=== PATIENT | female | born 1965 | race Caucasian/White ===

== ENCOUNTER 2018-01-22 17:44 | Inpatient (IN) | payer OTHER ==
[~2018-01-22] VITALS: Ht 170.2 cm; Wt 74.7 kg
[~2018-01-22 17:44] MED LIST: 1-ME1LIQ PO; ALBU0.086 NEB; ALPR0.25 PO; ALPR0.5T3 PO; ATEN-104 PO; BAYE325T3 PO; BUSP10 PO; DOXA1 PO; LISI-363 PO; LOVA20TA PO; METF500 PO; NITR0.4D2 TD; OMEP20TA39 PO; PROM25TA5 PO; SPIR50TA21 PO; SYMB80AE INH
[2018-01-22] MEDS ORDERED: MORPHINE SULFATE 4 MG/ML INJ IV PUSH ONE (18:00)
[2018-01-22] MEDS ORDERED: SODIUM CHLORID 0.9% 500 ML INJ 500 ML IV ONE (18:00)
[2018-01-22] MEDS ORDERED: SODIUM CHLORIDE 0.9% FLUSH 10 ML FLUSH IV FLUSH PRN (18:00)
[2018-01-22] MEDS ORDERED: ONDANSETRON HCL 4 MG/2 ML VIAL IVP ONE (18:00)
--- NOTE | 2018-01-22 18:07 | PD ---
HPI Chief Complaint: Abdominal pain Time Seen by Provider: 18:00 Travel History International Travel<30 days: No Contact w/Intl Traveler<30days: No History of Present Illness HPI 52-year-old female patient with history of liver disease, hypertension, COPD, TIAs, presents to the ER today because she states that she has had a 2 month history of increased abdominal bloating, worse in the last few days, nauseous, throwing up, and has been constipated for 4 days. She states that she was admitted a week ago at [facility] in [place] and was treated for elevated blood pressures. She denies any fevers, black stools or blood in the stools, or other symptoms. Pain is rated at 10 out of 10. Modifying Factors: None Associated Signs & Symptoms: Nausea, vomiting, increase abdominal bloating, abdominal pain Risk Factors: None PFSH Past Medical History Cancer: Yes ( cancer of lungs, pt not sure, pt did not have any tx, ovarian ca ,skin) Cardiovascular Problems: Yes (heart attack, no stents placed) Diabetes: Yes Endocrine: Yes Genitourinary: No Hepatitis: No Hiatal Hernia: No Immune Disorder: No Musculoskeletal: Yes (arthritis in feet and hands ) Neurologic: No (mini strokes difficulty walking, neuropathy) Psychiatric: Yes (anxiety) Reproductive: No Respiratory: Yes (copd, wears 2l 02 constantly) Thyroid Disease: Yes (elevated levels) Past Surgical History Abdominal Surgery: Yes (gallbladder) AICD: No Cardiac Surgery: Yes (heart cath 2014) Gynecologic Surgery: Yes (hysterectomy, 3 sections) Joint Replacement: No Pacemaker: No Social History Tobacco Use: No Substance Use: No Allergies-Medications (Allergen,Severity, Reaction): Coded Allergies: No Known Allergies (Unverified , 11/19/15) Reported Meds & Prescriptions Reported Meds & Active Scripts Active Reported Stiolto Respimat Inh (Tiotropium-Olodaterol Inh) 2.5-2.5 Mcg/Act Aero 2 Puff INH DAILY Folic Acid 1 Mg Tablet 1 Mg PO DAILY Lasix (Furosemide) 20 Mg Tab 20 Mg PO DAILY Phenergan (Promethazine HCl) 25 Mg Tablet 25 Mg PO Q8HR PRN Flexeril (Cyclobenzaprine HCl) 10 Mg Tab 10 Mg PO TID Aspirin 325 Mg Tab 325 Mg PO DAILY Methotrexate 2.5 Mg Tab 2.5 Mg PO DAILY Prednisone 5 Mg Tab 5 Mg PO BID Nifedipine ER 24 HR (Nifedipine) 30 Mg Tab 90 Mg PO DAILY Hydrocodone-Acetaminophen 7.5-300 Mg Tab 1 Tab PO TID Omeprazole 40 Mg Cap 40 Mg PO DAILY Alprazolam 0.25 Mg Tab 0.25 Mg PO BID Cefuroxime (Cefuroxime Axetil) 500 Mg Tab 500 Mg PO BID Advair Diskus Inh (Fluticasone-Salmeterol Inh) 500-50 Mcg/Blist Aer 1 Puff INH BID Rinse mouth after use. Proair Hfa (Albuterol Sulfate) 90 Mcg Hfa.aer.ad 1 Puff INH Q6HR PRN Review of Systems Except as stated in HPI: all other systems reviewed are Neg Physical Exam Narrative GENERAL: Well-developed middle-age female patient who appears to be in moderate distress. Awake and oriented 3. SKIN: Focused skin assessment warm/dry. She has several areas of ecchymosis on both arms. A small 3 cm spot of ecchymosis above the umbilicus. HEAD: Atraumatic. Normocephalic. EYES: Pupils equal and round. No scleral icterus. No injection or drainage. ENT: No nasal bleeding or discharge. Mucous membranes pink and moist. NECK: Trachea midline. No JVD. CARDIOVASCULAR: Regular rate and rhythm. No murmur appreciated. RESPIRATORY: No accessory muscle use. Clear to auscultation. Breath sounds equal bilaterally. GASTROINTESTINAL: Abdomen diffusely tender, tensely distended. Hepatic and splenic margins not palpable. MUSCULOSKELETAL: No obvious deformities. No clubbing. No cyanosis. No edema. NEUROLOGICAL: Awake and alert. No obvious cranial nerve deficits. Motor grossly within normal limits. Normal speech. PSYCHIATRIC: Appropriate mood and affect; insight and judgment normal. Data Data Last Documented VS Vital Signs Date Time Temp Pulse Resp B/P (MAP) Pulse Ox O2 Delivery O2 Flow Rate FiO2 01/22/18 18:17 16 01/22/18 18:17 114 188/114 (138) 94 Room Air 01/22/18 18:12 98.9 Orders Orders Complete Blood Count With Diff (01/22/18 18:00) Comprehensive Metabolic Panel (01/22/18 18:00) Lipase (01/22/18 18:00) Urinalysis - C+S If Indicated (01/22/18 18:00) Ct Abd/Pel W Iv Contrast(Rout) (01/22/18 18:00) Iv Access Insert/Monitor (01/22/18 18:00) Ecg Monitoring (01/22/18 18:00) Oximetry (01/22/18 18:00) Morphine Inj (Morphine Inj) (01/22/18 18:00) Ondansetron Inj (Zofran Inj) (01/22/18 18:00) Sodium Chloride 0.9% Flush (Ns Flush) (01/22/18 18:00) Sodium Chlorid 0.9% 500 Ml Inj (Ns 500 M (01/22/18 18:00) Labs Laboratory Tests Test 01/22/18 18:00 White Blood Count 18.3 TH/MM3 Red Blood Count 4.14 MIL/MM3 Hemoglobin 12.5 GM/DL Hematocrit 38.5 % Mean Corpuscular Volume 93.0 FL Mean Corpuscular Hemoglobin 30.1 PG Mean Corpuscular Hemoglobin Concent 32.4 % Red Cell Distribution Width 18.3 % Platelet Count 341 TH/MM3 Mean Platelet Volume 7.1 FL Neutrophils (%) (Auto) 85.3 % Lymphocytes (%) (Auto) 12.7 % Monocytes (%) (Auto) 1.7 % Eosinophils (%) (Auto) 0.1 % Basophils (%) (Auto) 0.2 % Neutrophils # (Auto) 15.6 TH/MM3 Lymphocytes # (Auto) 2.3 TH/MM3 Monocytes # (Auto) 0.3 TH/MM3 Eosinophils # (Auto) 0.0 TH/MM3 Basophils # (Auto) 0.0 TH/MM3 CBC Comment DIFF FINAL Differential Comment Blood Urea Nitrogen 20 MG/DL Creatinine 0.96 MG/DL Random Glucose 116 MG/DL Total Protein 7.5 GM/DL Albumin 2.8 GM/DL Calcium Level 9.0 MG/DL Alkaline Phosphatase 80 U/L Aspartate Amino Transf (AST/SGOT) 31 U/L Alanine Aminotransferase (ALT/SGPT) 92 U/L Total Bilirubin 0.7 MG/DL Sodium Level 131 MEQ/L Potassium Level 4.9 MEQ/L Chloride Level 89 MEQ/L Carbon Dioxide Level 33.2 MEQ/L Anion Gap 9 MEQ/L Estimat Glomerular Filtration Rate 61 ML/MIN Lipase 125 U/L MDM Medical Decision Making Medical Screen Exam Complete: Yes Emergency Medical Condition: Yes Medical Record Reviewed: Yes Interpretation(s) Laboratory Tests Test 01/22/18 18:00 White Blood Count 18.3 TH/MM3 (4.0-11.0) Red Cell Distribution Width 18.3 % (11.6-17.2) Neutrophils (%) (Auto) 85.3 % (16.0-70.0) Neutrophils # (Auto) 15.6 TH/MM3 (1.8-7.7) Blood Urea Nitrogen 20 MG/DL (7-18) Random Glucose 116 MG/DL (74-106) Albumin 2.8 GM/DL (3.4-5.0) Alanine Aminotransferase (ALT/SGPT) 92 U/L (10-53) Sodium Level 131 MEQ/L (136-145) Chloride Level 89 MEQ/L (98-107) Carbon Dioxide Level 33.2 MEQ/L (21.0-32.0) Estimat Glomerular Filtration Rate 61 ML/MIN (>89) Differential Diagnosis Ascites versus obstruction versus other acute intra-abdominal processes Narrative Course Workup was initiated and CAT scan was ordered. Patient was given IV fluids, pain medications and Zofran in the ER. Lab work returned showing leukocytosis. Physician Communication Physician Communication Case is signed out at [address] Little awaiting CAT scan. Diagnosis Primary Impression: Abdominal pain Suzy Adams MD Jan 22, 2018 18:07
[2018-01-22 18:12] VITALS: BP 188/114; PULSE 114; RESP 18; TEMP 98.9; O2SAT 95
[2018-01-22 18:17] VITALS: BP 188/114; PULSE 114; RESP 18; O2SAT 94; O2SAT 95
[2018-01-22] MEDS ORDERED: CEFU1TAB20 PO (18:43)
[2018-01-22] MEDS ORDERED: FOLI1TAB6 PO (18:43)
[2018-01-22] MEDS ORDERED: ALBUAER3 INH (18:43)
[2018-01-22] MEDS ORDERED: ALPR0.25 PO (18:43)
[2018-01-22] MEDS ORDERED: OMEP40CA2 PO (18:43)
[2018-01-22] MEDS ORDERED: METH2.5T PO (18:43)
[2018-01-22] MEDS ORDERED: ADVA500A INH (18:43)
[2018-01-22] MEDS ORDERED: HYDR-2376 PO (18:43)
[2018-01-22] MEDS ORDERED: FURO1TAB62 PO (18:43)
[2018-01-22] MEDS ORDERED: TIOT1AER INH (18:43)
[2018-01-22] MEDS ORDERED: ASPI-183 PO (18:43)
[2018-01-22] MEDS ORDERED: PRED5TAB PO (18:43)
[2018-01-22] MEDS ORDERED: CYCL10TA PO (18:43)
[2018-01-22] MEDS ORDERED: PROM25TA10 PO (18:43)
[2018-01-22] MEDS ORDERED: NIFE30TA61 PO (18:43)
[2018-01-22 18:45] LABS: AUTOMATED NEUTROPHIL # 15.6 TH/MM3 (1.8-7.7); BASOPHIL % 0.2 % (0.0-2.0); EOSINOPHIL % 0.1 % (0.0-4.0); HEMATOCRIT 38.5 % (35.0-46.0); HEMOGLOBIN 12.5 GM/DL (11.6-15.3); LYMPH % 12.7 % (9.0-44.0); LYMPHOCYTE # 2.3 TH/MM3 (1.0-4.8); MEAN CORPUSCULAR HEMOGLOBIN 30.1 PG (27.0-34.0); MEAN CORPUSCULAR HGB CONC 32.4 % (32.0-36.0); MEAN PLATELET VOLUME 7.1 FL (7.0-11.0); MONO % 1.7 % (0.0-8.0); MONOCYTE # 0.3 TH/MM3 (0-0.9); NEUT % 85.3 % (16.0-70.0); PLATELET COUNT 341 TH/MM3 (150-450); RED BLOOD COUNT 4.14 MIL/MM3 (4.00-5.30); RED CELL DISTRIBUTION WIDTH 18.3 % (11.6-17.2); WHITE BLOOD COUNT 18.3 TH/MM3 (4.0-11.0)
[2018-01-22 18:58] LABS: ALBUMIN 2.8 GM/DL (3.4-5.0); ALT (GPT) 92 U/L (10-53); AST (GOT) 31 U/L (15-37); BICARBONATE 33.2 MEQ/L (21.0-32.0); BLOOD UREA NITROGEN 20 MG/DL (7-18); CHLORIDE 89 MEQ/L (98-107); CREATININE 0.96 MG/DL (0.50-1.00); GLOMERULAR FILTRATION RATE 61 ML/MIN (>89); GLUCOSE,RANDOM 116 MG/DL (74-106); SODIUM (NA) 131 MEQ/L (136-145)
[2018-01-22 19:00] LABS: ALKALINE PHOSPHATASE 80 U/L (45-117); TOTAL BILIRUBIN ADULT 0.7 MG/DL (0.2-1.0); TOTAL PROTEIN 7.5 GM/DL (6.4-8.2)
[2018-01-22] MEDS ORDERED: PIPERACIL-TAZO 4.5 GM PREMIX 100 ML IV ONE (19:45)
[2018-01-22] MEDS ORDERED: VANCOMYCIN INJ 1,000 MG in SODIUM CHLOR 0.9% 250 ML INJ 250 ML IV ONE (19:45)
[2018-01-22] MEDS ORDERED: IOHEXOL 350 MG/ML 10 ML VIAL (for RAD DIAG) IVCONTRAST ONE (19:51)
--- NOTE | 2018-01-22 20:28 | RADRPT ---
EXAM DATE/TIME: 01/22/2018 19:40 [facility] COMPARISON: No previous studies available for comparison. INDICATIONS : Abdominal pain and distention. IV CONTRAST: 100 cc Omnipaque 350 (iohexol) IV ORAL CONTRAST: No oral contrast ingested. RADIATION DOSE: 6.30 CTDIvol (mGy) MEDICAL HISTORY : Cardiovascular disease. Chronic obstructive pulmonary disease. Renal disease. Lung cancer. SURGICAL HISTORY : Hysterectomy. section. ENCOUNTER: Initial ACUITY: 2 months PAIN SCALE: 10/10 LOCATION: Abdomen. TECHNIQUE: Volumetric scanning of the abdomen and pelvis was performed. Using automated exposure control and ad justment of the mA and/or kV according to patient size, radiation dose was kept as low as reasonably achievable to obtain optimal diagnostic quality images. DICOM format image data is available electro nically for review and comparison. FINDINGS: There is subsegmental air space disease at the lung bases. Mild ascites. Mild fatty liver. Spleen, adrenals, kidneys pancreas unremarkable. Postoperative cholec ystectomy. There is a small hiatal hernia. The cecum appears impacted with stool and middle findings are characteristic of a distal small bowel obstruction with multiple air-fluid levels in small bowel. The left colon is decompressed. CONCLUSION: 1. Distal small bowel obstruction with multiple air-fluid levels. The cecum is impacted with stool to a diameter of 9.2 cm and it is unclear if this is related to a distal small bowel obstruction. No fr ee air. There is mild ascites. 2. Subsegmental patchy airspace disease at the lung base is trace right pleural fluid. 3. Small hiatal hernia. Tee Herrera MD on January 22, 2018 at 20:20 Board Certified Radiologist. This report was verified electronically.
[2018-01-22 21:00] VITALS: BP 145/76; PULSE 110; RESP 16; O2SAT 92
[2018-01-22] MEDS ORDERED: SODIUM CHLOR 0.9% 1000 ML INJ 1,000 ML IV ONE (21:30)
[2018-01-22] MEDS ORDERED: metroNIDAZOLE 500 MG INJ 100 ML IV ONE (21:30)
[2018-01-22 21:54] LABS: AMORPHOUS SEDIMENT, URINE RARE; BILIRUBIN, URINE NEG (NEG); BLOOD, URINE NEG (NEG); GLUCOSE,URINE NEG (NEG); KETONE, URINE TRACE mg/dL (NEG); MUCUS URINE FEW /lpf (OCC); NITRITE,URINE NEG (NEG); SQUAMOUS EPITHELIAL CELL URINE 3 /hpf (0-5); URINE COLOR YELLOW (YELLW/STRAW); URINE LEUKOCYTE ESTERASE NEG (NEG)
--- NOTE | 2018-01-22 21:58 | PD ---
Physical Exam Narrative Patient signed out to me at shift change pending CT abdomen pelvis and remainder laboratory examinations. Patient has a white blood cell count of 18, 000 that had just resulted. Patient examined en route to CT was noted to have a markedly distended abdomen. Patient CT observed real time, noted to have a large distention, a series primarily around the patient's liver, small bowel obstruction with small bowel noted to be a diameter of 3.5 cm with a possible lead point in the distal small bowel, as well as a noncontiguous large fecal impaction in the sigmoid with approximately 9.2 cm diameter. IV fluids and antibiotics ordered from CT suite. Case discussed with Dr. Yvon Florian from surgery, on consult if need be. Patient discussed with Dr. Poole from gastroenterology. Will consult and discuss management of patient's fecal impaction. NG tube placed. Patient admitted to hospitalist service Data Data Last Documented VS Vital Signs Date Time Temp Pulse Resp B/P (MAP) Pulse Ox O2 Delivery O2 Flow Rate FiO2 01/22/18 21:00 110 16 145/76 (99) 92 Room Air 01/22/18 18:12 98.9 Orders Orders Complete Blood Count With Diff (01/22/18 18:00) Comprehensive Metabolic Panel (01/22/18 18:00) Lipase (01/22/18 18:00) Urinalysis - C+S If Indicated (01/22/18 18:00) Ct Abd/Pel W Iv Contrast(Rout) (01/22/18 18:00) Iv Access Insert/Monitor (01/22/18 18:00) Ecg Monitoring (01/22/18 18:00) Oximetry (01/22/18 18:00) Morphine Inj (Morphine Inj) (01/22/18 18:00) Ondansetron Inj (Zofran Inj) (01/22/18 18:00) Sodium Chloride 0.9% Flush (Ns Flush) (01/22/18 18:00) Sodium Chlorid 0.9% 500 Ml Inj (Ns 500 M (01/22/18 18:00) Piperacil-Tazo 4.5 Gm Premix (Zosyn 4.5 (01/22/18 19:45) Vancomycin Inj (Vancomycin Inj) (01/22/18 19:45) Iohexol 350 Inj (Omnipaque 350 Inj) (01/22/18 19:51) Insert Ng Tube (01/22/18 21:15) Metronidazole 500 Mg Inj (Flagyl 500 Mg (01/22/18 21:30) Consent (01/22/18 21:27) Npo After Midnight W/ Po Meds (01/23/18 Breakfast) Lactic Acid (01/22/18 21:30) Sodium Chlor 0.9% 1000 Ml Inj (Ns 1000 M (01/22/18 21:30) Labs Laboratory Tests Test 01/22/18 18:00 01/22/18 20:55 White Blood Count 18.3 TH/MM3 Red Blood Count 4.14 MIL/MM3 Hemoglobin 12.5 GM/DL Hematocrit 38.5 % Mean Corpuscular Volume 93.0 FL Mean Corpuscular Hemoglobin 30.1 PG Mean Corpuscular Hemoglobin Concent 32.4 % Red Cell Distribution Width 18.3 % Platelet Count 341 TH/MM3 Mean Platelet Volume 7.1 FL Neutrophils (%) (Auto) 85.3 % Lymphocytes (%) (Auto) 12.7 % Monocytes (%) (Auto) 1.7 % Eosinophils (%) (Auto) 0.1 % Basophils (%) (Auto) 0.2 % Neutrophils # (Auto) 15.6 TH/MM3 Lymphocytes # (Auto) 2.3 TH/MM3 Monocytes # (Auto) 0.3 TH/MM3 Eosinophils # (Auto) 0.0 TH/MM3 Basophils # (Auto) 0.0 TH/MM3 CBC Comment DIFF FINAL Differential Comment Blood Urea Nitrogen 20 MG/DL Creatinine 0.96 MG/DL Random Glucose 116 MG/DL Total Protein 7.5 GM/DL Albumin 2.8 GM/DL Calcium Level 9.0 MG/DL Alkaline Phosphatase 80 U/L Aspartate Amino Transf (AST/SGOT) 31 U/L Alanine Aminotransferase (ALT/SGPT) 92 U/L Total Bilirubin 0.7 MG/DL Sodium Level 131 MEQ/L Potassium Level 4.9 MEQ/L Chloride Level 89 MEQ/L Carbon Dioxide Level 33.2 MEQ/L Anion Gap 9 MEQ/L Estimat Glomerular Filtration Rate 61 ML/MIN Lipase 125 U/L Urine Color YELLOW Urine Turbidity HAZY Urine pH 8.0 Urine Specific [place] 1.047 Urine Protein TRACE mg/dL Urine Glucose (UA) NEG mg/dL Urine Ketones TRACE mg/dL Urine Occult Blood NEG Urine Nitrite NEG Urine Bilirubin NEG Urine Urobilinogen 4.0 MG/DL Urine Leukocyte Esterase NEG Urine RBC 2 /hpf Urine WBC 3 /hpf Urine Squamous Epithelial Cells 3 /hpf Urine Amorphous Sediment RARE Urine Mucus FEW /lpf Microscopic Urinalysis Comment CULT NOT INDICATED MDM Medical Record Reviewed: Yes Supervised Visit with PHILIPPE: Yes Differential Diagnosis Fecal impaction, small bowel obstruction Narrative Course See narrative note. Admitted Diagnosis Primary Impression: Abdominal pain Qualified Codes: R10.84 - Generalized abdominal pain Additional Impressions: Fecal impaction Small bowel obstruction Admitting Information Admitting Physician Requests: Admit Rodrick Little MD Jan 22, 2018 21:58
[2018-01-22] MEDS ORDERED: NALOXONE HCL 0.4 MG/ML AMP IV PUSH PRN (22:45)
[2018-01-22 23:01] VITALS: BP 145/70; PULSE 117; RESP 16; O2SAT 92
[2018-01-23 02:37] VITALS: BP 167/91; PULSE 107; RESP 17; TEMP 98.3; O2SAT 98
[2018-01-23] MEDS: MORPHINE SULFATE 2 MG/ML SYRINGE IV PUSH PRN ×3 (03:59→10:19)
[2018-01-23] MEDS: SODIUM CHLORIDE 0.9% FLUSH 10 ML FLUSH IV FLUSH PRN (03:59)
[2018-01-23 04:37] LABS: AUTOMATED NEUTROPHIL # 10.8 TH/MM3 (1.8-7.7); BASOPHIL % 0.3 % (0.0-2.0); EOSINOPHIL % 0.3 % (0.0-4.0); HEMATOCRIT 35.4 % (35.0-46.0); HEMOGLOBIN 11.6 GM/DL (11.6-15.3); LYMPH % 13.6 % (9.0-44.0); LYMPHOCYTE # 1.8 TH/MM3 (1.0-4.8); MEAN CELL VOLUME 92.1 FL (80.0-100.0); MEAN CORPUSCULAR HEMOGLOBIN 30.2 PG (27.0-34.0); MEAN CORPUSCULAR HGB CONC 32.8 % (32.0-36.0); MEAN PLATELET VOLUME 7.1 FL (7.0-11.0); MONO % 2.7 % (0.0-8.0); MONOCYTE # 0.3 TH/MM3 (0-0.9); NEUT % 83.1 % (16.0-70.0); PLATELET COUNT 334 TH/MM3 (150-450); RED BLOOD COUNT 3.85 MIL/MM3 (4.00-5.30); RED CELL DISTRIBUTION WIDTH 18.6 % (11.6-17.2); WHITE BLOOD COUNT 12.9 TH/MM3 (4.0-11.0)
--- NOTE | 2018-01-23 05:12 | HHI.HP ---
[facility] Primary Care Physician Non-Staff Admission Diagnosis SBO, Fecal Impaction Diagnoses: Travel History International Travel<30 Days: No Contact w/Intl Traveler <30 Da: No Traveled to Known Affected Are: No History of Present Illness History from patient, ER communication, interview of medical records. Patient is in quite a bit of distress at the time of my exam. She is covering her eyes the whole time. She is pleasant though. She reports that she's been very nauseous and felt headaches. She reports she came to the hospital she's been having abdominal pain for the past few days. Reports it is diffuse everywhere. Reports she has been vomiting at least 3 times a day as well. Reports she initially started out with diarrhea episodes and now has been constipated for past few days. Denies fever. Denies any blood in her stool or in her urine. Denies any coffee-ground color vomiting. Patient denies any prior history of similar episodes. According to the nursing staff who spoke to the daughter, patient was at [facility] with similar symptoms. Nothing was done at that time. Patient reports of prior history of intra-abdominal surgeries. The emergency room, patient's further workup revealed small bowel obstruction with fecal impaction. Her case was discussed with general surgeon on-call by ER physician. Patient had NG tube placed in ER. Currently it is draining minimal. Review of Systems Except as stated in HPI: all other systems reviewed are Neg Past Family Social History Past Medical History Hypertension Diabetes Hyperlipidemia CAD CHF Atrial fibrillation Possible chronic anticoagulation on Coumadin per patient COPD on home oxygen 2 L Liver cirrhosis Chronic kidney disease TIA History of seizures but no longer on medications History of lung cancer many years ago. She states she did not get any treatment with chemoradiation. She is not sure regarding lobectomy. Past Surgical History lung biopsy coronary angiogram appendectomy hysterectomy cholecystectomy Allergies: Coded Allergies: No Known Allergies (Unverified , 11/19/15) Family History none that she knows of Social History smokes >1 ppd now no etoh abuse no drugs lives with family members Physical Exam Vital Signs Vital Signs Date Time Temp Pulse Resp B/P (MAP) Pulse Ox O2 Delivery O2 Flow Rate FiO2 01/23/18 02:37 98.3 107 17 167/91 (116) 98 01/22/18 23:01 117 16 145/70 (95) 92 Nasal Cannula 2.00 01/22/18 21:00 110 16 145/76 (99) 92 Room Air 01/22/18 18:17 16 01/22/18 18:17 114 18 188/114 (138) 94 Room Air 01/22/18 18:17 114 18 188/114 (138) 95 Room Air 01/22/18 18:12 98.9 114 18 188/114 (138) 95 Physical Exam GENERAL: This is a well-nourished, well-developed patient, in no apparent distress from pain SKIN: No rashes, ecchymoses or lesions. Cool and dry. HEAD: Atraumatic. Normocephalic. No temporal or scalp tenderness. EYES: No scleral icterus. No injection or drainage. ENT: Nose without bleeding, purulent drainage or septal hematoma. . Airway patent. NECK: Trachea midline. No JVD Supple, nontender, no meningeal signs. CARDIOVASCULAR: Regular rate and rhythm without murmurs, gallops, or rubs. RESPIRATORY: Clear to auscultation. Breath sounds equal bilaterally. No wheezes , rales, or rhonchi. GASTROINTESTINAL: Abdomen distended. Scant bowel sounds. Pain on palpation MUSCULOSKELETAL: Extremities without clubbing, cyanosis, or edema. No calf tenderness. NEUROLOGICAL: Awake and alert. Motor and sensory grossly within normal limits. Normal speech. Laboratory Laboratory Tests Test 01/22/18 18:00 01/22/18 20:55 01/22/18 21:50 01/23/18 04:08 White Blood Count 18.3 12.9 Red Blood Count 4.14 3.85 Hemoglobin 12.5 11.6 Hematocrit 38.5 35.4 Mean Corpuscular Volume 93.0 92.1 Mean Corpuscular Hemoglobin 30.1 30.2 Mean Corpuscular Hemoglobin Concent 32.4 32.8 Red Cell Distribution Width 18.3 18.6 Platelet Count 341 334 Mean Platelet Volume 7.1 7.1 Neutrophils (%) (Auto) 85.3 83.1 Lymphocytes (%) (Auto) 12.7 13.6 Monocytes (%) (Auto) 1.7 2.7 Eosinophils (%) (Auto) 0.1 0.3 Basophils (%) (Auto) 0.2 0.3 Neutrophils # (Auto) 15.6 10.8 Lymphocytes # (Auto) 2.3 1.8 Monocytes # (Auto) 0.3 0.3 Eosinophils # (Auto) 0.0 0.0 Basophils # (Auto) 0.0 0.0 CBC Comment DIFF FINAL DIFF FINAL Differential Comment Blood Urea Nitrogen 20 Creatinine 0.96 Random Glucose 116 Total Protein 7.5 Albumin 2.8 Calcium Level 9.0 Alkaline Phosphatase 80 Aspartate Amino Transf (AST/SGOT) 31 Alanine Aminotransferase (ALT/SGPT) 92 Total Bilirubin 0.7 Sodium Level 131 Potassium Level 4.9 Chloride Level 89 Carbon Dioxide Level 33.2 Anion Gap 9 Estimat Glomerular Filtration Rate 61 Lipase 125 Urine Color YELLOW Urine Turbidity HAZY Urine pH 8.0 Urine Specific [place] 1.047 Urine Protein TRACE Urine Glucose (UA) NEG Urine Ketones TRACE Urine Occult Blood NEG Urine Nitrite NEG Urine Bilirubin NEG Urine Urobilinogen 4.0 Urine Leukocyte Esterase NEG Urine RBC 2 Urine WBC 3 Urine Squamous Epithelial Cells 3 Urine Amorphous Sediment RARE Urine Mucus FEW Microscopic Urinalysis Comment CULT NOT INDICATED Lactic Acid Level 0.8 Result Diagram: 01/23/18 0408 01/22/18 1800 Imaging Last 48 hours Impressions Abdomen/Pelvis CT 01/22/18 1800 Signed Impressions: Service Date/Time: Monday, January 22, 2018 19:40 - CONCLUSION: 1. Distal small bowel obstruction with multiple air-fluid levels. The cecum is impacted with stool to a diameter of 9.2 cm and it is unclear if this is related to a distal small bowel obstruction. No free air. There is mild ascites. 2. Subsegmental patchy airspace disease at the lung base is trace right pleural fluid. 3. Small hiatal hernia. Tee Herrera MD Caprini VTE Risk Assessment Caprini VTE Risk Assessment: Mod/High Risk (score >= 2) Caprini Risk Assessment Model Point Value = 1 Point Value = 2 Point Value = 3 Point Value = 5 Age 41-60 Minor surgery BMI > 25 kg/m2 Swollen legs Varicose veins or History of unexplained or recurrent spontaneous Oral contraceptives or hormone replacement Sepsis (< 1 month) Serious lung disease, including pneumonia (< 1 month) Abnormal pulmonary function Acute myocardial infarction Congestive heart failure (< 1 month) History of inflammatory bowel disease Medical patient at bed rest Age 61-74 Arthroscopic surgery Major open surgery (> 45 min) Laparoscopic surgery (> 45 min) Malignancy Confined to bed (> 72 hours) Immobilizing plaster cast Central venous access Age >= 75 History of VTE Family history of VTE Factor V Leiden Prothrombin [id number] Lupus anticoagulant Anticardiolipin antibodies Elevated serum homocysteine Heparin-induced thrombocytopenia Other congenital or acquired thrombophilia Stroke (< 1 month) Elective arthroplasty Hip, pelvis, or leg fracture Acute spinal cord injury (< 1 month) Prophylaxis Regimen Total Risk Factor Score Risk Level Prophylaxis Regimen 0-1 Low Early ambulation 2 Moderate Order ONE of the following: *Sequential Compression Device (SCD) *Heparin 5000 units SQ BID 3-4 Higher Order ONE of the following medications: *Heparin 5000 units SQ TID *Enoxaparin/Lovenox 40 mg SQ daily (WT < 150 kg, CrCl > 30 mL/min) *Enoxaparin/Lovenox 30 mg SQ daily (WT < 150 kg, CrCl > 10-29 mL/min) *Enoxaparin/Lovenox 30 mg SQ BID (WT < 150 kg, CrCl > 30 mL/min) AND/OR *Sequential Compression Device (SCD) 5 or more Highest Order ONE of the following medications: *Heparin 5000 units SQ TID (Preferred with Epidurals) *Enoxaparin/Lovenox 40 mg SQ daily (WT < 150 kg, CrCl > 30 mL/min) *Enoxaparin/Lovenox 30 mg SQ daily (WT < 150 kg, CrCl > 10-29 mL/min) *Enoxaparin/Lovenox 30 mg SQ BID (WT < 150 kg, CrCl > 30 mL/min) AND *Sequential Compression Device (SCD) Assessment and Plan Assessment and Plan Impression: Small bowel obstruction Cecal fecal impaction Leukocytosis with left shift Comorbid conditions: Hypertension Diabetes Hyperlipidemia CAD CHF Atrial fibrillation Possible chronic anticoagulation on Coumadin per patient COPD on home oxygen 2 L Liver cirrhosis Chronic kidney disease TIA History of seizures but no longer on medications History of lung cancer many years ago. Plan: Nothing by mouth. IV hydration. With D5 IV fluids Monitor fingersticks. Pain control. We'll check stat labs for this morning including INR. Patient is still in me that she takes Coumadin. However this is not on her med reconciliation which was done by pharmacy informatics manager calling her pharmacy. We'll need to make sure her INR in case patient goes for OR. GI consult for disimpaction by scope. General surgery consult. Suspect that this patient will likely end up in OR within the next 24-48 hours if she doesn't improve for lysis of adhesions. NG tube to continue at low intermittent suction. Minimal draining. Abdominal exam is not much improving. Resume home meds apart from long-acting insulin and oral hypoglycemics. DVT prophylaxis with SCD. GI prophylaxis on pantoprazole. Discussed Condition With patient, ER MD, nursing staff Physician Certification 2 Midnight Certification Type: Admission for Inpatient Services Order for Inpatient Services The services are ordered in accordance with Medicare regulations or non- Medicare payer requirements, as applicable. In the case of services not specified as inpatient-only, they are appropriately provided as inpatient services in accordance with the 2-midnight benchmark. Estimated LOS (days): 4 days is the estimated time the patient will need to remain in the hospital, assuming treatment plan goals are met and no additional complications. Post-Hospital Plan: Home Giselle Tello MD Jan 23, 2018 05:12
[2018-01-23 05:13] LABS: BICARBONATE 26.1 MEQ/L (21.0-32.0); BLOOD UREA NITROGEN 19 MG/DL (7-18); CALCIUM 8.4 MG/DL (8.5-10.1); CHLORIDE 96 MEQ/L (98-107); CREATININE 0.76 MG/DL (0.50-1.00); GLOMERULAR FILTRATION RATE 79 ML/MIN (>89); GLUCOSE,RANDOM 95 MG/DL (74-106); SODIUM (NA) 133 MEQ/L (136-145)
[2018-01-23] MEDS: INSULIN ASPART SUPPLEMENTAL SCALE SQ SCH ×5 (05:30→22:14)
[2018-01-23] MEDS ORDERED: DEXTROSE 50% IN WATER 50 ML VIAL(D50) IV PUSH PRN (05:30)
[2018-01-23] MEDS ORDERED: GLUCAGON 1 MG/ML VIAL OTHER PRN (05:30)
[2018-01-23] MEDS: D5-1/2 NS + KCL 20 MEQ INJ 1,000 ML IV SCH ×2 (06:23→15:30)
[2018-01-23] MEDS: PANTOPRAZOLE SODIUM 40 MG VIAL IV PUSH SCH ×2 (06:28→16:55)
--- NOTE | 2018-01-23 08:50 | PD.CONS ---
HPI History of Present Illness This is a 52 year old who presented to ER for abd pain, n/v. Onset 1 month ago. She says she hasn't been able to eat in 4 days d/t decreased appetite and nausea. ABD pain is constant. Last BM was [address] showed distal small bowel impaction with air flu8id levels, stool impaction in cecum. She last had colonoscopy locally 4 y ago, can recall no further details. Takes daily aspirin and coumadin. She has been taking opioid pain meds just in the last few months for RA and OA. Pt is reluctant historian. (Meme Olmos) PFSH Past Medical History htn dm hyperlipidemia cad chf afib on coumadin copd on home oxygen 2L 28/05 cirrhosis ckd tia seizures- but no longer on meds lung cancer- many years ago = but stated no treatment, no chemo , no radiation Past Surgical History lung biopsy coronary angiogram appendectomy hysterectomy cholecystectomy (Meme Olmos) Coded Allergies: No Known Allergies (Unverified , 11/19/15) Family History none that she knows of Social History smokes >1 ppd now no etoh abuse no drugs lives with family members (Meme Olmos) Review of Systems Constitutional: DENIES: Fever Endocrine: DENIES: Polydipsia Eyes: DENIES: Blurred vision Ears, nose, mouth, throat: DENIES: Hearing loss Respiratory: DENIES: Cough Cardiovascular: DENIES: Chest pain Gastrointestinal: COMPLAINS OF: Abdominal pain, Constipation, Nausea, Vomiting Genitourinary: DENIES: Hematuria Musculoskeletal: COMPLAINS OF: Muscle aches Integumentary: DENIES: Rash Hematologic/lymphatic: DENIES: Bruising Immunologic/allergic: DENIES: Eczema Neurologic: DENIES: Abnormal gait Psychiatric: DENIES: Confusion (Meme Olmos) GI Exam Vitals I&O Vital Signs Date Time Temp Pulse Resp B/P (MAP) Pulse Ox O2 Delivery O2 Flow Rate FiO2 01/23/18 02:37 98.3 107 17 167/91 (116) 98 01/22/18 23:01 117 16 145/70 (95) 92 Nasal Cannula 2.00 01/22/18 21:00 110 16 145/76 (99) 92 Room Air 01/22/18 18:17 16 01/22/18 18:17 114 18 188/114 (138) 94 Room Air 01/22/18 18:17 114 18 188/114 (138) 95 Room Air 01/22/18 18:12 98.9 114 18 188/114 (138) 95 I/O 01/22/18 01/22/18 01/22/18 01/23/18 01/23/18 01/23/18 07:00 15:00 23:00 07:00 15:00 23:00 Intake Total 600 ml 500 ml Balance 600 ml 500 ml Intake IV Total 600 ml 500 ml Imaging Last Impressions Abdomen/Pelvis CT 01/22/18 1800 Signed Impressions: Service Date/Time: Monday, January 22, 2018 19:40 - CONCLUSION: 1. Distal small bowel obstruction with multiple air-fluid levels. The cecum is impacted with stool to a diameter of 9.2 cm and it is unclear if this is related to a distal small bowel obstruction. No free air. There is mild ascites. 2. Subsegmental patchy airspace disease at the lung base is trace right pleural fluid. 3. Small hiatal hernia. Tee Herrera MD Laboratory Test 01/22/18 18:00 01/22/18 20:55 01/22/18 21:50 01/23/18 04:08 White Blood Count 18.3 TH/MM3 12.9 TH/MM3 Red Blood Count 4.14 MIL/MM3 3.85 MIL/MM3 Hemoglobin 12.5 GM/DL 11.6 GM/DL Hematocrit 38.5 % 35.4 % Mean Corpuscular Volume 93.0 FL 92.1 FL Mean Corpuscular Hemoglobin 30.1 PG 30.2 PG Mean Corpuscular Hemoglobin Concent 32.4 % 32.8 % Red Cell Distribution Width 18.3 % 18.6 % Platelet Count 341 TH/MM3 334 TH/MM3 Mean Platelet Volume 7.1 FL 7.1 FL Neutrophils (%) (Auto) 85.3 % 83.1 % Lymphocytes (%) (Auto) 12.7 % 13.6 % Monocytes (%) (Auto) 1.7 % 2.7 % Eosinophils (%) (Auto) 0.1 % 0.3 % Basophils (%) (Auto) 0.2 % 0.3 % Neutrophils # (Auto) 15.6 TH/MM3 10.8 TH/MM3 Lymphocytes # (Auto) 2.3 TH/MM3 1.8 TH/MM3 Monocytes # (Auto) 0.3 TH/MM3 0.3 TH/MM3 Eosinophils # (Auto) 0.0 TH/MM3 0.0 TH/MM3 Basophils # (Auto) 0.0 TH/MM3 0.0 TH/MM3 CBC Comment DIFF FINAL DIFF FINAL Differential Comment Blood Urea Nitrogen 20 MG/DL 19 MG/DL Creatinine 0.96 MG/DL 0.76 MG/DL Random Glucose 116 MG/DL 95 MG/DL Total Protein 7.5 GM/DL Albumin 2.8 GM/DL Calcium Level 9.0 MG/DL 8.4 MG/DL Alkaline Phosphatase 80 U/L Aspartate Amino Transf (AST/SGOT) 31 U/L Alanine Aminotransferase (ALT/SGPT) 92 U/L Total Bilirubin 0.7 MG/DL Sodium Level 131 MEQ/L 133 MEQ/L Potassium Level 4.9 MEQ/L 4.1 MEQ/L Chloride Level 89 MEQ/L 96 MEQ/L Carbon Dioxide Level 33.2 MEQ/L 26.1 MEQ/L Anion Gap 9 MEQ/L 11 MEQ/L Estimat Glomerular Filtration Rate 61 ML/MIN 79 ML/MIN Lipase 125 U/L Urine Color YELLOW Urine Turbidity HAZY Urine pH 8.0 Urine Specific [place] 1.047 Urine Protein TRACE mg/dL Urine Glucose (UA) NEG mg/dL Urine Ketones TRACE mg/dL Urine Occult Blood NEG Urine Nitrite NEG Urine Bilirubin NEG Urine Urobilinogen 4.0 MG/DL Urine Leukocyte Esterase NEG Urine RBC 2 /hpf Urine WBC 3 /hpf Urine Squamous Epithelial Cells 3 /hpf Urine Amorphous Sediment RARE Urine Mucus FEW /lpf Microscopic Urinalysis Comment CULT NOT INDICATED Lactic Acid Level 0.8 mmol/L Physical Examination HEENT: PERRL; normocephalic; atraumatic; no jaundice. CHEST: CTA CARDIAC: RRR ABDOMEN: semifirm, distended,diffuse TTP; no hepatosplenomegaly; bowel sounds soft. EXTREMITIES: No clubbing, cyanosis, or edema. SKIN: Normal; no rash; no jaundice. COPYRIGHT CLERK: No focal deficits; alert and oriented times three. (Meme Olmos) Assessment and Plan Plan ASSESSMENT - abd pain, n/v - fecal impaction with SBO. Has been on opioids the last few months. CT showing distal SBO, cecal stool impaction. never had before. last colonoscopy 4 y ago and can recall no details PLAN - colonoscopy with decompression today - obtain consent - NPO - NGT to LIWS - will need aggressive bowel regimen if continues opioids, d/w pts - further recs to follow pt seen by myself and Dr Poole and this note is on her behalf (Meme Olmos) Physician Comments seen, examined agree with above further management based on colon result (Sayra Poole MD) Meme Olmos Jan 23, 2018 08:49 Sayra Poole MD Jan 23, 2018 18:33
[2018-01-23] MEDS: SODIUM CHLORIDE 0.9% FLUSH 10 ML FLUSH IV FLUSH SCH ×2 (09:00→20:31)
[2018-01-23] MEDS: STIOLTO PO SCH (09:00)
[2018-01-23] MEDS ORDERED: PANTOPRAZOLE SOD 40 MG DELAYED RELEASE TAB PO SCH (09:00)
[2018-01-23 09:20] VITALS: BP 162/97; PULSE 107; RESP 19; TEMP 98.8; O2SAT 98
[2018-01-23 10:02] LABS: ALBUMIN 2.4 GM/DL (3.4-5.0); ALKALINE PHOSPHATASE 83 U/L (45-117); ALT (GPT) 110 U/L (10-53); AST (GOT) 64 U/L (15-37); TOTAL BILIRUBIN ADULT 0.8 MG/DL (0.2-1.0); TOTAL PROTEIN 6.6 GM/DL (6.4-8.2)
[2018-01-23] MEDS: BUDESONIDE-FORMOTEROL 160/4.5 MCG INHALER INH SCH ×2 (10:15→21:50)
[2018-01-23] MEDS: predniSONE 5 MG TAB PO SCH ×2 (10:16→20:30)
[2018-01-23] MEDS: FOLIC ACID 1 MG TAB PO SCH (10:16)
[2018-01-23] MEDS: DOCUSATE SODIUM 100 MG/10 ML UDC PO SCH ×2 (10:16→21:50)
[2018-01-23] MEDS: CYCLOBENZAPRINE HCL 10 MG TAB PO SCH ×3 (10:16→18:00)
[2018-01-23] MEDS: NIFEdipine 90 MG SUSTAINED RELEASE TAB PO SCH (10:16)
[2018-01-23] MEDS: ALPRAZolam 0.25 MG TAB PO SCH ×2 (10:17→20:30)
[2018-01-23] MEDS ORDERED: LIDOCAINE HCL 1% PF 5 ML SYRINGE OTHER ONE (12:00)
[2018-01-23] MEDS ORDERED: ONDANSETRON HCL 4 MG/2 ML VIAL IV ONE (12:00)
[2018-01-23] MEDS ORDERED: PROPOFOL 200 MG/20 ML AMP IV ONE (12:00)
[2018-01-23] MEDS ORDERED: DEXAMETHASONE SOD PHOS 4 MG/ML VIAL IV ONE (12:00)
[2018-01-23] MEDS ORDERED: LABETALOL HCL 100 MG/20 ML VIAL IV ONE (12:00)
[2018-01-23] MEDS ORDERED: SUCCINYLCHOLINE CHLORIDE 100 MG/5 ML SYRINGE IV PUSH ONE (12:00)
[2018-01-23] MEDS ORDERED: hydrALAZINE HCL 20 MG/ML VIAL IV ONE (12:00)
[2018-01-23] MEDS ORDERED: METOPROLOL TARTRATE 5 MG/5 ML VIAL IV ONE (12:00)
[2018-01-23 13:07] VITALS: BP 160/92; PULSE 106; RESP 17; TEMP 100.4; O2SAT 97
--- NOTE | 2018-01-23 14:18 | HHI.PR ---
Subjective Remarks Late entry. Patient seen at ~0900 this morning. Follow-up small bowel obstruction. Patient reports abdominal discomfort, distention. She has nausea as well. Objective Vitals Vital Signs Date Time Temp Pulse Resp B/P (MAP) Pulse Ox O2 Delivery O2 Flow Rate FiO2 01/23/18 13:07 100.4 106 17 160/92 (114) 97 01/23/18 10:24 18 01/23/18 09:20 98.8 107 19 162/97 (118) 98 01/23/18 02:37 98.3 107 17 167/91 (116) 98 01/22/18 23:01 117 16 145/70 (95) 92 Nasal Cannula 2.00 01/22/18 21:00 110 16 145/76 (99) 92 Room Air 01/22/18 18:17 16 01/22/18 18:17 114 18 188/114 (138) 94 Room Air 01/22/18 18:17 114 18 188/114 (138) 95 Room Air 01/22/18 18:12 98.9 114 18 188/114 (138) 95 I/O 01/22/18 01/22/18 01/22/18 01/23/18 01/23/18 01/23/18 07:00 15:00 23:00 07:00 15:00 23:00 Intake Total 600 ml 500 ml Balance 600 ml 500 ml Intake IV Total 600 ml 500 ml Result Diagram: 01/23/18 0408 01/23/18 0408 Imaging Last Impressions Abdomen/Pelvis CT 01/22/18 1800 Signed Impressions: Service Date/Time: Monday, January 22, 2018 19:40 - CONCLUSION: 1. Distal small bowel obstruction with multiple air-fluid levels. The cecum is impacted with stool to a diameter of 9.2 cm and it is unclear if this is related to a distal small bowel obstruction. No free air. There is mild ascites. 2. Subsegmental patchy airspace disease at the lung base is trace right pleural fluid. 3. Small hiatal hernia. Tee Herrera MD Objective Remarks General: No acute distress. NG tube in place. Heart: Regular rate and rhythm. No murmur. Lungs: Clear to auscultation bilaterally. No wheezes, rales, or rhonchi. Breathing is nonlabored. Abdomen: Soft, diffusely tender, distended. Decreased bowel sounds. Extremities: No lower extremity edema. Psych: Alert and oriented. Procedures None Urinary Catheter: No Vascular Central Line Catheter: No A/P Assessment and Plan 1. Small bowel obstruction, cecal fecal impaction: Appreciate GI, general surgery recommendations. Going for decompressive colonoscopy. NG tube to suction. N.p.o. Continue bowel regimen. 2. Hypertension: Continue Procardia XL. 3. Diabetes mellitus: Monitor Accu-Cheks and cover with sliding scale insulin. 4. Hyperlipidemia: Not on statin. Will avoid secondary to elevated LFTs. 5. Coronary artery disease, chronic congestive heart failure: Currently asymptomatic. Continue Lasix. 6. COPD on home oxygen: Continue inhalers, supplemental oxygen. 7. Atrial fibrillation: Continue calcium channel miguelina. Aspirin on hold. 8. GI prophylaxis: Protonix. 9. DVT prophylaxis: SCDs. Moses Harper MD Jan 23, 2018 14:18
--- NOTE | 2018-01-23 14:31 | PD.CONS ---
cc: Td Amaro MD [facility] Service General Surgery Consult Requested By Dr. Tello Reason for Consult Small bowel obstruction Primary Care Physician Non-Staff History of Present Illness This is a 52 year old female with a past medical history of hypertension, diabetes mellitus, dyslipidemia, CAD, CHF, atrial fibrillation on Coumadin, COPD on home oxygen, liver cirrhosis, chronic kidney dysfunction, TIA, seizures and lung cancer. The patient presented this morning with complaints of abdominal pain and bloating. The patient was just recently admitted to [facility] with the same complaints and discharged home on Sunday. She reports they did not do any images or procedures. She reports her last bowel movement was 2- 3 days ago which was soft brown. A CT abdomen/pelvis was obtained which shows that the cecum is impacted with stool. The patient has a mildly elevated WBC. She is unsure the last time she took her Coumadin. An NGT was placed. Gastroenterology has been consulted as well and planning for colonoscopy today. A General Surgery consultation has been requested. Review of Systems Constitutional: DENIES: Fatigue, Weight loss, Change in appetite Endocrine: DENIES: Polydipsia, Polyuria, Polyphagia Eyes: DENIES: Diplopia, Eye inflammation Ears, nose, mouth, throat: DENIES: Hearing loss, Vertigo Respiratory: DENIES: Cough Cardiovascular: DENIES: Chest pain Gastrointestinal: COMPLAINS OF: Abdominal pain, Nausea, Vomiting Genitourinary: DENIES: Urinary frequency Musculoskeletal: DENIES: Joint pain Integumentary: DENIES: Abnormal pigmentation Hematologic/lymphatic: DENIES: Bruising Immunologic/allergic: DENIES: Eczema Neurologic: DENIES: Headache, Localized weakness Psychiatric: DENIES: Mood changes, Depression, Hallucinations Past Family Social History Past Medical History Hypertension Diabetes mellitus Dyslipidemia CAD CHF Atrial fibrillation on Coumadin COPD on home oxygen Liver cirrhosis Chronic kidney dysfunction TIA Seizures Lung cancer Past Surgical History Lung biopsy Cardiac catheterization Laparoscopic appendectomy Laparoscopic cholecystectomy Total open hysterectomy Reported Medications Phenergan Cefuroxine Methotrexate Tiotropium-Olodaterol Proair Flexeril Nifedipine ER Aspirin Hydrocodone Alprazolam Lasix Advair Omeprazole Prednisone Folic acid Allergies: Coded Allergies: No Known Allergies (Unverified , 11/19/15) Active Ordered Medications Current Medications Medications (Trade) Dose Ordered Sig/Stevie Route Start Time Stop Time Status Last Admin (NS Flush) 2 ml UNSCH PRN IV FLUSH 01/22/18 22:45 01/23/18 03:59 (NS Flush) 2 ml BID IV FLUSH 01/23/18 09:00 (Narcan Inj) 0.4 mg UNSCH PRN IV PUSH 01/22/18 22:45 (Colace Liq) 100 mg Q12HR PO 01/23/18 09:00 01/23/18 10:16 (Morphine Inj) 2 mg Q3H PRN IV PUSH 01/23/18 03:45 01/23/18 10:19 (Xanax) 0.25 mg BID PO 01/23/18 09:00 01/23/18 10:17 (Flexeril) 10 mg TID PO 01/23/18 09:00 01/23/18 10:16 (Folate) 1 mg DAILY PO 01/23/18 09:00 01/23/18 10:16 (Procardia Xl) 90 mg DAILY PO 01/23/18 09:00 01/23/18 10:16 (Deltasone) 5 mg BID PO 01/23/18 09:00 01/23/18 10:16 (Symbicort 160-4.5 Mcg Inh) 2 puff BID INH 01/23/18 09:00 01/23/18 10:15 (Protonix) 40 mg DAILY PO 01/23/18 09:00 01/23/18 10:17 Patient Own Medication PT OWN MED: STIO... DAILY PO 01/23/18 09:00 (Protonix Inj) 40 mg Q12H IV PUSH 01/23/18 05:30 01/23/18 06:28 Potassium Chloride/Dextrose/ Sod Cl 1,000 ml @ 100 mls/hr Q10H IV 01/23/18 05:30 01/23/18 06:23 (D50w (Vial) Inj) 50 ml UNSCH PRN IV PUSH 01/23/18 05:30 (Glucagon Inj) 1 mg UNSCH PRN OTHER 01/23/18 05:30 (NovoLOG SUPPLEMENTAL SCALE) 1 Q4H SQ 01/23/18 05:30 Family History Noncontributory Social History + tobacco use ---- > 1 ppd for many years Denies currently ETOH use; used to be a heavy drinker in the past (more than 20 years ago) Denies illicit drug use Lives with her son. Physical Exam Vital Signs Vital Signs Date Time Temp Pulse Resp B/P (MAP) Pulse Ox O2 Delivery O2 Flow Rate FiO2 01/23/18 13:07 100.4 106 17 160/92 (114) 97 01/23/18 10:24 18 01/23/18 09:20 98.8 107 19 162/97 (118) 98 01/23/18 02:37 98.3 107 17 167/91 (116) 98 01/22/18 23:01 117 16 145/70 (95) 92 Nasal Cannula 2.00 01/22/18 21:00 110 16 145/76 (99) 92 Room Air 01/22/18 18:17 16 01/22/18 18:17 114 18 188/114 (138) 94 Room Air 01/22/18 18:17 114 18 188/114 (138) 95 Room Air 01/22/18 18:12 98.9 114 18 188/114 (138) 95 Physical Exam GENERAL: 52 year old female appearing much older than stated age. SKIN: Warm and dry. HEAD: Atraumatic. Normocephalic. EYES: Pupils equal and round. No scleral icterus. No injection or drainage. ENT: No nasal bleeding or discharge. Mucous membranes pink and moist. NECK: Trachea midline. CARDIOVASCULAR: Regular rate and rhythm. RESPIRATORY: No accessory muscle use. Clear to auscultation. Breath sounds equal bilaterally. GASTROINTESTINAL: Abdomen distended; tender throughout to palpation; hypoactive bowel sounds. Low transverse well healed scar. Faint prior laparoscopic scars. No hernias. MUSCULOSKELETAL: Extremities without clubbing, cyanosis, or edema. No obvious deformities. NEUROLOGICAL: Awake and alert. No obvious cranial nerve deficits. Motor grossly within normal limits. Five out of 5 muscle strength in the arms and legs. Normal speech. PSYCHIATRIC: Appropriate mood and affect; insight and judgment normal. Laboratory Laboratory Tests Test 01/22/18 18:00 01/22/18 20:55 01/22/18 21:50 01/23/18 04:08 White Blood Count 18.3 12.9 Red Blood Count 4.14 3.85 Hemoglobin 12.5 11.6 Hematocrit 38.5 35.4 Mean Corpuscular Volume 93.0 92.1 Mean Corpuscular Hemoglobin 30.1 30.2 Mean Corpuscular Hemoglobin Concent 32.4 32.8 Red Cell Distribution Width 18.3 18.6 Platelet Count 341 334 Mean Platelet Volume 7.1 7.1 Neutrophils (%) (Auto) 85.3 83.1 Lymphocytes (%) (Auto) 12.7 13.6 Monocytes (%) (Auto) 1.7 2.7 Eosinophils (%) (Auto) 0.1 0.3 Basophils (%) (Auto) 0.2 0.3 Neutrophils # (Auto) 15.6 10.8 Lymphocytes # (Auto) 2.3 1.8 Monocytes # (Auto) 0.3 0.3 Eosinophils # (Auto) 0.0 0.0 Basophils # (Auto) 0.0 0.0 CBC Comment DIFF FINAL DIFF FINAL Differential Comment Blood Urea Nitrogen 20 19 Creatinine 0.96 0.76 Random Glucose 116 95 Total Protein 7.5 6.6 Albumin 2.8 2.4 Calcium Level 9.0 8.4 Alkaline Phosphatase 80 83 Aspartate Amino Transf (AST/SGOT) 31 64 Alanine Aminotransferase (ALT/SGPT) 92 110 Total Bilirubin 0.7 0.8 Sodium Level 131 133 Potassium Level 4.9 4.1 Chloride Level 89 96 Carbon Dioxide Level 33.2 26.1 Anion Gap 9 11 Estimat Glomerular Filtration Rate 61 79 Lipase 125 Urine Color YELLOW Urine Turbidity HAZY Urine pH 8.0 Urine Specific [place] 1.047 Urine Protein TRACE Urine Glucose (UA) NEG Urine Ketones TRACE Urine Occult Blood NEG Urine Nitrite NEG Urine Bilirubin NEG Urine Urobilinogen 4.0 Urine Leukocyte Esterase NEG Urine RBC 2 Urine WBC 3 Urine Squamous Epithelial Cells 3 Urine Amorphous Sediment RARE Urine Mucus FEW Microscopic Urinalysis Comment CULT NOT INDICATED Lactic Acid Level 0.8 Test 01/23/18 10:30 Prothrombin Time 10.0 Prothromb Time International Ratio 1.0 Activated Partial Thromboplast Time 26.7 Result Diagram: 01/23/18 0408 01/23/188 Imaging Last 48 hours Impressions Abdomen/Pelvis CT 01/22/18 1800 Signed Impressions: Service Date/Time: Monday, January 22, 2018 19:40 - CONCLUSION: 1. Distal small bowel obstruction with multiple air-fluid levels. The cecum is impacted with stool to a diameter of 9.2 cm and it is unclear if this is related to a distal small bowel obstruction. No free air. There is mild ascites. 2. Subsegmental patchy airspace disease at the lung base is trace right pleural fluid. 3. Small hiatal hernia. Tee Herrera MD Assessment and Plan Assessment and Plan 52 year old female with fecal impaction -NPO -NGT to LIWS -GI planning for colonoscopy today -Could also benefit from enemas -No surgical issues at this time -Thank you for this consult SEEN WITH MAINTENANCE ADVISOR WHO DOCUMENTED OUR VISIT. LARGE AMOUNT OF STOOL IN CECUM LIKELY CAUSING SBO. DOUBT ADHESIONS OR MASS WHICH WOULD RESPOND TO SURGERY. SMALL BOWEL AND RIGHT COLON DIFFUSELY DILATED. RECOMMEND GASTROGAFFIN ENEMA, COLONOSCOPIC DECOMPRESSION TO EVALUATE FOR MASS AND THERAPEUTIC RELIEF OF STOOL. TD AMARO MD FACS Discussed Condition With Dr. Amaro Ms. Cuevas. Michela Kramer/Ash Collector MAINTENANCE ADVISOR Jan 23, 2018 14:31 Td Amaro MD Jan 27, 2018 12:07
--- NOTE | 2018-01-23 15:11 | GIPROC ---
[facility] [address] [facility]. [facility], [address] COLONOSCOPY PROCEDURE REPORT EXAM DATE: 01/23/2018 PATIENT NAME: Uma Cuevas MR #: [id number] BIRTHDATE: 1965 ENDOSCOPIST: Sayra Poole MD ORDER #: [id number] LITHOGRAPHIC ETCHER: Naomy Eng STATUS: inpatient INDICATIONS: The patient is a 52 yr old female here for a colonoscopy due to abnormal ct, fecal impaction cecum PROCEDURE PERFORMED: colonoscopy decompression MEDICATIONS: None and Per Anesthesia. PREP QUALITY: poor PREP TYPE:Other: ESTIMATED BLOOD LOSS: None CONSENT: The patient understands the risks and benefits of the procedure and understands that these risks include, but are not limited to: sedation, allergic reaction, infection, perforation and/or bleeding. Alternative means of evaluation and treatment include, among others: physical exam, x-rays, and/or surgical intervention. The patient elects to proceed with this endoscopic procedure. medical equipment was checked for proper function. Hand hygiene and appropriate measures for infection prevention was taken. After the risks, benefits and alternatives of the procedure were thoroughly explained, Informed consent was verified, confirmed and timeout was successfully executed by the treatment team. A digital exam revealed external hemorrhoids The Pentax [id number] endoscope was introduced through the anus and advanced to the cecum, which was identified by both the appendix and ileocecal valve. The instrument was then slowly withdrawn as the colon was fully examined. COLON FINDINGS: Diverticulosis sigmoid,descending scope could not be passed descending-stricture ?. Retroflexed views revealed internal hemorrhoids and Retroflexed views revealed small internal hemorrhoids The scope was then completely withdrawn from the patient and the procedure terminated. ADVERSE EVENTS: There were no complications. IMPRESSIONS: 1. Diverticulosis sigmoid,descending scope could not be passed descending-stricture ? 2. Retroflexed views revealed internal hemorrhoids 3. Retroflexed views revealed small internal hemorrhoids 4. Revealed external hemorrhoids RECOMMENDATIONS: Gastrografin enema surgical fu-discussed with dr mims about findings RECALL: Return 2 days Colonoscopy Sayra Poole MD eSigned: Sayra Poole MD 01/23/2018 3:10 PM cc:
[2018-01-23] MEDS ORDERED: *ONDANSETRON 4 MG VIAL PERIprocedural Use ONLY ONE (15:36)
[2018-01-23] MEDS ORDERED: *PROMETHAZINE 25 MG/ML VIAL PERIprocedural use ONLY ONE (15:38)
[2018-01-23] MEDS ORDERED: DO NOT ADM ANY ANTICOAGULANT DRUGS PRN (16:00)
[2018-01-23] MEDS: CIPROFLOXACIN 400 MG PREMIX 200 ML IV SCH (16:00)
[2018-01-23] MEDS ORDERED: PROCHLORPERAZINE INJ 10 MG/2 ML VIAL ONE (16:04)
[2018-01-23] MEDS ORDERED: PROCHLORPERAZINE INJ 10 MG/2 ML VIAL IV PUSH ONE (16:30)
[2018-01-23 18:53] VITALS: BP 162/87; PULSE 92; RESP 18; O2SAT 97
[2018-01-23] MEDS: metroNIDAZOLE 500 MG INJ 100 ML IV SCH ×2 (18:57→22:15)
[2018-01-23] MEDS ORDERED: MAGNESIUM CITRATE SOLN 300 ML BTL PO ONE (19:00)
[2018-01-23 20:14] VITALS: BP 184/92; PULSE 97; RESP 18; TEMP 98; O2SAT 94
[2018-01-24] VITALS (7 sets, daily range): BP systolic 155–223; BP diastolic 80–108; PULSE 95–105; RESP 14–20; TEMP 98–99; O2SAT 91–95
[2018-01-24] MEDS: INSULIN ASPART SUPPLEMENTAL SCALE SQ SCH ×6 (01:30→21:25)
[2018-01-24] MEDS: CIPROFLOXACIN 400 MG PREMIX 200 ML IV SCH ×2 (04:14→14:25)
[2018-01-24] MEDS: metroNIDAZOLE 500 MG INJ 100 ML IV SCH ×4 (05:50→21:23)
[2018-01-24] MEDS: D5-1/2 NS + KCL 20 MEQ INJ 1,000 ML IV SCH (05:51)
[2018-01-24] MEDS: PANTOPRAZOLE SODIUM 40 MG VIAL IV PUSH SCH ×2 (05:53→17:35)
[2018-01-24] MEDS: MORPHINE SULFATE 2 MG/ML SYRINGE IV PUSH PRN ×5 (05:54→17:35)
[2018-01-24 07:29] LABS: AUTOMATED NEUTROPHIL # 9.3 TH/MM3 (1.8-7.7); BASOPHIL % 0.2 % (0.0-2.0); EOSINOPHIL % 0.2 % (0.0-4.0); HEMATOCRIT 32.6 % (35.0-46.0); HEMOGLOBIN 10.4 GM/DL (11.6-15.3); LYMPH % 13.4 % (9.0-44.0); LYMPHOCYTE # 1.5 TH/MM3 (1.0-4.8); MEAN CELL VOLUME 93.3 FL (80.0-100.0); MEAN CORPUSCULAR HEMOGLOBIN 29.9 PG (27.0-34.0); MEAN CORPUSCULAR HGB CONC 32.1 % (32.0-36.0); MEAN PLATELET VOLUME 7.3 FL (7.0-11.0); MONO % 3.8 % (0.0-8.0); MONOCYTE # 0.4 TH/MM3 (0-0.9); NEUT % 82.4 % (16.0-70.0); PLATELET COUNT 320 TH/MM3 (150-450); RED BLOOD COUNT 3.49 MIL/MM3 (4.00-5.30); RED CELL DISTRIBUTION WIDTH 18.2 % (11.6-17.2); WHITE BLOOD COUNT 11.3 TH/MM3 (4.0-11.0)
[2018-01-24 08:00] LABS: ALBUMIN 2.3 GM/DL (3.4-5.0); AST (GOT) 42 U/L (15-37); BICARBONATE 26.7 MEQ/L (21.0-32.0); BLOOD UREA NITROGEN 13 MG/DL (7-18); CALCIUM 8.6 MG/DL (8.5-10.1); CHLORIDE 94 MEQ/L (98-107); CREATININE 0.68 MG/DL (0.50-1.00); GLOMERULAR FILTRATION RATE 90 ML/MIN (>89); GLUCOSE,RANDOM 122 MG/DL (74-106); MAGNESIUM 2.2 MG/DL (1.5-2.5); SODIUM (NA) 129 MEQ/L (136-145)
[2018-01-24 08:01] LABS: ALT (GPT) 105 U/L (10-53)
[2018-01-24 08:03] LABS: ALKALINE PHOSPHATASE 83 U/L (45-117); TOTAL BILIRUBIN ADULT 0.5 MG/DL (0.2-1.0); TOTAL PROTEIN 6.6 GM/DL (6.4-8.2)
[2018-01-24] MEDS: ALPRAZolam 0.25 MG TAB PO SCH ×2 (08:35→21:23)
[2018-01-24] MEDS: FOLIC ACID 1 MG TAB PO SCH (08:35)
[2018-01-24] MEDS: CYCLOBENZAPRINE HCL 10 MG TAB PO SCH ×3 (08:35→17:35)
[2018-01-24] MEDS: ENALAPRILAT 1.25 MG/ML VIAL IV PUSH PRN (08:35)
[2018-01-24] MEDS: predniSONE 5 MG TAB PO SCH ×2 (08:35→21:23)
[2018-01-24] MEDS: SODIUM CHLORIDE 0.9% FLUSH 10 ML FLUSH IV FLUSH SCH ×2 (08:36→21:24)
[2018-01-24] MEDS: BUDESONIDE-FORMOTEROL 160/4.5 MCG INHALER INH SCH ×2 (08:36→21:24)
[2018-01-24] MEDS: D5-NS + KCL 20 MEQ INJ 1,000 ML IV SCH ×3 (08:36→21:24)
[2018-01-24] MEDS: STIOLTO PO SCH (09:00)
[2018-01-24] MEDS: NIFEdipine 90 MG SUSTAINED RELEASE TAB PO SCH (09:04)
[2018-01-24] MEDS: DOCUSATE SODIUM 100 MG/10 ML UDC PO SCH ×2 (09:58→21:00)
[2018-01-24] MEDS ORDERED: DIATRIZOATE MEGLUM/DIATRIZOATE SOD 120 ML BTL (for RAD DIAG) RECTAL ONE (11:35)
--- NOTE | 2018-01-24 12:18 | HHI.GIFU ---
Subjective Remarks Returned from barium enema, reports (+) BM with some relief. Remains with NGT, reports some nausea. (Thao Erazo) Objective Vitals I&O Vital Signs Date Time Temp Pulse Resp B/P (MAP) Pulse Ox O2 Delivery O2 Flow Rate FiO2 01/24/18 10:33 180/81 (114) 01/24/18 07:37 98.4 95 18 199/105 (136) 91 01/24/18 04:09 98.0 96 14 223/108 (146) 95 01/23/18 20:14 98.0 97 18 184/92 (122) 94 01/23/18 18:53 92 18 162/87 (112) 97 01/23/18 17:00 91 16 165/87 (113) 98 Nasal Cannula 2 01/23/18 16:45 84 16 175/90 (118) 99 Nasal Cannula 2 01/23/18 16:30 82 16 185/96 (125) 99 Nasal Cannula 2 01/23/18 16:15 90 16 158/86 (110) 98 Nasal Cannula 2 01/23/18 16:00 95 16 155/77 (103) 97 Nasal Cannula 2 01/23/18 15:45 96 16 164/72 (102) 98 Nasal Cannula 2 01/23/18 15:24 98.8 96 16 149/84 (105) 96 Nasal Cannula 2 01/23/18 13:07 100.4 106 17 160/92 (114) 97 I/O 01/23/18 01/23/18 01/23/18 01/24/18 01/24/18 01/24/18 07:00 15:00 23:00 07:00 15:00 23:00 Intake Total 500 ml 500 ml 240 ml 300 ml Balance 500 ml 500 ml 240 ml 300 ml Intake Oral 240 ml IV Total 500 ml 300 ml Other 500 ml # Voids 1 1 Laboratory Laboratory Tests Test 01/24/18 05:58 White Blood Count 11.3 Red Blood Count 3.49 Hemoglobin 10.4 Hematocrit 32.6 Mean Corpuscular Volume 93.3 Mean Corpuscular Hemoglobin 29.9 Mean Corpuscular Hemoglobin Concent 32.1 Red Cell Distribution Width 18.2 Platelet Count 320 Mean Platelet Volume 7.3 Neutrophils (%) (Auto) 82.4 Lymphocytes (%) (Auto) 13.4 Monocytes (%) (Auto) 3.8 Eosinophils (%) (Auto) 0.2 Basophils (%) (Auto) 0.2 Neutrophils # (Auto) 9.3 Lymphocytes # (Auto) 1.5 Monocytes # (Auto) 0.4 Eosinophils # (Auto) 0.0 Basophils # (Auto) 0.0 CBC Comment AUTO DIFF Differential Comment AUTO DIFF CONFIRMED Blood Urea Nitrogen 13 Creatinine 0.68 Random Glucose 122 Total Protein 6.6 Albumin 2.3 Calcium Level 8.6 Magnesium Level 2.2 Alkaline Phosphatase 83 Aspartate Amino Transf (AST/SGOT) 42 Alanine Aminotransferase (ALT/SGPT) 105 Total Bilirubin 0.5 Sodium Level 129 Potassium Level 4.7 Chloride Level 94 Carbon Dioxide Level 26.7 Anion Gap 8 Estimat Glomerular Filtration Rate 90 Imaging Last Impressions Abdomen/Pelvis CT 01/22/18 1800 Signed Impressions: Service Date/Time: Monday, January 22, 2018 19:40 - CONCLUSION: 1. Distal small bowel obstruction with multiple air-fluid levels. The cecum is impacted with stool to a diameter of 9.2 cm and it is unclear if this is related to a distal small bowel obstruction. No free air. There is mild ascites. 2. Subsegmental patchy airspace disease at the lung base is trace right pleural fluid. 3. Small hiatal hernia. Tee Herrera MD (Thao Erazo [facility]) Assessment and Plan Plan ASSESSMENT - abd pain, n/v - fecal impaction with SBO. Has been on opioids the last few months. CT showing distal SBO, cecal stool impaction. never had before. last colonoscopy 4 y ago and can recall no details (01/24) --> S/P decompressive colonoscopy for fecal impaction --> Diverticulosis in the sigmoid and descending colon. Scope could not be passed through descending colon- possibility of stricture. Internal and external hemorrhoids. Barium enema --> Diffuse air filled loops of small and large bowel. Free flow of contrast to cecal tip. Limited exam due to retained fecal debris throughout colon. Post evacuation radiographs unremarkable. Pt reports large BM after exam. Remains with NGT to LIWS. Elevated LFTs noted, trending down --> CT abdomen noted mild ascites and mild fatty liver. PLAN - Magnesium citrate x 1 - Repeat KUB - Depending on findings can consider SBFT with Gastrografin - GS following - Monitor LFTs - Further recommendations based on clinical course Pt has been seen and examined by myself and Dr. Poole and this note is written on her behalf (Thao Erazo) Physician Comments seen, examined agree with above will need repeat colonoscopy once this episode resolves (Sayra Poole MD) Thao Erazo Jan 24, 2018 12:18 Sayra Poole MD Jan 24, 2018 15:54
--- NOTE | 2018-01-24 13:29 | RADRPT ---
EXAM DATE/TIME: 01/24/2018 11:06 [facility] COMPARISON: No previous studies available for comparison. INDICATIONS : Constipation and severe abdominal pain for one week, abdominal distention for two months, evaluate f ecal impaction, incomplete colonoscopy yesterday FLUORO TIME: 1.5 minutes IMAGE COUNT: 15 CONTRAST: 1. [facility] MEDICAL HISTORY : Cardiovascular disease; COPD; renal disease; lung cancer SURGICAL HISTORY : Hysterectomy. section. Appendectomy. ENCOUNTER: Subsequent ACUITY: 1 week PAIN SCORE: 10/10 LOCATION: Bilateral abdomen FINDINGS: Preliminary film demonstrates diffuse air-filled loops of small and large bowel. Under fluoroscopic guidance a Gastrografin enema was performed with free flow of contrast to the ceca l tip. Evaluation of the colon is limited due to retained fecal debris throughout the colon. The examination was performed for constipation. Post evacuation radiographs are unremarkable. CONCLUSION: Gastrografin enema performed for constipation as described above. Jabier Aviles MD on January 24, 2018 at 13:24 Board Certified Radiologist. This report was verified electronically.
--- NOTE | 2018-01-24 13:40 | HHI.PR ---
Subjective Remarks Follow-up bowel obstruction. Patient still having abdominal distention, pain. Also reporting nausea. NG tube in place. Status post Gastrografin enema. Objective Vitals Vital Signs Date Time Temp Pulse Resp B/P (MAP) Pulse Ox O2 Delivery O2 Flow Rate FiO2 01/24/18 10:33 180/81 (114) 01/24/18 07:37 98.4 95 18 199/105 (136) 91 01/24/18 04:09 98.0 96 14 223/108 (146) 95 01/23/18 20:14 98.0 97 18 184/92 (122) 94 01/23/18 18:53 92 18 162/87 (112) 97 01/23/18 17:00 91 16 165/87 (113) 98 Nasal Cannula 2 01/23/18 16:45 84 16 175/90 (118) 99 Nasal Cannula 2 01/23/18 16:30 82 16 185/96 (125) 99 Nasal Cannula 2 01/23/18 16:15 90 16 158/86 (110) 98 Nasal Cannula 2 01/23/18 16:00 95 16 155/77 (103) 97 Nasal Cannula 2 01/23/18 15:45 96 16 164/72 (102) 98 Nasal Cannula 2 01/23/18 15:24 98.8 96 16 149/84 (105) 96 Nasal Cannula 2 I/O 01/23/18 01/23/18 01/23/18 01/24/18 01/24/18 01/24/18 07:00 15:00 23:00 07:00 15:00 23:00 Intake Total 500 ml 500 ml 240 ml 300 ml Balance 500 ml 500 ml 240 ml 300 ml Intake Oral 240 ml IV Total 500 ml 300 ml Other 500 ml # Voids 1 1 Result Diagram: 01/24/18 0558 01/24/18 0558 Imaging Last Impressions Enema w/Water Soluble 01/24/18 0000 Signed Impressions: Service Date/Time: January 11:06 - CONCLUSION: Gastrografin enema performed for constipation as described above. Jabier Aviles MD Abdomen/Pelvis CT 01/22/18 1800 Signed Impressions: Service Date/Time: Monday, January 22, 2018 19:40 - CONCLUSION: 1. Distal small bowel obstruction with multiple air-fluid levels. The cecum is impacted with stool to a diameter of 9.2 cm and it is unclear if this is related to a distal small bowel obstruction. No free air. There is mild ascites. 2. Subsegmental patchy airspace disease at the lung base is trace right pleural fluid. 3. Small hiatal hernia. Tee Herrera MD Objective Remarks General: No acute distress. NG tube in place. Heart: Regular rate and rhythm. No murmur. Lungs: Clear to auscultation bilaterally. No wheezes, rales, or rhonchi. Breathing is nonlabored. Abdomen: Soft, diffusely tender, distended. Decreased bowel sounds. Extremities: No lower extremity edema. Psych: Alert and oriented. Procedures 01/23/18 colonoscopy Urinary Catheter: No Vascular Central Line Catheter: No A/P Assessment and Plan 1. Bowel obstruction, cecal fecal impaction: Appreciate GI, general surgery recommendations. Going for decompressive colonoscopy. NG tube to suction. N.p.o. Continue bowel regimen. Discussed with general surgery. 2. Hypertension: Continue Procardia XL. Blood pressure has remained elevated. Vasotec as needed. 3. Diabetes mellitus: Monitor Accu-Cheks and cover with sliding scale insulin. 4. Hyperlipidemia: Not on statin. Will avoid secondary to elevated LFTs. 5. Coronary artery disease, chronic congestive heart failure: Currently asymptomatic. Continue Lasix. 6. COPD on home oxygen: Continue inhalers, supplemental oxygen. 7. Atrial fibrillation: Continue calcium channel miguelina. Aspirin on hold. 8. GI prophylaxis: Protonix. 9. Hyponatremia: Adjust IV fluids. Recheck labs in the morning. 10. DVT prophylaxis: SCDs. Moses Hraper MD Jan 24, 2018 13:40
[2018-01-24] MEDS: ONDANSETRON HCL 4 MG/2 ML VIAL IV PUSH PRN (14:13)
--- NOTE | 2018-01-24 15:19 | RADRPT ---
EXAM DATE/TIME: 01/24/2018 15:00 [facility] COMPARISON: No previous studies available for comparison. INDICATIONS : NG tube placement. MEDICAL HISTORY : Cardiovascular disease; COPD; renal disease; lung cancer SURGICAL HISTORY : Hysterectomy. section. Appendectomy ENCOUNTER: Initial ACUITY: 1 day PAIN SCORE: 10/10 LOCATION: abdomen FINDINGS: NG tube has its tip in the mid to distal stomach. Retained contrast is noted within the colon. Air-fi lled loops of small bowel are again noted. CONCLUSION: 1. NG tube tip in the mid to distal stomach. 2. Multiple air-filled loops of small bowel suggesting possible ileus or partial small bowel obstruct ion. Clinical correlation is recommended. Jabier Aviles MD on January 24, 2018 at 15:16 Board Certified Radiologist. This report was verified electronically.
--- NOTE | 2018-01-24 15:29 | HHI.PR ---
cc: Td Amaro MD Subjective Subjective Notes s/p Gastrografin enema; +BM Objective Vitals/I&O Vital Signs Date Time Temp Pulse Resp B/P (MAP) Pulse Ox O2 Delivery O2 Flow Rate FiO2 01/24/18 10:33 180/81 (114) 01/24/18 08:00 102 01/24/18 07:37 98.4 18 91 01/23/18 17:00 Nasal Cannula 2 Labs Laboratory Tests Test 01/24/18 05:58 White Blood Count 11.3 Red Blood Count 3.49 Hemoglobin 10.4 Hematocrit 32.6 Mean Corpuscular Volume 93.3 Mean Corpuscular Hemoglobin 29.9 Mean Corpuscular Hemoglobin Concent 32.1 Red Cell Distribution Width 18.2 Platelet Count 320 Mean Platelet Volume 7.3 Neutrophils (%) (Auto) 82.4 Lymphocytes (%) (Auto) 13.4 Monocytes (%) (Auto) 3.8 Eosinophils (%) (Auto) 0.2 Basophils (%) (Auto) 0.2 Neutrophils # (Auto) 9.3 Lymphocytes # (Auto) 1.5 Monocytes # (Auto) 0.4 Eosinophils # (Auto) 0.0 Basophils # (Auto) 0.0 CBC Comment AUTO DIFF Differential Comment AUTO DIFF CONFIRMED Blood Urea Nitrogen 13 Creatinine 0.68 Random Glucose 122 Total Protein 6.6 Albumin 2.3 Calcium Level 8.6 Magnesium Level 2.2 Alkaline Phosphatase 83 Aspartate Amino Transf (AST/SGOT) 42 Alanine Aminotransferase (ALT/SGPT) 105 Total Bilirubin 0.5 Sodium Level 129 Potassium Level 4.7 Chloride Level 94 Carbon Dioxide Level 26.7 Anion Gap 8 Estimat Glomerular Filtration Rate 90 Radiology Last 48 hours Impressions Abdomen/Pelvis CT 01/22/18 1800 Signed Impressions: Service Date/Time: Monday, January 22, 2018 19:40 - CONCLUSION: 1. Distal small bowel obstruction with multiple air-fluid levels. The cecum is impacted with stool to a diameter of 9.2 cm and it is unclear if this is related to a distal small bowel obstruction. No free air. There is mild ascites. 2. Subsegmental patchy airspace disease at the lung base is trace right pleural fluid. 3. Small hiatal hernia. Tee Herrera MD Cardiovascular: Regular Lungs: Clear Abdomen: Other (distended; tender; NGT in place ) Extremities: No edema A/P Assessment and Plan 52 year old female with abdominal pain and distention; fecal impaction -Okay for ice and sips of water -NGT to LIWS---advance and verify placement after with KUB -s/p GGE---+BM -May still benefit from SSE -Continue non operative management SEEN WITH KERRICK KLEANER OPERATOR ON ROUNDS WHO DOCUMENTED OUR VISIT. CONTINUE MEDICAL MANAGEMENT. RECOMMEND AGGRESSIVE BOWEL REGIMEN. TD AMARO MD FACS Michela Kramer KERRICK KLEANER OPERATOR/Target Protection Specialist KERRICK KLEANER OPERATOR Jan 24, 2018 15:29 Td Amaro MD Jan 27, 2018 15:17
[2018-01-24] MEDS ORDERED: MAGNESIUM CITRATE SOLN 300 ML BTL PO ONE (16:00)
[2018-01-25] VITALS (8 sets, daily range): BP systolic 137–160; BP diastolic 71–82; PULSE 92–104; RESP 16–20; TEMP 97.8–98.9; O2SAT 18–98
[2018-01-25] MEDS: INSULIN ASPART SUPPLEMENTAL SCALE SQ SCH ×6 (01:30→21:30)
[2018-01-25] MEDS: PANTOPRAZOLE SODIUM 40 MG VIAL IV PUSH SCH ×2 (04:57→16:18)
[2018-01-25] MEDS: CIPROFLOXACIN 400 MG PREMIX 200 ML IV SCH ×2 (04:57→16:18)
[2018-01-25] MEDS: ONDANSETRON HCL 4 MG/2 ML VIAL IV PUSH PRN ×3 (05:23→20:23)
[2018-01-25] MEDS: metroNIDAZOLE 500 MG INJ 100 ML IV SCH ×4 (06:22→22:51)
--- NOTE | 2018-01-25 08:30 | HHI.PR ---
Subjective Remarks Follow up bowel obstruction. Patient states that she is still having abdominal pain. Denies chest pain, dyspnea. Still with nausea, but no vomiting. Objective Vitals Vital Signs Date Time Temp Pulse Resp B/P (MAP) Pulse Ox O2 Delivery O2 Flow Rate FiO2 01/25/18 07:54 97.9 96 20 160/72 (101) 18 01/25/18 02:48 97.8 97 16 160/82 (108) 93 01/24/18 22:47 98.7 98 16 160/84 (109) 94 01/24/18 19:48 99.0 101 20 155/80 (105) 95 01/24/18 15:54 98.0 105 20 171/88 (115) 92 01/24/18 10:33 180/81 (114) I/O 01/24/18 01/24/18 01/24/18 01/25/18 01/25/18 01/25/18 06:59 14:59 22:59 06:59 14:59 22:59 Intake Total 640 ml 1500 ml 300 ml 600 ml Output Total 400 ml Balance 640 ml 1100 ml 300 ml 600 ml Intake Oral 240 ml 250 ml 300 ml 300 ml IV Total 400 ml 1250 ml 300 ml Output Stool Total 400 ml # Voids 1 Result Diagram: 01/24/18 0558 01/24/18 0558 Imaging Last Impressions Enema w/Water Soluble 01/24/18 0000 Signed Impressions: Service Date/Time: January 11:06 - CONCLUSION: Gastrografin enema performed for constipation as described above. Jabier Aviles MD Abdomen X-Ray 01/24/18 0000 Signed Impressions: Service Date/Time: January 15:00 - CONCLUSION: 1. NG tube tip in the mid to distal stomach. 2. Multiple air-filled loops of small bowel suggesting possible ileus or partial small bowel obstruction. Clinical correlation is recommended. Jabier Aviles MD Abdomen/Pelvis CT 01/22/18 1800 Signed Impressions: Service Date/Time: Monday, January 22, 2018 19:40 - CONCLUSION: 1. Distal small bowel obstruction with multiple air-fluid levels. The cecum is impacted with stool to a diameter of 9.2 cm and it is unclear if this is related to a distal small bowel obstruction. No free air. There is mild ascites. 2. Subsegmental patchy airspace disease at the lung base is trace right pleural fluid. 3. Small hiatal hernia. Tee Herrera MD Objective Remarks General: No acute distress. NG tube in place. Heart: Regular rate and rhythm. No murmur. Lungs: Clear to auscultation bilaterally. No wheezes, rales, or rhonchi. Breathing is nonlabored. Abdomen: Soft, mild diffuse tenderness, distended. Positive bowel sounds. Extremities: No lower extremity edema. Psych: Alert and oriented. Procedures 01/23/18 colonoscopy 01/24/18 Gastrografin enema Urinary Catheter: No Vascular Central Line Catheter: No A/P Assessment and Plan 1. Bowel obstruction, cecal fecal impaction: Appreciate GI, general surgery recommendations. S/P colonoscopy, Gastrografin enema. NG tube to suction. N.p.o. except sips of water and ice chips. Continue bowel regimen. 2. Hypertension: Continue Procardia XL. Blood pressure has remained elevated, possibly due to pain. Vasotec as needed. 3. Diabetes mellitus: Monitor Accu-Cheks and cover with sliding scale insulin. On D5 in IV fluids while NPO. 4. Hyperlipidemia: Not on statin. Will avoid secondary to elevated LFTs. 5. Coronary artery disease, chronic congestive heart failure: Currently asymptomatic. Lasix on hold. 6. COPD on home oxygen: Continue inhalers, supplemental oxygen. 7. Atrial fibrillation: Continue calcium channel miguelina. Aspirin on hold. 8. GI prophylaxis: Protonix. 9. Hyponatremia: Continue IV fluids. Labs are pending. 10. DVT prophylaxis: SCDs. Discharge Planning Pending further clinical improvement. Moses Harper MD Jan 25, 2018 08:30
[2018-01-25] MEDS: MORPHINE SULFATE 2 MG/ML SYRINGE IV PUSH PRN ×4 (08:32→20:22)
[2018-01-25] MEDS: predniSONE 5 MG TAB PO SCH ×2 (08:33→20:26)
[2018-01-25] MEDS: SODIUM CHLORIDE 0.9% FLUSH 10 ML FLUSH IV FLUSH SCH ×2 (08:33→20:22)
[2018-01-25] MEDS: NIFEdipine 90 MG SUSTAINED RELEASE TAB PO SCH (08:33)
[2018-01-25] MEDS: DOCUSATE SODIUM 100 MG/10 ML UDC PO SCH ×2 (08:33→20:26)
[2018-01-25] MEDS: FOLIC ACID 1 MG TAB PO SCH (08:33)
[2018-01-25] MEDS: ALPRAZolam 0.25 MG TAB PO SCH ×2 (08:33→20:22)
[2018-01-25] MEDS: CYCLOBENZAPRINE HCL 10 MG TAB PO SCH ×3 (08:33→16:18)
[2018-01-25] MEDS: BUDESONIDE-FORMOTEROL 160/4.5 MCG INHALER INH SCH ×2 (08:34→22:51)
--- NOTE | 2018-01-25 08:35 | HHI.GIFU ---
Subjective Remarks Pt reports having a BM early this morning Denies flatus Continued abdominal distention and pain NG tube to LIWS with 100 mL of bile colored drainage (Thao Erazo) Objective Vitals I&O Vital Signs Date Time Temp Pulse Resp B/P (MAP) Pulse Ox O2 Delivery O2 Flow Rate FiO2 01/25/18 07:54 97.9 96 20 160/72 (101) 18 01/25/18 02:48 97.8 97 16 160/82 (108) 93 01/24/18 22:47 98.7 98 16 160/84 (109) 94 01/24/18 19:48 99.0 101 20 155/80 (105) 95 01/24/18 15:54 98.0 105 20 171/88 (115) 92 01/24/18 10:33 180/81 (114) I/O 01/24/18 01/24/18 01/24/18 01/25/18 01/25/18 01/25/18 07:00 15:00 23:00 07:00 15:00 23:00 Intake Total 240 ml 400 ml 1500 ml 300 ml 600 ml Output Total 400 ml Balance 240 ml 400 ml 1100 ml 300 ml 600 ml Intake Oral 240 ml 250 ml 300 ml 300 ml IV Total 400 ml 1250 ml 300 ml Output Stool Total 400 ml # Voids 1 Imaging Last Impressions Enema w/Water Soluble 01/24/18 0000 Signed Impressions: Service Date/Time: January 11:06 - CONCLUSION: Gastrografin enema performed for constipation as described above. Jabier Aviles MD Abdomen X-Ray 01/24/18 0000 Signed Impressions: Service Date/Time: January 15:00 - CONCLUSION: 1. NG tube tip in the mid to distal stomach. 2. Multiple air-filled loops of small bowel suggesting possible ileus or partial small bowel obstruction. Clinical correlation is recommended. Jabier Aviles MD Abdomen/Pelvis CT 01/22/18 1800 Signed Impressions: Service Date/Time: Monday, January 22, 2018 19:40 - CONCLUSION: 1. Distal small bowel obstruction with multiple air-fluid levels. The cecum is impacted with stool to a diameter of 9.2 cm and it is unclear if this is related to a distal small bowel obstruction. No free air. There is mild ascites. 2. Subsegmental patchy airspace disease at the lung base is trace right pleural fluid. 3. Small hiatal hernia. Tee Herrera MD Physical Exam HEENT: Normocephalic; atraumatic; no jaundice. CHEST: Even/unlabored CARDIAC: RRR ABDOMEN: Distended, firm, diffuse TTP, bowel sounds active. NGT to LIWS EXTREMITIES: No clubbing, cyanosis, or edema. SKIN: Normal; no rash; no jaundice. ELECTRONIC PREPRESS SYSTEM OPERATOR: No focal deficits; alert and oriented times three. (Thao Erazo) Assessment and Plan Plan ASSESSMENT - abd pain, n/v - fecal impaction with SBO. Has been on opioids the last few months. CT showing distal SBO, cecal stool impaction. never had before. last colonoscopy 4 y ago and can recall no details (01/24) --> S/P decompressive colonoscopy for fecal impaction --> Diverticulosis in the sigmoid and descending colon. Scope could not be passed through descending colon- possibility of stricture. Internal and external hemorrhoids. Gastrografin enema --> Diffuse air filled loops of small and large bowel. Free flow of contrast to cecal tip. Limited exam due to retained fecal debris throughout colon. Post evacuation radiographs unremarkable. Pt reports large BM after exam. Remains with NGT to LIWS. Elevated LFTs noted, trending down --> CT abdomen noted mild ascites and mild fatty liver. (01/25) --> Pt with continued abdominal distention and pain today. Reports a BM early this morning. Does not feel the distention has improved since yesterday. NGT to LIWS with 100 mL of bile colored drainage. KUB (01/24) Multiple air-filled loops of small bowel suggesting possible ileus or partial small bowel obstruction. Repeat labs from today pending. PLAN - SBFT with Gastrografin - NGT to LIWS - NPO - Cipro and Flagyl - GS following - Repeat colonoscopy after episode resolves - Monitor LFTs, trending down - Further recommendations based on clinical course and results of above Pt has been seen and examined by myself and Dr. Poole and this note is written on her behalf (Thao Erazo) Physician Comments seen, examined agree with above had 2 bowel movements today (Sayra Poole MD) Thao Erazo Jan 25, 2018 08:35 Sayra Poole MD Jan 25, 2018 19:41
[2018-01-25] MEDS: STIOLTO PO SCH (09:00)
[2018-01-25 09:42] LABS: BASOPHIL # 0.1 TH/MM3 (0-0.2); BASOPHIL % 0.5 % (0.0-2.0); EOSINOPHIL % 0.1 % (0.0-4.0); HEMATOCRIT 31.6 % (35.0-46.0); HEMOGLOBIN 10.2 GM/DL (11.6-15.3); LYMPH % 14.8 % (9.0-44.0); LYMPHOCYTE # 1.7 TH/MM3 (1.0-4.8); MEAN CORPUSCULAR HGB CONC 32.3 % (32.0-36.0); MEAN PLATELET VOLUME 6.9 FL (7.0-11.0); MONO % 3.9 % (0.0-8.0); MONOCYTE # 0.4 TH/MM3 (0-0.9); NEUT % 80.7 % (16.0-70.0); PLATELET COUNT 350 TH/MM3 (150-450); RED CELL DISTRIBUTION WIDTH 18.6 % (11.6-17.2); WHITE BLOOD COUNT 11.1 TH/MM3 (4.0-11.0)
[2018-01-25 10:19] LABS: ALBUMIN 2.3 GM/DL (3.4-5.0); ALKALINE PHOSPHATASE 72 U/L (45-117); ALT (GPT) 88 U/L (10-53); AST (GOT) 38 U/L (15-37); BICARBONATE 25.8 MEQ/L (21.0-32.0); BLOOD UREA NITROGEN 11 MG/DL (7-18); CALCIUM 8.3 MG/DL (8.5-10.1); CHLORIDE 96 MEQ/L (98-107); CREATININE 0.59 MG/DL (0.50-1.00); GLOMERULAR FILTRATION RATE 106 ML/MIN (>89); GLUCOSE,RANDOM 94 MG/DL (74-106); SODIUM (NA) 132 MEQ/L (136-145); TOTAL BILIRUBIN ADULT 0.4 MG/DL (0.2-1.0); TOTAL PROTEIN 6.3 GM/DL (6.4-8.2)
--- NOTE | 2018-01-25 10:41 | RADRPT ---
EXAM DATE/TIME: 01/25/2018 09:50 [facility] COMPARISON: ABDOMEN KUB ONLY, January 24, 2018, 15:00. INDICATIONS : KUB steamer gum candy for small bowel series MEDICAL HISTORY : Cardiovascular disease. Chronic obstructive pulmonary disease. Carcinoma, lung. SURGICAL HISTORY : Hysterectomy. section. Appendectomy. ENCOUNTER: Subsequent ACUITY: 2 days PAIN SCORE: 10/10 LOCATION: Bilateral chest FINDINGS: Supine view of the abdomen was performed. The abdominal bowel gas pattern is normal. No abnormal ma sses, calcifications, or organomegaly is seen. The osseous structures are unremarkable. CONCLUSION: Moderate gas distention of small bowel and colon is evident with moderate residual Ga strografin colon. Gas evident in GI rescheduled. Alon Gonzalez MD FACR on January 25, 2018 at 10:38 Board Certified Radiologist. This report was verified electronically.
[2018-01-25] MEDS: D5-NS + KCL 20 MEQ INJ 1,000 ML IV SCH (12:42)
--- NOTE | 2018-01-25 18:41 | HHI.PR ---
cc: Td Amaro MD Subjective Subjective Notes Resting in bed Asking for ice Objective Vitals/I&O Vital Signs Date Time Temp Pulse Resp B/P (MAP) Pulse Ox O2 Delivery O2 Flow Rate FiO2 01/25/18 15:53 98.9 92 18 138/80 (99) 98 01/23/18 17:00 Nasal Cannula 2 Labs Laboratory Tests Test 01/25/18 08:24 White Blood Count 11.1 Red Blood Count 3.40 Hemoglobin 10.2 Hematocrit 31.6 Mean Corpuscular Volume 93.0 Mean Corpuscular Hemoglobin 30.0 Mean Corpuscular Hemoglobin Concent 32.3 Red Cell Distribution Width 18.6 Platelet Count 350 Mean Platelet Volume 6.9 Neutrophils (%) (Auto) 80.7 Lymphocytes (%) (Auto) 14.8 Monocytes (%) (Auto) 3.9 Eosinophils (%) (Auto) 0.1 Basophils (%) (Auto) 0.5 Neutrophils # (Auto) 9.0 Lymphocytes # (Auto) 1.7 Monocytes # (Auto) 0.4 Eosinophils # (Auto) 0.0 Basophils # (Auto) 0.1 CBC Comment DIFF FINAL Differential Comment Blood Urea Nitrogen 11 Creatinine 0.59 Random Glucose 94 Total Protein 6.3 Albumin 2.3 Calcium Level 8.3 Alkaline Phosphatase 72 Aspartate Amino Transf (AST/SGOT) 38 Alanine Aminotransferase (ALT/SGPT) 88 Total Bilirubin 0.4 Sodium Level 132 Potassium Level 3.7 Chloride Level 96 Carbon Dioxide Level 25.8 Anion Gap 10 Estimat Glomerular Filtration Rate 106 Radiology Last 48 hours Impressions Abdomen/Pelvis CT 01/22/18 1800 Signed Impressions: Service Date/Time: Monday, January 22, 2018 19:40 - CONCLUSION: 1. Distal small bowel obstruction with multiple air-fluid levels. The cecum is impacted with stool to a diameter of 9.2 cm and it is unclear if this is related to a distal small bowel obstruction. No free air. There is mild ascites. 2. Subsegmental patchy airspace disease at the lung base is trace right pleural fluid. 3. Small hiatal hernia. Tee Herrera MD Cardiovascular: Regular Lungs: Clear Abdomen: Other (distended ) Extremities: No edema A/P Assessment and Plan 52 year old female with abdominal pain and distention; fecal impaction -Okay for ice and sips of water -NGT to LIWS -s/p GGE---+BM -May still benefit from SSE -Continue non operative management SEEN ON ROUNDS WITH SUPPORT TEACHER WHO DOCUMENTED OUR VISIT. CONTINUE MEDICAL MANAGEMENT. TD AMARO MD FACS Michela Kramer. SUPPORT TEACHER/Acidizer Helper SUPPORT TEACHER Jan 25, 2018 18:40 Td Amaro MD Jan 27, 2018 15:18
[2018-01-26] MEDS: INSULIN ASPART SUPPLEMENTAL SCALE SQ SCH ×6 (01:30→21:30)
[2018-01-26] MEDS: D5-NS + KCL 20 MEQ INJ 1,000 ML IV SCH ×3 (02:58→21:36)
[2018-01-26] MEDS: CIPROFLOXACIN 400 MG PREMIX 200 ML IV SCH ×2 (03:13→16:18)
[2018-01-26] MEDS: ONDANSETRON HCL 4 MG/2 ML VIAL IV PUSH PRN ×2 (03:22→10:06)
[2018-01-26] MEDS: MORPHINE SULFATE 2 MG/ML SYRINGE IV PUSH PRN ×4 (03:22→16:12)
[2018-01-26 03:35] VITALS: BP 177/83; PULSE 88; RESP 17; TEMP 98; O2SAT 98
[2018-01-26] MEDS: metroNIDAZOLE 500 MG INJ 100 ML IV SCH ×4 (05:00→23:20)
[2018-01-26] MEDS: PANTOPRAZOLE SODIUM 40 MG VIAL IV PUSH SCH ×2 (05:30→16:18)
[2018-01-26 07:57] VITALS: BP 163/78; PULSE 86; RESP 17; TEMP 98; O2SAT 93
[2018-01-26] MEDS: STIOLTO PO SCH (09:00)
--- NOTE | 2018-01-26 09:23 | HHI.PR ---
Subjective Remarks Follow-up bowel obstruction. The patient states that her pain is slightly better today. Still with nausea. No shortness of breath or chest pain. Objective Vitals Vital Signs Date Time Temp Pulse Resp B/P (MAP) Pulse Ox O2 Delivery O2 Flow Rate FiO2 01/26/18 07:57 98.0 86 17 163/78 (106) 93 01/26/18 03:35 98.0 88 17 177/83 (114) 98 01/25/18 23:35 98.0 94 18 146/72 (96) 97 01/25/18 20:00 97.9 103 18 149/78 (101) 96 01/25/18 15:53 98.9 92 18 138/80 (99) 98 01/25/18 15:15 98.0 104 18 137/71 (93) 95 01/25/18 12:00 97.8 96 160/73 (102) 98 I/O 01/25/18 01/25/18 01/25/18 01/26/18 01/26/18 01/26/18 07:00 15:00 23:00 07:00 15:00 23:00 Intake Total 300 ml 1700 ml 100 ml 0 ml Output Total 100 ml 200 ml Balance 300 ml 1700 ml 0 ml -200 ml Intake Oral 300 ml 300 ml 0 ml 0 ml IV Total 1400 ml 100 ml Gastric Drainage Total 100 ml 200 ml # Voids 1 1 # Bowel Movements 0 0 Result Diagram: 01/25/18 0824 01/25/18 0824 Imaging Last Impressions Abdomen X-Ray 01/25/18 0000 Signed Impressions: Service Date/Time: Thursday, January 25, 2018 09:50 - CONCLUSION: Moderate gas distention of small bowel and colon is evident with moderate residual Gastrografin colon. Gas evident in GI rescheduled. Alon Gonzalez MD FACR Enema w/Water Soluble 01/24/18 0000 Signed Impressions: Service Date/Time: January 11:06 - CONCLUSION: Gastrografin enema performed for constipation as described above. Jabier Aviles MD Abdomen/Pelvis CT 01/22/18 1800 Signed Impressions: Service Date/Time: Monday, January 22, 2018 19:40 - CONCLUSION: 1. Distal small bowel obstruction with multiple air-fluid levels. The cecum is impacted with stool to a diameter of 9.2 cm and it is unclear if this is related to a distal small bowel obstruction. No free air. There is mild ascites. 2. Subsegmental patchy airspace disease at the lung base is trace right pleural fluid. 3. Small hiatal hernia. Tee Herrera MD Objective Remarks General: No acute distress. NG tube in place. Heart: Regular rate and rhythm. No murmur. Lungs: Clear to auscultation bilaterally. No wheezes, rales, or rhonchi. Breathing is nonlabored. Abdomen: Soft, mild diffuse tenderness, distended. Decreased bowel sounds. Extremities: No lower extremity edema. Psych: Alert and oriented. Procedures 01/23/18 colonoscopy 01/24/18 Gastrografin enema Urinary Catheter: No Vascular Central Line Catheter: No A/P Assessment and Plan 1. Bowel obstruction, cecal fecal impaction: Appreciate GI, general surgery recommendations. S/P colonoscopy, Gastrografin enema. NG tube to suction. N.p.o. except sips of water and ice chips. Continue bowel regimen. Improving slowly. She did have a small bowel movement this morning. 2. Hypertension: Continue Procardia XL. Blood pressure has remained elevated, possibly due to pain. Vasotec as needed. 3. Diabetes mellitus: Monitor Accu-Cheks and cover with sliding scale insulin. On D5 in IV fluids while NPO. 4. Hyperlipidemia: Not on statin. Will avoid secondary to elevated LFTs. 5. Coronary artery disease, chronic congestive heart failure: Currently asymptomatic. Lasix on hold. 6. COPD on home oxygen: Continue inhalers, supplemental oxygen. 7. Atrial fibrillation: Continue calcium channel miguelina. Aspirin on hold. 8. GI prophylaxis: Protonix. 9. Hyponatremia: Improving. Continue IV fluids. 10. DVT prophylaxis: SCDs. Discharge Planning Pending further clinical improvement. Moses Harper MD Jan 26, 2018 09:23
[2018-01-26] MEDS: ALPRAZolam 0.25 MG TAB PO SCH ×2 (10:05→21:35)
[2018-01-26] MEDS: FOLIC ACID 1 MG TAB PO SCH (10:05)
[2018-01-26] MEDS: NIFEdipine 90 MG SUSTAINED RELEASE TAB PO SCH (10:05)
[2018-01-26] MEDS: predniSONE 5 MG TAB PO SCH ×2 (10:05→21:35)
[2018-01-26] MEDS: DOCUSATE SODIUM 100 MG/10 ML UDC PO SCH ×2 (10:05→21:35)
[2018-01-26] MEDS: CYCLOBENZAPRINE HCL 10 MG TAB PO SCH ×3 (10:05→18:05)
[2018-01-26] MEDS: SODIUM CHLORIDE 0.9% FLUSH 10 ML FLUSH IV FLUSH SCH ×2 (10:07→21:00)
[2018-01-26] MEDS: BUDESONIDE-FORMOTEROL 160/4.5 MCG INHALER INH SCH ×2 (10:07→21:36)
[2018-01-26 12:00] VITALS: BP 166/86; PULSE 99; RESP 17; TEMP 97.7; O2SAT 94
--- NOTE | 2018-01-26 14:40 | HHI.PR ---
Subjective Subjective Notes Patient feels very distended. She is passing small amounts of bowel movement every time she urinates on the toilet. She is getting frustrated with feeling the way she does. Objective Vitals/I&O Vital Signs Date Time Temp Pulse Resp B/P (MAP) Pulse Ox O2 Delivery O2 Flow Rate FiO2 01/26/18 12:00 97.7 99 17 166/86 (112) 94 01/23/18 17:00 Nasal Cannula 2 Radiology Last 48 hours Impressions Abdomen/Pelvis CT 01/22/18 1800 Signed Impressions: Service Date/Time: Monday, January 22, 2018 19:40 - CONCLUSION: 1. Distal small bowel obstruction with multiple air-fluid levels. The cecum is impacted with stool to a diameter of 9.2 cm and it is unclear if this is related to a distal small bowel obstruction. No free air. There is mild ascites. 2. Subsegmental patchy airspace disease at the lung base is trace right pleural fluid. 3. Small hiatal hernia. Tee Herrera MD Abdomen: Other (Protuberant distended mildly tender to palpation. Normal bowel sounds.) A/P Assessment and Plan Small bowel and colonic ileus, initially admitted with a cecum full of stool. Status post Gastrografin enema. Still awaiting normal bowel function. Does not appear surgical intervention is the answer at this time. Ward Foley MD Jan 26, 2018 14:40
[2018-01-26 16:00] VITALS: BP 175/85; PULSE 86; PULSE 96; RESP 17; TEMP 97.5; O2SAT 94
[2018-01-26] MEDS ORDERED: METHYLNALTREXONE BROMIDE 12 MG/0.6 ML VIAL SQ ONE (17:00)
--- NOTE | 2018-01-26 17:01 | RADRPT ---
EXAM DATE/TIME: 01/26/2018 16:27 [facility] COMPARISON: No previous studies available for comparison. INDICATIONS : Abdominal distention. MEDICAL HISTORY : Chronic obstructive pulmonary disease. Cardiovascular disease. SURGICAL HISTORY : Appendectomy. Hysterectomy. Gallbladder. ENCOUNTER: Subsequent ACUITY: 1 week PAIN SCORE: 8/10 LOCATION: Abdomen. FINDINGS: Nasogastric tube across the GE junction. Mammographic contrast in the ascending colon. Moderate gas eous distention of proximal small bowel unchanged in the interval. There is no free air. CONCLUSION: Proximal small bowel dilatation unchanged in interval. Alon Gonzalez MD FACR on January 26, 2018 at 16:58 Board Certified Radiologist. This report was verified electronically.
--- NOTE | 2018-01-26 17:42 | HHI.GIFU ---
Subjective Remarks Pt with continued abdominal distention Remains with significant amount of output through NG tube Reports having a few small BMs today (Thao Erazo) Objective Vitals I&O Vital Signs Date Time Temp Pulse Resp B/P (MAP) Pulse Ox O2 Delivery O2 Flow Rate FiO2 01/26/18 16:00 97.5 96 17 175/85 (115) 94 01/26/18 12:00 97.7 99 17 166/86 (112) 94 01/26/18 07:57 98.0 86 17 163/78 (106) 93 01/26/18 03:35 98.0 88 17 177/83 (114) 98 01/25/18 23:35 98.0 94 18 146/72 (96) 97 01/25/18 20:00 97.9 103 18 149/78 (101) 96 I/O 01/25/18 01/25/18 01/25/18 01/26/18 01/26/18 01/26/18 07:00 15:00 23:00 07:00 15:00 23:00 Intake Total 300 ml 1700 ml 100 ml 0 ml 0 ml Output Total 100 ml 200 ml Balance 300 ml 1700 ml 0 ml -200 ml 0 ml Intake Oral 300 ml 300 ml 0 ml 0 ml 0 ml IV Total 1400 ml 100 ml Gastric Drainage Total 100 ml 200 ml # Voids 1 1 1 # Bowel Movements 0 0 0 Imaging Last Impressions Abdomen X-Ray 01/25/18 0000 Signed Impressions: Service Date/Time: Thursday, January 25, 2018 09:50 - CONCLUSION: Moderate gas distention of small bowel and colon is evident with moderate residual Gastrografin colon. Gas evident in GI rescheduled. Alon Gonzalez MD FACR Enema w/Water Soluble 01/24/18 0000 Signed Impressions: Service Date/Time: January 11:06 - CONCLUSION: Gastrografin enema performed for constipation as described above. Jabier Aviles MD Abdomen/Pelvis CT 01/22/18 1800 Signed Impressions: Service Date/Time: Monday, January 22, 2018 19:40 - CONCLUSION: 1. Distal small bowel obstruction with multiple air-fluid levels. The cecum is impacted with stool to a diameter of 9.2 cm and it is unclear if this is related to a distal small bowel obstruction. No free air. There is mild ascites. 2. Subsegmental patchy airspace disease at the lung base is trace right pleural fluid. 3. Small hiatal hernia. Tee Herrera MD Physical Exam HEENT: Normocephalic; atraumatic; no jaundice. CHEST: Even/unlabored CARDIAC: RRR ABDOMEN: Distended, firm, diffuse TTP, bowel sounds active. NGT to LIWS EXTREMITIES: No clubbing, cyanosis, or edema. SKIN: Normal; no rash; no jaundice. INFORMATION TECHNOLOGY COORDINATOR: No focal deficits; alert and oriented times three. (Thao Erazo [employer]) Assessment and Plan Plan ASSESSMENT - abd pain, n/v - fecal impaction with SBO. Has been on opioids the last few months. CT showing distal SBO, cecal stool impaction. never had before. last colonoscopy 4 y ago and can recall no details (01/24) --> S/P decompressive colonoscopy for fecal impaction --> Diverticulosis in the sigmoid and descending colon. Scope could not be passed through descending colon- possibility of stricture. Internal and external hemorrhoids. Gastrografin enema --> Diffuse air filled loops of small and large bowel. Free flow of contrast to cecal tip. Limited exam due to retained fecal debris throughout colon. Post evacuation radiographs unremarkable. Pt reports large BM after exam. Remains with NGT to LIWS. Elevated LFTs noted, trending down --> CT abdomen noted mild ascites and mild fatty liver. (01/25) --> Pt with continued abdominal distention and pain today. Reports a BM early this morning. Does not feel the distention has improved since yesterday. NGT to LIWS with 100 mL of bile colored drainage. KUB (01/24) Multiple air-filled loops of small bowel suggesting possible ileus or partial small bowel obstruction. Repeat labs from today pending. (01/26) --> Pt with continued abdominal distention and pain today. NGT to LIWS with 700 mL of gastric secretions. Reports a few small BMs today. Abdominal x-ray (01/26) --> Proximal small bowel dilatation unchanged in interval. PLAN - SBFT - Enema - Relistor sub q x 1 - NGT to LIWS - NPO - Cipro and Flagyl - GS following - Repeat colonoscopy after episode resolves - Monitor LFTs, trending down - Further recommendations based on clinical course and results of above Pt has been seen and examined by myself and Dr. Poole and this note is written on her behalf (Thao Erazo) Physician Comments seen, examined agree with above as per surgery no indication of sbo-most likely ileus-we will try Relistor, Reglan, enemas await sbft abdominal x ray noted encourage ambulation (Sayra Poole MD) Thao Erazo Jan 26, 2018 17:42 Sayra Poole MD Jan 26, 2018 19:46
[2018-01-26] MEDS: METOCLOPRAMIDE HCL 10 MG/2 ML VIAL IM SCH (18:06)
[2018-01-26 20:00] VITALS: BP 161/74; PULSE 93; RESP 18; TEMP 98.1; O2SAT 92
[2018-01-26 23:35] VITALS: BP 152/82; PULSE 106; RESP 18; TEMP 98.2; O2SAT 97
[2018-01-27] MEDS: MORPHINE SULFATE 2 MG/ML SYRINGE IV PUSH PRN ×6 (00:23→23:35)
[2018-01-27] MEDS: ONDANSETRON HCL 4 MG/2 ML VIAL IV PUSH PRN ×3 (00:23→20:26)
[2018-01-27] MEDS: METOCLOPRAMIDE HCL 10 MG/2 ML VIAL IM SCH ×3 (00:30→15:39)
[2018-01-27] MEDS: INSULIN ASPART SUPPLEMENTAL SCALE SQ SCH ×6 (01:30→20:30)
[2018-01-27 03:58] VITALS: BP 160/88; PULSE 90; RESP 18; TEMP 98.1; O2SAT 94
[2018-01-27] MEDS: CIPROFLOXACIN 400 MG PREMIX 200 ML IV SCH ×2 (04:08→15:39)
[2018-01-27] MEDS: metroNIDAZOLE 500 MG INJ 100 ML IV SCH ×4 (05:24→22:38)
[2018-01-27] MEDS: PANTOPRAZOLE SODIUM 40 MG VIAL IV PUSH SCH ×2 (05:24→15:39)
[2018-01-27] MEDS: D5-NS + KCL 20 MEQ INJ 1,000 ML IV SCH ×3 (05:25→22:43)
[2018-01-27 07:10] LABS: AUTOMATED NEUTROPHIL # 8.2 TH/MM3 (1.8-7.7); BASOPHIL # 0.1 TH/MM3 (0-0.2); BASOPHIL % 0.8 % (0.0-2.0); EOSINOPHIL % 0.1 % (0.0-4.0); HEMATOCRIT 31.3 % (35.0-46.0); HEMOGLOBIN 10.2 GM/DL (11.6-15.3); LYMPH % 14.9 % (9.0-44.0); LYMPHOCYTE # 1.5 TH/MM3 (1.0-4.8); MEAN CELL VOLUME 92.7 FL (80.0-100.0); MEAN CORPUSCULAR HEMOGLOBIN 30.3 PG (27.0-34.0); MEAN CORPUSCULAR HGB CONC 32.7 % (32.0-36.0); MEAN PLATELET VOLUME 6.8 FL (7.0-11.0); MONO % 5.3 % (0.0-8.0); MONOCYTE # 0.5 TH/MM3 (0-0.9); NEUT % 78.9 % (16.0-70.0); PLATELET COUNT 379 TH/MM3 (150-450); RED BLOOD COUNT 3.37 MIL/MM3 (4.00-5.30); RED CELL DISTRIBUTION WIDTH 17.7 % (11.6-17.2); WHITE BLOOD COUNT 10.4 TH/MM3 (4.0-11.0)
[2018-01-27 07:37] LABS: ALBUMIN 2.2 GM/DL (3.4-5.0); AST (GOT) 24 U/L (15-37); BICARBONATE 26.5 MEQ/L (21.0-32.0); BLOOD UREA NITROGEN 6 MG/DL (7-18); CALCIUM 8.3 MG/DL (8.5-10.1); CHLORIDE 99 MEQ/L (98-107); CREATININE 0.66 MG/DL (0.50-1.00); GLOMERULAR FILTRATION RATE 93 ML/MIN (>89); GLUCOSE,RANDOM 96 MG/DL (74-106); MAGNESIUM 2.3 MG/DL (1.5-2.5); SODIUM (NA) 133 MEQ/L (136-145)
[2018-01-27 07:38] LABS: ALT (GPT) 60 U/L (10-53)
[2018-01-27 07:41] LABS: ALKALINE PHOSPHATASE 61 U/L (45-117); TOTAL BILIRUBIN ADULT 0.2 MG/DL (0.2-1.0); TOTAL PROTEIN 6.2 GM/DL (6.4-8.2)
[2018-01-27 07:55] VITALS: BP 175/87; PULSE 95; RESP 17; TEMP 97.6; O2SAT 93
[2018-01-27] MEDS: DOCUSATE SODIUM 100 MG/10 ML UDC PO SCH ×2 (08:11→22:37)
[2018-01-27] MEDS: ALPRAZolam 0.25 MG TAB PO SCH ×2 (08:11→22:37)
[2018-01-27] MEDS: CYCLOBENZAPRINE HCL 10 MG TAB PO SCH ×3 (08:12→17:51)
[2018-01-27] MEDS: predniSONE 5 MG TAB PO SCH ×2 (08:12→22:37)
[2018-01-27] MEDS: FOLIC ACID 1 MG TAB PO SCH (08:12)
[2018-01-27] MEDS: NIFEdipine 90 MG SUSTAINED RELEASE TAB PO SCH (08:12)
[2018-01-27] MEDS: STIOLTO PO SCH (08:13)
[2018-01-27] MEDS: BUDESONIDE-FORMOTEROL 160/4.5 MCG INHALER INH SCH ×2 (08:13→22:39)
[2018-01-27] MEDS: SODIUM CHLORIDE 0.9% FLUSH 10 ML FLUSH IV FLUSH SCH ×2 (08:13→22:38)
--- NOTE | 2018-01-27 09:14 | RADRPT ---
EXAM DATE/TIME: 01/27/2018 08:39 [facility] COMPARISON: CT ABDOMEN & PELVIS W CONTRAST, January 22, 2018, 19:40. ABDOMEN KUB ONLY, January 25, 2018, 9:50. INDICATIONS : Abdominal distention. MEDICAL HISTORY : Chronic obstructive pulmonary disease. Cardiovascular disease. SURGICAL HISTORY : Appendectomy. Hysterectomy. Gallbladder. ENCOUNTER: Subsequent ACUITY: 1 week PAIN SCORE: 8/10 LOCATION: Bilateral Abdomen. FINDINGS: There are multiple air-filled minimally dilated loops of small bowel suggesting possible persistent i leus or partial small bowel obstruction. A nasogastric tube has its tip in the stomach. Contrast is n oted within the colon. CONCLUSION: Multiple air-filled minimally dilated loops of small bowel suggesting possible persistent ileus or pa rtial small bowel obstruction. Clinical correlation is recommended. Jabier Aviles MD on January 27, 2018 at 9:09 Board Certified Radiologist. This report was verified electronically.
--- NOTE | 2018-01-27 10:36 | HHI.PR ---
Subjective Subjective Notes reports small BMs and flatus, wants something for sore throat, still feels very distended Objective Vitals/I&O Vital Signs Date Time Temp Pulse Resp B/P (MAP) Pulse Ox O2 Delivery O2 Flow Rate FiO2 01/27/18 07:55 97.6 95 17 175/87 (116) 93 01/23/18 17:00 Nasal Cannula 2 Labs Laboratory Tests Test 01/27/18 06:15 White Blood Count 10.4 Red Blood Count 3.37 Hemoglobin 10.2 Hematocrit 31.3 Mean Corpuscular Volume 92.7 Mean Corpuscular Hemoglobin 30.3 Mean Corpuscular Hemoglobin Concent 32.7 Red Cell Distribution Width 17.7 Platelet Count 379 Mean Platelet Volume 6.8 Neutrophils (%) (Auto) 78.9 Lymphocytes (%) (Auto) 14.9 Monocytes (%) (Auto) 5.3 Eosinophils (%) (Auto) 0.1 Basophils (%) (Auto) 0.8 Neutrophils # (Auto) 8.2 Lymphocytes # (Auto) 1.5 Monocytes # (Auto) 0.5 Eosinophils # (Auto) 0.0 Basophils # (Auto) 0.1 CBC Comment DIFF FINAL Differential Comment Blood Urea Nitrogen 6 Creatinine 0.66 Random Glucose 96 Total Protein 6.2 Albumin 2.2 Calcium Level 8.3 Magnesium Level 2.3 Alkaline Phosphatase 61 Aspartate Amino Transf (AST/SGOT) 24 Alanine Aminotransferase (ALT/SGPT) 60 Total Bilirubin 0.2 Sodium Level 133 Potassium Level 3.7 Chloride Level 99 Carbon Dioxide Level 26.5 Anion Gap 8 Estimat Glomerular Filtration Rate 93 Radiology Last 48 hours Impressions Abdomen/Pelvis CT 01/22/18 1800 Signed Impressions: Service Date/Time: Monday, January 22, 2018 19:40 - CONCLUSION: 1. Distal small bowel obstruction with multiple air-fluid levels. The cecum is impacted with stool to a diameter of 9.2 cm and it is unclear if this is related to a distal small bowel obstruction. No free air. There is mild ascites. 2. Subsegmental patchy airspace disease at the lung base is trace right pleural fluid. 3. Small hiatal hernia. Tee Herrera MD Narrative Exam grossly distended, abdomen pretty quiet. mild tenderness A/P Assessment and Plan Adynamic ileus/fecal impaction, distended cecum may benefit from decompressive colonoscopy to address enlarged cecum which is likely source of small bowel dilation. continue aggressive medical management - laxatives, NG. IVF, prokinetic agents - ?neostigmine? i do not think this is a mechanical/surgical blockage - entire small bowel and RIGHT colon distended. gastrogaffin enema did not show obstructing colon mass. still has contrast in RIGHT colon. NG output is way down, consider removal next 24-48 hours. Xray shows it is in good position. Yvon Florian MD Jan 27, 2018 10:36
[2018-01-27 12:00] VITALS: BP 145/75; PULSE 97; RESP 17; TEMP 98.1; O2SAT 93
--- NOTE | 2018-01-27 14:31 | HHI.PR ---
Subjective Remarks Follow-up abdominal pain. Pain is improving. Still having occasional nausea. Objective Vitals Vital Signs Date Time Temp Pulse Resp B/P (MAP) Pulse Ox O2 Delivery O2 Flow Rate FiO2 01/27/18 12:00 98.1 97 17 145/75 (98) 93 01/27/18 07:55 97.6 95 17 175/87 (116) 93 01/27/18 03:58 98.1 90 18 160/88 (112) 94 01/26/18 23:35 98.2 106 18 152/82 (105) 97 01/26/18 20:00 98.1 93 18 161/74 (103) 92 01/26/18 16:00 86 01/26/18 16:00 97.5 96 17 175/85 (115) 94 I/O 01/26/18 01/26/18 01/26/18 01/27/18 01/27/18 01/27/18 07:00 15:00 23:00 07:00 15:00 23:00 Intake Total 0 ml 0 ml 1000 ml 2935 ml Output Total 200 ml 250 ml Balance -200 ml 0 ml 1000 ml 2685 ml Intake Oral 0 ml 0 ml 0 ml IV Total 1000 ml 2935 ml Gastric Drainage Total 200 ml 250 ml # Voids 1 1 2 # Bowel Movements 0 0 1 Result Diagram: 01/27/18 0615 01/27/18 0615 Imaging Last Impressions Abdomen X-Ray 01/25/18 0000 Signed Impressions: Service Date/Time: Thursday, January 25, 2018 09:50 - CONCLUSION: Moderate gas distention of small bowel and colon is evident with moderate residual Gastrografin colon. Gas evident in GI rescheduled. Alon Gonzalez MD FACR Enema w/Water Soluble 01/24/18 0000 Signed Impressions: Service Date/Time: January 11:06 - CONCLUSION: Gastrografin enema performed for constipation as described above. Jabier Aviles MD Abdomen/Pelvis CT 01/22/18 1800 Signed Impressions: Service Date/Time: Monday, January 22, 2018 19:40 - CONCLUSION: 1. Distal small bowel obstruction with multiple air-fluid levels. The cecum is impacted with stool to a diameter of 9.2 cm and it is unclear if this is related to a distal small bowel obstruction. No free air. There is mild ascites. 2. Subsegmental patchy airspace disease at the lung base is trace right pleural fluid. 3. Small hiatal hernia. Tee Herrera MD Objective Remarks General: No acute distress. NG tube in place. Heart: Regular rate and rhythm. No murmur. Lungs: Clear to auscultation bilaterally. No wheezes, rales, or rhonchi. Breathing is nonlabored. Abdomen: Soft, mild diffuse tenderness, distended. Decreased bowel sounds. Extremities: No lower extremity edema. Psych: Alert and oriented. Procedures 01/23/18 colonoscopy 01/24/18 Gastrografin enema Urinary Catheter: No Vascular Central Line Catheter: No A/P Assessment and Plan 1. Fecal impaction, ileus: Appreciate GI, general surgery recommendations. S/P colonoscopy, Gastrografin enema. NG tube in place, output decreasing. N.p.o. except sips of water and ice chips. Continue bowel regimen. Improving slowly. Repeat KUB today again shows multiple air-filled dilated loops of small bowel suggesting persistent ileus or partial small bowel obstruction. 2. Hypertension: Continue Procardia XL. Blood pressure has remained elevated, possibly due to pain. Vasotec as needed. 3. Diabetes mellitus: Monitor Accu-Cheks and cover with sliding scale insulin. On D5 in IV fluids while NPO. 4. Hyperlipidemia: Not on statin. Will avoid secondary to elevated LFTs. 5. Coronary artery disease, chronic congestive heart failure: Currently asymptomatic. Lasix on hold. 6. COPD on home oxygen: Continue inhalers, supplemental oxygen. 7. Atrial fibrillation: Continue calcium channel miguelina. Aspirin on hold. 8. GI prophylaxis: Protonix. 9. Hyponatremia: Improving. Continue IV fluids. 10. DVT prophylaxis: SCDs. Discharge Planning Pending further clinical improvement. Moses Harper MD Jan 27, 2018 14:31
[2018-01-27 15:50] VITALS: BP 106/58; PULSE 101; RESP 18; TEMP 98.2; O2SAT 98
[2018-01-27 15:52] VITALS: BP 144/75; PULSE 98; RESP 17; TEMP 98.5; O2SAT 94
[2018-01-27] MEDS ORDERED: MAGNESIUM CITRATE SOLN 300 ML BTL PO ONE (17:45)
--- NOTE | 2018-01-27 17:57 | HHI.GIFU ---
Subjective Remarks Pt resting in bed Abdomen remains distended and painful NGT to LIWS with continued copious amounts of drainage Has had a few BMs after enemas Objective Vitals I&O Vital Signs Date Time Temp Pulse Resp B/P (MAP) Pulse Ox O2 Delivery O2 Flow Rate FiO2 01/27/18 15:52 98.5 98 17 144/75 (98) 94 01/27/18 15:50 98.2 101 18 106/58 (74) 98 01/27/18 12:00 98.1 97 17 145/75 (98) 93 01/27/18 07:55 97.6 95 17 175/87 (116) 93 01/27/18 03:58 98.1 90 18 160/88 (112) 94 01/26/18 23:35 98.2 106 18 152/82 (105) 97 01/26/18 20:00 98.1 93 18 161/74 (103) 92 I/O 01/26/18 01/26/18 01/26/18 01/27/18 01/27/18 01/27/18 07:00 15:00 23:00 07:00 15:00 23:00 Intake Total 0 ml 0 ml 1000 ml 2935 ml 0 ml Output Total 200 ml 250 ml Balance -200 ml 0 ml 1000 ml 2685 ml 0 ml Intake Oral 0 ml 0 ml 0 ml 0 ml IV Total 1000 ml 2935 ml Gastric Drainage Total 200 ml 250 ml # Voids 1 1 2 3 # Bowel Movements 0 0 1 0 Laboratory Laboratory Tests Test 01/27/18 06:15 White Blood Count 10.4 Red Blood Count 3.37 Hemoglobin 10.2 Hematocrit 31.3 Mean Corpuscular Volume 92.7 Mean Corpuscular Hemoglobin 30.3 Mean Corpuscular Hemoglobin Concent 32.7 Red Cell Distribution Width 17.7 Platelet Count 379 Mean Platelet Volume 6.8 Neutrophils (%) (Auto) 78.9 Lymphocytes (%) (Auto) 14.9 Monocytes (%) (Auto) 5.3 Eosinophils (%) (Auto) 0.1 Basophils (%) (Auto) 0.8 Neutrophils # (Auto) 8.2 Lymphocytes # (Auto) 1.5 Monocytes # (Auto) 0.5 Eosinophils # (Auto) 0.0 Basophils # (Auto) 0.1 CBC Comment DIFF FINAL Differential Comment Blood Urea Nitrogen 6 Creatinine 0.66 Random Glucose 96 Total Protein 6.2 Albumin 2.2 Calcium Level 8.3 Magnesium Level 2.3 Alkaline Phosphatase 61 Aspartate Amino Transf (AST/SGOT) 24 Alanine Aminotransferase (ALT/SGPT) 60 Total Bilirubin 0.2 Sodium Level 133 Potassium Level 3.7 Chloride Level 99 Carbon Dioxide Level 26.5 Anion Gap 8 Estimat Glomerular Filtration Rate 93 Imaging Last Impressions Abdomen X-Ray 01/26/18 0000 Signed Impressions: Service Date/Time: Friday, January 26, 2018 16:27 - CONCLUSION: Proximal small bowel dilatation unchanged in interval. Alon Gonzalez MD FACR Enema w/Water Soluble 01/24/18 0000 Signed Impressions: Service Date/Time: January 11:06 - CONCLUSION: Gastrografin enema performed for constipation as described above. Jabier Aviles MD Abdomen/Pelvis CT 01/22/18 1800 Signed Impressions: Service Date/Time: Monday, January 22, 2018 19:40 - CONCLUSION: 1. Distal small bowel obstruction with multiple air-fluid levels. The cecum is impacted with stool to a diameter of 9.2 cm and it is unclear if this is related to a distal small bowel obstruction. No free air. There is mild ascites. 2. Subsegmental patchy airspace disease at the lung base is trace right pleural fluid. 3. Small hiatal hernia. Tee Herrera MD Physical Exam HEENT: Normocephalic; atraumatic; no jaundice. CHEST: Even/unlabored CARDIAC: RRR ABDOMEN: Distended, firm, diffuse TTP, bowel sounds active. NGT to LIWS EXTREMITIES: No clubbing, cyanosis, or edema. SKIN: Normal; no rash; no jaundice. CARDIOPULMONARY TECHNOLOGIST CHIEF: No focal deficits; alert and oriented times three. Assessment and Plan Plan ASSESSMENT - abd pain, n/v - fecal impaction with SBO. Has been on opioids the last few months. CT showing distal SBO, cecal stool impaction. never had before. last colonoscopy 4 y ago and can recall no details (01/24) --> S/P decompressive colonoscopy for fecal impaction --> Diverticulosis in the sigmoid and descending colon. Scope could not be passed through descending colon- possibility of stricture. Internal and external hemorrhoids. Gastrografin enema --> Diffuse air filled loops of small and large bowel. Free flow of contrast to cecal tip. Limited exam due to retained fecal debris throughout colon. Post evacuation radiographs unremarkable. Pt reports large BM after exam. Remains with NGT to LIWS. Elevated LFTs noted, trending down --> CT abdomen noted mild ascites and mild fatty liver. (01/25) --> Pt with continued abdominal distention and pain today. Reports a BM early this morning. Does not feel the distention has improved since yesterday. NGT to LIWS with 100 mL of bile colored drainage. KUB (01/24) Multiple air-filled loops of small bowel suggesting possible ileus or partial small bowel obstruction. Repeat labs from today pending. (01/26) --> Pt with continued abdominal distention and pain today. NGT to LIWS with 700 mL of gastric secretions. Reports a few small BMs today. Abdominal x-ray (01/26) --> Proximal small bowel dilatation unchanged in interval. (01/27) Pt with continued abdominal distention and pain. NGT still has copious amounts of drainage. KUB (01/27) Multiple air-filled minimally dilated loops of small bowel suggesting possible persistent ileus or partial SBO. PPN ordered. Planned for repeat colonoscopy tomorrow. PLAN - Colonoscopy tomorrow - Obtain consent - Mag Citrate through NG - Enema - NGT to LIWS - Cipro and Flagyl - Reglan - PPN - GS following - Monitor LFTs, trending down - Further recommendations based on clinical course and results of above Pt has been seen and examined by myself and Dr. Poole and this note is written on her behalf Thao Erazo Jan 27, 2018 17:57
[2018-01-27 20:00] VITALS: BP 146/90; PULSE 99; RESP 17; TEMP 98.5; O2SAT 93
[2018-01-27] MEDS: CLINIMIX IV SCH ×9 (23:35)
[2018-01-27] MEDS: FAT EMULSION 20% INJ 250 ML (@10 mls/hr) IV SCH (23:35)
[2018-01-28] VITALS: BP 156/79; PULSE 95; RESP 18; TEMP 97.9; O2SAT 92
[2018-01-28] MEDS: METOCLOPRAMIDE HCL 10 MG/2 ML VIAL IM SCH ×3 (01:00→17:53)
[2018-01-28] MEDS: INSULIN ASPART SUPPLEMENTAL SCALE SQ SCH ×6 (01:30→21:30)
[2018-01-28] MEDS: PANTOPRAZOLE SODIUM 40 MG VIAL IV PUSH SCH ×2 (01:33→17:57)
[2018-01-28] MEDS: metroNIDAZOLE 500 MG INJ 100 ML IV SCH ×4 (01:33→22:59)
[2018-01-28] MEDS: CIPROFLOXACIN 400 MG PREMIX 200 ML IV SCH ×2 (01:33→17:40)
[2018-01-28] MEDS ORDERED: POVIDONE IODINE 5% (ANTISEPSIS KIT) 4 APPLICATIONS EACH NARE PRN (01:45)
[2018-01-28] MEDS ORDERED: LACTATED RINGER'S 1000 ML IV PRN (01:45)
[2018-01-28] MEDS ORDERED: SODIUM CHLORID 0.9% 500 ML IV PRN (01:45)
[2018-01-28] MEDS ORDERED: CHLORHEXIDINE GLUCONATE 2 % 1 PACK (2 CLOTHS) TOPICAL PRN (01:45)
[2018-01-28] MEDS: MORPHINE SULFATE 2 MG/ML SYRINGE IV PUSH PRN ×4 (04:37→23:19)
[2018-01-28 05:57] VITALS: BP 148/85; PULSE 96; RESP 20; TEMP 98; O2SAT 96
[2018-01-28 06:24] LABS: BICARBONATE 27.5 MEQ/L (21.0-32.0); CALCIUM 8.4 MG/DL (8.5-10.1); CREATININE 0.7 MG/DL (0.50-1.00)
[2018-01-28 06:53] LABS: BASOPHIL # 0.1 TH/MM3 (0-0.2); BASOPHIL % 0.6 % (0.0-2.0); HEMATOCRIT 30.9 % (35.0-46.0); HEMOGLOBIN 10.2 GM/DL (11.6-15.3); LYMPHOCYTE # 1.5 TH/MM3 (1.0-4.8); MEAN CELL VOLUME 92.5 FL (80.0-100.0); MEAN CORPUSCULAR HEMOGLOBIN 30.7 PG (27.0-34.0); MEAN CORPUSCULAR HGB CONC 33.2 % (32.0-36.0); MEAN PLATELET VOLUME 6.9 FL (7.0-11.0); MONO % 5.1 % (0.0-8.0); MONOCYTE # 0.5 TH/MM3 (0-0.9); NEUT % 79.3 % (16.0-70.0); PLATELET COUNT 384 TH/MM3 (150-450); RED BLOOD COUNT 3.34 MIL/MM3 (4.00-5.30); RED CELL DISTRIBUTION WIDTH 18.2 % (11.6-17.2); WHITE BLOOD COUNT 10.1 TH/MM3 (4.0-11.0)
[2018-01-28 08:00] VITALS: BP 171/95; PULSE 96; RESP 16; TEMP 98.5; O2SAT 97
[2018-01-28] MEDS: CYCLOBENZAPRINE HCL 10 MG TAB PO SCH ×3 (08:15→17:56)
[2018-01-28] MEDS: DOCUSATE SODIUM 100 MG/10 ML UDC PO SCH ×2 (08:15→22:59)
[2018-01-28] MEDS: FOLIC ACID 1 MG TAB PO SCH (08:15)
[2018-01-28] MEDS: BUDESONIDE-FORMOTEROL 160/4.5 MCG INHALER INH SCH ×2 (08:54→23:00)
[2018-01-28] MEDS: SODIUM CHLORIDE 0.9% FLUSH 10 ML FLUSH IV FLUSH SCH ×2 (08:54→23:00)
[2018-01-28] MEDS: NIFEdipine 90 MG SUSTAINED RELEASE TAB PO SCH (08:55)
[2018-01-28] MEDS: STIOLTO PO SCH (08:55)
[2018-01-28] MEDS: ALPRAZolam 0.25 MG TAB PO SCH ×2 (08:55→22:59)
[2018-01-28] MEDS: predniSONE 5 MG TAB PO SCH ×2 (08:55→22:59)
--- NOTE | 2018-01-28 09:23 | RADRPT ---
EXAM DATE/TIME: 01/28/2018 09:03 [facility] COMPARISON: ABDOMEN FLAT & UPRIGHT, January 26, 2018, 16:27. ABDOMEN KUB ONLY, January 27, 2018, 8:39. INDICATIONS : KUB bioinformatics assistant for small bowel series, abdominal pain and distention MEDICAL HISTORY : Cardiovascular disease. Chronic obstructive pulmonary disease. Carcinoma, lung. SURGICAL HISTORY : Hysterectomy. section. Appendectomy. ENCOUNTER: Subsequent ACUITY: 4 - 6 days PAIN SCORE: 10/10 LOCATION: Bilateral chest FINDINGS: 2 AP supine views of the abdomen were obtained demonstrate a large amount of residual contrast again noted throughout the majority of the colon. This is not significant change from the prior study. Mult iple loops of dilated air containing small bowel are again noted throughout the abdomen. This is not significant changed. The nasogastric tube remains in place with the tip projected over the distal sto mach. There is patchy opacity projected over left lung base. There is no evidence of free air. Multip le overlying retrocardiac leads are present. The bony structures are intact. CONCLUSION: 1. Moderate to large amount of residual contrast in the colon. 2. Abnormal bowel gas pattern without significant change. Christian Thompson MD on January 28, 2018 at 9:17 Board Certified Radiologist. This report was verified electronically.
[2018-01-28] MEDS: ONDANSETRON HCL 4 MG/2 ML VIAL IV PUSH PRN ×2 (09:31→23:08)
[2018-01-28] MEDS: D5-NS + KCL 20 MEQ INJ 1,000 ML IV SCH ×2 (11:02→19:55)
--- NOTE | 2018-01-28 11:12 | HHI.PR ---
Subjective Remarks To go for colonoscopy decompressive today regarding her ileus Still has NG tube to low intermittent suction Still on TPN Discussed with RN and patient and surgery We will get a.m. labs Objective Vitals Vital Signs Date Time Temp Pulse Resp B/P (MAP) Pulse Ox O2 Delivery O2 Flow Rate FiO2 01/28/18 08:00 98.5 96 16 171/95 (120) 97 01/28/18 05:57 98.0 96 20 148/85 (106) 96 01/28/18 04:43 18 01/28/18 00:00 97.9 95 18 156/79 (104) 92 01/27/18 20:00 98.5 99 17 146/90 (108) 93 01/27/18 15:52 98.5 98 17 144/75 (98) 94 01/27/18 15:50 98.2 101 18 106/58 (74) 98 01/27/18 12:00 98.1 97 17 145/75 (98) 93 I/O 01/27/18 01/27/18 01/27/18 01/28/18 01/28/18 01/28/18 07:00 15:00 23:00 07:00 15:00 23:00 Intake Total 2935 ml 0 ml 1300 ml 614 ml Output Total 250 ml 600 ml 50 ml Balance 2685 ml 0 ml 1300 ml 14 ml -50 ml Intake Oral 0 ml 0 ml IV Total 2935 ml 1300 ml 100 ml TPN/PPN 461 ml Lipid 53 ml Gastric Drainage Total 250 ml 600 ml 50 ml # Voids 2 3 3 # Bowel Movements 1 0 Result Diagram: 01/28/18 0455 01/28/18 0455 Other Results Laboratory Tests Test 01/27/18 06:15 01/28/18 04:55 White Blood Count 10.4 TH/MM3 10.1 TH/MM3 Red Blood Count 3.37 MIL/MM3 3.34 MIL/MM3 Hemoglobin 10.2 GM/DL 10.2 GM/DL Hematocrit 31.3 % 30.9 % Mean Corpuscular Volume 92.7 FL 92.5 FL Mean Corpuscular Hemoglobin 30.3 PG 30.7 PG Mean Corpuscular Hemoglobin Concent 32.7 % 33.2 % Red Cell Distribution Width 17.7 % 18.2 % Platelet Count 379 TH/MM3 384 TH/MM3 Mean Platelet Volume 6.8 FL 6.9 FL Neutrophils (%) (Auto) 78.9 % 79.3 % Lymphocytes (%) (Auto) 14.9 % 15.0 % Monocytes (%) (Auto) 5.3 % 5.1 % Eosinophils (%) (Auto) 0.1 % 0.0 % Basophils (%) (Auto) 0.8 % 0.6 % Neutrophils # (Auto) 8.2 TH/MM3 8.0 TH/MM3 Lymphocytes # (Auto) 1.5 TH/MM3 1.5 TH/MM3 Monocytes # (Auto) 0.5 TH/MM3 0.5 TH/MM3 Eosinophils # (Auto) 0.0 TH/MM3 0.0 TH/MM3 Basophils # (Auto) 0.1 TH/MM3 0.1 TH/MM3 CBC Comment DIFF FINAL DIFF FINAL Differential Comment Blood Urea Nitrogen 6 MG/DL 8 MG/DL Creatinine 0.66 MG/DL 0.70 MG/DL Random Glucose 96 MG/DL 121 MG/DL Total Protein 6.2 GM/DL Albumin 2.2 GM/DL Calcium Level 8.3 MG/DL 8.4 MG/DL Magnesium Level 2.3 MG/DL Alkaline Phosphatase 61 U/L Aspartate Amino Transf (AST/SGOT) 24 U/L Alanine Aminotransferase (ALT/SGPT) 60 U/L Total Bilirubin 0.2 MG/DL Sodium Level 133 MEQ/L 134 MEQ/L Potassium Level 3.7 MEQ/L 3.5 MEQ/L Chloride Level 99 MEQ/L 97 MEQ/L Carbon Dioxide Level 26.5 MEQ/L 27.5 MEQ/L Anion Gap 8 MEQ/L 10 MEQ/L Estimat Glomerular Filtration Rate 93 ML/MIN 87 ML/MIN Imaging Last Impressions Abdomen X-Ray 01/27/18 0000 Signed Impressions: Service Date/Time: Saturday, January 27, 2018 08:39 - CONCLUSION: Multiple air-filled minimally dilated loops of small bowel suggesting possible persistent ileus or partial small bowel obstruction. Clinical correlation is recommended. Jabier Aviles MD Enema w/Water Soluble 01/24/18 0000 Signed Impressions: Service Date/Time: January 11:06 - CONCLUSION: Gastrografin enema performed for constipation as described above. Jabier Aviles MD Abdomen/Pelvis CT 01/22/18 1800 Signed Impressions: Service Date/Time: Monday, January 22, 2018 19:40 - CONCLUSION: 1. Distal small bowel obstruction with multiple air-fluid levels. The cecum is impacted with stool to a diameter of 9.2 cm and it is unclear if this is related to a distal small bowel obstruction. No free air. There is mild ascites. 2. Subsegmental patchy airspace disease at the lung base is trace right pleural fluid. 3. Small hiatal hernia. Tee Herrera MD Objective Remarks GENERAL: Awake alert oriented 3 talkative and cooperative has NG tube in place appears uncomfortable SKIN: Warm and dry. HEAD: Atraumatic. Normocephalic. EYES: Pupils equal and round. No scleral icterus. No injection or drainage. Extraocular muscles intact ENT: No nasal bleeding or discharge. Mucous membranes pink and moist. Tongue is midline NG tube in place NECK: Trachea midline. No JVD. Supple CARDIOVASCULAR: Regular rate and rhythm. S1-S2 no S3 or S4 RESPIRATORY: No accessory muscle use. Clear to auscultation. Breath sounds equal bilaterally. GASTROINTESTINAL: Abdomen soft, non-tender, . Hepatic and splenic margins not palpable. Distended hypoactive obese MUSCULOSKELETAL: Extremities without clubbing, cyanosis, or edema. No obvious deformities. NEUROLOGICAL: Awake and alert. No obvious cranial nerve deficits. Motor grossly within normal limits. 4 out of 5 muscle strength in the arms and legs. Normal speech. PSYCHIATRIC: Appropriate mood and affect; insight and judgment normal. Procedures 01/23/18 colonoscopy 01/24/18 Gastrografin enema Medications and IVs Current Medications Morphine Sulfate (Morphine Inj) 2 mg ONCE ONCE IV PUSH Last administered on at 18:39; Start 01/22/18 at 18:00; Stop 01/22/18 at 18:01; Status DC Ondansetron HCl (Zofran Inj) 4 mg ONCE ONCE IVP Last administered on 18:39; Start 01/22/18 at 18:00; Stop 01/22/18 at 18:01; Status DC Sodium Chloride (NS Flush) 2 ml UNSCH PRN IV FLUSH FLUSH AFTER USING IV ACCESS Last administered on 01/22/18at 18:39; Start 01/22/18 at 18:00; Stop 01/22/18 at 22:38; Status DC Sodium Chloride 500 ml @ 500 mls/hr BOLUS ONCE IV Last administered on 18:39; Start 01/22/18 at 18:00; Stop 01/22/18 at 18:59; Status DC Piperacillin Sod/ Tazobactam Sod 100 ml @ 200 mls/hr ONCE ONCE IV Last administered on 01/22/18at 20:10; Start 01/22/18 at 19:45; Stop 01/22/18 at 20:14 ; Status DC Vancomycin HCl 1000 mg/Sodium Chloride 250 ml @ 250 mls/hr ONCE ONCE IV Last administered on 01/22/18at 21:11; Start 01/22/18 at 19:45; Stop 01/22/18 at 20:44 ; Status DC Iohexol (Omnipaque 350 Inj) 100 ml STK-MED ONCE IVCONTRAST Last administered on 01/22/18at 19:51; Start 01/22/18 at 19:51; Stop 01/22/18 at 19:52; Status DC Metronidazole 100 ml @ 100 mls/hr ONCE ONCE IV Last administered on at 23:07; Start 01/22/18 at 21:30; Stop 01/22/18 at 22:29; Status DC Sodium Chloride 1,000 ml @ 999 mls/hr BOLUS ONCE IV Last administered on 01/22at 21:52; Start 01/22/18 at 21:30; Stop 01/22/18 at 22:30; Status DC Sodium Chloride (NS Flush) 2 ml UNSCH PRN IV FLUSH FLUSH AFTER USING IV ACCESS Last administered on 01/23/18at 03:59; Start 01/22/18 at 22:45 Sodium Chloride (NS Flush) 2 ml BID IV FLUSH Last administered on 01/28/18 08: 54; Start 01/23/18 at 09:00 Naloxone HCl (Narcan Inj) 0.4 mg UNSCH PRN IV PUSH SEE LABEL COMMENTS; Start at 22:45 Docusate Sodium (Colace Liq) 100 mg Q12HR PO Last administered on 01/27/18at 22: 37; Start 01/23/18 at 09:00 Morphine Sulfate (Morphine Inj) 2 mg Q3H PRN IV PUSH pain >5 Last administered on 01/28/18at 09:32; Start 01/23/18 at 03:45 Alprazolam (Xanax) 0.25 mg BID PO Last administered on 01/27/18 22:37; Start 01/23/18 at 09:00 Cyclobenzaprine HCl (Flexeril) 10 mg TID PO Last administered on 01/27/18at 17: 51; Start 01/23/18 at 09:00 Folic Acid (Folate) 1 mg DAILY PO Last administered on 01/27/18at 08:12; Start 01/23/18 at 09:00 Nifedipine (Procardia Xl) 90 mg DAILY PO Last administered on 01/27/18 08:12; Start 01/23/18 at 09:00 Prednisone (Deltasone) 5 mg BID PO Last administered on 01/27/18 22:37; Start 01/23/18 at 09:00 Budesonide/ Formoterol Fumarate (Symbicort 160-4.5 Mcg Inh) 2 puff BID INH Last administered on 01/28/18at 08:54; Start 01/23/18 at 09:00 Pantoprazole Sodium (Protonix) 40 mg DAILY PO Last administered on 01/23/18at 10 :17; Start 01/23/18 at 09:00; Stop 01/23/18 at 14:17; Status DC Patient Own Medication PT OWN MED: STIO... DAILY PO ; Start 01/23/18 at 09:00 Pantoprazole Sodium (Protonix Inj) 40 mg Q12H IV PUSH Last administered on 01/27at 15:39; Start 01/23/18 at 05:30 Potassium Chloride/Dextrose/ Sod Cl 1,000 ml @ 100 mls/hr Q10H IV Last administered on 01/24/18at 05:51; Start 01/23/18 at 05:30; Stop 01/24/18 at 08:09 ; Status DC Dextrose (D50w (Vial) Inj) 50 ml UNSCH PRN IV PUSH HYPOGLYCEMIA-SEE COMMENTS; Start 01/23/18 at 05:30 Glucagon (Glucagon Inj) 1 mg UNSCH PRN OTHER HYPOGLYCEMIA-SEE COMMENTS; Start 01/23/18 at 05:30 Insulin Aspart (NovoLOG SUPPLEMENTAL SCALE) 1 Q4H SQ Last administered on at 22:14; Start 01/23/18 at 05:30 Fentanyl Citrate (fentaNYL INJ) 100 mcg STK-MED ONCE .ROUTE ; Start 01/23/18 at 15:32; Stop 01/23/18 at 15:33; Status DC Ondansetron HCl (*ZOFRAN INJ PERIprocedural ONLY) 4 mg STK-MED ONCE .ROUTE Last administered on 01/23/18at 15:36; Start 01/23/18 at 15:36; Stop 01/23/18 at 15:37; Status DC Promethazine HCl (*PHENERGAN INJ PERIprocedural ONLY) 25 mg STK-MED ONCE .ROUTE Last administered on 01/23/18at 15:38; Start 01/23/18 at 15:38; Stop 01/23/18 at 15:39; Status DC Metronidazole 100 ml @ 100 mls/hr Q6H IV Last administered on 01/27/18at 22:38 ; Start 01/23/18 at 17:00 Ciprofloxacin/ Dextrose 200 ml @ 200 mls/hr Q12H IV Last administered on at 15:39; Start 01/23/18 at 16:00 Miscellaneous Information ALL NURSING DEPARTME... UNSCH PRN .XX SEE LABEL COMMENTS; Start 01/23/18 at 16:00; Stop 01/24/18 at 15:59; Status DC Prochlorperazine Edisylate (Compazine Inj) 10 mg STK-MED ONCE .ROUTE Last administered on 01/23/18at 16:04; Start 01/23/18 at 16:04; Stop 01/23/18 at 16:05 ; Status DC Prochlorperazine Edisylate (Compazine Inj) 10 mg ONCE ONCE IV PUSH ; Start at 16:30; Stop 01/23/18 at 16:37; Status DC Magnesium Citrate (Citroma Liq) 300 ml ONCE ONCE PO Last administered on at 20:30; Start 01/23/18 at 19:00; Stop 01/23/18 at 19:01; Status DC Potassium Chloride/Dextrose/ Sod Cl 1,000 ml @ 100 mls/hr Q10H IV Last administered on 01/27/18at 22:43; Start 01/24/18 at 08:15 Enalaprilat (Vasotec Inj) 1.25 mg Q6H PRN IV PUSH SBP> OR = 180, DBP> OR = 100 Last administered on 01/24/18 08:35; Start 01/24/18 at 08:15 Diatrizoate Meglum/ Diatrizoate Sod ( Gastroview Liq) 720 ml STK-MED ONCE RECTAL Last administered on 01/24/18at 11:35; Start 01/24/18 at 11:35; Stop at 12:05; Status DC Ondansetron HCl (Zofran Inj) 4 mg Q8HR PRN IV PUSH NAUSEA OR VOMITING Last administered on 01/28/18at 09:31; Start 01/24/18 at 14:00 Magnesium Citrate (Citroma Liq) 300 ml ONCE ONCE PO Last administered on 17:35; Start 01/24/18 at 16:00; Stop 01/24/18 at 16:01; Status DC Metoclopramide HCl (Reglan Inj) 10 mg Q8H IM Last administered on 01/27/18at 15: 39; Start 01/26/18 at 17:00 Methylnaltrexone [place] (Relistor Inj) 12 mg ONCE ONCE SQ Last administered on 01/26/18at 18:05; Start 01/26/18 at 17:00; Stop 01/26/18 at 17:01; Status DC Sodium Chloride 11 meq/Sodium Acetate 59 meq/ Potassium Chloride 40 meq/ Sodium Phosphate 40 meq/Magnesium Chloride 10 meq/ Calcium Chloride 9 meq/ Multivitamins 10 ml/Folic Acid 1 mg/Amino Acids/ Dextrose 2,084.1437 ml @ 83 mls /hr Q24H IV Last administered on 01/27/18at 23:35; Start 01/27/18 at 20:00 Fat Emulsion Intravenous 250 ml @ 10 mls/hr Q24H IV Last administered on at 23:35; Start 01/27/18 at 20:00 Magnesium Citrate (Citroma Liq) 300 ml ONCE ONCE PO Last administered on at 17:45; Start 01/27/18 at 17:45; Stop 01/27/18 at 17:46; Status DC Lactated Ringer's 1,000 ml @ 30 mls/hr Q24H PRN IV SEE LABEL COMMENTS; Start at 01:45; Stop 01/31/18 at 01:44 Sodium Chloride 500 ml @ 30 mls/hr [id number] PRN IV SEE LABEL COMMENTS; Start at 01:45; Stop 01/31/18 at 01:44 Povidone Iodine (Betadine 5% Antisepsis Kit) 1 applic GROCERY CARRIER PRN EACH NARE SEE LABEL COMMENTS; Start 01/28/18 at 01:45; Stop 01/31/18 at 01:44 Chlorhexidine Gluconate (Chlorhexidine 2% Cloth) 3 pack GROCERY CARRIER PRN TOPICAL SEE LABEL COMMENTS; Start 01/28/18 at 01:45; Stop 01/31/18 at 01:44 A/P Problem List: (1) Abdominal pain ICD Code: R10.9 - Unspecified abdominal pain Status: Acute (2) Small bowel obstruction ICD Code: K56.609 - Unspecified intestinal obstruction, unspecified as to partial versus complete obstruction Status: Acute (3) Fecal impaction ICD Code: K56.41 - Fecal impaction Status: Acute (4) Hypertension ICD Code: I10 - Essential (primary) hypertension (5) Diabetes ICD Code: E11.9 - Type 2 diabetes mellitus without complications Assessment and Plan 1. Fecal impaction, ileus: Appreciate GI, general surgery recommendations. S/P colonoscopy, Gastrografin enema. NG tube in place, output decreasing. N.p.o. except sips of water and ice chips. Continue bowel regimen. Improving slowly. Repeat KUB today again shows multiple air-filled dilated loops of small bowel suggesting persistent ileus or partial small bowel obstruction. TO GO FOR DECOMPRESSIVE COLONOSCOPY--NGT STILL IN PLACE 2. Hypertension: Continue Procardia XL. Blood pressure has remained elevated, possibly due to pain. Vasotec as needed. 3. Diabetes mellitus: Monitor Accu-Cheks and cover with sliding scale insulin. On D5 in IV fluids while NPO. 4. Hyperlipidemia: Not on statin. Will avoid secondary to elevated LFTs. 5. Coronary artery disease, chronic congestive heart failure: Currently asymptomatic. Lasix on hold. 6. COPD on home oxygen: Continue inhalers, supplemental oxygen. 7. Atrial fibrillation: Continue calcium channel miguelina. Aspirin on hold. 8. GI prophylaxis: Protonix. 9. Hyponatremia: Improving. Continue IV fluids. 10. DVT prophylaxis: SCDs. Discharge Planning Pending surgical clearance Problem Qualifiers (1) Abdominal pain: Qualified Codes: R10.84 - Generalized abdominal pain Alon Almonte DO Jan 28, 2018 11:12
[2018-01-28 11:37] VITALS: BP 182/92; PULSE 98; TEMP 98.6; O2SAT 94
[2018-01-28] MEDS: ENALAPRILAT 1.25 MG/ML VIAL IV PUSH PRN (11:41)
[2018-01-28] MEDS ORDERED: LIDOCAINE HCL 1% PF 5 ML SYRINGE OTHER ONE (12:00)
[2018-01-28] MEDS ORDERED: PROPOFOL 200 MG/20 ML AMP IV ONE (12:00)
--- NOTE | 2018-01-28 13:54 | HHI.PR ---
cc: Td Amaro MD Subjective Subjective Notes Resting in bed Awaiting colonoscopy today Objective Vitals/I&O Vital Signs Date Time Temp Pulse Resp B/P (MAP) Pulse Ox O2 Delivery O2 Flow Rate FiO2 01/28/18 11:37 98.6 98 182/92 (122) 94 01/28/18 08:00 16 Labs Laboratory Tests Test 01/28/18 04:55 White Blood Count 10.1 Red Blood Count 3.34 Hemoglobin 10.2 Hematocrit 30.9 Mean Corpuscular Volume 92.5 Mean Corpuscular Hemoglobin 30.7 Mean Corpuscular Hemoglobin Concent 33.2 Red Cell Distribution Width 18.2 Platelet Count 384 Mean Platelet Volume 6.9 Neutrophils (%) (Auto) 79.3 Lymphocytes (%) (Auto) 15.0 Monocytes (%) (Auto) 5.1 Eosinophils (%) (Auto) 0.0 Basophils (%) (Auto) 0.6 Neutrophils # (Auto) 8.0 Lymphocytes # (Auto) 1.5 Monocytes # (Auto) 0.5 Eosinophils # (Auto) 0.0 Basophils # (Auto) 0.1 CBC Comment DIFF FINAL Differential Comment Blood Urea Nitrogen 8 Creatinine 0.70 Random Glucose 121 Calcium Level 8.4 Sodium Level 134 Potassium Level 3.5 Chloride Level 97 Carbon Dioxide Level 27.5 Anion Gap 10 Estimat Glomerular Filtration Rate 87 Radiology Last 48 hours Impressions Abdomen/Pelvis CT 01/22/18 1800 Signed Impressions: Service Date/Time: Monday, January 22, 2018 19:40 - CONCLUSION: 1. Distal small bowel obstruction with multiple air-fluid levels. The cecum is impacted with stool to a diameter of 9.2 cm and it is unclear if this is related to a distal small bowel obstruction. No free air. There is mild ascites. 2. Subsegmental patchy airspace disease at the lung base is trace right pleural fluid. 3. Small hiatal hernia. Tee Herrera MD Cardiovascular: Regular Lungs: Clear Abdomen: Other (distended; tender ) Extremities: No edema A/P Assessment and Plan 52 year old female with abdominal pain and distention; fecal impaction -Decompressive colonoscopy today -NGT to LIWS -Continue non operative management Seen with INSURANCE AUDITOR who documented our visit. Not really responding to medical management. RIGHT colon still completely filled with stool. Recommend aggressive laxative/enema therapy. TD AMARO MD FACS Michela Kramer. MORA/Sales And Merchandising Associate INSURANCE AUDITOR Jan 28, 2018 13:54 Td Amaro MD Feb 04, 2018 11:48
--- NOTE | 2018-01-28 16:53 | PD.PROCEDR ---
GI Procedure PROCEDURE PERFORMED Colonoscopy INDICATION FOR PROCEDURE Bowel obstruction possible obstruction, stool impaction PROCEDURE: The procedure, risks and benefits were discussed with Ms. Cuevas and informed consent was obtained. Anesthesia sedated her with Diprivan. She was placed in the left lateral decubitus position. Colonoscopy: The Pentax videoscope was introduced through the rectum and advanced to cecum. Retroflexion was performed in the rectum. Colonic prep was poor, the colon was full of solid stool all the way to the cecum I was trying to rule out an obstruction, there was no mass that I could see and the ileocecal valve looked okay but again continuous amount of stool throughout the colon ESTIMATED BLOOD LOSS: None SPECIMENS REMOVED: None COMPLICATIONS: None IMPRESSION: Poor prep with stool impaction PLAN: Damari to try and a colonoscopy Demetris Adams MD Jan 28, 2018 16:53
--- NOTE | 2018-01-28 16:57 | HHI.GIFU ---
Subjective Remarks Laying in bed, seems to be more comfortable, less abdominal pain, had some bowel movement with the prep Objective Vitals I&O Vital Signs Date Time Temp Pulse Resp B/P (MAP) Pulse Ox O2 Delivery O2 Flow Rate FiO2 01/28/18 11:37 98.6 98 182/92 (122) 94 01/28/18 08:00 98.5 96 16 171/95 (120) 97 01/28/18 05:57 98.0 96 20 148/85 (106) 96 01/28/18 04:43 18 01/28/18 00:00 97.9 95 18 156/79 (104) 92 01/27/18 20:00 98.5 99 17 146/90 (108) 93 I/O 01/27/18 01/27/18 01/27/18 01/28/18 01/28/18 01/28/18 07:00 15:00 23:00 07:00 15:00 23:00 Intake Total 2935 ml 0 ml 1300 ml 614 ml 400 ml Output Total 250 ml 600 ml 50 ml Balance 2685 ml 0 ml 1300 ml 14 ml -50 ml 400 ml Intake Oral 0 ml 0 ml IV Total 2935 ml 1300 ml 100 ml TPN/PPN 461 ml Lipid 53 ml Other 400 ml Gastric Drainage Total 250 ml 600 ml 50 ml # Voids 2 3 3 1 # Bowel Movements 1 0 Laboratory Laboratory Tests Test 01/28/18 04:55 White Blood Count 10.1 Red Blood Count 3.34 Hemoglobin 10.2 Hematocrit 30.9 Mean Corpuscular Volume 92.5 Mean Corpuscular Hemoglobin 30.7 Mean Corpuscular Hemoglobin Concent 33.2 Red Cell Distribution Width 18.2 Platelet Count 384 Mean Platelet Volume 6.9 Neutrophils (%) (Auto) 79.3 Lymphocytes (%) (Auto) 15.0 Monocytes (%) (Auto) 5.1 Eosinophils (%) (Auto) 0.0 Basophils (%) (Auto) 0.6 Neutrophils # (Auto) 8.0 Lymphocytes # (Auto) 1.5 Monocytes # (Auto) 0.5 Eosinophils # (Auto) 0.0 Basophils # (Auto) 0.1 CBC Comment DIFF FINAL Differential Comment Blood Urea Nitrogen 8 Creatinine 0.70 Random Glucose 121 Calcium Level 8.4 Sodium Level 134 Potassium Level 3.5 Chloride Level 97 Carbon Dioxide Level 27.5 Anion Gap 10 Estimat Glomerular Filtration Rate 87 Physical Exam HEENT: Normocephalic; atraumatic; no jaundice. CHEST: Even/unlabored CARDIAC: RRR ABDOMEN: Distended, but less tenderness according to her, bowel sounds active. NGT to LIWS EXTREMITIES: No clubbing, cyanosis, or edema. SKIN: Normal; no rash; no jaundice. OCCUPATIONAL HEALTH NURSING DIRECTOR: No focal deficits; alert and oriented times three. Assessment and Plan Plan ASSESSMENT - abd pain, n/v - fecal impaction with SBO. Has been on opioids the last few months. CT showing distal SBO, cecal stool impaction. never had before. last colonoscopy 4 y ago and can recall no details (01/24) --> S/P decompressive colonoscopy for fecal impaction --> Diverticulosis in the sigmoid and descending colon. Scope could not be passed through descending colon- possibility of stricture. Internal and external hemorrhoids. Gastrografin enema --> Diffuse air filled loops of small and large bowel. Free flow of contrast to cecal tip. Limited exam due to retained fecal debris throughout colon. Post evacuation radiographs unremarkable. Pt reports large BM after exam. Remains with NGT to LIWS. Elevated LFTs noted, trending down --> CT abdomen noted mild ascites and mild fatty liver. (01/25) --> Pt with continued abdominal distention and pain today. Reports a BM early this morning. Does not feel the distention has improved since yesterday. NGT to LIWS with 100 mL of bile colored drainage. KUB (01/24) Multiple air-filled loops of small bowel suggesting possible ileus or partial small bowel obstruction. Repeat labs from today pending. (01/26) --> Pt with continued abdominal distention and pain today. NGT to LIWS with 700 mL of gastric secretions. Reports a few small BMs today. Abdominal x-ray (01/26) --> Proximal small bowel dilatation unchanged in interval. (01/27) Pt with continued abdominal distention and pain. NGT still has copious amounts of drainage. KUB (01/27) Multiple air-filled minimally dilated loops of small bowel suggesting possible persistent ileus or partial SBO. PPN ordered. Planned for repeat colonoscopy tomorrow. 01/28/2018 patient still complaining of some discomfort with a continuous obstruction because of stool, colonoscopy was done today which was very poor prep IMPRESSION: Significant amount of stool throughout the colon will interfere with possible lesions No clear mass that I will able to see PLAN: Patient would need a better prep for colonoscopy again and try to clear the large amount of stool in the colon PLAN - Colonoscopy tomorrow - Obtain consent -GoLYTELY - NGT to LIWS - Cipro and Flagyl - Reglan - PPN - GS following - Monitor LFTs, trending down - Further recommendations based on clinical course and results of above Demetris Adams MD Jan 28, 2018 16:57
[2018-01-28] MEDS ORDERED: PEG (High)/E-LYTE SOLN 4000 ML BTL PO ONE (17:00)
[2018-01-28 17:18] VITALS: BP 172/101; PULSE 89; RESP 18; TEMP 98.7; O2SAT 96
[2018-01-28 20:00] VITALS: BP 154/75; PULSE 100; RESP 18; TEMP 99.1; O2SAT 92
[2018-01-29] VITALS: BP 153/82; PULSE 94; RESP 19; TEMP 98.3; O2SAT 93
--- NOTE | 2018-01-29 00:24 | EKG ---
Date Performed: 01/27/2018 Time Performed: 18:46:48 PTAGE: 52 years EKG: Sinus rhythm NORMAL ECG PREVIOUS TRACING : 11/19/2015 06.22 DOCTOR: Nadine Atwood Interpretating Date/Time 01/29/2018 00:12:24
[2018-01-29] MEDS: INSULIN ASPART SUPPLEMENTAL SCALE SQ SCH ×6 (01:30→21:30)
[2018-01-29] MEDS: METOCLOPRAMIDE HCL 10 MG/2 ML VIAL IM SCH ×3 (01:30→18:02)
[2018-01-29] MEDS: FAT EMULSION 20% INJ 250 ML (@10 mls/hr) IV SCH (03:42)
[2018-01-29] MEDS: CLINIMIX IV SCH ×9 (03:42)
[2018-01-29] MEDS: CIPROFLOXACIN 400 MG PREMIX 200 ML IV SCH ×2 (03:44→16:00)
[2018-01-29 04:00] VITALS: BP 162/95; PULSE 92; RESP 18; TEMP 98.1; O2SAT 94
[2018-01-29] MEDS: PANTOPRAZOLE SODIUM 40 MG VIAL IV PUSH SCH ×2 (06:03→17:23)
[2018-01-29] MEDS: metroNIDAZOLE 500 MG INJ 100 ML IV SCH ×4 (06:03→22:03)
[2018-01-29] MEDS: MORPHINE SULFATE 2 MG/ML SYRINGE IV PUSH PRN ×6 (07:02→23:57)
[2018-01-29] MEDS: ONDANSETRON HCL 4 MG/2 ML VIAL IV PUSH PRN ×2 (07:27→22:04)
[2018-01-29 08:25] VITALS: BP 175/80; PULSE 80; RESP 18; TEMP 97.6; O2SAT 94
[2018-01-29] MEDS: NIFEdipine 90 MG SUSTAINED RELEASE TAB PO SCH (09:00)
[2018-01-29] MEDS: SODIUM CHLORIDE 0.9% FLUSH 10 ML FLUSH IV FLUSH SCH ×2 (09:00→21:00)
[2018-01-29] MEDS: STIOLTO PO SCH (09:00)
[2018-01-29] MEDS: predniSONE 5 MG TAB PO SCH ×2 (09:42→20:57)
[2018-01-29] MEDS: FOLIC ACID 1 MG TAB PO SCH (09:44)
[2018-01-29] MEDS: ALPRAZolam 0.25 MG TAB PO SCH ×2 (09:44→20:57)
[2018-01-29] MEDS: CYCLOBENZAPRINE HCL 10 MG TAB PO SCH ×3 (09:44→17:10)
[2018-01-29] MEDS: DOCUSATE SODIUM 100 MG/10 ML UDC PO SCH ×2 (09:46→20:57)
[2018-01-29] MEDS: BUDESONIDE-FORMOTEROL 160/4.5 MCG INHALER INH SCH ×2 (09:47→20:59)
--- NOTE | 2018-01-29 12:18 | HHI.GIFU ---
Subjective Remarks Resting in the bed Afebrile Refusing colonoscopy states prep and enemas don't help her? NG tube connected to low intermittent suction, no obvious bleeding (Megan Walker) Objective Vitals I&O Vital Signs Date Time Temp Pulse Resp B/P (MAP) Pulse Ox O2 Delivery O2 Flow Rate FiO2 01/29/18 08:25 97.6 80 18 175/80 (111) 94 01/29/18 04:00 98.1 92 18 162/95 (117) 94 01/29/18 00:00 98.3 94 19 153/82 (105) 93 01/28/18 20:00 99.1 100 18 154/75 (101) 92 01/28/18 17:18 98.7 89 18 172/101 (124) 96 01/28/18 16:15 98.1 100 20 155/89 (111) 90 I/O 01/28/18 01/28/18 01/28/18 01/29/18 01/29/18 01/29/18 07:00 15:00 23:00 07:00 15:00 23:00 Intake Total 614 ml 400 ml Output Total 600 ml 50 ml Balance 14 ml -50 ml 400 ml IV Total 100 ml TPN/PPN 461 ml Lipid 53 ml Other 400 ml Gastric Drainage Total 600 ml 50 ml # Voids 3 1 3 1 0 # Bowel Movements 0 Imaging Last Impressions Abdomen X-Ray 01/28/18 0000 Signed Impressions: Service Date/Time: Sunday, January 28, 2018 09:03 - CONCLUSION: 1. Moderate to large amount of residual contrast in the colon. 2. Abnormal bowel gas pattern without significant change. Christian Thompson MD Enema w/Water Soluble 01/24/18 0000 Signed Impressions: Service Date/Time: January 11:06 - CONCLUSION: Gastrografin enema performed for constipation as described above. Jabier Aviles MD Abdomen/Pelvis CT 01/22/18 1800 Signed Impressions: Service Date/Time: Monday, January 22, 2018 19:40 - CONCLUSION: 1. Distal small bowel obstruction with multiple air-fluid levels. The cecum is impacted with stool to a diameter of 9.2 cm and it is unclear if this is related to a distal small bowel obstruction. No free air. There is mild ascites. 2. Subsegmental patchy airspace disease at the lung base is trace right pleural fluid. 3. Small hiatal hernia. Tee Herrera MD Physical Exam HEENT: Normocephalic; atraumatic; no jaundice. CHEST: Even/unlabored no obvious rhonchi CARDIAC: RRR ABDOMEN: Taut ,Distended, but less tenderness according to her, bowel sounds active. NGT to LIWS no obvious bleeding EXTREMITIES: No clubbing, cyanosis, or edema. SKIN: Normal; no rash; no jaundice. SPA CONCIERGE: No focal deficits; alert and oriented times three. mild anxiety (Megan Walker) Assessment and Plan Plan ASSESSMENT - abd pain, n/v - fecal impaction with SBO. Has been on opioids the last few months. CT showing distal SBO, cecal stool impaction. never had before. last colonoscopy 4 y ago and can recall no details (01/24) --> S/P decompressive colonoscopy for fecal impaction --> Diverticulosis in the sigmoid and descending colon. Scope could not be passed through descending colon- possibility of stricture. Internal and external hemorrhoids. Gastrografin enema --> Diffuse air filled loops of small and large bowel. Free flow of contrast to cecal tip. Limited exam due to retained fecal debris throughout colon. Post evacuation radiographs unremarkable. Pt reports large BM after exam. Remains with NGT to LIWS. Elevated LFTs noted, trending down --> CT abdomen noted mild ascites and mild fatty liver. (01/25) --> Pt with continued abdominal distention and pain today. Reports a BM early this morning. Does not feel the distention has improved since yesterday. NGT to LIWS with 100 mL of bile colored drainage. KUB (01/24) Multiple air-filled loops of small bowel suggesting possible ileus or partial small bowel obstruction. Repeat labs from today pending. (01/26) --> Pt with continued abdominal distention and pain today. NGT to LIWS with 700 mL of gastric secretions. Reports a few small BMs today. Abdominal x-ray (01/26) --> Proximal small bowel dilatation unchanged in interval. (01/27) Pt with continued abdominal distention and pain. NGT still has copious amounts of drainage. KUB (01/27) Multiple air-filled minimally dilated loops of small bowel suggesting possible persistent ileus or partial SBO. PPN ordered. Planned for repeat colonoscopy tomorrow. 01/28/2018 patient still complaining of some discomfort with a continuous obstruction because of stool, colonoscopy was done today which was very poor prep Significant amount of stool throughout the colon will interfere with possible lesions No clear mass that I will able to see 01/29/18 patient currently refusing colonoscopy. CT can was done on 326 which showed a significant amount of contrast still in the colon. Discussed the need to evacuate the colon so patient could begin feeling better. Abdomen distended Continues with NG tube to low intermittent suction. GS plans for nonoperative management PLAN - Relistor subcutaneous 1 today - NGT to LIWS - Cipro and Flagyl - Reglan - PPN - GS following - Monitor LFTs, trending down - Further recommendations based on clinical course and results of above (Megan Walker) Physician Comments Patient seen and examined Agree with above Continue with current supportive care Monitor labs Patient with an adynamic: We will await to see how the Relistor affects the patient Case discussed with Dr. Florian if no response to the above patient may benefit from a right hemicolectomy (Bradford Cuellar MD) Megan Walker Jan 29, 2018 12:18 Bradford Cuellar MD Jan 29, 2018 21:30
[2018-01-29] MEDS ORDERED: METHYLNALTREXONE BROMIDE 12 MG/0.6 ML VIAL SQ ONE (12:30)
[2018-01-29 12:41] VITALS: BP 147/90; PULSE 99; RESP 18; TEMP 98; O2SAT 94
--- NOTE | 2018-01-29 14:18 | HHI.PR ---
cc: Td Amaro MD Subjective Subjective Notes Doesn't feel like she is getting any better Objective Vitals/I&O Vital Signs Date Time Temp Pulse Resp B/P (MAP) Pulse Ox O2 Delivery O2 Flow Rate FiO2 01/29/18 12:41 98.0 99 18 147/90 (109) 94 Radiology Last 48 hours Impressions Abdomen/Pelvis CT 01/22/18 1800 Signed Impressions: Service Date/Time: Monday, January 22, 2018 19:40 - CONCLUSION: 1. Distal small bowel obstruction with multiple air-fluid levels. The cecum is impacted with stool to a diameter of 9.2 cm and it is unclear if this is related to a distal small bowel obstruction. No free air. There is mild ascites. 2. Subsegmental patchy airspace disease at the lung base is trace right pleural fluid. 3. Small hiatal hernia. Tee Herrera MD Cardiovascular: Regular Lungs: Clear Abdomen: Other (distended; tender with palpation ) Extremities: No edema Narrative Exam NGT to LIWS A/P Assessment and Plan 52 year old female with abdominal pain and distention; fecal impaction -Does not want another colonoscopy today -NGT to LIWS -PPN---may need transition to TPN if need much longer and in that case would need a PICC line -GI gave one dose of Relistor today SEEN WITH CODING COMPLIANCE AUDITOR WHO DOCUMENTED OUR VISIT. NOT MAKING MUCH PROGRESS. DW DR MAY. SHE MAY NEED COLECTOMY IF SHE FAILS TO IMPROVE. CONTINUE AGRESSIVE LAXATIVES/ENEMAS. TD AMARO MD FACS Michela Kramer. CODING COMPLIANCE AUDITOR/Manager Of Construction CODING COMPLIANCE AUDITOR Jan 29, 2018 14:18 Td Amaro MD Feb 04, 2018 12:01
[2018-01-29 16:26] VITALS: BP 175/83; PULSE 89; RESP 18; TEMP 98.4; O2SAT 95
--- NOTE | 2018-01-29 18:20 | HHI.PR ---
Subjective Remarks Patient states that her abdomen is still bloated. She has been unsuccessful with producing an adequate bowel movement for the last 3 weeks. The best she has produced is liquid with a few small pellets. Her NG tube has been dry for the last 24 hours. Objective Vitals Vital Signs Date Time Temp Pulse Resp B/P (MAP) Pulse Ox O2 Delivery O2 Flow Rate FiO2 01/29/18 16:26 98.4 89 18 175/83 (113) 95 01/29/18 12:41 98.0 99 18 147/90 (109) 94 01/29/18 08:25 97.6 80 18 175/80 (111) 94 01/29/18 04:00 98.1 92 18 162/95 (117) 94 01/29/18 00:00 98.3 94 19 153/82 (105) 93 01/28/18 20:00 99.1 100 18 154/75 (101) 92 I/O 01/28/18 01/28/18 01/28/18 01/29/18 01/29/18 01/29/18 07:00 15:00 23:00 07:00 15:00 23:00 Intake Total 614 ml 400 ml Output Total 600 ml 50 ml 600 ml Balance 14 ml -50 ml 400 ml -600 ml IV Total 100 ml TPN/PPN 461 ml Lipid 53 ml Other 400 ml Output Urine Total 600 ml Gastric Drainage Total 600 ml 50 ml # Voids 3 1 3 1 0 3 # Bowel Movements 0 Result Diagram: 01/28/18 0455 01/28/18 0455 Objective Remarks GENERAL: Well-nourished, well-developed patient. SKIN: Warm and dry. HEAD: Normocephalic. EYES: No scleral icterus. No injection or drainage. NECK: Supple, trachea midline. No JVD or lymphadenopathy. CARDIOVASCULAR: Regular rate and rhythm without murmurs, gallops, or rubs. RESPIRATORY: Breath sounds equal bilaterally. No accessory muscle use. GASTROINTESTINAL: Abdomen bloated, mildly tender, not acute, hypoactive bowel sounds EXTREMITIES: No cyanosis, or edema. NEUROLOGICAL: Awake, alert, and oriented x 3. Non-focal. Procedures 01/23/18 colonoscopy 01/24/18 Gastrografin enema A/P Problem List: (1) Abdominal pain ICD Code: R10.9 - Unspecified abdominal pain Status: Acute (2) Small bowel obstruction ICD Code: K56.609 - Unspecified intestinal obstruction, unspecified as to partial versus complete obstruction Status: Acute (3) Fecal impaction ICD Code: K56.41 - Fecal impaction Status: Acute (4) Hypertension ICD Code: I10 - Essential (primary) hypertension (5) Diabetes ICD Code: E11.9 - Type 2 diabetes mellitus without complications Assessment and Plan Fecal impaction versus ileus She has had 2 previous colonoscopies without resolution of her symptoms. She is refusing current offer for repeat colonoscopy. Patient has a poor appetite and has been n.p.o. by choice except for a few sips of water and ice chips. She is receiving TPN General surgery did not feel this was a surgical obstruction due to Gastrografin pattern into the right colon with bowel distention into the right colon Appreciate general surgery Appreciate gastroenterology Type 2 diabetes Accu-Cheks with sliding scale coverage TPN for intake Atrial fibrillation Continue calcium channel miguelina, rhythm was regular today Follow on telemetry Hypertension Continue Procardia XL h/o COPD Continue home inhalers. Supplemental oxygen as needed GI prophylaxis Protonix DVT prophylaxis SCDs Problem Qualifiers (1) Abdominal pain: Qualified Codes: R10.84 - Generalized abdominal pain Richard Hylton MD Jan 29, 2018 18:20
[2018-01-29 20:00] VITALS: BP 186/84; PULSE 86; RESP 18; TEMP 97.7; O2SAT 94
[2018-01-29] MEDS: cloNIDine HCL 0.1 MG TAB PO PRN (20:57)
[2018-01-29] MEDS: D5-NS + KCL 20 MEQ INJ 1,000 ML IV SCH (20:59)
[2018-01-30] VITALS: BP 164/80; PULSE 82; RESP 18; TEMP 98; O2SAT 92
[2018-01-30] MEDS: FAT EMULSION 20% INJ 250 ML (@10 mls/hr) IV SCH (00:03)
[2018-01-30] MEDS: CLINIMIX IV SCH ×9 (00:03)
[2018-01-30] MEDS: D5-NS + KCL 20 MEQ INJ 1,000 ML IV SCH ×3 (00:22→23:17)
[2018-01-30] MEDS: METOCLOPRAMIDE HCL 10 MG/2 ML VIAL IM SCH ×3 (01:00→18:24)
[2018-01-30] MEDS: INSULIN ASPART SUPPLEMENTAL SCALE SQ SCH ×6 (01:30→21:30)
[2018-01-30] MEDS: CIPROFLOXACIN 400 MG PREMIX 200 ML IV SCH ×2 (03:37→16:12)
[2018-01-30 04:00] VITALS: BP 157/83; PULSE 82; RESP 19; TEMP 97.9; O2SAT 94
[2018-01-30] MEDS: MORPHINE SULFATE 2 MG/ML SYRINGE IV PUSH PRN ×5 (04:59→22:35)
[2018-01-30] MEDS: metroNIDAZOLE 500 MG INJ 100 ML IV SCH ×4 (05:05→23:17)
[2018-01-30] MEDS: PANTOPRAZOLE SODIUM 40 MG VIAL IV PUSH SCH ×2 (06:19→18:25)
[2018-01-30 08:00] VITALS: BP 170/85; PULSE 74; RESP 17; TEMP 97.9; O2SAT 94
[2018-01-30] MEDS: predniSONE 5 MG TAB PO SCH ×2 (08:37→21:00)
[2018-01-30] MEDS: FOLIC ACID 1 MG TAB PO SCH (08:37)
[2018-01-30] MEDS: cloNIDine HCL 0.1 MG TAB PO PRN (08:37)
[2018-01-30] MEDS: DOCUSATE SODIUM 100 MG/10 ML UDC PO SCH ×2 (08:37→21:00)
[2018-01-30] MEDS: CYCLOBENZAPRINE HCL 10 MG TAB PO SCH ×3 (08:37→18:00)
[2018-01-30] MEDS: ALPRAZolam 0.25 MG TAB PO SCH ×2 (08:37→21:00)
[2018-01-30] MEDS: SODIUM CHLORIDE 0.9% FLUSH 10 ML FLUSH IV FLUSH SCH ×2 (08:38→22:36)
[2018-01-30] MEDS: BUDESONIDE-FORMOTEROL 160/4.5 MCG INHALER INH SCH ×2 (08:38→21:00)
[2018-01-30] MEDS: NIFEdipine 90 MG SUSTAINED RELEASE TAB PO SCH (09:00)
[2018-01-30] MEDS: STIOLTO PO SCH (09:00)
--- NOTE | 2018-01-30 10:02 | HHI.PR ---
cc: Yvon Florian MD Subjective Subjective Notes Resting in bed Passing flatus but no BM Still feeling pretty miserable Objective Vitals/I&O Vital Signs Date Time Temp Pulse Resp B/P (MAP) Pulse Ox O2 Delivery O2 Flow Rate FiO2 01/30/18 08:00 97.9 74 17 170/85 (113) 94 Radiology Last 48 hours Impressions Abdomen/Pelvis CT 01/22/18 1800 Signed Impressions: Service Date/Time: Monday, January 22, 2018 19:40 - CONCLUSION: 1. Distal small bowel obstruction with multiple air-fluid levels. The cecum is impacted with stool to a diameter of 9.2 cm and it is unclear if this is related to a distal small bowel obstruction. No free air. There is mild ascites. 2. Subsegmental patchy airspace disease at the lung base is trace right pleural fluid. 3. Small hiatal hernia. Tee Herrera MD Cardiovascular: Regular Lungs: Clear Abdomen: Other (distended; tender to palpation; NGT to LIWS ) Extremities: No edema A/P Assessment and Plan 52 year old female with abdominal pain and distention; fecal impaction -DC NGT -Small bowel follow thru -Plan to start TPN -Insert PICC -If patient does not progress any with SBFT---discussed with patient possible OR intervention for Sunday SEEN WITH GRANT SPECIALIST WHO DOCUMENTED OUR VISIT. FAILED MEDICAL MANAGEMENT. WILL LIKELY NEED COLECTOMY, POSSIBLE TOTAL. DW PATIENT WHO AGREES. WILL PLAN ON OR SUNDAY IF SHE DOES NOT OPEN UP SOON. Michela Kam MD, FACS. GRANT SPECIALIST/Pond Supervisor GRANT SPECIALIST Jan 30, 2018 10:02 Yvon Florian MD Feb 04, 2018 12:03
--- NOTE | 2018-01-30 10:27 | RADRPT ---
EXAM DATE/TIME: 01/30/2018 10:01 [facility] COMPARISON: ABDOMEN KUB ONLY, January 28, 2018, 9:03. INDICATIONS : Evaluate for ileus. Management Department Chair for attempted small bowel exam. MEDICAL HISTORY : Cardiovascular disease. Chronic obstructive pulmonary disease. Carcinoma, lung. SURGICAL HISTORY : Hysterectomy. section. Appendectomy. ENCOUNTER: Subsequent ACUITY: 1 day PAIN SCORE: 6/10 LOCATION: Abdomen. FINDINGS: There is an NG tube in the stomach. There continues to be some dilatation of the small bowel loops wh ich is mildly improved compared to the prior examination. However, there continues to be a significan t amount of retained contrast throughout the entire colon. CONCLUSION: 1. There's been mild improvement in the small bowel gas pattern compared to the prior study. 2. There continues to be a significant amount of retained contrast throughout the entire colon. As so on as contrast can be evacuated from the colon, we can then proceed with a small bowel study. Lucien Willett MD on January 30, 2018 at 10:24 Board Certified Radiologist. This report was verified electronically.
--- NOTE | 2018-01-30 10:41 | HHI.PR ---
Subjective Remarks Patient is in bed. She went for further imaging studies. Patient still with nausea did not vomit. General surgery recommends removing NG tube possible surgery on Sunday. Patient still with some abdominal pain and still with distention. Plan for PICC line placement also. No fever or chills. Did not pass gas does have any bowel movements Objective Vitals Vital Signs Date Time Temp Pulse Resp B/P (MAP) Pulse Ox O2 Delivery O2 Flow Rate FiO2 01/30/18 08:00 97.9 74 17 170/85 (113) 94 01/30/18 04:00 97.9 82 19 157/83 (107) 94 01/30/18 00:00 98.0 82 18 164/80 (108) 92 01/29/18 20:00 97.7 86 18 186/84 (118) 94 01/29/18 16:26 98.4 89 18 175/83 (113) 95 01/29/18 12:41 98.0 99 18 147/90 (109) 94 I/O 01/29/18 01/29/18 01/29/18 01/30/18 01/30/18 01/30/18 07:00 15:00 23:00 07:00 15:00 23:00 Intake Total 1060 ml 3460 ml Output Total 600 ml 2300 ml 1400 ml Balance -600 ml -1240 ml 2060 ml Intake Oral 660 ml 200 ml IV Total 400 ml 3260 ml Output Urine Total 600 ml 2100 ml 1200 ml Gastric Drainage Total 200 ml Drainage Total 200 ml # Voids 1 0 3 # Bowel Movements 0 Result Diagram: 01/28/18 0455 01/28/18 0455 Imaging Last Impressions Abdomen X-Ray 01/28/18 0000 Signed Impressions: Service Date/Time: Sunday, January 28, 2018 09:03 - CONCLUSION: 1. Moderate to large amount of residual contrast in the colon. 2. Abnormal bowel gas pattern without significant change. Christian Thompson MD Enema w/Water Soluble 01/24/18 0000 Signed Impressions: Service Date/Time: January 11:06 - CONCLUSION: Gastrografin enema performed for constipation as described above. Jabier Aviles MD Abdomen/Pelvis CT 01/22/18 1800 Signed Impressions: Service Date/Time: Monday, January 22, 2018 19:40 - CONCLUSION: 1. Distal small bowel obstruction with multiple air-fluid levels. The cecum is impacted with stool to a diameter of 9.2 cm and it is unclear if this is related to a distal small bowel obstruction. No free air. There is mild ascites. 2. Subsegmental patchy airspace disease at the lung base is trace right pleural fluid. 3. Small hiatal hernia. Tee Herrera MD Objective Remarks GENERAL: Well-nourished, well-developed patient. SKIN: Warm and dry. HEAD: Normocephalic. EYES: No scleral icterus. No injection or drainage. NECK: Supple, trachea midline. No JVD or lymphadenopathy. CARDIOVASCULAR: Regular rate and rhythm without murmurs, gallops, or rubs. RESPIRATORY: Breath sounds equal bilaterally. No accessory muscle use. GASTROINTESTINAL: Abdomen bloated, mildly tender, not acute, hypoactive bowel sounds EXTREMITIES: No cyanosis, or edema. NEUROLOGICAL: Awake, alert, and oriented x 3. Non-focal. Procedures 01/23/18 colonoscopy 01/24/18 Gastrografin enema A/P Problem List: (1) Abdominal pain ICD Code: R10.9 - Unspecified abdominal pain Status: Acute (2) Small bowel obstruction ICD Code: K56.609 - Unspecified intestinal obstruction, unspecified as to partial versus complete obstruction Status: Acute (3) Fecal impaction ICD Code: K56.41 - Fecal impaction Status: Acute (4) Hypertension ICD Code: I10 - Essential (primary) hypertension (5) Diabetes ICD Code: E11.9 - Type 2 diabetes mellitus without complications Assessment and Plan Fecal impaction versus ileus She has had 2 previous colonoscopies without resolution of her symptoms. She is refusing current offer for repeat colonoscopy. Patient has a poor appetite and has been n.p.o. by choice except for a few sips of water and ice chips. She is receiving TPN. PICC line placed. Poss surgery on Thursday 02/01 General surgery did not feel this was a surgical obstruction due to Gastrografin pattern into the right colon with bowel distention into the right colon Appreciate general surgery Appreciate gastroenterology Type 2 diabetes Accu-Cheks with sliding scale coverage TPN for intake Atrial fibrillation Continue calcium channel miguelina, rhythm was regular today Follow on telemetry Hypertension Continue Procardia XL h/o COPD Continue home inhalers. Supplemental oxygen as needed GI prophylaxis Protonix DVT prophylaxis SCDs Discussed with the patient, nurse DC plan pending improvement. On TPN, poss surgery on Sunday Problem Qualifiers (1) Abdominal pain: Qualified Codes: R10.84 - Generalized abdominal pain Arlette Rivera MD Jan 30, 2018 10:41
[2018-01-30] MEDS ORDERED: SODIUM CHLORIDE 0.9% FLUSH 10 ML FLUSH IV FLUSH PRN (13:15)
[2018-01-30] MEDS ORDERED: DIATRIZOATE MEGLUM/DIATRIZOATE SOD 120 ML BTL (for RAD DIAG) NG ONE (14:00)
[2018-01-30] MEDS: ONDANSETRON HCL 4 MG/2 ML VIAL IV PUSH PRN ×2 (14:29→18:45)
--- NOTE | 2018-01-30 15:19 | HHI.GIFU ---
Subjective Remarks resting in the bed afebrile \ NGT secured, fixing to DC Still has Abdominal firmness and generalized pain (Megan Walker) Objective Vitals I&O Vital Signs Date Time Temp Pulse Resp B/P (MAP) Pulse Ox O2 Delivery O2 Flow Rate FiO2 01/30/18 08:00 97.9 74 17 170/85 (113) 94 01/30/18 04:00 97.9 82 19 157/83 (107) 94 01/30/18 00:00 98.0 82 18 164/80 (108) 92 01/29/18 20:00 97.7 86 18 186/84 (118) 94 01/29/18 16:26 98.4 89 18 175/83 (113) 95 I/O 01/29/18 01/29/18 01/29/18 01/30/18 01/30/18 01/30/18 07:00 15:00 23:00 07:00 15:00 23:00 Intake Total 1060 ml 3460 ml Output Total 600 ml 2300 ml 1400 ml Balance -600 ml -1240 ml 2060 ml Intake Oral 660 ml 200 ml IV Total 400 ml 3260 ml Output Urine Total 600 ml 2100 ml 1200 ml Gastric Drainage Total 200 ml Drainage Total 200 ml # Voids 1 0 3 # Bowel Movements 0 Imaging Last Impressions Abdomen X-Ray 01/30/18 0000 Signed Impressions: Service Date/Time: Tuesday, January 30, 2018 10:01 - CONCLUSION: 1. There's been mild improvement in the small bowel gas pattern compared to the prior study. 2. There continues to be a significant amount of retained contrast throughout the entire colon. As soon as contrast can be evacuated from the colon, we can then proceed with a small bowel study. Lucien Willett MD Enema w/Water Soluble 01/24/18 0000 Signed Impressions: Service Date/Time: January 11:06 - CONCLUSION: Gastrografin enema performed for constipation as described above. Jabier Aviles MD Abdomen/Pelvis CT 01/22/18 1800 Signed Impressions: Service Date/Time: Monday, January 22, 2018 19:40 - CONCLUSION: 1. Distal small bowel obstruction with multiple air-fluid levels. The cecum is impacted with stool to a diameter of 9.2 cm and it is unclear if this is related to a distal small bowel obstruction. No free air. There is mild ascites. 2. Subsegmental patchy airspace disease at the lung base is trace right pleural fluid. 3. Small hiatal hernia. Tee Herrera MD Physical Exam HEENT: Normocephalic; atraumatic; no jaundice. , mild obese CHEST: Even/unlabored no obvious rhonchi CARDIAC: RRR ABDOMEN: Taut ,Distended, minimal BS,bowel sounds active. NGT clamped, Plan to be DC EXTREMITIES: No clubbing, cyanosis, or edema. SKIN: Normal; no rash; no jaundice. PEDIATRIC CARE COORDINATOR: No focal deficits; alert and oriented times three. mild anxiety (Megan Walker) Assessment and Plan Plan ASSESSMENT - abd pain, n/v - fecal impaction with SBO. Has been on opioids the last few months. CT showing distal SBO, cecal stool impaction. never had before. last colonoscopy 4 y ago and can recall no details (01/24) --> S/P decompressive colonoscopy for fecal impaction --> Diverticulosis in the sigmoid and descending colon. Scope could not be passed through descending colon- possibility of stricture. Internal and external hemorrhoids. Gastrografin enema --> Diffuse air filled loops of small and large bowel. Free flow of contrast to cecal tip. Limited exam due to retained fecal debris throughout colon. Post evacuation radiographs unremarkable. Pt reports large BM after exam. Remains with NGT to LIWS. Elevated LFTs noted, trending down --> CT abdomen noted mild ascites and mild fatty liver. (01/25) --> Pt with continued abdominal distention and pain today. Reports a BM early this morning. Does not feel the distention has improved since yesterday. NGT to LIWS with 100 mL of bile colored drainage. KUB (01/24) Multiple air-filled loops of small bowel suggesting possible ileus or partial small bowel obstruction. Repeat labs from today pending. (01/26) --> Pt with continued abdominal distention and pain today. NGT to LIWS with 700 mL of gastric secretions. Reports a few small BMs today. Abdominal x-ray (01/26) --> Proximal small bowel dilatation unchanged in interval. (01/27) Pt with continued abdominal distention and pain. NGT still has copious amounts of drainage. KUB (01/27) Multiple air-filled minimally dilated loops of small bowel suggesting possible persistent ileus or partial SBO. PPN ordered. Planned for repeat colonoscopy tomorrow. 01/28/2018 patient still complaining of some discomfort with a continuous obstruction because of stool, colonoscopy was done today which was very poor prep Significant amount of stool throughout the colon will interfere with possible lesions No clear mass that I will able to see 01/29/18 patient currently refusing colonoscopy. CT can was done on 326 which showed a significant amount of contrast still in the colon. Discussed the need to evacuate the colon so patient could begin feeling better. Abdomen distended Continues with NG tube to low intermittent suction. GS plans for nonoperative management 01/30/18, Abdominal xray < Mild improvement in the bowel gas pattern, Still a significant amount of contrast through colon, Will proceed with SB study when cleared. Patient is quiet uncomfortable from Abdominal firmness , bloated, Appeciate GS input. Looking at possible surgical procedure Sunday, Possible Partial hemicolectomy PLAN - Will proceed with SBFT once barium is out. - NGT DC today per GS - Cipro and Flagyl - Reglan - PPI IV - GS following appreciate - Monitor LFTs, trending down Supportive care. - Further recommendations based on clinical course and results of above (Megan Walker) Physician Comments Patient seen and examined Agree with above Continue with current supportive care Monitor labs No response to Relistor X-ray still shows contrast within the colon Recommend right hemicolectomy (Bradford Cuellar MD) Megan Walker Jan 30, 2018 15:19 Bradford Cuellar MD Jan 30, 2018 22:33
[2018-01-30 16:00] VITALS: BP 177/86; PULSE 96; RESP 17; TEMP 98.1; O2SAT 96
[2018-01-30] MEDS ORDERED: METOCLOPRAMIDE HCL 10 MG/2 ML VIAL IV PUSH PRN (19:30)
[2018-01-30] MEDS ORDERED: ONDANSETRON HCL 4 MG/2 ML VIAL IV PUSH ONE (19:30)
[2018-01-30 20:00] VITALS: BP 155/78; PULSE 104; RESP 18; TEMP 98.1; O2SAT 93
[2018-01-30] MEDS: FAT EMULSION 20% INJ 250 ML (Daily over 8 hours) IV-CENTRAL SCH (22:36)
[2018-01-30] MEDS: CLINIMIX E 4.25/25 2000 mL- >42 mls/hr IV-CENTRAL SCH ×3 (22:36)
[2018-01-31] VITALS: BP 146/73; PULSE 97; RESP 18; TEMP 97.8; O2SAT 94
[2018-01-31] MEDS: D5-NS + KCL 20 MEQ INJ 1,000 ML IV SCH ×2 (00:38→12:33)
[2018-01-31] MEDS: MORPHINE SULFATE 2 MG/ML SYRINGE IV PUSH PRN ×5 (01:55→23:42)
[2018-01-31] MEDS: METOCLOPRAMIDE HCL 10 MG/2 ML VIAL IM SCH ×4 (01:56→23:32)
[2018-01-31] MEDS: INSULIN ASPART SUPPLEMENTAL SCALE SQ SCH ×6 (02:11→20:59)
[2018-01-31 04:00] VITALS: BP 154/76; PULSE 94; RESP 18; TEMP 98.6; O2SAT 95
[2018-01-31] MEDS: ONDANSETRON HCL 4 MG/2 ML VIAL IV PUSH PRN ×2 (05:39→20:38)
[2018-01-31] MEDS: PANTOPRAZOLE SODIUM 40 MG VIAL IV PUSH SCH ×2 (05:40→17:30)
[2018-01-31] MEDS: CIPROFLOXACIN 400 MG PREMIX 200 ML IV SCH ×2 (05:40→16:00)
[2018-01-31] MEDS: metroNIDAZOLE 500 MG INJ 100 ML IV SCH ×4 (07:12→23:32)
[2018-01-31 08:00] VITALS: BP 138/70; PULSE 92; RESP 17; TEMP 98; O2SAT 95
[2018-01-31] MEDS: predniSONE 5 MG TAB PO SCH ×2 (09:00→20:59)
[2018-01-31] MEDS: CYCLOBENZAPRINE HCL 10 MG TAB PO SCH ×3 (09:00→18:00)
[2018-01-31] MEDS: BUDESONIDE-FORMOTEROL 160/4.5 MCG INHALER INH SCH ×2 (09:00→21:04)
[2018-01-31] MEDS: STIOLTO PO SCH (09:00)
[2018-01-31] MEDS: ALPRAZolam 0.25 MG TAB PO SCH ×2 (09:00→20:59)
[2018-01-31] MEDS: NIFEdipine 90 MG SUSTAINED RELEASE TAB PO SCH (09:00)
[2018-01-31] MEDS: DOCUSATE SODIUM 100 MG/10 ML UDC PO SCH ×2 (09:00→20:59)
[2018-01-31] MEDS: FOLIC ACID 1 MG TAB PO SCH (09:00)
[2018-01-31] MEDS: SODIUM CHLORIDE 0.9% FLUSH 10 ML FLUSH IV FLUSH SCH ×3 (09:00→20:59)
--- NOTE | 2018-01-31 11:18 | RADRPT ---
EXAM DATE/TIME: 01/30/2018 13:51 [facility] COMPARISON: No previous studies available for comparison. INDICATIONS : Obstruction. FLUORO TIME: 0 minutes IMAGE COUNT: 11 CONTRAST: Gastrojaime IMAGING TIME(S): 15 min, 2 hrs21 hr MEDICAL HISTORY : Carcinoma, lung. Cardiovascular disease. Chronic obstructive pulmonary disease. SURGICAL HISTORY : Hysterectomy. section. Appendectomy. ENCOUNTER: Subsequent ACUITY: 1 month PAIN SCORE: 6/10 LOCATION: abdomen FINDINGS: The preliminary film demonstrates residual contrast throughout the colon. There is air filled dilated loops of small bowel. Contrast was placed through the NG tube into the stomach which was nondilated. Over 21 hours several films were performed. The contrast slowly progresses through the diffusely dil ated small bowel. At 21 hours, there is contrast seen throughout the small bowel however, I cannot de finitely determine if it is reached the terminal ileum due to the residual contrast in the colon. CONCLUSION: There is diffuse distention of the small bowel with slow progression of contrast through the small tico wel over 21 hours. This is nonspecific. This could be a diffuse adynamic ileus of the small bowel cherri liam a distal small bowel obstruction. Lucien Willett MD on January 31, 2018 at 11:13 Board Certified Radiologist. This report was verified electronically.
[2018-01-31 12:00] VITALS: BP 176/79; PULSE 94; RESP 17; TEMP 98.3; O2SAT 97
--- NOTE | 2018-01-31 12:05 | HHI.GIFU ---
Subjective Remarks Pt resting in bed, just back from SBFT. visibly distended. NO BM, denies flatus. (Meme Olmos) Objective Vitals I&O Vital Signs Date Time Temp Pulse Resp B/P (MAP) Pulse Ox O2 Delivery O2 Flow Rate FiO2 01/31/18 08:00 98.0 92 17 138/70 (92) 95 01/31/18 04:00 98.6 94 18 154/76 (102) 95 01/31/18 00:00 97.8 97 18 146/73 (97) 94 01/30/18 20:00 98.1 104 18 155/78 (103) 93 01/30/18 16:00 98.1 96 17 177/86 (116) 96 I/O 01/30/18 01/30/18 01/30/18 01/31/18 01/31/18 01/31/18 07:00 15:00 23:00 07:00 15:00 23:00 Intake Total 3460 ml Output Total 1400 ml 1650 ml 600 ml Balance 2060 ml -1650 ml -600 ml Intake Oral 200 ml IV Total 3260 ml Output Urine Total 1200 ml 1650 ml Gastric Drainage Total 200 ml Emesis 600 ml Laboratory Laboratory Tests Test 01/22/18 18:00 01/22/18 20:55 01/22/18 21:50 01/23/18 10:30 Lipase 125 U/L Urine Color YELLOW Urine Turbidity HAZY Urine pH 8.0 Urine Specific [place] 1.047 Urine Protein TRACE mg/dL Urine Glucose (UA) NEG mg/dL Urine Ketones TRACE mg/dL Urine Occult Blood NEG Urine Nitrite NEG Urine Bilirubin NEG Urine Urobilinogen 4.0 MG/DL Urine Leukocyte Esterase NEG Urine RBC 2 /hpf Urine WBC 3 /hpf Urine Squamous Epithelial Cells 3 /hpf Urine Amorphous Sediment RARE Urine Mucus FEW /lpf Microscopic Urinalysis Comment CULT NOT INDICATED Lactic Acid Level 0.8 mmol/L Prothrombin Time 10.0 SEC Prothromb Time International Ratio 1.0 RATIO Activated Partial Thromboplast Time 26.7 SEC Test 01/27/18 06:15 01/28/18 04:55 Blood Urea Nitrogen 6 MG/DL 8 MG/DL Creatinine 0.66 MG/DL 0.70 MG/DL Random Glucose 96 MG/DL 121 MG/DL Total Protein 6.2 GM/DL Albumin 2.2 GM/DL Calcium Level 8.3 MG/DL 8.4 MG/DL Magnesium Level 2.3 MG/DL Alkaline Phosphatase 61 U/L Aspartate Amino Transf (AST/SGOT) 24 U/L Alanine Aminotransferase (ALT/SGPT) 60 U/L Total Bilirubin 0.2 MG/DL Sodium Level 133 MEQ/L 134 MEQ/L Potassium Level 3.7 MEQ/L 3.5 MEQ/L Chloride Level 99 MEQ/L 97 MEQ/L Carbon Dioxide Level 26.5 MEQ/L 27.5 MEQ/L White Blood Count 10.1 TH/MM3 Red Blood Count 3.34 MIL/MM3 Hemoglobin 10.2 GM/DL Hematocrit 30.9 % Mean Corpuscular Volume 92.5 FL Mean Corpuscular Hemoglobin 30.7 PG Mean Corpuscular Hemoglobin Concent 33.2 % Red Cell Distribution Width 18.2 % Platelet Count 384 TH/MM3 Mean Platelet Volume 6.9 FL Neutrophils (%) (Auto) 79.3 % Lymphocytes (%) (Auto) 15.0 % Monocytes (%) (Auto) 5.1 % Eosinophils (%) (Auto) 0.0 % Basophils (%) (Auto) 0.6 % Neutrophils # (Auto) 8.0 TH/MM3 Lymphocytes # (Auto) 1.5 TH/MM3 Monocytes # (Auto) 0.5 TH/MM3 Eosinophils # (Auto) 0.0 TH/MM3 Basophils # (Auto) 0.1 TH/MM3 CBC Comment DIFF FINAL Differential Comment Anion Gap 10 MEQ/L Estimat Glomerular Filtration Rate 87 ML/MIN Imaging Last Impressions Small Bowel X-Ray 01/30/18 0000 Signed Impressions: Service Date/Time: Tuesday, January 30, 2018 13:51 - CONCLUSION: There is diffuse distention of the small bowel with slow progression of contrast through the small bowel over 21 hours. This is nonspecific. This could be a diffuse adynamic ileus of the small bowel versus a distal small bowel obstruction. Lucien Willett MD Abdomen X-Ray 01/30/18 0000 Signed Impressions: Service Date/Time: Tuesday, January 30, 2018 10:01 - CONCLUSION: 1. There's been mild improvement in the small bowel gas pattern compared to the prior study. 2. There continues to be a significant amount of retained contrast throughout the entire colon. As soon as contrast can be evacuated from the colon, we can then proceed with a small bowel study. Lucien Willett MD Enema w/Water Soluble 01/24/18 0000 Signed Impressions: Service Date/Time: January 11:06 - CONCLUSION: Gastrografin enema performed for constipation as described above. Jabier Aviles MD Abdomen/Pelvis CT 01/22/18 1800 Signed Impressions: Service Date/Time: Monday, January 22, 2018 19:40 - CONCLUSION: 1. Distal small bowel obstruction with multiple air-fluid levels. The cecum is impacted with stool to a diameter of 9.2 cm and it is unclear if this is related to a distal small bowel obstruction. No free air. There is mild ascites. 2. Subsegmental patchy airspace disease at the lung base is trace right pleural fluid. 3. Small hiatal hernia. Tee Herrera MD Physical Exam HEENT: Normocephalic; atraumatic; no jaundice. CHEST: CTA CARDIAC: RRR ABDOMEN: Distended, semifirm, hypoactive bowelsounds, tympany. EXTREMITIES: No clubbing, cyanosis, or edema. SKIN: Normal; no rash; no jaundice. REINFORCING IRON WORKER HELPER: No focal deficits; alert and oriented times three (Meme Olmos) Assessment and Plan Plan ASSESSMENT - abd pain, n/v - fecal impaction with SBO. Has been on opioids the last few months. CT showing distal SBO, cecal stool impaction. never had before. last colonoscopy 4 y ago and can recall no details (01/24) --> S/P decompressive colonoscopy for fecal impaction --> Diverticulosis in the sigmoid and descending colon. Scope could not be passed through descending colon- possibility of stricture. Internal and external hemorrhoids. Gastrografin enema --> Diffuse air filled loops of small and large bowel. Free flow of contrast to cecal tip. Limited exam due to retained fecal debris throughout colon. Post evacuation radiographs unremarkable. Pt reports large BM after exam. Remains with NGT to LI. Elevated LFTs noted, trending down --> CT abdomen noted mild ascites and mild fatty liver. (01/25) --> Pt with continued abdominal distention and pain today. Reports a BM early this morning. Does not feel the distention has improved since yesterday. NGT to LIWS with 100 mL of bile colored drainage. KUB (01/24) Multiple air-filled loops of small bowel suggesting possible ileus or partial small bowel obstruction. Repeat labs from today pending. (01/26) --> Pt with continued abdominal distention and pain today. NGT to LIWS with 700 mL of gastric secretions. Reports a few small BMs today. Abdominal x-ray (01/26) --> Proximal small bowel dilatation unchanged in interval. (01/27) Pt with continued abdominal distention and pain. NGT still has copious amounts of drainage. KUB (01/27) Multiple air-filled minimally dilated loops of small bowel suggesting possible persistent ileus or partial SBO. PPN ordered. Planned for repeat colonoscopy tomorrow. 01/28/2018 patient still complaining of some discomfort with a continuous obstruction because of stool, colonoscopy was done today which was very poor prep Significant amount of stool throughout the colon will interfere with possible lesions No clear mass that I will able to see 01/29/18 patient currently refusing colonoscopy. CT can was done on which showed a significant amount of contrast still in the colon. Discussed the need to evacuate the colon so patient could begin feeling better. Abdomen distended Continues with NG tube to low intermittent suction. GS plans for nonoperative management 01/30/18, Abdominal xray < Mild improvement in the bowel gas pattern, Still a significant amount of contrast through colon, Will proceed with SB study when cleared. Patient is quiet uncomfortable from Abdominal firmness , bloated, Appeciate GS input. Looking at possible surgical procedure Sunday, Possible Partial hemicolectomy 01/31/18 just back from SBFT, adynamic ileus vs SBO. GS plans for surgery tomorrow. still distended, no BM, denying flatus. PLAN -await GS f/u - await surgery - further mgmt per GS - Supportive care. - GI will sign off for now, please reconsult if needed pt seen by myself and Dr Cuellar and this note is on his behalf (Meme Olmos) Physician Comments Seen and examined Agree with above Continue with current supportive care Monitor labs We will defer to the general surgery service for further evaluation we will sign off (Bradford Cuellar MD) Meme Olmos Jan 31, 2018 12:05 Bradford Cuellar MD Jan 31, 2018 21:27
--- NOTE | 2018-01-31 14:58 | HHI.PR ---
cc: Td Amaro MD Subjective Subjective Notes Resting in bed Vomited all night Still feeling miserable Objective Vitals/I&O Vital Signs Date Time Temp Pulse Resp B/P (MAP) Pulse Ox O2 Delivery O2 Flow Rate FiO2 01/31/18 12:00 98.3 94 17 176/79 (111) 97 Radiology Last 48 hours Impressions Abdomen/Pelvis CT 01/22/18 1800 Signed Impressions: Service Date/Time: Monday, January 22, 2018 19:40 - CONCLUSION: 1. Distal small bowel obstruction with multiple air-fluid levels. The cecum is impacted with stool to a diameter of 9.2 cm and it is unclear if this is related to a distal small bowel obstruction. No free air. There is mild ascites. 2. Subsegmental patchy airspace disease at the lung base is trace right pleural fluid. 3. Small hiatal hernia. Tee Herrera MD Cardiovascular: Regular Lungs: Clear Abdomen: Other (distended, tender ) Extremities: No edema A/P Assessment and Plan 52 year old female with abdominal pain and distention; fecal impaction; ileus vs SBO -NPO -Small bowel follow thru completed today -Continue TPN -Since no progression---will plan for OR tomorrow -Obtain consents---- exploratory laparotomy, possible total colectomy; gastrostomy tube placement SEEN WITH LEAD PYTHON DEVELOPER WHO DOCUMENTED OUR VISIT. SBO SECONDARY TO FECAL IMPACTION OF CECUM. WILL PLAN EXP LAP, COLECTOMY SUNDAY. TD AMARO MD FACS Michela Kramer LEAD PYTHON DEVELOPER/Insights Analyst LEAD PYTHON DEVELOPER Jan 31, 2018 14:58 Td Amaro MD Feb 04, 2018 12:05
--- NOTE | 2018-01-31 15:36 | HHI.PR ---
Subjective Remarks With nausea and vomiting says all night. NGT was removed yesterday. Patient says NGT did not help much either and was starting to irritate her nose and throat a lot. With abd distention and abdominal cramps. Did not pass gas. She is awaiting for surgery tomorrow. Objective Vitals Vital Signs Date Time Temp Pulse Resp B/P (MAP) Pulse Ox O2 Delivery O2 Flow Rate FiO2 01/31/18 12:00 98.3 94 17 176/79 (111) 97 01/31/18 08:00 98.0 92 17 138/70 (92) 95 01/31/18 04:00 98.6 94 18 154/76 (102) 95 01/31/18 00:00 97.8 97 18 146/73 (97) 94 01/30/18 20:00 98.1 104 18 155/78 (103) 93 01/30/18 16:00 98.1 96 17 177/86 (116) 96 I/O 01/30/18 01/30/18 01/30/18 01/31/18 01/31/18 01/31/18 07:00 15:00 23:00 07:00 15:00 23:00 Intake Total 3460 ml Output Total 1400 ml 1650 ml 600 ml Balance 2060 ml -1650 ml -600 ml Intake Oral 200 ml IV Total 3260 ml Output Urine Total 1200 ml 1650 ml Gastric Drainage Total 200 ml Emesis 600 ml Result Diagram: 01/28/18 0455 01/28/18 0455 Imaging Last Impressions Small Bowel X-Ray 01/30/18 0000 Signed Impressions: Service Date/Time: Tuesday, January 30, 2018 13:51 - CONCLUSION: There is diffuse distention of the small bowel with slow progression of contrast through the small bowel over 21 hours. This is nonspecific. This could be a diffuse adynamic ileus of the small bowel versus a distal small bowel obstruction. Lucien Willett MD Abdomen X-Ray 01/30/18 0000 Signed Impressions: Service Date/Time: Tuesday, January 30, 2018 10:01 - CONCLUSION: 1. There's been mild improvement in the small bowel gas pattern compared to the prior study. 2. There continues to be a significant amount of retained contrast throughout the entire colon. As soon as contrast can be evacuated from the colon, we can then proceed with a small bowel study. Lucien Willett MD Enema w/Water Soluble 01/24/18 0000 Signed Impressions: Service Date/Time: January 11:06 - CONCLUSION: Gastrografin enema performed for constipation as described above. Jabier Aviles MD Abdomen/Pelvis CT 01/22/18 1800 Signed Impressions: Service Date/Time: Monday, January 22, 2018 19:40 - CONCLUSION: 1. Distal small bowel obstruction with multiple air-fluid levels. The cecum is impacted with stool to a diameter of 9.2 cm and it is unclear if this is related to a distal small bowel obstruction. No free air. There is mild ascites. 2. Subsegmental patchy airspace disease at the lung base is trace right pleural fluid. 3. Small hiatal hernia. Tee Herrera MD Objective Remarks GENERAL: Well-nourished, well-developed patient. SKIN: Warm and dry. HEAD: Normocephalic. EYES: No scleral icterus. No injection or drainage. NECK: Supple, trachea midline. No JVD or lymphadenopathy. CARDIOVASCULAR: Regular rate and rhythm without murmurs, gallops, or rubs. RESPIRATORY: Breath sounds equal bilaterally. No accessory muscle use. GASTROINTESTINAL: Abdomen bloated, mildly tender, not acute, hypoactive bowel sounds EXTREMITIES: No cyanosis, or edema. NEUROLOGICAL: Awake, alert, and oriented x 3. Non-focal. Procedures 01/23/18 colonoscopy 01/24/18 Gastrografin enema A/P Problem List: (1) Abdominal pain ICD Code: R10.9 - Unspecified abdominal pain Status: Acute (2) Small bowel obstruction ICD Code: K56.609 - Unspecified intestinal obstruction, unspecified as to partial versus complete obstruction Status: Acute (3) Fecal impaction ICD Code: K56.41 - Fecal impaction Status: Acute (4) Hypertension ICD Code: I10 - Essential (primary) hypertension (5) Diabetes ICD Code: E11.9 - Type 2 diabetes mellitus without complications Assessment and Plan Fecal impaction versus ileus She has had 2 previous colonoscopies without resolution of her symptoms. She is refusing current offer for repeat colonoscopy. Patient has a poor appetite and has been n.p.o. by choice except for a few sips of water and ice chips. She is receiving TPN. PICC line placed. Poss surgery on Thursday 02/01 General surgery did not feel this was a surgical obstruction due to Gastrografin pattern into the right colon with bowel distention into the right colon Appreciate general surgery Appreciate gastroenterology Type 2 diabetes Accu-Cheks with sliding scale coverage TPN for intake Atrial fibrillation Continue calcium channel miguelina, rhythm was regular today Follow on telemetry Hypertension Continue Procardia XL h/o COPD Continue home inhalers. Supplemental oxygen as needed GI prophylaxis Protonix DVT prophylaxis SCDs Discussed with the patient, nurse DC plan pending improvement and clearance by consultants. On TPN, plan for surgery on Sunday. Problem Qualifiers (1) Abdominal pain: Qualified Codes: R10.84 - Generalized abdominal pain Arlette Rivera MD Jan 31, 2018 15:36
[2018-01-31 16:00] VITALS: BP 148/76; PULSE 96; RESP 17; TEMP 98.5; O2SAT 96
[2018-01-31 20:00] VITALS: BP 140/83; PULSE 96; RESP 16; TEMP 98.1; O2SAT 100
[2018-01-31] MEDS: FAT EMULSION 20% INJ 250 ML (Daily over 8 hours) IV-CENTRAL SCH (20:47)
[2018-01-31] MEDS: CLINIMIX E 4.25/25 2000 mL- >42 mls/hr IV-CENTRAL SCH ×3 (20:55)
[2018-02-01] VITALS: BP_SYST 168; BP_DIAS 78; BP_DIAS 79; PULSE 103; RESP 16; TEMP 97.3; O2SAT 93
[2018-02-01] MEDS: INSULIN ASPART SUPPLEMENTAL SCALE SQ SCH ×6 (01:22→22:38)
[2018-02-01] MEDS: CIPROFLOXACIN 400 MG PREMIX 200 ML IV SCH ×2 (03:26→16:00)
[2018-02-01] MEDS: metroNIDAZOLE 500 MG INJ 100 ML IV SCH ×3 (03:27→22:47)
[2018-02-01] MEDS: ONDANSETRON HCL 4 MG/2 ML VIAL IV PUSH PRN (03:27)
[2018-02-01] MEDS: D5-NS + KCL 20 MEQ INJ 1,000 ML IV SCH ×3 (03:29→22:00)
[2018-02-01] MEDS: MORPHINE SULFATE 2 MG/ML SYRINGE IV PUSH PRN ×3 (03:41→08:56)
[2018-02-01 04:00] VITALS: BP 155/67; PULSE 102; RESP 16; TEMP 98.2; O2SAT 95
[2018-02-01] MEDS: PANTOPRAZOLE SODIUM 40 MG VIAL IV PUSH SCH ×2 (05:12→17:19)
[2018-02-01 08:00] VITALS: BP 119/84; PULSE 97; RESP 18; TEMP 97.8; O2SAT 97
[2018-02-01] MEDS: METOCLOPRAMIDE HCL 10 MG/2 ML VIAL IM SCH ×2 (08:51→17:00)
[2018-02-01] MEDS: CYCLOBENZAPRINE HCL 10 MG TAB PO SCH ×3 (09:00→18:00)
[2018-02-01] MEDS: STIOLTO PO SCH (09:00)
[2018-02-01] MEDS: predniSONE 5 MG TAB PO SCH ×2 (09:00→21:00)
[2018-02-01] MEDS: NIFEdipine 90 MG SUSTAINED RELEASE TAB PO SCH (09:00)
[2018-02-01] MEDS: ALPRAZolam 0.25 MG TAB PO SCH ×2 (09:00→21:00)
[2018-02-01] MEDS: SODIUM CHLORIDE 0.9% FLUSH 10 ML FLUSH IV FLUSH SCH ×3 (09:00→21:00)
[2018-02-01] MEDS: FOLIC ACID 1 MG TAB PO SCH (09:00)
[2018-02-01] MEDS: DOCUSATE SODIUM 100 MG/10 ML UDC PO SCH ×2 (09:00→21:00)
[2018-02-01] MEDS: BUDESONIDE-FORMOTEROL 160/4.5 MCG INHALER INH SCH ×2 (09:00→22:37)
[2018-02-01] MEDS ORDERED: SUGAMMADEX SODIUM 200 MG/2 ML VIAL IV PUSH ONE (10:45)
[2018-02-01] MEDS ORDERED: HYDROCORTISONE SOD SUCCINATE 100 MG VIAL ONE ×2 (10:50)
[2018-02-01] MEDS ORDERED: ACETAMINOPHEN 1000 MG/100 ML 100 ML IV ONE (10:50)
[2018-02-01] MEDS ORDERED: ALBUMIN 5% INJ 500 ML IV ONE (11:13)
--- NOTE | 2018-02-01 11:23 | HHI.PR ---
Subjective Remarks With nausea and vomiting all night. With abdominal distention and pain in her abdomen worse on the upper quadrants/ epigastric. No fever or chills. Did not pass gas or any stool. Going for surgery Family at bedside very supportive Objective Vitals Vital Signs Date Time Temp Pulse Resp B/P (MAP) Pulse Ox O2 Delivery O2 Flow Rate FiO2 02/01/18 08:00 97.8 97 18 119/84 (96) 97 02/01/18 04:00 98.2 102 16 155/67 (96) 95 02/01/18 00:00 97.3 103 16 168/79 (108) 93 02/01/18 00:00 97.3 103 16 168/78 (108) 93 01/31/18 20:00 98.1 96 16 140/83 (102) 100 01/31/18 16:00 98.5 96 17 148/76 (100) 96 01/31/18 12:00 98.3 94 17 176/79 (111) 97 I/O 01/31/18 01/31/18 01/31/18 02/01/18 02/01/18 02/01/18 07:00 15:00 23:00 07:00 15:00 23:00 Intake Total 2452 ml Output Total 600 ml Balance -600 ml 2452 ml IV Total 2196 ml Lipid 256 ml Emesis 600 ml Result Diagram: 01/28/18 0455 01/28/18 0455 Imaging Last Impressions Small Bowel X-Ray 01/30/18 0000 Signed Impressions: Service Date/Time: Tuesday, January 30, 2018 13:51 - CONCLUSION: There is diffuse distention of the small bowel with slow progression of contrast through the small bowel over 21 hours. This is nonspecific. This could be a diffuse adynamic ileus of the small bowel versus a distal small bowel obstruction. Lucien Willett MD Abdomen X-Ray 01/30/18 0000 Signed Impressions: Service Date/Time: Tuesday, January 30, 2018 10:01 - CONCLUSION: 1. There's been mild improvement in the small bowel gas pattern compared to the prior study. 2. There continues to be a significant amount of retained contrast throughout the entire colon. As soon as contrast can be evacuated from the colon, we can then proceed with a small bowel study. Lucien Willett MD Enema w/Water Soluble 01/24/18 0000 Signed Impressions: Service Date/Time: January 11:06 - CONCLUSION: Gastrografin enema performed for constipation as described above. Jabier Aviles MD Abdomen/Pelvis CT 01/22/18 1800 Signed Impressions: Service Date/Time: Monday, January 22, 2018 19:40 - CONCLUSION: 1. Distal small bowel obstruction with multiple air-fluid levels. The cecum is impacted with stool to a diameter of 9.2 cm and it is unclear if this is related to a distal small bowel obstruction. No free air. There is mild ascites. 2. Subsegmental patchy airspace disease at the lung base is trace right pleural fluid. 3. Small hiatal hernia. Tee Herrera MD Objective Remarks GENERAL: Well-nourished, well-developed patient. SKIN: Warm and dry. HEAD: Normocephalic. EYES: No scleral icterus. No injection or drainage. NECK: Supple, trachea midline. No JVD or lymphadenopathy. CARDIOVASCULAR: Regular rate and rhythm without murmurs, gallops, or rubs. RESPIRATORY: Breath sounds equal bilaterally. No accessory muscle use. GASTROINTESTINAL: Abdomen bloated, mildly tender, not acute, hypoactive bowel sounds EXTREMITIES: No cyanosis, or edema. NEUROLOGICAL: Awake, alert, and oriented x 3. Non-focal. Procedures 01/23/18 colonoscopy 01/24/18 Gastrografin enema A/P Problem List: (1) Abdominal pain ICD Code: R10.9 - Unspecified abdominal pain Status: Acute (2) Small bowel obstruction ICD Code: K56.609 - Unspecified intestinal obstruction, unspecified as to partial versus complete obstruction Status: Acute (3) Fecal impaction ICD Code: K56.41 - Fecal impaction Status: Acute (4) Hypertension ICD Code: I10 - Essential (primary) hypertension (5) Diabetes ICD Code: E11.9 - Type 2 diabetes mellitus without complications Assessment and Plan Fecal impaction versus ileus Severe abd distention and pain She has had 2 previous colonoscopies without resolution of her symptoms. She is refusing current offer for repeat colonoscopy. Patient has a poor appetite and has been n.p.o. by choice except for a few sips of water and ice chips. She is receiving TPN. PICC line placed. Poss surgery on Thursday 02/01 General surgery did not feel this was a surgical obstruction due to Gastrografin pattern into the right colon with bowel distention into the right colon Appreciate general surgery Appreciate gastroenterology Going for surgery Sunday02/01/18. Type 2 diabetes Accu-Cheks with sliding scale coverage TPN for intake Atrial fibrillation Continue calcium channel miguelina, rhythm was regular today Follow on telemetry Hypertension Continue Procardia XL H/o COPD Continue home inhalers. Supplemental oxygen as needed GI prophylaxis Protonix DVT prophylaxis SCDs Discussed with the patient, nurse DC plan pending improvement and clearance by consultants. On TPN, going for surgery Sunday02/01/18. Problem Qualifiers (1) Abdominal pain: Qualified Codes: R10.84 - Generalized abdominal pain Arlette Rivera MD Feb 01, 2018 11:23
[2018-02-01] MEDS ORDERED: DEXAMETHASONE SOD PHOS 4 MG/ML VIAL IV ONE (12:00)
[2018-02-01] MEDS ORDERED: ONDANSETRON HCL 4 MG/2 ML VIAL IV ONE (12:00)
[2018-02-01] MEDS ORDERED: LIDOCAINE HCL 1% PF 5 ML SYRINGE OTHER ONE (12:00)
[2018-02-01] MEDS ORDERED: ROCURONIUM INJ 50 MG/5 ML SYRINGE IV PUSH ONE (12:00)
[2018-02-01] MEDS ORDERED: SUCCINYLCHOLINE CHLORIDE 200 MG/10 ML VIAL IV ONE (12:00)
[2018-02-01] MEDS ORDERED: PROPOFOL 200 MG/20 ML AMP IV ONE (12:00)
[2018-02-01] MEDS ORDERED: LABETALOL HCL 100 MG/20 ML VIAL IV ONE (12:00)
[2018-02-01] MEDS ORDERED: NORMOSOL R INJ 1,000 ML IV ONE (12:00)
[2018-02-01] MEDS ORDERED: SODIUM CHLOR 0.9% 1000 ML INJ 2,000 ML IV ONE (12:00)
[2018-02-01] MEDS ORDERED: NALOXONE HCL 0.4 MG/ML AMP IV PUSH PRN (13:30)
[2018-02-01] MEDS ORDERED: Post-op Orders (for Pharmacy) XX ONE (13:30)
[2018-02-01] MEDS ORDERED: DO NOT ADM ANY ANTICOAGULANT DRUGS PRN (13:44)
[2018-02-01] MEDS ORDERED: MORPHINE SULFATE 4 MG/ML INJ ONE (13:50)
--- NOTE | 2018-02-01 14:12 | MP ---
cc: Yvon Florian MD DATE OF OPERATION: 02/01/2018 DATE OF PROCEDURE: 02/01/2018 PREOPERATIVE DIAGNOSIS: Small bowel obstruction secondary to constipation. POSTOPERATIVE DIAGNOSES: 1. Small bowel obstruction secondary to constipation. 2. Massively distended right colon, completely full of pasty stool. PROCEDURE PERFORMED: 1. Exploratory laparotomy. 2. Extended right hemicolectomy. 3. Gastrostomy tube. 4. End ileostomy. 5. Mucous fistula transverse colon. SURGEON: Yvon Florian MD SUPERVISOR LOOPING: Tee Rosales MD SECOND POMPOM MAKER: Pau Milner MS-3 ANESTHESIA: General endotracheal. COMPLICATIONS: None. INDICATIONS FOR PROCEDURE: Ms. Cuevas is a 52-year-old female who has been in the hospital for approximately 10 days with a bowel obstruction. The bowel obstruction was found to be secondary to a distended right colon completely full of stool. The patient underwent multiple attempts to clear her colon of the stool and reopen her bowels. She had a Gastrografin enema. She had a GoLYTELY. She had magnesium citrate. She had Relistor and she had 2 colonoscopies. The patient's colon failed to clear and she remained obstructed. The patient had significant dilatation of the small bowel. It was felt that she had failed medical management and we discussed possible colectomy to remove the distended nonfunctional right colon. Risks and benefits of the procedure were discussed with her, and she was agreeable. INTRAOPERATIVE FINDINGS: The patient had a massively distended cecum that was down in the pelvis and was completely full of stool. It was all solid pasty stool and extended all the way up into her transverse colon. I elected to remove this portion. I elected not to do an anastomosis because the patient was malnourished, had been in the hospital for 10 days, had not had significant p.o. intake for approximately 2 weeks and both the small bowel and the colon were abnormal and I felt the anastomosis would be high risk. DETAILS OF PROCEDURE: The patient was identified, brought to the operating room, placed supine on the operating table. After adequate endotracheal anesthesia was achieved, the abdomen was prepped and draped in standard surgical fashion. Midline laparotomy incision was made. Dissection was carried down through subcutaneous tissue to midline fascia. Midline fascia was then incised. Peritoneum was then opened widely. Immediately, we encountered massively dilated small bowel. The small bowel was brought up and it was milked in a retrograde fashion to an orogastric tube that had been placed by Anesthesia. We retrieved approximately 3 liters of bilious fluid. Once the small bowel was decompressed, attention was directed to the abdominal cavity. The small bowel was followed down into the cecum where everything appeared normal except for the cecum which was massively dilated with stool. It was a thick pasty stool and the cecum was extremely large and so heavy, it was lying in the bottom of the pelvis due to its weight. I felt this was abnormal and it need to be removed as it has been totally dysfunctional and despite 10 days of aggressive laxative therapy, nothing had happened. The cecum and right colon was then mobilized off the white line of Toldt. Hepatic flexure was then taken down with the Harmonic scalpel. The terminal ileum was then transected with a TYRONE 55. The transverse colon was transected with a TYRONE 55. The mesentery was then taken down with the Harmonic scalpel. The right colic vessels were identified and tied off with 0 Vicryl suture. The entire right colon was then removed and sent to pathology for analysis. The abdominal cavity was then rinsed out with warm saline solution. The remainder of the colon appeared normal, but did have a large amount of small stool balls within it. Because of the high risk procedure and the fact the patient was malnourished, I felt anastomosis would not be kong. Dr. Rosales agreed. We went ahead and set the patient up for an end ileostomy and mucous fistula. First, the gastrostomy tube was placed because the patient had an NG tube in for 10 days and requested that it be removed. A 22-Occitan gastrostomy tube was then brought in through a separate stab wound incision in the left upper quadrant. It was inserted into the anterior stomach and a 3-0 silk box stitch was placed around it to secure it. The stomach was then sewn up to the abdominal wall using 3-0 GI silks. The gastrostomy tube was secured at 4 cm and tied off with 0 silk suture on the outside. The abdominal cavity was then rinsed out with 2 liters of warm saline solution. The ileostomy was then sewn down in the right lower quadrant using a 3-0 silk to keep it from twisting. The small bowel was then covered with Seprafilm in the omentum. The ileostomy and the mucous fistula were then brought up through separate stab wound incisions in the right upper and right lower quadrant. Midline fascia was then closed with #1 looped PDS from above and below. Subcutaneous tissue was copiously irrigated and then the skin was closed with skin stapling device. Both ostomies were then matured with 4-0 Vicryl suture. Both ostomies appeared viable. Sterile dressings were then applied and the patient was awakened and brought to the recovery room in stable condition. Yvon MD SUGEY Owen/CATHIE , 01:39 PM , 02:11 PM
[2018-02-01] MEDS ORDERED: *ONDANSETRON 4 MG VIAL PERIprocedural Use ONLY ONE (14:16)
[2018-02-01] MEDS ORDERED: *morphine SULFATE 4 MG/ML PERIprocedure ONLY ONE ×3 (14:20→15:02)
[2018-02-01] MEDS: MORPHINE SULFATE 30 MG/30 ML PCA IV SCH (15:14)
--- NOTE | 2018-02-01 15:28 | PD.WCN.NOT ---
Wound Consult Description: Consult for OSTOMY MANAGEMENT of abdomen per Dr Florian. Communicated with: ISABELA Darby Recommendation: Patient to be seen Sunday02/04/18 Additional Information: Attempted to see patient on for ostomy management of abdomen per consult. Patient off unit per Mehnaz MAR the patient is in surgery. 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 Corrie Malone [facility]ITALWilfredo Feb 01, 2018 15:28
[2018-02-01 20:00] VITALS: TEMP 97.2
[2018-02-01] MEDS: CLINIMIX E 4.25/25 2000 mL- >42 mls/hr IV-CENTRAL SCH ×3 (20:28)
[2018-02-01] MEDS: PCA - TOTAL MG MORPHINE DELIVERED PER SHIFT SCH (22:00)
[2018-02-01] MEDS: FAT EMULSION 20% INJ 250 ML (Daily over 8 hours) IV-CENTRAL SCH (22:31)
[2018-02-02] VITALS (8 sets, daily range): BP systolic 118–165; BP diastolic 57–87; PULSE 117–118; RESP 18; TEMP 97.3–100.6; O2SAT 92–97
[2018-02-02] MEDS: METOCLOPRAMIDE HCL 10 MG/2 ML VIAL IM SCH ×4 (00:45→23:58)
[2018-02-02] MEDS: INSULIN ASPART SUPPLEMENTAL SCALE SQ SCH ×6 (01:20→21:57)
[2018-02-02] MEDS: D5-NS + KCL 20 MEQ INJ 1,000 ML IV SCH ×3 (03:03→22:12)
[2018-02-02] MEDS: CIPROFLOXACIN 400 MG PREMIX 200 ML IV SCH ×2 (03:03→16:12)
[2018-02-02] MEDS: metroNIDAZOLE 500 MG INJ 100 ML IV SCH ×4 (05:00→23:56)
[2018-02-02] MEDS: MORPHINE SULFATE 30 MG/30 ML PCA IV SCH ×2 (05:28→14:27)
[2018-02-02] MEDS: PCA - TOTAL MG MORPHINE DELIVERED PER SHIFT SCH ×3 (05:29→22:00)
[2018-02-02 05:31] LABS: HEMATOCRIT 26.9 % (35.0-46.0); HEMOGLOBIN 10.8 GM/DL (11.6-15.3); MEAN CELL VOLUME 94.7 FL (80.0-100.0); MEAN PLATELET VOLUME 8.5 FL (7.0-11.0); PLATELET COUNT 282 TH/MM3 (150-450); RED BLOOD COUNT 2.84 MIL/MM3 (4.00-5.30); RED CELL DISTRIBUTION WIDTH 18.3 % (11.6-17.2); WHITE BLOOD COUNT 14.3 TH/MM3 (4.0-11.0)
[2018-02-02] MEDS: PANTOPRAZOLE SODIUM 40 MG VIAL IV PUSH SCH ×2 (05:44→17:19)
[2018-02-02 06:51] LABS: CREATININE 0.71 MG/DL (0.50-1.00); TOTAL PROTEIN 4.5 GM/DL (6.4-8.2)
[2018-02-02 06:52] LABS: ALBUMIN 1.5 GM/DL (3.4-5.0); CALCIUM-PROTEIN CORRECTED 8.4 MG/DL (8.5-10.1)
[2018-02-02 06:53] LABS: TOTAL BILIRUBIN ADULT 0.5 MG/DL (0.2-1.0)
[2018-02-02 06:54] LABS: BICARBONATE 25.1 MEQ/L (21.0-32.0)
[2018-02-02 07:51] LABS: MEAN CORPUSCULAR HEMOGLOBIN 34.5 PG (27.0-34.0)
[2018-02-02 07:52] LABS: MEAN CORPUSCULAR HGB CONC 36.5 % (32.0-36.0)
--- NOTE | 2018-02-02 08:04 | HHI.PR ---
Subjective Remarks The patient is in bed she says she is much better. Pain is controlled by medications. Stoma without all ports, no more nausea or vomiting no abdominal pain. She is very thirsty, advance diet to clears. No fever or chills no nausea or vomiting. No chest pain or shortness of breath she is not coughing. Objective Vitals Vital Signs Date Time Temp Pulse Resp B/P (MAP) Pulse Ox O2 Delivery O2 Flow Rate FiO2 02/02/18 05:29 16 02/02/18 05:28 16 02/02/18 04:00 97.3 118 18 118/57 (77) 97 02/02/18 00:00 97.7 117 18 165/79 (107) 97 02/01/18 22:00 14 02/01/18 20:00 97.2 02/01/18 15:30 97.6 98 16 157/74 (101) 95 Nasal Cannula 2 02/01/18 15:14 12 02/01/18 15:00 92 16 169/81 (110) 99 02/01/18 14:45 91 16 166/84 (111) 100 02/01/18 14:30 90 16 161/78 (105) 99 02/01/18 14:15 91 16 155/82 (106) 99 02/01/18 14:00 90 16 140/74 (96) 99 Nasal Cannula 2 02/01/18 13:45 97.6 92 16 131/71 (91) 98 Nasal Cannula 2 I/O 02/01/18 02/01/18 02/01/18 02/02/18 02/02/18 02/02/18 07:00 15:00 23:00 07:00 15:00 23:00 Intake Total 2452 ml 3900 ml Output Total 3825 ml Balance 2452 ml 75 ml IV Total 2196 ml 3900 ml Lipid 256 ml Output Urine Total 200 ml Gastric Drainage Total 3550 ml Estimated Blood Loss 75 ml Result Diagram: 02/02/18 0420 02/02/18 0420 Imaging Last Impressions Small Bowel X-Ray 01/30/18 0000 Signed Impressions: Service Date/Time: Tuesday, January 30, 2018 13:51 - CONCLUSION: There is diffuse distention of the small bowel with slow progression of contrast through the small bowel over 21 hours. This is nonspecific. This could be a diffuse adynamic ileus of the small bowel versus a distal small bowel obstruction. Lucien Willett MD Abdomen X-Ray 01/30/18 0000 Signed Impressions: Service Date/Time: Tuesday, January 30, 2018 10:01 - CONCLUSION: 1. There's been mild improvement in the small bowel gas pattern compared to the prior study. 2. There continues to be a significant amount of retained contrast throughout the entire colon. As soon as contrast can be evacuated from the colon, we can then proceed with a small bowel study. Lucien Willett MD Enema w/Water Soluble 01/24/18 0000 Signed Impressions: Service Date/Time: January 11:06 - CONCLUSION: Gastrografin enema performed for constipation as described above. Jabier Aviles MD Abdomen/Pelvis CT 01/22/18 1800 Signed Impressions: Service Date/Time: Monday, January 22, 2018 19:40 - CONCLUSION: 1. Distal small bowel obstruction with multiple air-fluid levels. The cecum is impacted with stool to a diameter of 9.2 cm and it is unclear if this is related to a distal small bowel obstruction. No free air. There is mild ascites. 2. Subsegmental patchy airspace disease at the lung base is trace right pleural fluid. 3. Small hiatal hernia. Tee Herrera MD Objective Remarks GENERAL: Well-nourished, well-developed patient. SKIN: Warm and dry. HEAD: Normocephalic. EYES: No scleral icterus. No injection or drainage. NECK: Supple, trachea midline. No JVD or lymphadenopathy. CARDIOVASCULAR: Regular rate and rhythm without murmurs, gallops, or rubs. RESPIRATORY: Breath sounds equal bilaterally. No accessory muscle use. GASTROINTESTINAL: Abdomen bloated, mildly tender, not acute, hypoactive bowel sounds EXTREMITIES: No cyanosis, or edema. NEUROLOGICAL: Awake, alert, and oriented x 3. Non-focal. Procedures 01/23/18 colonoscopy 01/24/18 Gastrografin enema 02/01/18 Patient with Small bowel obstruction secondary to constipation . Massively dependent right colon, completely full of pasty stool. Status post surgery by Dr. Florian 02/01/18: exploratory lap, extended right hemicolectomy, gastrostomy tube, end ileostomy, mucous fistula transverse colon A/P Problem List: (1) Abdominal pain ICD Code: R10.9 - Unspecified abdominal pain Status: Acute (2) Small bowel obstruction ICD Code: K56.609 - Unspecified intestinal obstruction, unspecified as to partial versus complete obstruction Status: Acute (3) Fecal impaction ICD Code: K56.41 - Fecal impaction Status: Acute (4) Hypertension ICD Code: I10 - Essential (primary) hypertension (5) Diabetes ICD Code: E11.9 - Type 2 diabetes mellitus without complications Assessment and Plan Fecal impaction versus ileus Severe abd distention and pain Small bowel obstruction secondary to constipation Massively dependent right colon, completely full of pasty stool Status post surgery by Dr. Florian 02/01/18 exploratory lap, extended right hemicolectomy, gastrostomy tube, end ileostomy, mucous fistula transverse colon She has had 2 previous colonoscopies without resolution of her symptoms. She is refusing current offer for repeat colonoscopy. Patient has a poor appetite and has been n.p.o. by choice except for a few sips of water and ice chips. She is receiving TPN. PICC line placed. Poss surgery on Thursday 02/01 General surgery did not feel this was a surgical obstruction due to Gastrografin pattern into the right colon with bowel distention into the right colon Appreciate general surgery Appreciate gastroenterology Type 2 diabetes mellitus Accu-Cheks with sliding scale coverage TPN for intake Monitor liver function, monitor electrolytes Atrial fibrillation Continue calcium channel miguelina, rhythm was regular today Follow on telemetry Hypertension Continue Procardia XL H/o COPD Continue home inhalers. Supplemental oxygen as needed GI prophylaxis Protonix DVT prophylaxis SCDs Discussed with the patient, nurse DC plan pending improvement and clearance by consultants. Patient is on TPN, s/ p surgery Sunday02/01/18. Problem Qualifiers (1) Abdominal pain: Qualified Codes: R10.84 - Generalized abdominal pain Arlette Rivera MD Feb 02, 2018 08:04
[2018-02-02] MEDS ORDERED: CALCIUM GLUCONATE INJ 1 GM in SODIUM CHLORIDE 0.9% INJ 100 ML IV ONE (08:15)
[2018-02-02] MEDS: BUDESONIDE-FORMOTEROL 160/4.5 MCG INHALER INH SCH ×2 (08:18→22:09)
[2018-02-02] MEDS: SODIUM CHLORIDE 0.9% FLUSH 10 ML FLUSH IV FLUSH SCH ×3 (08:24→21:00)
[2018-02-02] MEDS: predniSONE 5 MG TAB PO SCH ×2 (08:25→21:00)
[2018-02-02] MEDS: DOCUSATE SODIUM 100 MG/10 ML UDC PO SCH ×2 (08:25→21:00)
[2018-02-02] MEDS: FOLIC ACID 1 MG TAB PO SCH (08:26)
[2018-02-02] MEDS: ALPRAZolam 0.25 MG TAB PO SCH ×2 (08:26→21:00)
[2018-02-02] MEDS: CYCLOBENZAPRINE HCL 10 MG TAB PO SCH ×3 (08:26→17:06)
[2018-02-02] MEDS: NIFEdipine 90 MG SUSTAINED RELEASE TAB PO SCH (08:26)
[2018-02-02] MEDS: STIOLTO PO SCH (09:00)
[2018-02-02 10:01] LABS: BANDS 7 % (0-6); CORRECTED NUCLEATED RBC 1 /100 WBC (0-0); LYMPHOCYTES 17 % (9-44); MONOCYTES 1 % (0-8); NEUTROPHIL # MANUAL DIFF 11.6 TH/MM3 (1.8-7.7); NUCLEATED RED BLOOD CELL 1 (0-0); POLYS (SEG NEUTROPHILS) 74 % (16-70)
[2018-02-02 10:02] LABS: TEARDROP RBCS 1+ (NORMAL)
--- NOTE | 2018-02-02 12:16 | HHI.PR ---
Subjective Subjective Notes Patient's pain is well controlled. She is awake alert and oriented. She denies shortness of breath. She has not been out of bed yet. Objective Vitals/I&O Vital Signs Date Time Temp Pulse Resp B/P (MAP) Pulse Ox O2 Delivery O2 Flow Rate FiO2 02/02/18 12:00 99.0 118 18 146/65 (92) 95 02/02/18 08:34 Nasal Cannula 2.00 Labs Laboratory Tests Test 02/02/18 04:20 White Blood Count 14.3 Red Blood Count 2.84 Hemoglobin 10.8 Hematocrit 26.9 Mean Corpuscular Volume 94.7 Mean Corpuscular Hemoglobin 34.5 Mean Corpuscular Hemoglobin Concent 36.5 Red Cell Distribution Width 18.3 Platelet Count 282 Mean Platelet Volume 8.5 CBC Comment AUTO DIFF Differential Total Cells Counted 100 Neutrophils % (Manual) 74 Band Neutrophils % 7 Lymphocytes % 17 Monocytes % 1 Eosinophils % 1 Neutrophils # (Manual) 11.6 Nucleated Red Blood Cells 1 Differential Comment FINAL DIFF MANUAL Platelet Estimate NORMAL Platelet Morphology Comment NORMAL Tear Drop Cells 1+ Blood Urea Nitrogen 9 Creatinine 0.71 Random Glucose 535 Total Protein 4.5 Albumin 1.5 Calcium Level 7.0 Alkaline Phosphatase 29 Aspartate Amino Transf (AST/SGOT) 39 Alanine Aminotransferase (ALT/SGPT) 34 Total Bilirubin 0.5 Sodium Level 132 Potassium Level 5.1 Chloride Level 101 Carbon Dioxide Level 25.1 Anion Gap 6 Estimat Glomerular Filtration Rate 86 Protein Corrected Calcium 8.4 Radiology Last 48 hours Impressions Abdomen/Pelvis CT 01/22/18 1800 Signed Impressions: Service Date/Time: Monday, January 22, 2018 19:40 - CONCLUSION: 1. Distal small bowel obstruction with multiple air-fluid levels. The cecum is impacted with stool to a diameter of 9.2 cm and it is unclear if this is related to a distal small bowel obstruction. No free air. There is mild ascites. 2. Subsegmental patchy airspace disease at the lung base is trace right pleural fluid. 3. Small hiatal hernia. Tee Herrera MD Cardiovascular: Regular, Other (Sinus tachycardia) Lungs: Clear Abdomen: Non-distended, Other (Ostomies appear pink and viable. No output. Midline incision with minimal serosanguineous drainage. G-tube site clean.), Post-op tenderness Extremities: No edema, Perfused, SCD's on A/P Assessment and Plan Postop day 1 status post exploratory laparotomy the right hemicolectomy with end ileostomy and mucous fistula. Gastrostomy tube placement. Patient is doing well. Her G-tube is to gravity drainage and she is desirous of a great popsicle. Will order clear liquids. Will follow electrolytes closely and have ordered BMP for tomorrow. Time for her to get out of bed. Ward Foley MD Feb 02, 2018 12:16
[2018-02-02] MEDS: ONDANSETRON HCL 4 MG/2 ML VIAL IV PUSH PRN (13:34)
[2018-02-02] MEDS ORDERED: DEXTROSE 50% IN WATER 50 ML VIAL(D50) IV PUSH PRN (16:30)
[2018-02-02] MEDS ORDERED: GLUCAGON 1 MG/ML VIAL OTHER PRN (16:30)
[2018-02-02] MEDS: CLINIMIX E 4.25/25 2000 mL- >42 mls/hr IV-CENTRAL SCH ×3 (21:47)
[2018-02-02] MEDS: FAT EMULSION 20% INJ 250 ML (Daily over 8 hours) IV-CENTRAL SCH (21:56)
[2018-02-02] MEDS ORDERED: LORazepam 2 MG/ML VIAL IV PUSH ONE (23:15)
[2018-02-03] VITALS (8 sets, daily range): BP systolic 125–161; BP diastolic 59–74; PULSE 118–130; RESP 17–28; TEMP 98.4–100.7; O2SAT 91–96
[2018-02-03] MEDS: CIPROFLOXACIN 400 MG PREMIX 200 ML IV SCH ×2 (05:27→16:03)
[2018-02-03] MEDS: PCA - TOTAL MG MORPHINE DELIVERED PER SHIFT SCH ×2 (06:00→13:41)
[2018-02-03] MEDS: D5-NS + KCL 20 MEQ INJ 1,000 ML IV SCH ×3 (06:00→22:08)
[2018-02-03] MEDS: PANTOPRAZOLE SODIUM 40 MG VIAL IV PUSH SCH ×2 (06:29→17:22)
[2018-02-03] MEDS: metroNIDAZOLE 500 MG INJ 100 ML IV SCH ×4 (06:32→22:28)
--- NOTE | 2018-02-03 08:52 | HHI.PR ---
Subjective Remarks Patient in bed, says she has some abd pain at the right side surgical site. No fever or chills. Feels more anxious she is taking anxiolytic meds at home, will restart. No n/v/d/c. No fever or chills. Sone nausea but no vomiting. Tolerates clears. Patient is more anxious and is also noted wheezing today. Will add nebs. Objective Vitals Vital Signs Date Time Temp Pulse Resp B/P (MAP) Pulse Ox O2 Delivery O2 Flow Rate FiO2 02/03/18 08:00 98.5 122 18 158/70 (99) 94 02/03/18 06:00 14 02/03/18 05:21 98.4 122 17 161/74 (103) 94 02/03/18 00:17 100.5 129 17 145/71 (95) 93 02/02/18 22:00 14 02/02/18 21:45 95 21 02/02/18 20:00 100.6 18 157/87 (110) 92 02/02/18 16:00 98.9 118 18 149/73 (98) 94 02/02/18 14:27 16 02/02/18 14:20 16 02/02/18 12:00 99.0 118 18 146/65 (92) 95 I/O 02/02/18 02/02/18 02/02/18 02/03/18 02/03/18 02/03/18 07:00 15:00 23:00 07:00 15:00 23:00 Intake Total 250 ml Output Total 1200 ml 1000 ml Balance -1200 ml -750 ml IV Total 250 ml Output Urine Total 950 ml 800 ml Gastric Drainage Total 250 ml 200 ml Result Diagram: 02/02/18 0420 02/02/18 0420 Imaging Last Impressions Small Bowel X-Ray 01/30/18 0000 Signed Impressions: Service Date/Time: Tuesday, January 30, 2018 13:51 - CONCLUSION: There is diffuse distention of the small bowel with slow progression of contrast through the small bowel over 21 hours. This is nonspecific. This could be a diffuse adynamic ileus of the small bowel versus a distal small bowel obstruction. Lucien Willett MD Abdomen X-Ray 01/30/18 0000 Signed Impressions: Service Date/Time: Tuesday, January 30, 2018 10:01 - CONCLUSION: 1. There's been mild improvement in the small bowel gas pattern compared to the prior study. 2. There continues to be a significant amount of retained contrast throughout the entire colon. As soon as contrast can be evacuated from the colon, we can then proceed with a small bowel study. Lucien Willett MD Enema w/Water Soluble 01/24/18 0000 Signed Impressions: Service Date/Time: January 11:06 - CONCLUSION: Gastrografin enema performed for constipation as described above. Jabier Aviles MD Abdomen/Pelvis CT 01/22/18 1800 Signed Impressions: Service Date/Time: Monday, January 22, 2018 19:40 - CONCLUSION: 1. Distal small bowel obstruction with multiple air-fluid levels. The cecum is impacted with stool to a diameter of 9.2 cm and it is unclear if this is related to a distal small bowel obstruction. No free air. There is mild ascites. 2. Subsegmental patchy airspace disease at the lung base is trace right pleural fluid. 3. Small hiatal hernia. Tee Herrera MD Objective Remarks GENERAL: Well-nourished, well-developed patient. SKIN: Warm and dry. HEAD: Normocephalic. EYES: No scleral icterus. No injection or drainage. NECK: Supple, trachea midline. No JVD or lymphadenopathy. CARDIOVASCULAR: Regular rate and rhythm without murmurs, gallops, or rubs. RESPIRATORY: Breath sounds equal bilaterally. No accessory muscle use. GASTROINTESTINAL: Abdomen bloated, mildly tender, not acute, hypoactive bowel sounds EXTREMITIES: No cyanosis, or edema. NEUROLOGICAL: Awake, alert, and oriented x 3. Non-focal. Procedures 01/23/18 colonoscopy 01/24/18 Gastrografin enema 02/01/18 Patient with Small bowel obstruction secondary to constipation . Massively dependent right colon, completely full of pasty stool. Status post surgery by Dr. Florian 02/01/18: exploratory lap, extended right hemicolectomy, gastrostomy tube, end ileostomy, mucous fistula transverse colon A/P Problem List: (1) Abdominal pain ICD Code: R10.9 - Unspecified abdominal pain Status: Acute (2) Small bowel obstruction ICD Code: K56.609 - Unspecified intestinal obstruction, unspecified as to partial versus complete obstruction Status: Acute (3) Fecal impaction ICD Code: K56.41 - Fecal impaction Status: Acute (4) Hypertension ICD Code: I10 - Essential (primary) hypertension (5) Diabetes ICD Code: E11.9 - Type 2 diabetes mellitus without complications Assessment and Plan Fecal impaction versus ileus Severe abd distention and pain Small bowel obstruction secondary to constipation Massively dependent right colon, completely full of pasty stool Status post surgery by Dr. Florian 02/01/18 exploratory lap, extended right hemicolectomy, gastrostomy tube, end ileostomy, mucous fistula transverse colon She has had 2 previous colonoscopies without resolution of her symptoms. She is refusing current offer for repeat colonoscopy. Patient has a poor appetite and has been n.p.o. by choice except for a few sips of water and ice chips. She is receiving TPN. PICC line placed. Poss surgery on Thursday 02/01 General surgery did not feel this was a surgical obstruction due to Gastrografin pattern into the right colon with bowel distention into the right colon Appreciate general surgery Appreciate gastroenterology Type 2 diabetes mellitus Accu-Cheks with sliding scale coverage TPN for intake Monitor liver function, monitor electrolytes Atrial fibrillation Continue calcium channel miguelina, rhythm was regular today Follow on telemetry Hypertension Continue Procardia XL H/o COPD Continue home inhalers. Supplemental oxygen as needed Add nebs as patien tis noted wheezing today. Anxiety restart home meds. GI prophylaxis Protonix DVT prophylaxis SCDs Discussed with the patient, nurse DC plan pending improvement and clearance by consultants. Patient is on TPN, s/ p surgery Sunday02/01/18. Problem Qualifiers (1) Abdominal pain: Qualified Codes: R10.84 - Generalized abdominal pain Arlette Rivera MD Feb 03, 2018 08:52
[2018-02-03] MEDS: STIOLTO PO SCH (09:00)
[2018-02-03 09:18] LABS: HEMATOCRIT 22.5 % (35.0-46.0); HEMOGLOBIN 7.2 GM/DL (11.6-15.3); MEAN CELL VOLUME 93.3 FL (80.0-100.0); MEAN CORPUSCULAR HEMOGLOBIN 29.9 PG (27.0-34.0); MEAN PLATELET VOLUME 7.8 FL (7.0-11.0); PLATELET COUNT 220 TH/MM3 (150-450); RED BLOOD COUNT 2.41 MIL/MM3 (4.00-5.30); RED CELL DISTRIBUTION WIDTH 18.2 % (11.6-17.2); WHITE BLOOD COUNT 18.5 TH/MM3 (4.0-11.0)
[2018-02-03 09:41] LABS: BICARBONATE 23.1 MEQ/L (21.0-32.0)
[2018-02-03 09:48] LABS: CALCIUM 7.9 MG/DL (8.5-10.1); CREATININE 0.52 MG/DL (0.50-1.00)
[2018-02-03 10:03] LABS: BANDS 4 % (0-6); LYMPHOCYTES 4 % (9-44); MONOCYTES 2 % (0-8); NEUTROPHIL # MANUAL DIFF 17.4 TH/MM3 (1.8-7.7); POLYS (SEG NEUTROPHILS) 90 % (16-70)
[2018-02-03] MEDS: INSULIN ASPART SUPPLEMENTAL SCALE SQ SCH ×4 (10:12→22:30)
[2018-02-03] MEDS: METOCLOPRAMIDE HCL 10 MG/2 ML VIAL IM SCH ×2 (10:13→17:22)
[2018-02-03] MEDS: BUDESONIDE-FORMOTEROL 160/4.5 MCG INHALER INH SCH ×2 (10:13→22:30)
[2018-02-03] MEDS: DOCUSATE SODIUM 100 MG/10 ML UDC PO SCH ×3 (10:13→22:28)
[2018-02-03] MEDS: predniSONE 5 MG TAB PO SCH ×2 (10:17→20:29)
[2018-02-03] MEDS: NIFEdipine 90 MG SUSTAINED RELEASE TAB PO SCH (10:17)
[2018-02-03] MEDS: ALPRAZolam 0.25 MG TAB PO SCH ×2 (10:17→20:30)
[2018-02-03] MEDS: FOLIC ACID 1 MG TAB PO SCH (10:17)
[2018-02-03] MEDS: CYCLOBENZAPRINE HCL 10 MG TAB PO SCH ×3 (10:17→17:23)
[2018-02-03] MEDS: SODIUM CHLORIDE 0.9% FLUSH 10 ML FLUSH IV FLUSH SCH ×3 (10:30→21:00)
[2018-02-03] MEDS: RESP: ALBUTEROL 2.5 MG/IPRATROPIUM 0.5 MG NEB (PRN) NEB ×2 (13:40→20:02)
--- NOTE | 2018-02-03 13:40 | RADRPT ---
EXAM DATE/TIME: 02/03/2018 13:09 [facility] COMPARISON: No previous studies available for comparison. INDICATIONS : Cough and chest pain. MEDICAL HISTORY : Chronic obstructive pulmonary disease. Carcinoma, lung. Cardiovascular disease. SURGICAL HISTORY : Hysterectomy. section. Appendectomy. ENCOUNTER: Initial ACUITY: 4 - 6 days PAIN SCORE: 7/10 LOCATION: Bilateral chest FINDINGS: Significant air space disease is identified throughout both lungs especially within the upper lobes. Right upper tract PICC line is in good position. Heart remains within normal in size. CONCLUSION: 1. Moderate to severe bilateral airspace disease especially in the upper lobes. 2. Suspect position of right upper extremity PICC line. Adolfo Vega MD on February 03, 2018 at 13:36 Board Certified Radiologist. This report was verified electronically.
[2018-02-03] MEDS: MORPHINE SULFATE 30 MG/30 ML PCA IV SCH (13:43)
--- NOTE | 2018-02-03 15:08 | HHI.PR ---
cc: Ralph Adair MD Subjective Subjective Notes DAILY PROGRESS NOTE FOR SURGICAL ATTENDING, DR. RALPH ADAIR Complains of a little bit of discomfort but she forgot to use her REFRIGERATOR MOVER pump Nausea is better She's happy she does not have an NG tube and she has a G-tube Objective Vitals/I&O Vital Signs Date Time Temp Pulse Resp B/P (MAP) Pulse Ox O2 Delivery O2 Flow Rate FiO2 02/03/18 12:00 98.9 119 18 147/65 (92) 96 02/02/18 21:45 21 02/02/18 08:34 Nasal Cannula 2.00 Labs Laboratory Tests Test 02/03/18 08:45 White Blood Count 18.5 Red Blood Count 2.41 Hemoglobin 7.2 Hematocrit 22.5 Mean Corpuscular Volume 93.3 Mean Corpuscular Hemoglobin 29.9 Mean Corpuscular Hemoglobin Concent 32.0 Red Cell Distribution Width 18.2 Platelet Count 220 Mean Platelet Volume 7.8 CBC Comment AUTO DIFF Differential Total Cells Counted 100 Neutrophils % (Manual) 90 Band Neutrophils % 4 Lymphocytes % 4 Monocytes % 2 Neutrophils # (Manual) 17.4 Differential Comment FINAL DIFF MANUAL Platelet Estimate NORMAL Platelet Morphology Comment NORMAL Blood Urea Nitrogen 9 Creatinine 0.52 Random Glucose 263 Calcium Level 7.9 Sodium Level 136 Potassium Level 4.5 Chloride Level 107 Carbon Dioxide Level 23.1 Anion Gap 6 Estimat Glomerular Filtration Rate 123 Radiology Last 48 hours Impressions Abdomen/Pelvis CT 01/22/18 1800 Signed Impressions: Service Date/Time: Monday, January 22, 2018 19:40 - CONCLUSION: 1. Distal small bowel obstruction with multiple air-fluid levels. The cecum is impacted with stool to a diameter of 9.2 cm and it is unclear if this is related to a distal small bowel obstruction. No free air. There is mild ascites. 2. Subsegmental patchy airspace disease at the lung base is trace right pleural fluid. 3. Small hiatal hernia. Ralph Herrera MD Cardiovascular: Regular Abdomen: Post-op tenderness Narrative Exam ileostomy and mucous fistula pink No output from ileostomy Good urine output G-tube A/P Problem List: (1) Surgically created abdominal mucous fistula ICD Codes: Z93.4 - Other artificial openings of gastrointestinal tract status Status: Acute (2) S/P exploratory laparotomy ICD Codes: Z98.890 - Other specified postprocedural states (3) Attention to ileostomy ICD Codes: Z43.2 - Encounter for attention to ileostomy Status: Acute (4) Abdominal pain ICD Codes: R10.9 - Unspecified abdominal pain Status: Acute Assessment and Plan 52-year-old female who had a extended right colon resection for dysfunctional colon Feels better Ileostomy without output yet Instructed incentive spirometer Need stand and ambulate Attending Statement NOTE FOR SURGICAL ATTENDING, DR. RALPH ADAIR I attest that I had a [id number] encounter with the patient on the same day, and personally performed and documented my assessment and findings in the medical record. The following services were provided during this hospital visit: Chart data review, vital sign assessments/reviewing monitor data Review of consultations notes if present. Medication orders/review and/or management Ordering and/or reviewing lab tests Ordering and/or interpreting/reviewing x-rays and/or diagnostic studies Care of the patient and discussion of the patient with the care team Documentation time To help prompt me to consider important information that might be impacting today's encounter and assessment, information from prior notes written by myself or my colleagues may have been "brought forward/copy and pasted" into today's note. Problem Qualifiers (1) Abdominal pain: Qualified Codes: R10.84 - Generalized abdominal pain Ralph Adair MD Feb 03, 2018 15:08
--- NOTE | 2018-02-03 15:56 | MB ---
cc: Ed Ward MD DATE: 02/03/2018 REASON FOR CONSULTATION: COPD, question pneumonia. HISTORY OF PRESENT ILLNESS: Ms. Cuevas is a 52-year-old female with a known history of COPD, chronic respiratory failure, on home oxygen therapy, admitted with nonfunctioning bowel, underwent resection, ileostomy tube in place. The patient had shortness of breath of mild degree, intermittent chest wheeze yesterday, placed on bronchodilator therapy. Chest x-ray with bilateral lung infiltrates. I am asked to see her at this time for same. PAST MEDICAL HISTORY: 1. COPD. 2. Chronic respiratory failure, on oxygen therapy, 2 L by nasal cannula. 3. Diabetes mellitus. 4. Hypertension. 5. Hyperlipidemia. 6. Congestive heart failure. 7. Atrial fibrillation. 8. Coronary artery disease. 9. Seizure disorder. 10. Question history of lung cancer many years ago. No treatment given. PAST SURGICAL HISTORY: Lung biopsy, coronary angiogram, previous appendectomy, hysterectomy, cholecystectomy. ALLERGIES: NONE KNOWN TO MEDICATION. CURRENT MEDICATIONS: Include insulin, glucagon, potassium, morphine with AREA COUNSELOR pump, ciprofloxacin, cyclobenzaprine, nifedipine, prednisone 5 mg twice daily, budesonide/formoterol nebulization twice daily, pantoprazole. SOCIAL HISTORY: Long smoking history, smoked a pack a day up until time of hospitalization. Does not drink any alcohol, does not use drugs. PHYSICAL EXAMINATION: GENERAL: The patient is alert. VITAL SIGNS: Temperature 98, pulse 90, respiration 18, blood pressure 140/65. HEENT: Unremarkable. Eyes without icterus. NECK: Without adenopathy, thyroid enlargement. CHEST: Few scattered rhonchi at bases. CARDIAC: PMI not appreciated. S1, S2 audible. No murmur, no rub. ABDOMEN: Bandaged. EXTREMITIES: No clubbing, cyanosis or edema. LABORATORY AND DIAGNOSTIC DATA: White count 18,000, hemoglobin 7.2, platelets 220,000. Sodium 136, potassium 4.5, BUN 9, creatinine 0.5. Chest x-ray with bilateral airspace disease, especially upper lung. IMPRESSION: 1. Chronic obstructive pulmonary disease. 2. Chronic respiratory failure. 3. Status post abdominal surgery as above. 4. Diabetes mellitus. 5. Hypertension. 6. Diabetes mellitus. 7. Congestive heart failure. 8. Atrial fibrillation. PLAN: The patient seems comfortable at present without acute distress. Doubt she has underlying acute pneumonia. She is receiving antibiotic therapy and bronchodilator therapy with continuous oxygen and bronchodilators, and follow a chest x-ray in a few days to assess if any changes happened. Meanwhile, the patient has a history of lung cancer, which she had declined treatment for in the past. How much of that accounts for the abnormality on chest x-ray is not clear. We will follow her course along with you and depending on progress, proceed further. I do thank you for asking me to partake in Ms. Cuevas' care. Ed Ward MD WWW/ERICK , 03:31 PM , 03:55 PM
[2018-02-03] MEDS ORDERED: ACETAMINOPHEN 325 MG TAB PO PRN (21:45)
[2018-02-03] MEDS: CLINIMIX E 4.25/25 2000 mL- >42 mls/hr IV-CENTRAL SCH ×3 (22:10)
[2018-02-03] MEDS: FAT EMULSION 20% INJ 250 ML (Daily over 8 hours) IV-CENTRAL SCH (22:31)
[2018-02-04] VITALS (15 sets, daily range): BP systolic 98–148; BP diastolic 15–82; PULSE 98–142; RESP 18–20; TEMP 98.2–101.8; O2SAT 93–100
[2018-02-04] MEDS: METOCLOPRAMIDE HCL 10 MG/2 ML VIAL IM SCH ×2 (01:45→09:14)
[2018-02-04] MEDS: RESP: IPRATROPIUM 0.5 MG/2.5 ML NEB NEB SCH ×2 (03:41→09:40)
[2018-02-04] MEDS: CIPROFLOXACIN 400 MG PREMIX 200 ML IV SCH (04:54)
[2018-02-04] MEDS: PANTOPRAZOLE SODIUM 40 MG VIAL IV PUSH SCH ×2 (04:56→17:30)
--- NOTE | 2018-02-04 05:42 | RADRPT ---
EXAM DATE/TIME: 02/04/2018 05:10 [facility] COMPARISON: CHEST SINGLE AP, February 03, 2018, 13:09. INDICATIONS : Shortness of breath. MEDICAL HISTORY : Chronic obstructive pulmonary disease. Carcinoma, lung. Cardiovascular disease. SURGICAL HISTORY : Hysterectomy. section. Appendectomy. ENCOUNTER: Subsequent ACUITY: 4 - 6 days PAIN SCORE: 0/10 LOCATION: Bilateral chest FINDINGS: Right arm PICC line is stable in position. Diffuse bilateral infiltrates are grossly unchanged. Cardi ac contours are stable. CONCLUSION: No significant change Lamont Grossman MD on February 04, 2018 at 5:40 Board Certified Radiologist. This report was verified electronically.
[2018-02-04] MEDS: PCA - TOTAL MG MORPHINE DELIVERED PER SHIFT SCH ×2 (06:00→13:50)
[2018-02-04] MEDS ORDERED: FUROSEMIDE 40 MG/4 ML VIAL IV PUSH ONE (06:00)
[2018-02-04] MEDS: SODIUM CHLORIDE 0.9% FLUSH 10 ML FLUSH IV FLUSH PRN (06:14)
[2018-02-04] MEDS: metroNIDAZOLE 500 MG INJ 100 ML IV SCH ×4 (06:15→22:02)
--- NOTE | 2018-02-04 08:40 | HHI.PR ---
Subjective Subjective Notes Increase oxygen requirements overnight "I'm cold. Can I have another blanket?" Objective Vitals/I&O Vital Signs Date Time Temp Pulse Resp B/P (MAP) Pulse Ox O2 Delivery O2 Flow Rate FiO2 02/04/18 07:54 95 Partial Rebreather 14.00 02/04/18 06:00 22 02/04/18 04:38 98.6 115 136/68 (90) 02/02/18 21:45 21 Labs Laboratory Tests Test 02/03/18 08:45 02/03/18 16:18 02/04/18 05:01 White Blood Count 18.5 Red Blood Count 2.41 Hemoglobin 7.2 Hematocrit 22.5 Mean Corpuscular Volume 93.3 Mean Corpuscular Hemoglobin 29.9 Mean Corpuscular Hemoglobin Concent 32.0 Red Cell Distribution Width 18.2 Platelet Count 220 Mean Platelet Volume 7.8 CBC Comment AUTO DIFF Differential Total Cells Counted 100 Neutrophils % (Manual) 90 Band Neutrophils % 4 Lymphocytes % 4 Monocytes % 2 Neutrophils # (Manual) 17.4 Differential Comment FINAL DIFF MANUAL Platelet Estimate NORMAL Platelet Morphology Comment NORMAL Blood Urea Nitrogen 9 Creatinine 0.52 Random Glucose 263 Calcium Level 7.9 Sodium Level 136 Potassium Level 4.5 Chloride Level 107 Carbon Dioxide Level 23.1 Anion Gap 6 Estimat Glomerular Filtration Rate 123 Lactic Acid Level 1.5 Blood Gas Puncture Site LT RADIAL Blood Gas Patient Temperature 98.6 Blood Gas HCO3 23 Blood Gas Base Excess -1.7 Blood Gas Oxygen Saturation 93 Arterial Blood pH 7.34 Arterial Blood Partial Pressure CO2 44 Arterial Blood Partial Pressure O2 77 Arterial Blood Oxygen Content 10.5 Arterial Blood Carboxyhemoglobin 0.8 Arterial Blood Methemoglobin 1.3 Blood Gas Hemoglobin 7.9 Oxygen Delivery Device PARTIAL REBREATHER Blood Gas Liter Flow 14 Date/Time Source Procedure Growth Status 02/03/18 16:18 Blood Peripheral Aerobic Blood Culture Pending Received 02/03/18 16:18 Blood Peripheral Anaerobic Blood Culture Pending Received Radiology Last 48 hours Impressions Abdomen/Pelvis CT 01/22/18 1800 Signed Impressions: Service Date/Time: Monday, January 22, 2018 19:40 - CONCLUSION: 1. Distal small bowel obstruction with multiple air-fluid levels. The cecum is impacted with stool to a diameter of 9.2 cm and it is unclear if this is related to a distal small bowel obstruction. No free air. There is mild ascites. 2. Subsegmental patchy airspace disease at the lung base is trace right pleural fluid. 3. Small hiatal hernia. Tee Herrera MD Cardiovascular: Regular Lungs: Upper airway course sound Abdomen: Other (midline incision --- with minimal serous drainage; Ileostomy with dark stoma---no output; MF with escrow clerk stoma--- no output; abdomen soft; tender ) Extremities: Other (BUE edema ) A/P Problem List: (1) Surgically created abdominal mucous fistula ICD Codes: Z93.4 - Other artificial openings of gastrointestinal tract status Status: Acute (2) S/P exploratory laparotomy ICD Codes: Z98.890 - Other specified postprocedural states (3) Attention to ileostomy ICD Codes: Z43.2 - Encounter for attention to ileostomy Status: Acute (4) Abdominal pain ICD Codes: R10.9 - Unspecified abdominal pain Status: Acute Assessment and Plan 52 year old female with abdominal pain and distention; fecal impaction; ileus vs SBO -POD3 ex lap; ileostomy; mucous fistula -Increase in oxygen requirements -Transfer to ICU--- Discussed with ISABELA Dunlap charge nurse of [facility] -Consult Osd Clerk---discussed with Dr. Baca -Labs ordered for today--- awaiting results-- will follow up -I suspect fluid overload---DC maintenance IVF; continue TPN -Lovenox daily Problem Qualifiers (1) Abdominal pain: Qualified Codes: R10.84 - Generalized abdominal pain Michela Kramer CUSTOMER SUPPORT MANAGER/Collaborating Supervising Physician CUSTOMER SUPPORT MANAGER Feb 04, 2018 08:40
[2018-02-04] MEDS: SODIUM CHLORIDE 0.9% FLUSH 10 ML FLUSH IV FLUSH SCH ×3 (09:00→19:39)
[2018-02-04] MEDS: STIOLTO PO SCH (09:00)
[2018-02-04] MEDS: DOCUSATE SODIUM 100 MG/10 ML UDC PO SCH ×2 (09:00→20:33)
[2018-02-04] MEDS: ALPRAZolam 0.25 MG TAB PO SCH (09:00)
[2018-02-04] MEDS: FOLIC ACID 1 MG TAB PO SCH (09:00)
[2018-02-04] MEDS: predniSONE 5 MG TAB PO SCH ×3 (09:00→20:33)
[2018-02-04] MEDS: BUDESONIDE-FORMOTEROL 160/4.5 MCG INHALER INH SCH (09:00)
[2018-02-04] MEDS: NIFEdipine 90 MG SUSTAINED RELEASE TAB PO SCH (09:13)
[2018-02-04] MEDS: CYCLOBENZAPRINE HCL 10 MG TAB PO SCH ×3 (09:14→18:00)
--- NOTE | 2018-02-04 09:18 | HHI.PR ---
Subjective Remarks Patient in bed. With pain in her belly, she is noted with temp of 102.8 today, tachycardic. Started on IV abx flagyl and cipro With anemia Patient is also noted deteriorating, dessating abg reassuring , placed on partial rebreather No n/v/d/c. Objective Vitals Vital Signs Date Time Temp Pulse Resp B/P (MAP) Pulse Ox O2 Delivery O2 Flow Rate FiO2 02/04/18 07:54 95 Partial Rebreather 14.00 02/04/18 06:00 22 02/04/18 04:38 98.6 115 19 136/68 (90) 94 02/04/18 03:41 94 Simple Mask 8.00 02/04/18 00:07 101.2 129 19 148/70 (96) 93 02/03/18 20:04 91 Nasal Cannula 4.00 02/03/18 19:40 100.7 130 28 135/63 (87) 02/03/18 19:27 100.7 125 18 125/59 (81) 91 02/03/18 16:00 98.7 118 18 150/69 (96) 96 02/03/18 12:00 98.9 119 18 147/65 (92) 96 I/O 02/03/18 02/03/18 02/03/18 02/04/18 02/04/18 02/04/18 07:00 15:00 23:00 07:00 15:00 23:00 Intake Total 250 ml Output Total 1000 ml 1000 ml 2300 ml Balance -750 ml -1000 ml -2300 ml IV Total 250 ml Output Urine Total 800 ml 1000 ml 2300 ml Gastric Drainage Total 200 ml Result Diagram: 02/03/18 0845 02/03/18 0845 Imaging Last Impressions Chest X-Ray 02/04/18 0000 Signed Impressions: Service Date/Time: Sunday, February 04, 2018 10:07 - CONCLUSION: 1. The support equipment is in satisfactory position. 2. Patchy areas of infiltrate throughout both lungs concerning for pneumonia. Shahab Gonzalez MD Small Bowel X-Ray 01/30/18 0000 Signed Impressions: Service Date/Time: Tuesday, January 30, 2018 13:51 - CONCLUSION: There is diffuse distention of the small bowel with slow progression of contrast through the small bowel over 21 hours. This is nonspecific. This could be a diffuse adynamic ileus of the small bowel versus a distal small bowel obstruction. Lucien Willett MD Abdomen X-Ray 01/30/18 0000 Signed Impressions: Service Date/Time: Tuesday, January 30, 2018 10:01 - CONCLUSION: 1. There's been mild improvement in the small bowel gas pattern compared to the prior study. 2. There continues to be a significant amount of retained contrast throughout the entire colon. As soon as contrast can be evacuated from the colon, we can then proceed with a small bowel study. Lucien Willett MD Enema w/Water Soluble 01/24/18 0000 Signed Impressions: Service Date/Time: January 11:06 - CONCLUSION: Gastrografin enema performed for constipation as described above. Jabier Aviles MD Abdomen/Pelvis CT 01/22/18 1800 Signed Impressions: Service Date/Time: Monday, January 22, 2018 19:40 - CONCLUSION: 1. Distal small bowel obstruction with multiple air-fluid levels. The cecum is impacted with stool to a diameter of 9.2 cm and it is unclear if this is related to a distal small bowel obstruction. No free air. There is mild ascites. 2. Subsegmental patchy airspace disease at the lung base is trace right pleural fluid. 3. Small hiatal hernia. Tee Herrera MD Objective Remarks GENERAL: Well-nourished, well-developed patient. SKIN: Warm and dry. HEAD: Normocephalic. EYES: No scleral icterus. No injection or drainage. NECK: Supple, trachea midline. No JVD or lymphadenopathy. CARDIOVASCULAR: Regular rate and rhythm without murmurs, gallops, or rubs. RESPIRATORY: Breath sounds equal bilaterally. No accessory muscle use. GASTROINTESTINAL: Abdomen bloated, mildly tender, not acute, hypoactive bowel sounds EXTREMITIES: No cyanosis, or edema. NEUROLOGICAL: Awake, alert, and oriented x 3. Non-focal. Procedures 01/23/18 colonoscopy 01/24/18 Gastrografin enema 02/01/18 Patient with Small bowel obstruction secondary to constipation . Massively dependent right colon, completely full of pasty stool. Status post surgery by Dr. Florian 02/01/18: exploratory lap, extended right hemicolectomy, gastrostomy tube, end ileostomy, mucous fistula transverse colon A/P Problem List: (1) Abdominal pain ICD Code: R10.9 - Unspecified abdominal pain Status: Acute (2) Small bowel obstruction ICD Code: K56.609 - Unspecified intestinal obstruction, unspecified as to partial versus complete obstruction Status: Acute (3) Fecal impaction ICD Code: K56.41 - Fecal impaction Status: Acute (4) Hypertension ICD Code: I10 - Essential (primary) hypertension (5) Diabetes ICD Code: E11.9 - Type 2 diabetes mellitus without complications Assessment and Plan Fecal impaction versus ileus Severe abd distention and pain Small bowel obstruction secondary to constipation Massively dependent right colon, completely full of pasty stool Status post surgery by Dr. Florian 02/01/18 exploratory lap, extended right hemicolectomy, gastrostomy tube, end ileostomy, mucous fistula transverse colon With sepsis meeting criteria tachycardia, fevers, source poss GI, started cipro and falgyl IV. Move to surgical ICU per surgeon. Blood cx pending. UA and CXR normal. Anemia postsurgical . Transfuse if symptomatic or HGB < 7. Acute respiratory failure dessating, placed on 15 L partial nonrebreather mask. Transfer to surgical ICU, consult dock superintendent as patient is deteriorating. She has had 2 previous colonoscopies without resolution of her symptoms. She is refusing current offer for repeat colonoscopy. Patient has a poor appetite and has been n.p.o. by choice except for a few sips of water and ice chips. She is receiving TPN. PICC line placed. Poss surgery on Thursday 02/01. General surgery did not feel this was a surgical obstruction due to Gastrografin pattern into the right colon with bowel distention into the right colon. Appreciate general surgery Appreciate gastroenterology Her pulm Dr Ward Type 2 diabetes mellitus Accu-Cheks with sliding scale coverage TPN for intake Monitor liver function, monitor electrolytes Atrial fibrillation Continue calcium channel miguelina, rhythm was regular today Follow on telemetry Hypertension Continue Procardia XL H/o COPD Continue home inhalers. Supplemental oxygen as needed Add nebs as patien tis noted wheezing today. Anxiety restart home meds. GI prophylaxis Protonix DVT prophylaxis SCDs Discussed with the patient, nurse DC plan pending improvement and clearance by consultants. Patient is on TPN, s/ p surgery Sunday02/01/18. Move to surgical ICU and consult dock superintendent as patient is deteriorating. Critical time 35 minutes Problem Qualifiers (1) Abdominal pain: Qualified Codes: R10.84 - Generalized abdominal pain Arlette Rivera MD Feb 04, 2018 09:18
[2018-02-04] MEDS: INSULIN ASPART SUPPLEMENTAL SCALE SQ SCH ×4 (09:25→20:33)
[2018-02-04] MEDS ORDERED: ETOMIDATE 40 MG/20 ML VIAL IV PUSH ONE (09:45)
[2018-02-04] MEDS ORDERED: PROPOFOL 500 MG/50 ML INJ 50 ML ONE (09:45)
[2018-02-04] MEDS ORDERED: ROCURONIUM INJ 50 MG/5 ML VIAL ONE (09:46)
[2018-02-04] MEDS: fentaNYL DRIP 250 ML IV PRN (10:26)
[2018-02-04] MEDS: PROPOFOL 1000 MG/100 ML INJ 100 ML IV PRN ×3 (10:26→21:53)
[2018-02-04] MEDS: ENOXAPARIN SODIUM 40 MG/0.4 ML SYRINGE SQ SCH (10:27)
[2018-02-04] MEDS ORDERED: ROCURONIUM INJ 50 MG/5 ML VIAL IV ONE (10:30)
--- NOTE | 2018-02-04 10:37 | RADRPT ---
EXAM DATE/TIME: 02/04/2018 10:07 [place] COMPARISON: CHEST SINGLE AP, February 04, 2018, 5:10. INDICATIONS : Post intubation. MEDICAL HISTORY : Chronic obstructive pulmonary disease. Carcinoma, lung. Cardiovascular disease. SURGICAL HISTORY : Hysterectomy. section. Appendectomy. ENCOUNTER: Subsequent ACUITY: 1 week PAIN SCORE: Non-responsive. LOCATION: Bilateral chest FINDINGS: The endotracheal tube is just above the level the bret. The PICC is in acceptable position the tip is in the SVC. There are patchy areas of infiltrate diffusely throughout both lungs. These are similar to the prior study. The heart and mediastinal contours are within normal limits The osseous structures are intact. CONCLUSION: 1. The support equipment is in satisfactory position. 2. Patchy areas of infiltrate throughout both lungs concerning for pneumonia. Shahab Gonzalez MD on February 04, 2018 at 10:34 Board Certified Radiologist. This report was verified electronically.
[2018-02-04 11:28] LABS: MEAN CELL VOLUME 93.5 FL (80.0-100.0); MEAN CORPUSCULAR HEMOGLOBIN 31.4 PG (27.0-34.0); MEAN CORPUSCULAR HGB CONC 33.6 % (32.0-36.0); MEAN PLATELET VOLUME 8.3 FL (7.0-11.0); PLATELET COUNT 224 TH/MM3 (150-450); RED BLOOD COUNT 2.18 MIL/MM3 (4.00-5.30); WHITE BLOOD COUNT 11.1 TH/MM3 (4.0-11.0)
[2018-02-04 11:33] LABS: HEMATOCRIT 20.4 % (35.0-46.0); HEMOGLOBIN 6.9 GM/DL (11.6-15.3)
[2018-02-04 11:43] LABS: BICARBONATE 23.9 MEQ/L (21.0-32.0); CALCIUM 6.9 MG/DL (8.5-10.1); CREATININE 0.61 MG/DL (0.50-1.00)
[2018-02-04 12:07] LABS: CALCIUM-PROTEIN CORRECTED 8.1 MG/DL (8.5-10.1); TOTAL PROTEIN 4.9 GM/DL (6.4-8.2)
[2018-02-04 12:12] LABS: INTERNATIONAL NORMALIZED RATIO 1.3 RATIO; PROTHROMBIN TIME - PATIENT 13.3 SEC (9.8-11.6)
[2018-02-04] MEDS: MIDAZOLAM 100 MG/100 ML INJ 100 ML IV PRN (12:28)
[2018-02-04] MEDS ORDERED: FUROSEMIDE 20 MG/2 ML VIAL IV PUSH ONE (12:30)
[2018-02-04 13:04] LABS: BANDS 3 % (0-6); LYMPHOCYTES 6 % (9-44); METAMYELOCYTES 1 % (0-1); MONOCYTES 1 % (0-8); NEUTROPHIL # MANUAL DIFF 10.2 TH/MM3 (1.8-7.7); POLYS (SEG NEUTROPHILS) 88 % (16-70)
[2018-02-04 13:08] LABS: TOXIC GRANULATION 1+ (NORMAL)
[2018-02-04 13:48] LABS: ALKALINE PHOSPHATASE 49 U/L (45-117); ALT (GPT) 28 U/L (10-53); DIRECT BILIRUBIN ADULT LESS THAN 0.1 MG/DL (0.0-0.2); FREE T3 1.18 PG/ML (2.18-3.98); FREE T4 1.03 NG/DL (0.76-1.46); INDIRECT BILIRUBIN 0.1 MG/DL (0.0-0.8); TOTAL BILIRUBIN ADULT 0.2 MG/DL (0.2-1.0); TOTAL PROTEIN 5.3 GM/DL (6.4-8.2)
[2018-02-04 13:53] LABS: ALBUMIN 1.4 GM/DL (3.4-5.0); AST (GOT) 30 U/L (15-37); MAGNESIUM 1.8 MG/DL (1.5-2.5); PHOSPHORUS 2.1 MG/DL (2.5-4.9)
[2018-02-04] MEDS: ARTIFICIAL TEARS OPTH SOLN 15 ML BTL EACH EYE SCH ×2 (14:00→20:34)
--- NOTE | 2018-02-04 14:00 | PD.CONS ---
[facility] Service Critical Care Medicine Consult Requested By Reason for Consult Respiratory failure/acute Primary Care Physician Non-Staff History of Present Illness This is a 52-year-old female. Date of admission 01/23/2018. Date of consultation 02/04/2018. Past medical history includes lung cancer right lung not treated, COPD/chronic respiratory failure on 2 L nasal cannula chronically, hypertension, diabetes, congestive heart failure, atrial fibrillation, coronary artery disease, cirrhosis and seizure disorder with ongoing tobaccoism. Patient had a CAT scan which revealed a likely small distal small bowel obstruction. Cecal impaction with stool. 9.2 cm in size. Small hiatal hernia. 01/23 -colonoscopy by Dr. Poole revealed sigmoid diverticulosis, small internal and external hemorrhage. Large amount of stool. Possible obstructive process On 01/24 patient had a Gastrografin enema. Which did not reveal any signs of obstruction On 01/28 patient repeat colonoscopy which revealed to the ileocecal valve which revealed copious stool/small prep. 01/30 patient had small bowel series which revealed contrast slow transit over 21 hours indicative either ileus versus distal small bowel obstruction On 02/01 patient had expiratory laparotomy with the right hemicolectomy, G-tube placement, end ileostomy and mucous fistula transverse colon by Dr. Florian. Over the weekend, patient was on D5 one half normal saline at 125 cc hours and TPN 83 cc an hour along with other intravenous medications. Patient was a [place] Today due to increasing oxygen requirements. Possibly volume overload. Patient is hypertensive. Review of Systems ROS Limitations: Intubated Past Family Social History Allergies: Coded Allergies: No Known Allergies (Unverified , 11/19/15) Past Medical History COPD -2 L Essential hypertension Diabetes mellitus type 2 Atrial fibrillation Congestive heart failure unknown etiology Coronary artery disease Dyslipidemia Breast cancer Chronic pain syndrome Gastroesophageal reflux disease Chronic benzodiazepine use Chronic narcotic use Chronic immunosuppression Past Surgical History Lung biopsy Breast biopsy Appendectomy Hysterectomy Cholecystectomy Reported Medications Tiotropium/olodactal 2.5/2.5 mcg 2 puffs daily Methotrexate 2.5 mg p.o. daily Folic acid 1 mg p.o. daily Cyclobenzaprine 10 mg 3 times daily Nifedipine extended release 90 mg daily Aspirin 325 mg p.o. daily Hydrocodone/acetaminophen 7.5/300 1 tablet 3 times daily Alprazolam 0.25 mg p.o. twice daily Furosemide 20 mg p.o. daily Omeprazole 40 mg p.o. daily Prednisone 5 mg p.o. twice daily Fluticasone propionate/salmeterol 500 micrograms/50 micrograms 1 inhalations twice daily Active Ordered Medications Reviewed in EMR Family History No family history of cancer, diabetes, congestive heart failure or sudden Social History 1 pack per day tobacco. Denies tobacco, alcohol or intravenous drug use Physical Exam Vital Signs Vital Signs Date Time Temp Pulse Resp B/P (MAP) Pulse Ox O2 Delivery O2 Flow Rate FiO2 02/04/18 12:41 100 60 02/04/18 12:00 100.3 138 19 114/15 (48) 100 02/04/18 12:00 100 02/04/18 10:05 99 100 02/04/18 10:00 101.8 142 20 140/82 (101) 100 02/04/18 07:54 95 Partial Rebreather 14.00 02/04/18 06:00 22 02/04/18 04:38 98.6 115 19 136/68 (90) 94 02/04/18 03:41 94 Simple Mask 8.00 02/04/18 00:07 101.2 129 19 148/70 (96) 93 02/03/18 20:04 91 Nasal Cannula 4.00 02/03/18 19:40 100.7 130 28 135/63 (87) 02/03/18 19:27 100.7 125 18 125/59 (81) 91 02/03/18 16:00 98.7 118 18 150/69 (96) 96 Physical Exam GENERAL: This is a 52-year-old female currently orotracheally intubated SKIN: Warm and dry. Well perfused with no rash HEAD: Atraumatic. Normocephalic. EYES: Pupils equal and round around 2 mm bilaterally and reactive. No scleral icterus. No injection or drainage. ENT: No nasal bleeding or discharge. Mucous membranes pink and moist. NECK: Trachea midline. No JVD. CARDIOVASCULAR: Sinus tachycardia S1, S2 no S4. Without murmur RESPIRATORY: Faint crackles appreciated bases bilaterally. No wheezing GASTROINTESTINAL: Abdomen soft, midline incision evelio are well healing without dehiscence. Ostomy and mucous fistula clean dry and intact. G-tube is clean dry and intact without erythema MUSCULOSKELETAL: Extremities with trace bilateral lower extremity edema. Right upper extremity dual-lumen PICC line NEUROLOGICAL: Awake and alert. No obvious cranial nerve deficits. Motor grossly within normal limits. Five out of 5 muscle strength in the arms and legs. Currently intubated Laboratory Laboratory Tests Test 02/03/18 16:18 02/04/18 05:01 02/04/18 10:58 02/04/18 11:17 Lactic Acid Level 1.5 1.3 Blood Gas Puncture Site LT RADIAL RT BRACHIAL Blood Gas Patient Temperature 98.6 98.6 Blood Gas HCO3 23 27 Blood Gas Base Excess -1.7 1.5 Blood Gas Oxygen Saturation 93 97 Arterial Blood pH 7.34 7.34 Arterial Blood Partial Pressure CO2 44 52 Arterial Blood Partial Pressure O2 77 173 Arterial Blood Oxygen Content 10.5 10.9 Arterial Blood Carboxyhemoglobin 0.8 0.6 Arterial Blood Methemoglobin 1.3 1.4 Blood Gas Hemoglobin 7.9 7.8 Oxygen Delivery Device PARTIAL REBREATHER VENTILATOR Blood Gas Liter Flow 14 White Blood Count 11.1 Red Blood Count 2.18 Hemoglobin 6.9 Hematocrit 20.4 Mean Corpuscular Volume 93.5 Mean Corpuscular Hemoglobin 31.4 Mean Corpuscular Hemoglobin Concent 33.6 Red Cell Distribution Width 18.0 Platelet Count 224 Mean Platelet Volume 8.3 CBC Comment AUTO DIFF Differential Total Cells Counted 100 Neutrophils % (Manual) 88 Band Neutrophils % 3 Lymphocytes % 6 Monocytes % 1 Eosinophils % 1 Neutrophils # (Manual) 10.2 Metamyelocytes 1 Differential Comment FINAL DIFF MANUAL Toxic Granulation 1+ Platelet Estimate NORMAL Platelet Morphology Comment NORMAL Basophilic Stippling FAINT Red Cell Morphology Comment Prothrombin Time 13.3 Prothromb Time International Ratio 1.3 Activated Partial Thromboplast Time 32.2 Fibrinogen 722 Blood Urea Nitrogen 7 Creatinine 0.61 Random Glucose 354 Total Protein 4.9 Calcium Level 6.9 Sodium Level 136 Potassium Level 3.6 Chloride Level 105 Carbon Dioxide Level 23.9 Anion Gap 7 Estimat Glomerular Filtration Rate 102 Protein Corrected Calcium 8.1 Random Cortisol 27.9 Blood Gas Ventilator Setting Blood Gas Inspired Oxygen 100 Test 02/04/18 13:00 Phosphorus Level 2.1 Magnesium Level 1.8 Total Bilirubin 0.2 Direct Bilirubin LESS THAN 0.1 Indirect Bilirubin 0.1 Aspartate Amino Transf (AST/SGOT) 30 Alanine Aminotransferase (ALT/SGPT) 28 Alkaline Phosphatase 49 Ammonia 28 Total Creatine Kinase 75 Troponin I 0.10 Total Protein 5.3 Albumin 1.4 Amylase Level 48 Lipase 161 Free Thyroxine 1.03 Free Triiodothyronine (T3) pg/dL 1.18 Thyroid Stimulating Hormone 3rd Gen 3.940 Human Chorionic Gonadotropin, Quant LESS THAN 1 Date/Time Source Procedure Growth Status 02/03/18 16:18 Blood Peripheral Aerobic Blood Culture - Preliminary NO GROWTH IN 1 DAY Resulted 02/03/18 16:18 Blood Peripheral Anaerobic Blood Culture - Preliminary NO GROWTH IN 1 DAY Resulted Result Diagram: 02/04/18 1058 02/04/18 1058 Imaging Last Impressions Chest X-Ray 02/04/18 0000 Signed Impressions: Service Date/Time: Sunday, February 04, 2018 10:07 - CONCLUSION: 1. The support equipment is in satisfactory position. 2. Patchy areas of infiltrate throughout both lungs concerning for pneumonia. Shahab Gonzalez MD Small Bowel X-Ray 01/30/18 0000 Signed Impressions: Service Date/Time: Tuesday, January 30, 2018 13:51 - CONCLUSION: There is diffuse distention of the small bowel with slow progression of contrast through the small bowel over 21 hours. This is nonspecific. This could be a diffuse adynamic ileus of the small bowel versus a distal small bowel obstruction. Lucien Willett MD Abdomen X-Ray 01/30/18 0000 Signed Impressions: Service Date/Time: Tuesday, January 30, 2018 10:01 - CONCLUSION: 1. There's been mild improvement in the small bowel gas pattern compared to the prior study. 2. There continues to be a significant amount of retained contrast throughout the entire colon. As soon as contrast can be evacuated from the colon, we can then proceed with a small bowel study. Lucien Willett MD Enema w/Water Soluble 01/24/18 0000 Signed Impressions: Service Date/Time: January 11:06 - CONCLUSION: Gastrografin enema performed for constipation as described above. Jabier Aviles MD Abdomen/Pelvis CT 01/22/18 1800 Signed Impressions: Service Date/Time: Monday, January 22, 2018 19:40 - CONCLUSION: 1. Distal small bowel obstruction with multiple air-fluid levels. The cecum is impacted with stool to a diameter of 9.2 cm and it is unclear if this is related to a distal small bowel obstruction. No free air. There is mild ascites. 2. Subsegmental patchy airspace disease at the lung base is trace right pleural fluid. 3. Small hiatal hernia. Tee Herrera MD Septic Shock Reassessment Septic shock perfusion: reassessment completed Assessment and Plan Assessment and Plan Neuro/Psych: Chronic narcotic use Chronic benzodiazepine use Seizure disorder NOS History of TIA Patient is currently on propofol at 50 mcg/kg/min, fentanyl drip and midazolam drip as needed for sedation/analgesia while intubated Goal of RA SS -2 Daily sedation vacation Patient is on alprazolam 0.25 mg twice daily at home. This currently on hold Patient is on hydrocodone/acetaminophen 7.5/300 1 tablet 3 times daily at home. This is on hold Patient is on cyclobenzaprine 10 mg 3 times daily at home muscle relaxant. This is on hold CV: Coronary artery disease Congestive heart failure unknown etiology Paroxysmal atrial fib relation currently normal sinus rhythm Hypertension Dyslipidemia Patient is currently off all medicines and attempt diuresis Holding nifedipine extended release 90 mg daily while intubated. Resume Holding aspirin 325 mg p.o. daily status post surgical procedure Resp: Acute respiratory failure Chronic respiratory failure secondary to COPD/2 L oxygen dependent [facility] 18/550///50 Ventilator bundle Patient is currently on albuterol/ipratropium aerosols every 6 hours with albuterol aerosols every 2 hours as needed for dyspnea Follow-up on post intubation chest x-ray and ABG Patient is previously on tiotropium/olodactal 2.5/2.5 mg 2 puffs daily and budesonide/formoterol 160/4.5 2 puffs twice daily at home GI: Postop day #3 exploratory laparotomy with right hemicolectomy, G-tube placement with end ileostomy, mucous fistula transverse colon secondary to stool impaction small bowel by Dr. Florian Gastroesophageal reflux disease History of liver cirrhosis? Hypoalbuminemia Currently TPN at 83 cc an hour Postoperative cares per Dr. Florian Continue pantoprazole 40 mg IV twice daily Ostomy cares : Bucio catheter has been placed for accurate I's and O's in a critically ill patient Endo: TSH elevated 3.9 Sliding scale insulin with Novulog with Accu-Cheks every 4 hours to maintain euglycemia Recheck TSH in 4-6 weeks. Renal: Creatinine currently within normal limits Monitor urine output Accurate I's and O's Heme: Leukocytosis Normocytic anemia Monitor CBC daily. Follow trend Transfusing 2 units PRBCs currently. Recheck in a.m. ID: On ciprofloxacin 400 mg IV twice daily/metronidazole 500 mg IV every 6 hours since 01/23. Initiate piperacillin/tazobactam 4.5 g IV every 6 hours We will check blood cultures 2, sputum urine and urine Legionella pneumococcal antigen today MSK: Chronic methotrexate use PT evaluate and treat Holding methotrexate 2.5 mg p.o. daily FEN: Hypophosphatemia 30 mmol K-Phos IV 1 now. Recheck in a.m. Access -Right upper extremity dual-lumen PICC -we have with a PICC line and catheter Prophylax -GI -pantoprazole 40 mg IV twice daily -DVT prophylaxis -SCDs/enoxaparin 40 mg subcu daily Critical Care: The total critical care time was 35 minutes. Time to perform other separately billable procedures was not included in the critical care time. Code Status Full code Discussed Condition With Daughter. Dr. Florian/general surgery. Care plan discussed and all questions answered. Esteban Baca MD Feb 04, 2018 14:00
--- NOTE | 2018-02-04 14:14 | PD.WCN.NOT ---
Wound Consult Description: Consult for OSTOMY MANAGEMENT of abdomen per Dr Florian. Communicated with: Family members at bedside Recommendation: Monitor color/output of right upper abdomen mucus fistula. Monitor output of right lower abdomen ileostomy. Additional Information: Patient seen on [address] [place] [address] for ostomy and fistula assessment. Ostomy Type: Ileostomy (right lower abdomen ileostomy with mucus fistula noted to right upper abdomen) Educated patient on: Patient is sedated. Teaching done with family members at bedside. Additional information Patient seen on [address] [place] [address] for ostomy and fistula assessment/teaching done at bedside with family members. Mucus fistula noted to right side upper abdomen is red, dark red, and pink with dryness noted from 12-3 o'clock and moist from 3- 12 with minimal mucus present and scant sanguinous drainage in pouch. Right lower abdomen ileostomy is red, moist, moderately protruding, not functioning at this time and has sanguinous drainage noted in pouch that was not emptied by principal technical writer. Corrie Malone [facility] Feb 04, 2018 14:14
[2018-02-04] MEDS ORDERED: RESP: ALBUTEROL 2.5 MG/3 ML NEB (PRN) NEB (14:15)
[2018-02-04] MEDS ORDERED: POTASSIUM PHOSPHATE INJ 30 MMOL in SODIUM CHLOR 0.9% 250 ML INJ 250 ML IV ONE (15:00)
[2018-02-04] MEDS: RESP: ALBUTEROL 2.5 MG/IPRATROPIUM 0.5 MG NEB (SCH) NEB ×2 (15:35→21:35)
[2018-02-04] MEDS ORDERED: Vancomycin Consult Pharmacy 1 EA OTHER SCH (16:45)
[2018-02-04] MEDS: PIPERACIL-TAZO 4.5 GM PREMIX 100 ML IV SCH ×2 (17:00→21:54)
[2018-02-04] MEDS: METOCLOPRAMIDE HCL 10 MG/2 ML VIAL IV SCH (17:00)
--- NOTE | 2018-02-04 17:19 | HHI.PR ---
Subjective Remarks WORSENING RESPIRATORY FAILURE NOW ON VENT SUPPORT Objective Vital Signs Date Time Temp Pulse Resp B/P (MAP) Pulse Ox O2 Delivery O2 Flow Rate FiO2 02/04/18 16:19 100 60 02/04/18 16:00 98.2 107 19 98/54 (69) 100 02/04/18 15:05 100 60 02/04/18 15:00 100 02/04/18 12:41 100 60 02/04/18 12:00 100.3 138 19 114/15 (48) 100 02/04/18 12:00 100 02/04/18 10:05 99 100 02/04/18 10:00 101.8 142 20 140/82 (101) 100 02/04/18 07:54 95 Partial Rebreather 14.00 02/04/18 06:00 22 02/04/18 04:38 98.6 115 19 136/68 (90) 94 02/04/18 03:41 94 Simple Mask 8.00 02/04/18 00:07 101.2 129 19 148/70 (96) 93 02/03/18 20:04 91 Nasal Cannula 4.00 02/03/18 19:40 100.7 130 28 135/63 (87) 02/03/18 19:27 100.7 125 18 125/59 (81) 91 I/O 02/03/18 02/03/18 02/03/18 02/04/18 02/04/18 02/04/18 07:00 15:00 23:00 07:00 15:00 23:00 Intake Total 250 ml 761 ml 500 ml Output Total 1000 ml 1000 ml 2300 ml Balance -750 ml -1000 ml -2300 ml 761 ml 500 ml IV Total 250 ml 761 ml 100 ml Packed Cells 400 ml Output Urine Total 800 ml 1000 ml 2300 ml Gastric Drainage Total 200 ml Result Diagram: 02/04/18 1058 02/04/18 1058 Objective Remarks GENERAL: SEDATED ON VENT SUPPORT SKIN: Warm and dry. HEAD: Atraumatic. Normocephalic. EYES: Pupils equal and round. No scleral icterus. No injection or drainage. ENT: No nasal bleeding or discharge. Mucous membranes pink and moist. NECK: Trachea midline. No JVD. CARDIOVASCULAR: Regular rate and rhythm. RESPIRATORY: No accessory muscle use. Clear to auscultation. Breath sounds equal bilaterally. GASTROINTESTINAL: Abdomen soft, non-tender, nondistended. Hepatic and splenic margins not palpable. MUSCULOSKELETAL: Extremities without clubbing, cyanosis, or edema. No obvious deformities. NEUROLOGICAL: Awake and alert. No obvious cranial nerve deficits. Motor grossly within normal limits. Five out of 5 muscle strength in the arms and legs. Normal speech. PSYCHIATRIC: Appropriate mood and affect; insight and judgment normal. Assessment and Plan Assessment and Plan ASSESSMENT RESPIRATORY FAILRE COPD CHF AFIB ANEMIA , RECIEVED PACKED RBC PLAN VENT SUPPORT BRONCHODILATOR THERAPY WEAN WHEN POSSIBLE Ed Ward MD Feb 04, 2018 17:19
--- NOTE | 2018-02-04 17:57 | PD.PROCEDR ---
Procedure Note Procedure DATE: 02/04/2018 PROCEDURE: Orotracheal intubation INDICATION: Acute hypoxemic respiratory failure DETAILS OF PROCEDURE The patient was placed in optimal position and preoxygenated with 100% FiO2 via bag valve mask. At the start oxygen saturation was 100 %. The patient was administered 20 mg etomidate IV and 50 mg rocuronium IV. I entered the oropharynx with a size 4 GVL glide scope blade and obtained a grade 3 view of the airway. On single attempt a size 8.0 cuffed endotracheal tube was passed through the vocal cords. Correct tube location was confirmed with end tidal CO2 detector and by auscultating over bilateral lung bedoya. The endotracheal tube was secured with adhesive tape at a depth of 23 cm at the lips. The patient was connected to the ventilator. The patient tolerated the procedure well without any apparent complications. Oxygen saturations were maintained greater than 95% all times. STAT chest x-ray pending at time of dictation. Esteban Baca MD Feb 04, 2018 17:57
[2018-02-04] MEDS: MAGNESIUM SULFATE 1 GM PREMIX 100 ML IV SCH ×2 (18:34→19:40)
[2018-02-04 18:42] LABS: BILIRUBIN, URINE NEG (NEG); BLOOD, URINE NEG (NEG); GLUCOSE,URINE 1000 mg/dL (NEG); KETONE, URINE NEG (NEG); NITRITE,URINE NEG (NEG); URINE COLOR LIGHT-YELLOW (YELLW/STRAW); URINE LEUKOCYTE ESTERASE NEG (NEG)
[2018-02-04] MEDS: VANCOMYCIN INJ 800 MG in SODIUM CHLOR 0.9% 250 ML INJ 250 ML IV SCH (19:39)
[2018-02-04] MEDS: INSULIN DETEMIR 100 UNITS/ML VIAL SQ SCH (20:33)
[2018-02-04] MEDS: CHLORHEXIDINE 0.12% (ORAL KIT) 15 ML CUP MT SCH (20:34)
[2018-02-04] MEDS: RESP: BUDESONIDE 0.5 MG/2 ML NEB NEB SCH (21:35)
[2018-02-04] MEDS: CLINIMIX E 4.25/25 2000 mL- >42 mls/hr IV-CENTRAL SCH ×3 (22:02)
[2018-02-05] VITALS (16 sets, daily range): BP systolic 99–146; BP diastolic 51–75; PULSE 102–124; RESP 18–22; TEMP 98.6–102.9; O2SAT 96–100
[2018-02-05] MEDS ORDERED: FUROSEMIDE 20 MG/2 ML VIAL IV PUSH ONE
[2018-02-05] MEDS: fentaNYL DRIP 250 ML IV PRN ×2 (00:50→15:41)
[2018-02-05] MEDS: METOCLOPRAMIDE HCL 10 MG/2 ML VIAL IV SCH ×3 (00:50→16:23)
[2018-02-05] MEDS: INSULIN ASPART SUPPLEMENTAL SCALE SQ SCH ×6 (00:51→20:54)
[2018-02-05] MEDS: VANCOMYCIN INJ 800 MG in SODIUM CHLOR 0.9% 250 ML INJ 250 ML IV SCH ×3 (00:52→18:27)
[2018-02-05] MEDS: PROPOFOL 1000 MG/100 ML INJ 100 ML IV PRN ×3 (03:48→17:34)
[2018-02-05 04:06] LABS: AUTOMATED NEUTROPHIL # 8.1 TH/MM3 (1.8-7.7); BASOPHIL # 0.1 TH/MM3 (0-0.2); BASOPHIL % 1.2 % (0.0-2.0); EOSINOPHIL # 0.2 TH/MM3 (0-0.4); EOSINOPHIL % 2.6 % (0.0-4.0); HEMATOCRIT 29.7 % (35.0-46.0); HEMOGLOBIN 9.9 GM/DL (11.6-15.3); LYMPH % 10.3 % (9.0-44.0); MEAN CELL VOLUME 87.5 FL (80.0-100.0); MEAN CORPUSCULAR HEMOGLOBIN 29.1 PG (27.0-34.0); MEAN CORPUSCULAR HGB CONC 33.3 % (32.0-36.0); MEAN PLATELET VOLUME 8.4 FL (7.0-11.0); MONO % 2.3 % (0.0-8.0); MONOCYTE # 0.2 TH/MM3 (0-0.9); NEUT % 83.6 % (16.0-70.0); PLATELET COUNT 223 TH/MM3 (150-450); RED CELL DISTRIBUTION WIDTH 18.5 % (11.6-17.2); WHITE BLOOD COUNT 9.7 TH/MM3 (4.0-11.0)
[2018-02-05] MEDS: PIPERACIL-TAZO 4.5 GM PREMIX 100 ML IV SCH ×3 (04:41→16:23)
[2018-02-05] MEDS: metroNIDAZOLE 500 MG INJ 100 ML IV SCH ×3 (04:41→16:23)
[2018-02-05 04:47] LABS: ALBUMIN 1.4 GM/DL (3.4-5.0); ALKALINE PHOSPHATASE 51 U/L (45-117); ALT (GPT) 19 U/L (10-53); AST (GOT) 24 U/L (15-37); BICARBONATE 31.6 MEQ/L (21.0-32.0); BLOOD UREA NITROGEN 8 MG/DL (7-18); CALCIUM 7.9 MG/DL (8.5-10.1); CHLORIDE 101 MEQ/L (98-107); CREATININE 0.52 MG/DL (0.50-1.00); GLOMERULAR FILTRATION RATE 123 ML/MIN (>89); GLUCOSE,RANDOM 213 MG/DL (74-106); MAGNESIUM 1.8 MG/DL (1.5-2.5); PHOSPHORUS 2.1 MG/DL (2.5-4.9); SODIUM (NA) 138 MEQ/L (136-145); TOTAL BILIRUBIN ADULT 0.3 MG/DL (0.2-1.0); TOTAL PROTEIN 5.4 GM/DL (6.4-8.2); TROPONIN I 0.03 NG/ML (0.02-0.05)
[2018-02-05] MEDS: PANTOPRAZOLE SODIUM 40 MG VIAL IV PUSH SCH ×2 (04:59→16:24)
[2018-02-05] MEDS: RESP: ALBUTEROL 2.5 MG/IPRATROPIUM 0.5 MG NEB (SCH) NEB ×4 (05:02→19:49)
[2018-02-05] MEDS: ARTIFICIAL TEARS OPTH SOLN 15 ML BTL EACH EYE SCH ×3 (05:20→20:54)
[2018-02-05] MEDS: CHLORHEXIDINE 0.12% (ORAL KIT) 15 ML CUP MT SCH ×2 (07:36→20:54)
[2018-02-05] MEDS: RESP: BUDESONIDE 0.5 MG/2 ML NEB NEB SCH ×2 (07:38→19:49)
[2018-02-05] MEDS: ENOXAPARIN SODIUM 40 MG/0.4 ML SYRINGE SQ SCH (08:24)
[2018-02-05] MEDS: CYCLOBENZAPRINE HCL 10 MG TAB PO SCH ×3 (08:25→17:32)
[2018-02-05] MEDS: predniSONE 5 MG TAB PO SCH (08:25)
[2018-02-05] MEDS: INSULIN DETEMIR 100 UNITS/ML VIAL SQ SCH (08:25)
[2018-02-05] MEDS: FOLIC ACID 1 MG TAB PO SCH (08:25)
[2018-02-05] MEDS: STIOLTO PO SCH (08:26)
[2018-02-05] MEDS: DOCUSATE SODIUM 100 MG/10 ML UDC PO SCH ×2 (08:26→20:54)
--- NOTE | 2018-02-05 10:04 | HHI.PR ---
Subjective Subjective Notes Intubated/Sedated Low grade fevers overnight ISABELA Arvizu at bedside Objective Vitals/I&O Vital Signs Date Time Temp Pulse Resp B/P (MAP) Pulse Ox O2 Delivery O2 Flow Rate FiO2 02/05/18 08:02 100 50 02/05/18 08:00 118 02/05/18 08:00 100.2 19 112/57 (75) 02/04/18 21:36 Ventilator 02/04/18 07:54 14.00 Labs Laboratory Tests Test 02/04/18 10:30 02/04/18 10:58 02/04/18 11:17 02/04/18 13:00 Nasal Screen MRSA (PCR) NEGATIVE Staphylococcus aureus (PCR)(LAB) NEGATIVE White Blood Count 11.1 Red Blood Count 2.18 Hemoglobin 6.9 Hematocrit 20.4 Mean Corpuscular Volume 93.5 Mean Corpuscular Hemoglobin 31.4 Mean Corpuscular Hemoglobin Concent 33.6 Red Cell Distribution Width 18.0 Platelet Count 224 Mean Platelet Volume 8.3 CBC Comment AUTO DIFF Differential Total Cells Counted 100 Neutrophils % (Manual) 88 Band Neutrophils % 3 Lymphocytes % 6 Monocytes % 1 Eosinophils % 1 Neutrophils # (Manual) 10.2 Metamyelocytes 1 Differential Comment FINAL DIFF MANUAL Toxic Granulation 1+ Platelet Estimate NORMAL Platelet Morphology Comment NORMAL Basophilic Stippling FAINT Red Cell Morphology Comment Prothrombin Time 13.3 Prothromb Time International Ratio 1.3 Activated Partial Thromboplast Time 32.2 Fibrinogen 722 Blood Urea Nitrogen 7 Creatinine 0.61 Random Glucose 354 Total Protein 4.9 5.3 Calcium Level 6.9 Sodium Level 136 Potassium Level 3.6 Chloride Level 105 Carbon Dioxide Level 23.9 Anion Gap 7 Estimat Glomerular Filtration Rate 102 Lactic Acid Level 1.3 Protein Corrected Calcium 8.1 Random Cortisol 27.9 Blood Gas Puncture Site RT BRACHIAL Blood Gas Patient Temperature 98.6 Blood Gas HCO3 27 Blood Gas Base Excess 1.5 Blood Gas Oxygen Saturation 97 Arterial Blood pH 7.34 Arterial Blood Partial Pressure CO2 52 Arterial Blood Partial Pressure O2 173 Arterial Blood Oxygen Content 10.9 Arterial Blood Carboxyhemoglobin 0.6 Arterial Blood Methemoglobin 1.4 Blood Gas Hemoglobin 7.8 Oxygen Delivery Device VENTILATOR Blood Gas Ventilator Setting Blood Gas Inspired Oxygen 100 Phosphorus Level 2.1 Magnesium Level 1.8 Total Bilirubin 0.2 Direct Bilirubin LESS THAN 0.1 Indirect Bilirubin 0.1 Aspartate Amino Transf (AST/SGOT) 30 Alanine Aminotransferase (ALT/SGPT) 28 Alkaline Phosphatase 49 Ammonia 28 Total Creatine Kinase 75 Troponin I 0.10 Albumin 1.4 Amylase Level 48 Lipase 161 Free Thyroxine 1.03 Free Triiodothyronine (T3) pg/dL 1.18 Thyroid Stimulating Hormone 3rd Gen 3.940 Human Chorionic Gonadotropin, Quant LESS THAN 1 Test 02/04/18 17:30 02/05/18 03:43 Urine Color LIGHT-YELLOW Urine Turbidity CLEAR Urine pH 6.0 Urine Specific [place] 1.020 Urine Protein TRACE Urine Glucose (UA) 1000 Urine Ketones NEG Urine Occult Blood NEG Urine Nitrite NEG Urine Bilirubin NEG Urine Urobilinogen LESS THAN 2.0 Urine Leukocyte Esterase NEG Urine WBC 1 Microscopic Urinalysis Comment CATH-CULT NOT IND White Blood Count 9.7 Red Blood Count 3.40 Hemoglobin 9.9 Hematocrit 29.7 Mean Corpuscular Volume 87.5 Mean Corpuscular Hemoglobin 29.1 Mean Corpuscular Hemoglobin Concent 33.3 Red Cell Distribution Width 18.5 Platelet Count 223 Mean Platelet Volume 8.4 Neutrophils (%) (Auto) 83.6 Lymphocytes (%) (Auto) 10.3 Monocytes (%) (Auto) 2.3 Eosinophils (%) (Auto) 2.6 Basophils (%) (Auto) 1.2 Neutrophils # (Auto) 8.1 Lymphocytes # (Auto) 1.0 Monocytes # (Auto) 0.2 Eosinophils # (Auto) 0.2 Basophils # (Auto) 0.1 CBC Comment DIFF FINAL Differential Comment Blood Urea Nitrogen 8 Creatinine 0.52 Random Glucose 213 Total Protein 5.4 Albumin 1.4 Calcium Level 7.9 Phosphorus Level 2.1 Magnesium Level 1.8 Alkaline Phosphatase 51 Aspartate Amino Transf (AST/SGOT) 24 Alanine Aminotransferase (ALT/SGPT) 19 Total Bilirubin 0.3 Sodium Level 138 Potassium Level 3.3 Chloride Level 101 Carbon Dioxide Level 31.6 Anion Gap 5 Estimat Glomerular Filtration Rate 123 Troponin I 0.03 Date/Time Source Procedure Growth Status 02/04/18 21:25 Blood Peripheral Aerobic Blood Culture Pending Received 02/04/18 21:25 Blood Peripheral Anaerobic Blood Culture Pending Received 02/04/18 17:36 Nasal Aspirate Influenza Types A,B Antigen (RADHA) - Final NEGATIVE FOR FLU A AND B ANTIGEN.... Complete 02/04/18 17:30 Urine Catheterized Urine Legionella Antigen Pending Received 02/04/18 17:30 Urine Catheterized Urine Streptococcus pneumoniae Antigen (M Pending Received Radiology Last 48 hours Impressions Abdomen/Pelvis CT 01/22/18 1800 Signed Impressions: Service Date/Time: Monday, January 22, 2018 19:40 - CONCLUSION: 1. Distal small bowel obstruction with multiple air-fluid levels. The cecum is impacted with stool to a diameter of 9.2 cm and it is unclear if this is related to a distal small bowel obstruction. No free air. There is mild ascites. 2. Subsegmental patchy airspace disease at the lung base is trace right pleural fluid. 3. Small hiatal hernia. Tee Herrera MD Cardiovascular: Regular Lungs: Clear Abdomen: Other (midline incision with evelio-- minimal serous drainage on bandage; ileostomy with pink stoma --no output; MF with pink stoma; G tube to gravity bag; abdomen soft ) Extremities: Other Narrative Exam BUE with several areas of skin tears dressing with transparent dressings; BUE restraints in place A/P Problem List: (1) Surgically created abdominal mucous fistula ICD Codes: Z93.4 - Other artificial openings of gastrointestinal tract status Status: Acute (2) S/P exploratory laparotomy ICD Codes: Z98.890 - Other specified postprocedural states (3) Attention to ileostomy ICD Codes: Z43.2 - Encounter for attention to ileostomy Status: Acute (4) Abdominal pain ICD Codes: R10.9 - Unspecified abdominal pain Status: Acute Assessment and Plan 52 year old female with abdominal pain and distention; fecal impaction; ileus vs SBO -POD4 ex lap; ileostomy; mucous fistula -CCM following; Intubated yesterday; FIO2 50% -Continue aggressive diuresis -S/p 2 units PRBCs yesterday; Hmg 9.9 today -TPN -Ofirmev available PRN for fevers -Lovenox daily -Discussed with ISABELA Arvizu at bedside Problem Qualifiers (1) Abdominal pain: Qualified Codes: R10.84 - Generalized abdominal pain Michela KramerP/Accounts Payable Manager INSURANCE RISK SURVEYOR Feb 05, 2018 10:04
[2018-02-05] MEDS ORDERED: POTASSIUM PHOSPHATE INJ 15 MMOL in SODIUM CHLORIDE 0.9% INJ 150 ML IV ONE (10:30)
[2018-02-05] MEDS ORDERED: ACETAMINOPHEN 1000 MG/100 ML 100 ML IV PRN ×2 (14:00→18:45)
--- NOTE | 2018-02-05 16:13 | PD.WCN.NOT ---
Wound Consult Description: Consult for OSTOMY MANAGEMENT of abdomen per Dr Florian. Recommendation: Monitor color/output of right upper abdomen mucus fistula. Monitor output of right lower abdomen ileostomy. Neg Pressure Wound Therapy Wound Location Wound Location: Consult for OSTOMY MANAGEMENT of abdomen per Dr Florian. Ostomy Type: Ileostomy (right lower abdomen ileostomy with mucus fistula noted to right upper abdomen) Additional information Teaching was not performed today due to patient being sedated and no family member present in room. Neftali Zarate [facility] Feb 05, 2018 16:13
--- NOTE | 2018-02-05 17:24 | ECHRPT ---
Indication: HEART FAILURE CONCLUSIONS Technically difficult study. The left ventricular systolic function is grossly normal on limited imaging. Mild concentric left ventricular hypertrophy. Trace mitral valve regurgitation. There is trace tricuspid valve regurgitation. Trivial pulmonary valve regurgitation. Doppler parameters are consistent with impaired left ventricular relaxtion (grade 1 diastolic dysfun ction). BP: 114 / 55 HR: 138 Rhythm: Sinus MEASUREMENTS (Male / Female) Normal Values Technical Quality:Technically difficult study 2D ECHO LV Diastolic Diameter PLAX 4.5 cm 4.2 - 5.9 / 3.9 - 5.3 cm LV Systolic Diameter PLAX 2.9 cm IVS Diastolic Thickness 1.3 cm 0.6 - 1.0 / 0.6 - 0.9 cm LVPW Diastolic Thickness 1.3 cm 0.6 - 1.0 / 0.6 - 0.9 cm LV Relative Wall Thickness 0.6 RV Internal Dim ED PLAX 2.2 cm LVOT Diameter 1.8 cm Aortic Root Diameter 3.3 cm LA Systolic Diameter LX 3.0 cm 3.0 - 4.0 / 2.7 - 3.8 cm M-MODE AV Cusp Separation MM 2.0 cm DOPPLER AV Peak Velocity 192.0 cm/s AV Peak Gradient 14.7 mmHg AV Mean Gradient 9.0 mmHg AV Velocity Time Integral 25.7 cm LVOT Peak Velocity 188.0 cm/s LVOT Peak Gradient 14.1 mmHg LVOT Velocity Time Integral 31.2 cm LVOT Cardiac Index 5749.5 cm/minm AV Area Cont Eq vti 3.1 cm AV Area Cont Eq pk 2.5 cm Mitral E Point Velocity 80.9 cm/s Mitral A Point Velocity 107.0 cm/s Mitral E to A Ratio 0.8 LV E' Lateral Velocity 9.0 cm/s Mitral E to LV E' Lateral Ratio 9.0 LV E' Septal Velocity 8.0 cm/s Mitral E to LV E' Septal Ratio 10.1 TR Peak Velocity 277.0 cm/s TR Peak Gradient 30.7 mmHg Right Atrial Pressure 10.0 mmHg Pulmonary Artery Systolic Pressu 40.7 mmHg Right Ventricular Systolic Press 40.7 mmHg PV Peak Velocity 65.4 cm/s PV Peak Gradient 1.7 mmHg FINDINGS LEFT VENTRICLE Normal left ventricular size. Mild concentric left ventricular hypertrophy. The left ventricular systolic function is grossly normal on limited imaging. Doppler parameters are consistent with impaired left ventricular relaxtion (grade 1 diastolic dysfun ction). RIGHT VENTRICLE Normal right ventricular size LEFT ATRIUM The left atrial size is mildly dilated. RIGHT ATRIUM The right atrial size is mildly dilated. ATRIAL SEPTUM The interatrial septum not well visualized. AORTA The aortic root and proximal ascending aorta are not well visualized. MITRAL VALVE Grossly normal mitral valve Trace mitral valve regurgitation. No mitral valve stenosis. AORTIC VALVE Aortic valve sclerosis is present. No aortic valve stenosis. No aortic valve regurgitation. TRICUSPID VALVE Grossly normal tricuspid valve. There is trace tricuspid valve regurgitation. The estimated pulmonary arterial pressure is 40.7 mmHg. PULMONARY VALVE Trivial pulmonary valve regurgitation. The pulmonary valve is not well visualized. VESSELS The inferior vena cava was not well visualized. Blade Jauregui DO (Electronically Signed) Final Date:05 February 2018 17:23 Amended: 05 February 2018 17:44
[2018-02-05] MEDS ORDERED: PHARMACY ORDERED LAB ONE (17:45)
[2018-02-05] MEDS: MIDAZOLAM 100 MG/100 ML INJ 100 ML IV PRN (17:46)
--- NOTE | 2018-02-05 18:38 | HHI.CCPN ---
Subjective Remarks/Hospital Course This is a 52-year-old female. Date of admission 01/23/2018. Date of consultation 02/04/2018. Past medical history includes lung cancer right lung not treated, COPD/chronic respiratory failure on 2 L nasal cannula chronically, hypertension, diabetes, congestive heart failure, atrial fibrillation, coronary artery disease, cirrhosis and seizure disorder with ongoing tobaccoism. Patient had a CAT scan which revealed a likely small distal small bowel obstruction. Cecal impaction with stool. 9.2 cm in size. Small hiatal hernia. 01/23 -colonoscopy by Dr. Poole revealed sigmoid diverticulosis, small internal and external hemorrhage. Large amount of stool. Possible obstructive process On 01/24 patient had a Gastrografin enema. Which did not reveal any signs of obstruction On 01/28 patient repeat colonoscopy which revealed to the ileocecal valve which revealed copious stool/small prep. 01/30 patient had small bowel series which revealed contrast slow transit over 21 hours indicative either ileus versus distal small bowel obstruction On 02/01 patient had expiratory laparotomy with the right hemicolectomy, G-tube placement, end ileostomy and mucous fistula transverse colon by Dr. Florian. Over the weekend, patient was on D5 one half normal saline at 125 cc hours and TPN 83 cc an hour along with other intravenous medications. Patient was a HalicatToday due to increasing oxygen requirements. Possibly volume overload. Patient is hypertensive. Subjective 02/05/17: T-max 102.9. Current 100.8. Resting comfortably in bed. Family concern regarding cool extremities. Remains on piperacillin tazobactam and metronidazole. All cultures currently no growth today. Objective Vital Signs Date Time Temp Pulse Resp B/P (MAP) Pulse Ox O2 Delivery O2 Flow Rate FiO2 02/05/18 16:05 50 02/05/18 16:00 108 02/05/18 16:00 100.8 19 99/51 (67) 99 02/04/18 21:36 Ventilator 02/04/18 07:54 14.00 Intake and Output 02/05/18 02/05/18 02/06/18 08:00 16:00 00:00 Intake Total 1008 ml 500 ml Output Total 2370 ml Balance -1362 ml 500 ml Result Diagram: 02/05/18 0343 02/05/18 0343 Other Results Microbiology Date/Time Source Procedure Growth Status 02/04/18 21:25 Blood Peripheral Aerobic Blood Culture - Preliminary NO GROWTH IN 1 DAY Resulted 02/04/18 21:25 Blood Peripheral Anaerobic Blood Culture - Preliminary NO GROWTH IN 1 DAY Resulted 02/04/18 17:36 Nasal Aspirate Influenza Types A,B Antigen (RADHA) - Final NEGATIVE FOR FLU A AND B ANTIGEN.... Complete 02/04/18 17:30 Urine Catheterized Urine Legionella Antigen - Final PRESUMPTIVE NEGATIVE FOR LEGIONELLA P... Complete 02/04/18 17:30 Urine Catheterized Urine Streptococcus pneumoniae Antigen (M - Final PRESUMPTIVE NEGATIVE FOR STREPTOCOCCU... Complete Imaging Last Impressions Chest X-Ray 02/04/18 0000 Signed Impressions: Service Date/Time: Sunday, February 04, 2018 10:07 - CONCLUSION: 1. The support equipment is in satisfactory position. 2. Patchy areas of infiltrate throughout both lungs concerning for pneumonia. Shahab Gonzalez MD Small Bowel X-Ray 01/30/18 0000 Signed Impressions: Service Date/Time: Tuesday, January 30, 2018 13:51 - CONCLUSION: There is diffuse distention of the small bowel with slow progression of contrast through the small bowel over 21 hours. This is nonspecific. This could be a diffuse adynamic ileus of the small bowel versus a distal small bowel obstruction. Lucien Willett MD Abdomen X-Ray 01/30/18 0000 Signed Impressions: Service Date/Time: Tuesday, January 30, 2018 10:01 - CONCLUSION: 1. There's been mild improvement in the small bowel gas pattern compared to the prior study. 2. There continues to be a significant amount of retained contrast throughout the entire colon. As soon as contrast can be evacuated from the colon, we can then proceed with a small bowel study. Lucien Willett MD Enema w/Water Soluble 01/24/18 0000 Signed Impressions: Service Date/Time: January 11:06 - CONCLUSION: Gastrografin enema performed for constipation as described above. Jabier Aviles MD Abdomen/Pelvis CT 01/22/18 1800 Signed Impressions: Service Date/Time: Monday, January 22, 2018 19:40 - CONCLUSION: 1. Distal small bowel obstruction with multiple air-fluid levels. The cecum is impacted with stool to a diameter of 9.2 cm and it is unclear if this is related to a distal small bowel obstruction. No free air. There is mild ascites. 2. Subsegmental patchy airspace disease at the lung base is trace right pleural fluid. 3. Small hiatal hernia. Tee Herrera MD Procedures 01/23/18 colonoscopy 01/24/18 Gastrografin enema 02/01/18 Patient with Small bowel obstruction secondary to constipation . Massively dependent right colon, completely full of pasty stool. Status post surgery by Dr. Florian 02/01/18: exploratory lap, extended right hemicolectomy, gastrostomy tube, end ileostomy, mucous fistula transverse colon Objective Remarks GENERAL: This is a 52-year-old female currently orotracheally intubated SKIN: Warm and dry. Well perfused with no rash HEAD: Atraumatic. Normocephalic. EYES: Pupils equal and round around 2 mm bilaterally and reactive. No scleral icterus. No injection or drainage. ENT: No nasal bleeding or discharge. Mucous membranes pink and moist. NECK: Trachea midline. No JVD. CARDIOVASCULAR: Sinus tachycardia S1, S2 no S4. Without murmur RESPIRATORY: Faint crackles appreciated bases bilaterally. No wheezing GASTROINTESTINAL: Abdomen soft, midline incision evelio are well healing without dehiscence. Ostomy and mucous fistula clean dry and intact. G-tube is clean dry and intact without erythema MUSCULOSKELETAL: Extremities with trace bilateral lower extremity edema. Right upper extremity dual-lumen PICC line. Toes on right lower extremity are dusky. Dorsalis pedis and posterior tibialis bilaterally are palpable. Dorsum/ plantar aspects of foot are warm. NEUROLOGICAL: Awake and alert. No obvious cranial nerve deficits. Motor grossly within normal limits. Five out of 5 muscle strength in the arms and legs. Currently intubated Urinary Catheter: Yes Assessment to: Continue Bucio insert reason: ICU Pt Getting Diuretics Vascular Central Line Catheter: Yes Assessment to: Continue Date of Insertion: Jan 30, 2018 Line: PICC Side: Right Location: Antecubital A/P Assessment and Plan Neuro/Psych: Chronic narcotic use Chronic benzodiazepine use Seizure disorder NOS History of TIA Patient is currently on propofol at 35 mcg/kg/min, fentanyl drip at 200 mcg/min and midazolam drip as needed for sedation/analgesia while intubated Goal of RASS -2 Daily sedation vacation Patient is on alprazolam 0.25 mg twice daily at home. This currently on hold Patient is on hydrocodone/acetaminophen 7.5/300 1 tablet 3 times daily at home. This is on hold Patient is on cyclobenzaprine 10 mg 3 times daily at home muscle relaxant. This is on hold CV: Coronary artery disease Congestive heart failure likely chronic diastolic Paroxysmal atrial fib relation currently normal sinus rhythm Hypertension Dyslipidemia Patient is currently off all medicines and attempt diuresis Holding nifedipine extended release 90 mg daily while intubated. Resume Holding aspirin 325 mg p.o. daily status post surgical procedure 2D echocardiogram revealed left ventricular systolic function is grossly normal on limited imaging. Mild concentric left ventricular hypertrophy. Trace mitral valve regurgitation. There is trace tricuspid valve regurgitation. Trivial pulmonary valve regurgitation. Doppler parameters are consistent with impaired left ventricular relaxtion (grade 1 diastolic dysfunction). Resp: Acute respiratory failure Chronic respiratory failure secondary to COPD/2 L oxygen dependent [facility] 18/550/11/09/49 Ventilator bundle Patient is currently on albuterol/ipratropium aerosols every 6 hours with albuterol aerosols every 2 hours as needed for dyspnea Follow-up on post intubation chest x-ray and ABG Patient is previously on tiotropium/olodaterol 2.5/2.5 mg 2 puffs daily and budesonide/formoterol 160/4.5 2 puffs twice daily at home GI: Postop day #3 exploratory laparotomy with right hemicolectomy, G-tube placement with end ileostomy, mucous fistula transverse colon secondary to stool impaction small bowel by Dr. Florian Gastroesophageal reflux disease History of liver cirrhosis? Hypoalbuminemia Currently TPN with Clinimix E 4.25/25 at 75 cc an hour. No lipids while on propofol Postoperative cares per Dr. Florian Continue pantoprazole 40 mg IV twice daily Docusate sodium 100 mg twice daily Metoclopramide 10 mg IV every 8 hours per surgery Ostomy cares Pathology reveals acute colitis with ulceration, serositis : Bucio catheter has been placed for accurate I's and O's in a critically ill patient Endo: TSH elevated 3.9. Low T3. Normal T4. Chronic prednisone use 5 mg twice daily Sliding scale insulin with Novulog with Accu-Cheks every 4 hours to maintain euglycemia Recheck TSH in 4-6 weeks Continue with insulin detemir 10 units twice daily. Start hydrocortisone sodium succinate 100 mg IV 3 times daily. Noted prednisone has been given very intermittently throughout the hospitalization patient is currently hypotensive Renal: Creatinine currently within normal limits Monitor urine output Accurate I's and O's Heme: Normocytic anemia Monitor CBC daily. Follow trend Transfusing 2 units PRBCs 02/04. Currently 90.9 ID: On ciprofloxacin 400 mg IV twice daily/metronidazole 500 mg IV every 6 hours since 01/23-02/04. Initiate piperacillin/tazobactam 4.5 g IV every 6 hours day #2 vancomycin day #1 Blood cultures 02/03 no growth to date Recheck blood cultures 2, sputum urine and urine Legionella pneumococcal antigen 02/04 Influenza negative MSK: Chronic methotrexate use PT evaluate and treat Holding methotrexate 2.5 mg p.o. daily Check ABIs bilateral lower extremities with dusky toes. Taken off SCDs. Observe. Lighten sedation to increase blood pressure tolerates FEN: Hypophosphatemia Hypopotassemia 30 mmol K-Phos IV 1 now. Recheck in a.m. Access -Right upper extremity dual-lumen PICC -we have with a right upper extremity PICC line and catheter Prophylax -GI -pantoprazole 40 mg IV twice daily -DVT prophylaxis -SCDs/enoxaparin 40 mg subcu daily Critical Care: The total critical care time was 35 minutes. Time to perform other separately billable procedures was not included in the critical care time. Esteban Baca MD Feb 05, 2018 18:38
[2018-02-05] MEDS ORDERED: Vancomycin Consult Pharmacy 1 EA OTHER SCH (19:00)
--- NOTE | 2018-02-05 19:01 | HHI.PR ---
Subjective Remarks ON VENT SUPPORT Objective Vital Signs Date Time Temp Pulse Resp B/P (MAP) Pulse Ox O2 Delivery O2 Flow Rate FiO2 02/05/18 18:00 115 02/05/18 16:05 50 02/05/18 16:00 108 02/05/18 16:00 60 02/05/18 16:00 100.8 112 19 99/51 (67) 99 02/05/18 15:50 97 50 02/05/18 14:00 112 02/05/18 12:00 60 02/05/18 12:00 115 02/05/18 12:00 102.9 115 22 114/75 (88) 97 02/05/18 10:00 116 02/05/18 08:02 100 50 02/05/18 08:00 118 02/05/18 08:00 100.2 120 19 112/57 (75) 100 02/05/18 08:00 60 02/05/18 06:00 114 02/05/18 05:02 100 50 02/05/18 04:00 50 02/05/18 04:00 124 02/05/18 04:00 100.5 124 19 146/69 (94) 99 02/05/18 02:00 112 02/05/18 00:00 109 02/05/18 00:00 99.7 109 19 107/53 (71) 100 02/05/18 00:00 50 02/04/18 23:52 100 60 02/04/18 22:00 109 02/04/18 21:36 100 Ventilator 60 02/04/18 21:36 100 60 02/04/18 20:00 60 02/04/18 20:00 99.1 98 18 115/59 (77) 100 02/04/18 20:00 98 02/04/18 19:47 60 I/O 02/04/02/04/18 02/04/18 18 02/05/18 02/05/18 07:00 15:00 23:00 07:00 15:00 23:00 Intake Total 761 ml 1560 ml 1008 ml 500 ml Output Total 2300 ml 1560 ml 2370 ml 1170 ml Balance -2300 ml 761 ml 0 ml -1362 ml -670 ml Intake Oral 0 ml IV Total 761 ml 760 ml 1008 ml 500 ml Packed Cells 800 ml Output Urine Total 2300 ml 1400 ml 2200 ml 1000 ml Stool Total 85 ml 20 ml 20 ml Gastric Drainage Total 75 ml 150 ml 150 ml Result Diagram: 02/05/18 0343 02/05/18 0343 Objective Remarks GENERAL: SEDATED ON VENT SUPPORT SKIN: Warm and dry. HEAD: Atraumatic. Normocephalic. EYES: Pupils equal and round. No scleral icterus. No injection or drainage. ENT: No nasal bleeding or discharge. Mucous membranes pink and moist. NECK: Trachea midline. No JVD. CARDIOVASCULAR: Regular rate and rhythm. RESPIRATORY: No accessory muscle use. Clear to auscultation. Breath sounds equal bilaterally. GASTROINTESTINAL: Abdomen soft, non-tender, nondistended. Hepatic and splenic margins not palpable. MUSCULOSKELETAL: Extremities without clubbing, cyanosis, or edema. No obvious deformities. NEUROLOGICAL: Awake and alert. No obvious cranial nerve deficits. Motor grossly within normal limits. Five out of 5 muscle strength in the arms and legs. Normal speech. PSYCHIATRIC: Appropriate mood and affect; insight and judgment normal. Assessment and Plan Assessment and Plan ASSESSMENT RESPIRATORY FAILURE COPD CHF AFIB ANEMIA , RELIEVED PACKED RBC PLAN VENT SUPPORT BRONCHODILATOR THERAPY WEANas tolerated Ed Ward MD Feb 05, 2018 19:01
[2018-02-05] MEDS: MAGNESIUM SULFATE 1 GM PREMIX 100 ML IV SCH ×2 (20:53→22:14)
[2018-02-05] MEDS: CLINIMIX E 4.25/25 2000 mL- >42 mls/hr IV-CENTRAL SCH ×3 (20:53)
[2018-02-05] MEDS: HYDROCORTISONE SOD SUCCINATE 100 MG VIAL IV PUSH SCH (20:55)
[2018-02-05] MEDS ORDERED: INSULIN DETEMIR 100 UNITS/ML VIAL SQ SCH (21:00)
[2018-02-06] VITALS (18 sets, daily range): BP systolic 97–124; BP diastolic 55–65; PULSE 78–103; RESP 14–20; TEMP 98.3–99; O2SAT 95–100
[2018-02-06] MEDS: INSULIN ASPART SUPPLEMENTAL SCALE SQ SCH ×2 (00:24→05:06)
[2018-02-06] MEDS: VANCOMYCIN 1,000 MG/NS 250 ML IV SCH ×6 (00:25→16:26)
[2018-02-06] MEDS: METOCLOPRAMIDE HCL 10 MG/2 ML VIAL IV SCH ×3 (00:25→17:41)
[2018-02-06] MEDS: fentaNYL DRIP 250 ML IV PRN (03:27)
[2018-02-06] MEDS: RESP: ALBUTEROL 2.5 MG/IPRATROPIUM 0.5 MG NEB (SCH) NEB ×4 (03:52→20:05)
[2018-02-06] MEDS: PIPERACIL-TAZO 4.5 GM PREMIX 100 ML IV SCH ×5 (05:05→22:37)
[2018-02-06] MEDS: HYDROCORTISONE SOD SUCCINATE 100 MG VIAL IV PUSH SCH ×3 (05:06→21:31)
[2018-02-06] MEDS: PANTOPRAZOLE SODIUM 40 MG VIAL IV PUSH SCH ×2 (05:06→17:41)
[2018-02-06] MEDS: ARTIFICIAL TEARS OPTH SOLN 15 ML BTL EACH EYE SCH ×3 (05:06→21:32)
--- NOTE | 2018-02-06 06:00 | RADRPT ---
EXAM DATE/TIME: 02/06/2018 04:13 [place] COMPARISON: CHEST SINGLE AP, February 04, 2018, 10:07. INDICATIONS : Shortness of breath. MEDICAL HISTORY : Chronic obstructive pulmonary disease. Carcinoma, lung. Cardiovascular disease. SURGICAL HISTORY : None. ENCOUNTER: Subsequent ACUITY: 1 week PAIN SCORE: Non-responsive. LOCATION: Bilateral chest FINDINGS: Endotracheal to and PICC line remain in place. Diffuse bilateral infiltrates persist unchanged. Cardi ac contours are stable. CONCLUSION: No significant interval change Lamont Grossman MD on February 06, 2018 at 5:57 Board Certified Radiologist. This report was verified electronically.
[2018-02-06 06:01] LABS: AUTOMATED NEUTROPHIL # 6.1 TH/MM3 (1.8-7.7); BASOPHIL # 0.1 TH/MM3 (0-0.2); BASOPHIL % 0.8 % (0.0-2.0); EOSINOPHIL % 0.2 % (0.0-4.0); HEMOGLOBIN 7.8 GM/DL (11.6-15.3); LYMPH % 7.6 % (9.0-44.0); LYMPHOCYTE # 0.5 TH/MM3 (1.0-4.8); MEAN CELL VOLUME 99.1 FL (80.0-100.0); MEAN CORPUSCULAR HEMOGLOBIN 29.7 PG (27.0-34.0); MEAN PLATELET VOLUME 8.8 FL (7.0-11.0); MONO % 1.8 % (0.0-8.0); MONOCYTE # 0.1 TH/MM3 (0-0.9); NEUT % 89.6 % (16.0-70.0); PLATELET COUNT 185 TH/MM3 (150-450); RED BLOOD COUNT 2.62 MIL/MM3 (4.00-5.30); RED CELL DISTRIBUTION WIDTH 20.7 % (11.6-17.2); WHITE BLOOD COUNT 6.8 TH/MM3 (4.0-11.0)
[2018-02-06 06:25] LABS: MAGNESIUM 2.8 MG/DL (1.5-2.5); PHOSPHORUS 5.1 MG/DL (2.5-4.9)
[2018-02-06] MEDS: RESP: BUDESONIDE 0.5 MG/2 ML NEB NEB SCH ×2 (07:30→20:05)
[2018-02-06] MEDS: INSULIN NovoLIN REGULAR SUPPLEMENTAL SCALE SQ SCH ×4 (08:30→20:00)
[2018-02-06] MEDS: INSULIN DETEMIR 100 UNITS/ML VIAL SQ SCH ×2 (08:30→21:00)
--- NOTE | 2018-02-06 08:48 | HHI.CCPN ---
Subjective Remarks/Hospital Course This is a 52-year-old female. Date of admission 01/23/2018. Date of consultation 02/04/2018. Past medical history includes lung cancer right lung not treated, COPD/chronic respiratory failure on 2 L nasal cannula chronically, hypertension, diabetes, congestive heart failure, atrial fibrillation, coronary artery disease, cirrhosis and seizure disorder with ongoing tobaccoism. Patient had a CAT scan which revealed a likely small distal small bowel obstruction. Cecal impaction with stool. 9.2 cm in size. Small hiatal hernia. 01/23 -colonoscopy by Dr. Poole revealed sigmoid diverticulosis, small internal and external hemorrhage. Large amount of stool. Possible obstructive process On 01/24 patient had a Gastrografin enema. Which did not reveal any signs of obstruction On 01/28 patient repeat colonoscopy which revealed to the ileocecal valve which revealed copious stool/small prep. 01/30 patient had small bowel series which revealed contrast slow transit over 21 hours indicative either ileus versus distal small bowel obstruction On 02/01 patient had expiratory laparotomy with the right hemicolectomy, G-tube placement, end ileostomy and mucous fistula transverse colon by Dr. Florian. Over the weekend, patient was on D5 one half normal saline at 125 cc hours and TPN 83 cc an hour along with other intravenous medications. Patient was a HalicatToday due to increasing oxygen requirements. Possibly volume overload. Patient is hypertensive. 02/05/17: T-max 102.9. Current 100.8. Resting comfortably in bed. Family concern regarding cool extremities. Remains on piperacillin tazobactam and metronidazole. All cultures currently no growth today. Subjective 02/06: remains sedated and intubated. failed CPAP yesterday and became tachypneic. appears volume overloaded on physical exam. afebrile. Objective Vital Signs Date Time Temp Pulse Resp B/P (MAP) Pulse Ox O2 Delivery O2 Flow Rate FiO2 02/06/18 07:34 99 50 02/06/18 06:00 80 02/06/18 04:00 98.9 18 97/55 (69) 02/04/18 21:36 Ventilator 02/04/18 07:54 14.00 Intake and Output 02/06/18 02/06/18 02/07/18 08:00 16:00 00:00 Intake Total 700 ml Output Total 1590 ml Balance -890 ml Result Diagram: 02/06/18 0530 02/05/18 0343 Other Results Microbiology Date/Time Source Procedure Growth Status 02/04/18 17:36 Nasal Aspirate Influenza Types A,B Antigen (RADHA) - Final NEGATIVE FOR FLU A AND B ANTIGEN.... Complete 02/04/18 17:18 Sputum Endotracheal Gram Stain - Final Complete 02/04/18 17:18 Sputum Endotracheal Sputum Culture - Final HEAVY GROWTH NORMAL RESPIRATORY CHYNA Complete 02/04/18 17:30 Urine Catheterized Urine Legionella Antigen - Final PRESUMPTIVE NEGATIVE FOR LEGIONELLA P... Complete 02/04/18 17:30 Urine Catheterized Urine Streptococcus pneumoniae Antigen (M - Final PRESUMPTIVE NEGATIVE FOR STREPTOCOCCU... Complete Imaging Last Impressions Chest X-Ray 02/04/18 0000 Signed Impressions: Service Date/Time: Sunday, February 04, 2018 10:07 - CONCLUSION: 1. The support equipment is in satisfactory position. 2. Patchy areas of infiltrate throughout both lungs concerning for pneumonia. Shahab Gonzalez MD Small Bowel X-Ray 01/30/18 0000 Signed Impressions: Service Date/Time: Tuesday, January 30, 2018 13:51 - CONCLUSION: There is diffuse distention of the small bowel with slow progression of contrast through the small bowel over 21 hours. This is nonspecific. This could be a diffuse adynamic ileus of the small bowel versus a distal small bowel obstruction. Lucien Willett MD Abdomen X-Ray 01/30/18 0000 Signed Impressions: Service Date/Time: Tuesday, January 30, 2018 10:01 - CONCLUSION: 1. There's been mild improvement in the small bowel gas pattern compared to the prior study. 2. There continues to be a significant amount of retained contrast throughout the entire colon. As soon as contrast can be evacuated from the colon, we can then proceed with a small bowel study. Lucien Willett MD Enema w/Water Soluble 01/24/18 0000 Signed Impressions: Service Date/Time: January 11:06 - CONCLUSION: Gastrografin enema performed for constipation as described above. Jabier Aviles MD Abdomen/Pelvis CT 01/22/18 1800 Signed Impressions: Service Date/Time: Monday, January 22, 2018 19:40 - CONCLUSION: 1. Distal small bowel obstruction with multiple air-fluid levels. The cecum is impacted with stool to a diameter of 9.2 cm and it is unclear if this is related to a distal small bowel obstruction. No free air. There is mild ascites. 2. Subsegmental patchy airspace disease at the lung base is trace right pleural fluid. 3. Small hiatal hernia. Tee Herrera MD Procedures 01/23/18 colonoscopy 01/24/18 Gastrografin enema 02/01/18 Patient with Small bowel obstruction secondary to constipation . Massively dependent right colon, completely full of pasty stool. Status post surgery by Dr. Florian 02/01/18: exploratory lap, extended right hemicolectomy, gastrostomy tube, end ileostomy, mucous fistula transverse colon Objective Remarks GENERAL: This is a 52-year-old female currently orotracheally intubated SKIN: Warm and dry. Well perfused with no rash HEAD: Atraumatic. Normocephalic. EYES: Pupils equal and round around 2 mm bilaterally and reactive. No scleral icterus. No injection or drainage. ENT: No nasal bleeding or discharge. Mucous membranes pink and moist. NECK: Trachea midline. no JVD. CARDIOVASCULAR: normal rate, regular rhythm. sinus by telemetry. RESPIRATORY: PRVC. fio2 50%. peep 5. equal chest rise. GASTROINTESTINAL: Abdomen soft, midline incision evelio are well healing without dehiscence. Ostomy and mucous fistula clean dry and intact. G-tube is clean dry and intact without erythema MUSCULOSKELETAL: Extremities with trace bilateral lower extremity edema. Right upper extremity dual-lumen PICC line. NEUROLOGICAL: RASS -2. withdraws. purposeful. sedated. Date of Insertion: Jan 30, 2018 Line: PICC Side: Right Location: Antecubital A/P Assessment and Plan Assessment: 52yF s/p ex-lap and hemicolectomy with ostomy, complicated by acute hypoxic respiratory failure. continue forced diuresis. SBT and sedation vacation. nearing readiness for extubation, however with o2 dependent COPD, may be very difficult to separate from mechanical ventilation. remains critically ill and off pathway. need to diurese to improve abdominal edema and hypoxia. Neuro/Psych: Chronic narcotic use Chronic benzodiazepine use Seizure disorder NOS History of TIA continue versed, fentanyl Goal of RASS -2 Daily sedation vacation Patient is on alprazolam 0.25 mg twice daily at home. This currently on hold Patient is on hydrocodone/acetaminophen 7.5/300 1 tablet 3 times daily at home. This is on hold Patient is on cyclobenzaprine 10 mg 3 times daily at home muscle relaxant. This is on hold CV: Coronary artery disease Congestive heart failure likely chronic diastolic Paroxysmal atrial fib relation currently normal sinus rhythm Hypertension Dyslipidemia Acute intravascular volume overload continue forced diuresis. lasix 40mg iv BID + diamox 500mg iv q8h. Holding nifedipine extended release 90 mg daily while intubated. Resume Holding aspirin 325 mg p.o. daily status post surgical procedure 2D echocardiogram revealed left ventricular systolic function is grossly normal on limited imaging. Mild concentric left ventricular hypertrophy. Trace mitral valve regurgitation. There is trace tricuspid valve regurgitation. Trivial pulmonary valve regurgitation. Doppler parameters are consistent with impaired left ventricular relaxtion (grade 1 diastolic dysfunction). Resp: Acute hypoxic respiratory failure Chronic respiratory failure secondary to COPD/2 L oxygen dependent [facility] 18/550/1/5/50 Ventilator bundle Patient is currently on albuterol/ipratropium aerosols every 6 hours with albuterol aerosols every 2 hours as needed for dyspnea Follow-up on post intubation chest x-ray and ABG Patient is previously on tiotropium/olodaterol 2.5/2.5 mg 2 puffs daily and budesonide/formoterol 160/4.5 2 puffs twice daily at home start SBTs daily. GI: Postop day #4 exploratory laparotomy with right hemicolectomy, G-tube placement with end ileostomy, mucous fistula transverse colon secondary to stool impaction small bowel by Dr. Florian Gastroesophageal reflux disease History of liver cirrhosis? Hypoalbuminemia Currently TPN with Clinimix E 4.25/25 at 75 cc an hour. No lipids while on propofol Postoperative cares per Dr. Florian Continue pantoprazole 40 mg IV twice daily Docusate sodium 100 mg twice daily Metoclopramide 10 mg IV every 8 hours per surgery Ostomy cares Pathology reveals acute colitis with ulceration, serositis : Bucio catheter has been placed for accurate I's and O's in a critically ill patient: keep today while actively diuresing. Endo: TSH elevated 3.9. Low T3. Normal T4. Chronic prednisone use 5 mg twice daily increase SSI to high scale q4h. Recheck TSH in 4-6 weeks increase insulin detemir 20 units twice daily. hydrocortisone sodium succinate 100 mg IV 3 times daily. Noted prednisone has been given very intermittently throughout the hospitalization patient is currently hypotensive Renal: Creatinine currently within normal limits Monitor urine output Accurate I's and O's Heme: Normocytic anemia Monitor CBC daily. Follow trend Transfused 2 units PRBCs 02/04. no indication for transfusion today. ID: On ciprofloxacin 400 mg IV twice daily/metronidazole 500 mg IV every 6 hours since 01/23-02/04. Initiate piperacillin/tazobactam 4.5 g IV every 6 hours day #3 vancomycin day #2 Blood cultures 02/03 no growth to date blood cultures 2, sputum urine and urine Legionella pneumococcal antigen 02/04: NGTD. Influenza negative MSK: Chronic methotrexate use PT evaluate and treat Holding methotrexate 2.5 mg p.o. daily Check ABIs bilateral lower extremities with dusky toes. Taken off SCDs. Observe. FEN: Hypophosphatemia Hypopotassemia 30 mmol K-Phos IV 1 now. Recheck in a.m. Access -Right upper extremity dual-lumen PICC Prophylax -GI -pantoprazole 40 mg IV twice daily -DVT prophylaxis -SCDs/enoxaparin 40 mg subcu daily Critical Care: The total critical care time was 37 minutes. Time to perform other separately billable procedures was not included in the critical care time. Mario Nicole MD Feb 06, 2018 08:48
[2018-02-06] MEDS: CHLORHEXIDINE 0.12% (ORAL KIT) 15 ML CUP MT SCH ×2 (08:55→20:00)
[2018-02-06] MEDS: SODIUM CHLORIDE 0.9% FLUSH 10 ML FLUSH IV FLUSH SCH (08:55)
[2018-02-06] MEDS: CYCLOBENZAPRINE HCL 10 MG TAB PO SCH ×3 (08:55→17:42)
[2018-02-06] MEDS: STIOLTO PO SCH (08:55)
[2018-02-06] MEDS: DOCUSATE SODIUM 100 MG/10 ML UDC PO SCH ×2 (08:55→21:31)
[2018-02-06] MEDS: FOLIC ACID 1 MG TAB PO SCH (09:00)
[2018-02-06] MEDS: ENOXAPARIN SODIUM 40 MG/0.4 ML SYRINGE SQ SCH (09:05)
[2018-02-06] MEDS: FUROSEMIDE 40 MG/4 ML VIAL IV PUSH SCH ×2 (10:36→17:41)
[2018-02-06] MEDS: MIDAZOLAM 100 MG/100 ML INJ 100 ML IV PRN (11:01)
--- NOTE | 2018-02-06 11:09 | HHI.PR ---
Subjective Subjective Notes Intubated/Sedated Objective Vitals/I&O Vital Signs Date Time Temp Pulse Resp B/P (MAP) Pulse Ox O2 Delivery O2 Flow Rate FiO2 02/06/18 07:34 99 50 02/06/18 06:00 80 02/06/18 04:00 98.9 18 97/55 (69) 02/04/18 21:36 Ventilator 02/04/18 07:54 14.00 Labs Laboratory Tests Test 02/05/18 17:40 02/06/18 05:30 Vancomycin Level Trough 9.5 White Blood Count 6.8 Red Blood Count 2.62 Hemoglobin 7.8 Hematocrit 26.0 Mean Corpuscular Volume 99.1 Mean Corpuscular Hemoglobin 29.7 Mean Corpuscular Hemoglobin Concent 30.0 Red Cell Distribution Width 20.7 Platelet Count 185 Mean Platelet Volume 8.8 Neutrophils (%) (Auto) 89.6 Lymphocytes (%) (Auto) 7.6 Monocytes (%) (Auto) 1.8 Eosinophils (%) (Auto) 0.2 Basophils (%) (Auto) 0.8 Neutrophils # (Auto) 6.1 Lymphocytes # (Auto) 0.5 Monocytes # (Auto) 0.1 Eosinophils # (Auto) 0.0 Basophils # (Auto) 0.1 CBC Comment DIFF FINAL Differential Comment Potassium Level 4.8 Lactic Acid Level 1.9 Phosphorus Level 5.1 Magnesium Level 2.8 Total Creatine Kinase 80 Date/Time Source Procedure Growth Status 02/05/18 22:30 Blood Line Aerobic Blood Culture Pending Received 02/05/18 22:30 Blood Line Anaerobic Blood Culture Pending Received 02/04/18 17:36 Nasal Aspirate Influenza Types A,B Antigen (RADHA) - Final NEGATIVE FOR FLU A AND B ANTIGEN.... Complete 02/04/18 17:30 Urine Catheterized Urine Legionella Antigen - Final PRESUMPTIVE NEGATIVE FOR LEGIONELLA P... Complete 02/04/18 17:30 Urine Catheterized Urine Streptococcus pneumoniae Antigen (M - Final PRESUMPTIVE NEGATIVE FOR STREPTOCOCCU... Complete Radiology Last 48 hours Impressions Abdomen/Pelvis CT 3/20/18 1800 Signed Impressions: Service Date/Time: Monday, January 22, 2018 19:40 - CONCLUSION: 1. Distal small bowel obstruction with multiple air-fluid levels. The cecum is impacted with stool to a diameter of 9.2 cm and it is unclear if this is related to a distal small bowel obstruction. No free air. There is mild ascites. 2. Subsegmental patchy airspace disease at the lung base is trace right pleural fluid. 3. Small hiatal hernia. Tee Herrera MD Cardiovascular: Regular Lungs: Clear Abdomen: Other (midline incision with dressing in place; G tube to gravity bag ; MF stoma dark; ileostomy stoma pink--no output ) Narrative Exam BUE with several areas of skin tears dressing with transparent dressings; BUE restraints in place A/P Problem List: (1) Surgically created abdominal mucous fistula ICD Codes: Z93.4 - Other artificial openings of gastrointestinal tract status Status: Acute (2) S/P exploratory laparotomy ICD Codes: Z98.890 - Other specified postprocedural states (3) Attention to ileostomy ICD Codes: Z43.2 - Encounter for attention to ileostomy Status: Acute (4) Abdominal pain ICD Codes: R10.9 - Unspecified abdominal pain Status: Acute Assessment and Plan 52 year old female with abdominal pain and distention; fecal impaction; ileus vs SBO -POD5 ex lap; ileostomy; mucous fistula -CCM following; Intubated; FIO2 50% -Continue aggressive diuresis -Hmg 7.8 today -TPN -Ofirmev available PRN for fevers -Lovenox daily -Discussed with ISABELA Voss at bedside Problem Qualifiers (1) Abdominal pain: Qualified Codes: R10.84 - Generalized abdominal pain Michela KramerP/Director Of Strategic Sales [employer] Feb 06, 2018 11:09
--- NOTE | 2018-02-06 12:28 | RADRPT ---
EXAM DATE/TIME: 02/06/2018 11:39 [facility] COMPARISON: No previous studies available for comparison. INDICATIONS : NG tube placement. MEDICAL HISTORY : Carcinoma, lung. Cardiovascular disease. Chronic obstructive pulmonary disease. SURGICAL HISTORY : Hysterectomy. Appendectomy. section. ENCOUNTER: Subsequent ACUITY: 1 month PAIN SCORE: Non-responsive. LOCATION: Bilateral Abdomen FINDINGS: Examination of the abdomen demonstrates a normal bowel gas pattern. NG tube in stomach with side-port in distal esophagus. Gastrostomy present. Recent laparotomy. Previous cholecystectomy. CONCLUSION: 1. NG tip in stomach with side-port in distal esophagus. Presumed gastrostomy in the left upper quadr ant. Tee Herrera MD on February 06, 2018 at 12:25 Board Certified Radiologist. This report was verified electronically.
--- NOTE | 2018-02-06 12:33 | RADRPT ---
EXAM DATE/TIME: 02/05/2018 00:00 [facility] COMPARISON: No previous studies available for comparison. INDICATIONS : Dusky toes right lower extremity, CHF, cardiovascular disease, atrial fibrillation TECHNIQUE: Four-cuff ankle and brachial pressures were obtained. Pulse cuff waveform tracings of the ankles were recorded, and ankle-brachial indices were calculated. PRESSURES (mmHg): Brachial (arm): Right iv site Left 137 Ankle: Right 97 Left 117 NAHID: Right 0.71 Left 0.85 TBI: Right 0.45 Left 0.53 PULSED CUFF WAVEFORMS: Amplitude blunting of the right ankle and toe waveforms.. CONCLUSION: 1. Abnormal ABIs bilaterally. Ratios suggest mild to moderate PAD bilaterally. 2. Marked amplitude blunting of the right toe waveform. Finding suggest some intrinsic small vessel d isease of the right foot. 3. Slightly diminished TBI on the left again, characteristic of intrinsic small vessel disease. Bayron José MD on February 06, 2018 at 12:28 Board Certified Radiologist. This report was verified electronically.
[2018-02-06] MEDS ORDERED: PHARMACY ORDERED LAB ONE (15:45)
--- NOTE | 2018-02-06 17:05 | PD.WCN.NOT ---
Wound Consult Description: Consult for OSTOMY MANAGEMENT of abdomen per Dr Florian. Communicated with: Shanika RN Recommendation: Monitor color/output of right upper abdomen mucus fistula. Monitor output of right lower abdomen ileostomy. Additional Information: Patient seen on 3 [place] for ostomy assessment and measurement of ileostomy for appliance change tomorrow 02/07/18. Ostomy Type: Ileostomy (right lower abdomen ileostomy with mucus fistula noted to right upper abdomen) Surgeon: Yvon Florian MD Educated patient on: Patient is sedated. Additional information Stoma is noted on lower right abdomen with intact wafer and pouch with scant sanguinous drainage in pouch that was not emptied by typewriter assembly and parts inspector. Ileostomy is pink, round, measuring <1 1/2" with lumen in center of stoma with dry sticky mucus not functioning at this time. Mucus fistula noted to right upper abdomen is dark red with sticky mucus noted. Corrie Malone [facility] Feb 06, 2018 17:05
[2018-02-06] MEDS: CLINIMIX E 4.25/25 2000 mL- >42 mls/hr IV-CENTRAL SCH ×3 (20:37)
[2018-02-07] VITALS (18 sets, daily range): BP systolic 132–183; BP diastolic 70–88; PULSE 76–121; RESP 16–27; TEMP 98–98.9; O2SAT 100
[2018-02-07] MEDS: METOCLOPRAMIDE HCL 10 MG/2 ML VIAL IV SCH ×3 (00:47→17:13)
[2018-02-07] MEDS: VANCOMYCIN 1,000 MG/NS 250 ML IV SCH ×6 (00:48→17:12)
[2018-02-07] MEDS: INSULIN NovoLIN REGULAR SUPPLEMENTAL SCALE SQ SCH ×6 (04:00→20:00)
[2018-02-07] MEDS: RESP: ALBUTEROL 2.5 MG/IPRATROPIUM 0.5 MG NEB (SCH) NEB ×4 (04:19→21:32)
[2018-02-07] MEDS: PANTOPRAZOLE SODIUM 40 MG VIAL IV PUSH SCH ×2 (04:36→17:12)
[2018-02-07] MEDS: PIPERACIL-TAZO 4.5 GM PREMIX 100 ML IV SCH ×4 (04:36→22:04)
[2018-02-07] MEDS: ARTIFICIAL TEARS OPTH SOLN 15 ML BTL EACH EYE SCH ×3 (05:18→21:00)
[2018-02-07] MEDS: HYDROCORTISONE SOD SUCCINATE 100 MG VIAL IV PUSH SCH ×3 (05:19→22:04)
[2018-02-07 05:27] LABS: HEMOGLOBIN 7.9 GM/DL (11.6-15.3); MEAN CELL VOLUME 110.4 FL (80.0-100.0); MEAN CORPUSCULAR HEMOGLOBIN 29.2 PG (27.0-34.0); MEAN PLATELET VOLUME 9.4 FL (7.0-11.0); PLATELET COUNT 228 TH/MM3 (150-450); RED BLOOD COUNT 2.72 MIL/MM3 (4.00-5.30); RED CELL DISTRIBUTION WIDTH 21.1 % (11.6-17.2); WHITE BLOOD COUNT 9.9 TH/MM3 (4.0-11.0)
[2018-02-07 05:41] LABS: MEAN CORPUSCULAR HGB CONC 26.4 % (32.0-36.0)
[2018-02-07 07:44] LABS: CALCIUM 8.5 MG/DL (8.5-10.1); CREATININE 0.59 MG/DL (0.50-1.00)
[2018-02-07 07:45] LABS: BICARBONATE 25.4 MEQ/L (21.0-32.0)
[2018-02-07] MEDS: RESP: BUDESONIDE 0.5 MG/2 ML NEB NEB SCH ×2 (07:59→21:32)
--- NOTE | 2018-02-07 08:07 | HHI.CCPN ---
Subjective Remarks/Hospital Course This is a 52-year-old female. Date of admission 01/23/2018. Date of consultation 02/04/2018. Past medical history includes lung cancer right lung not treated, COPD/chronic respiratory failure on 2 L nasal cannula chronically, hypertension, diabetes, congestive heart failure, atrial fibrillation, coronary artery disease, cirrhosis and seizure disorder with ongoing tobaccoism. Patient had a CAT scan which revealed a likely small distal small bowel obstruction. Cecal impaction with stool. 9.2 cm in size. Small hiatal hernia. 01/23 -colonoscopy by Dr. Poole revealed sigmoid diverticulosis, small internal and external hemorrhage. Large amount of stool. Possible obstructive process On 01/24 patient had a Gastrografin enema. Which did not reveal any signs of obstruction On 01/28 patient repeat colonoscopy which revealed to the ileocecal valve which revealed copious stool/small prep. 01/30 patient had small bowel series which revealed contrast slow transit over 21 hours indicative either ileus versus distal small bowel obstruction On 02/01 patient had expiratory laparotomy with the right hemicolectomy, G-tube placement, end ileostomy and mucous fistula transverse colon by Dr. Florian. Over the weekend, patient was on D5 one half normal saline at 125 cc hours and TPN 83 cc an hour along with other intravenous medications. Patient was a HalicatToday due to increasing oxygen requirements. Possibly volume overload. Patient is hypertensive. 02/05/17: T-max 102.9. Current 100.8. Resting comfortably in bed. Family concern regarding cool extremities. Remains on piperacillin tazobactam and metronidazole. All cultures currently no growth today. Subjective 02/06: remains sedated and intubated. failed CPAP yesterday and became tachypneic. appears volume overloaded on physical exam. afebrile. 02/07: good diuresis yesterday with > 3L net negative. still failing CPAP, although appears more comfortable today. still slightly volume overloaded. K 2.0 this AM and aggressively replacing. Objective Vital Signs Date Time Temp Pulse Resp B/P (MAP) Pulse Ox O2 Delivery O2 Flow Rate FiO2 02/07/18 06:00 88 02/07/18 04:21 100 40 02/07/18 04:00 98.0 18 148/70 (96) 02/04/18 21:36 Ventilator 02/04/18 07:54 14.00 Intake and Output 02/07/18 02/07/18 02/08/18 08:00 16:00 00:00 Intake Total 350 ml Output Total 2850 ml Balance -2500 ml Result Diagram: 02/07/18 0630 02/07/18 0634 Other Results Microbiology Date/Time Source Procedure Growth Status 02/04/18 17:36 Nasal Aspirate Influenza Types A,B Antigen (RADHA) - Final NEGATIVE FOR FLU A AND B ANTIGEN.... Complete 02/04/18 17:18 Sputum Endotracheal Gram Stain - Final Complete 02/04/18 17:18 Sputum Endotracheal Sputum Culture - Final HEAVY GROWTH NORMAL RESPIRATORY CHYNA Complete 02/04/18 17:30 Urine Catheterized Urine Legionella Antigen - Final PRESUMPTIVE NEGATIVE FOR LEGIONELLA P... Complete 02/04/18 17:30 Urine Catheterized Urine Streptococcus pneumoniae Antigen (M - Final PRESUMPTIVE NEGATIVE FOR STREPTOCOCCU... Complete Imaging Last Impressions Chest X-Ray 02/04/18 0000 Signed Impressions: Service Date/Time: Sunday, February 04, 2018 10:07 - CONCLUSION: 1. The support equipment is in satisfactory position. 2. Patchy areas of infiltrate throughout both lungs concerning for pneumonia. Shahab Gonzalez MD Small Bowel X-Ray 01/30/18 0000 Signed Impressions: Service Date/Time: Tuesday, January 30, 2018 13:51 - CONCLUSION: There is diffuse distention of the small bowel with slow progression of contrast through the small bowel over 21 hours. This is nonspecific. This could be a diffuse adynamic ileus of the small bowel versus a distal small bowel obstruction. Lucien Willett MD Abdomen X-Ray 01/30/18 0000 Signed Impressions: Service Date/Time: Tuesday, January 30, 2018 10:01 - CONCLUSION: 1. There's been mild improvement in the small bowel gas pattern compared to the prior study. 2. There continues to be a significant amount of retained contrast throughout the entire colon. As soon as contrast can be evacuated from the colon, we can then proceed with a small bowel study. Lucien Willett MD Enema w/Water Soluble 01/24/18 0000 Signed Impressions: Service Date/Time: January 11:06 - CONCLUSION: Gastrografin enema performed for constipation as described above. Jabier Aviles MD Abdomen/Pelvis CT 01/22/18 1800 Signed Impressions: Service Date/Time: Monday, January 22, 2018 19:40 - CONCLUSION: 1. Distal small bowel obstruction with multiple air-fluid levels. The cecum is impacted with stool to a diameter of 9.2 cm and it is unclear if this is related to a distal small bowel obstruction. No free air. There is mild ascites. 2. Subsegmental patchy airspace disease at the lung base is trace right pleural fluid. 3. Small hiatal hernia. Tee Herrera MD Procedures 01/23/18 colonoscopy 01/24/18 Gastrografin enema 02/01/18 Patient with Small bowel obstruction secondary to constipation . Massively dependent right colon, completely full of pasty stool. Status post surgery by Dr. Florian 02/01/18: exploratory lap, extended right hemicolectomy, gastrostomy tube, end ileostomy, mucous fistula transverse colon Objective Remarks GENERAL: This is a 52-year-old female currently orotracheally intubated SKIN: Warm and dry. Well perfused with no rash HEAD: Atraumatic. Normocephalic. EYES: Pupils equal and round around 2 mm bilaterally and reactive. No scleral icterus. No injection or drainage. ENT: No nasal bleeding or discharge. Mucous membranes pink and moist. NECK: Trachea midline. no JVD. CARDIOVASCULAR: normal rate, regular rhythm. sinus by telemetry. RESPIRATORY: PRVC. fio2 40%. peep 5. equal chest rise. GASTROINTESTINAL: Abdomen soft, midline incision evelio are well healing without dehiscence. Ostomy and mucous fistula clean dry and intact. G-tube is clean dry and intact without erythema MUSCULOSKELETAL: Extremities with trace bilateral lower extremity edema. Right upper extremity dual-lumen PICC line. NEUROLOGICAL: RASS -2. withdraws. purposeful. sedated. Date of Insertion: Jan 30, 2018 Line: PICC Side: Right Location: Antecubital A/P Assessment and Plan Assessment: 52yF s/p ex-lap and hemicolectomy with ostomy, complicated by acute hypoxic respiratory failure. continue forced diuresis. SBT and sedation vacation. nearing readiness for extubation, however with o2 dependent COPD, may be very difficult to separate from mechanical ventilation. remains critically ill and off pathway. need to diurese to improve abdominal edema and hypoxia. Neuro/Psych: Chronic narcotic use Chronic benzodiazepine use Seizure disorder NOS History of TIA continue versed, fentanyl Goal of RASS -2 Daily sedation vacation Patient is on alprazolam 0.25 mg twice daily at home. This currently on hold Patient is on hydrocodone/acetaminophen 7.5/300 1 tablet 3 times daily at home. This is on hold Patient is on cyclobenzaprine 10 mg 3 times daily at home muscle relaxant. This is on hold CV: Coronary artery disease Congestive heart failure likely chronic diastolic Paroxysmal atrial fib relation currently normal sinus rhythm Hypertension Dyslipidemia Acute intravascular volume overload continue forced diuresis. lasix 40mg iv BID + diamox 500mg iv q8h. Holding nifedipine extended release 90 mg daily while intubated. Resume Holding aspirin 325 mg p.o. daily status post surgical procedure 2D echocardiogram revealed left ventricular systolic function is grossly normal on limited imaging. Mild concentric left ventricular hypertrophy. Trace mitral valve regurgitation. There is trace tricuspid valve regurgitation. Trivial pulmonary valve regurgitation. Doppler parameters are consistent with impaired left ventricular relaxtion (grade 1 diastolic dysfunction). Resp: Acute hypoxic respiratory failure Chronic respiratory failure secondary to COPD/2 L oxygen dependent [facility] 18/550///50 Ventilator bundle Patient is currently on albuterol/ipratropium aerosols every 6 hours with albuterol aerosols every 2 hours as needed for dyspnea Follow-up on post intubation chest x-ray and ABG Patient is previously on tiotropium/olodaterol 2.5/2.5 mg 2 puffs daily and budesonide/formoterol 160/4.5 2 puffs twice daily at home continue SBTs daily. GI: Postop day #4 exploratory laparotomy with right hemicolectomy, G-tube placement with end ileostomy, mucous fistula transverse colon secondary to stool impaction small bowel by Dr. Florian Gastroesophageal reflux disease History of liver cirrhosis? Hypoalbuminemia Currently TPN with Clinimix E 4.25/25 at 75 cc an hour. No lipids while on propofol Postoperative cares per Dr. Florian Continue pantoprazole 40 mg IV twice daily Docusate sodium 100 mg twice daily Metoclopramide 10 mg IV every 8 hours per surgery Ostomy cares Pathology reveals acute colitis with ulceration, serositis : Bucio catheter has been placed for accurate I's and O's in a critically ill patient: keep today while actively diuresing. Endo: TSH elevated 3.9. Low T3. Normal T4. Chronic prednisone use 5 mg twice daily increase SSI to high scale q4h. Recheck TSH in 4-6 weeks increase insulin detemir 20 units twice daily. hydrocortisone sodium succinate 100 mg IV 3 times daily. Noted prednisone has been given very intermittently throughout the hospitalization patient is currently hypotensive Renal: Creatinine currently within normal limits Monitor urine output Accurate I's and O's Heme: Normocytic anemia Monitor CBC daily. Follow trend Transfused 2 units PRBCs 02/04. no indication for transfusion today. ID: On ciprofloxacin 400 mg IV twice daily/metronidazole 500 mg IV every 6 hours since 01/23-02/04. Initiate piperacillin/tazobactam 4.5 g IV every 6 hours day #3 vancomycin day #2 Blood cultures 02/03 no growth to date blood cultures 2, sputum urine and urine Legionella pneumococcal antigen 02/04: NGTD. Influenza negative MSK: Chronic methotrexate use PT evaluate and treat Holding methotrexate 2.5 mg p.o. daily Check ABIs bilateral lower extremities with dusky toes. Taken off SCDs. Observe. FEN: Hypophosphatemia Hypopotassemia 30 mmol K-Phos IV 1 now. Recheck in a.m. Access -Right upper extremity dual-lumen PICC Prophylax -GI -pantoprazole 40 mg IV twice daily -DVT prophylaxis -SCDs/enoxaparin 40 mg subcu daily Mario Nicole MD Feb 07, 2018 08:07
[2018-02-07] MEDS ORDERED: ICU - POTASSIUM PHOSPHATE 30 MMOL/NS 250 ML IV PRN ×2 (08:15)
[2018-02-07] MEDS ORDERED: ICU - MAGNESIUM SULFATE 2 GM/NS 100 ML IV PRN ×2 (08:15)
[2018-02-07] MEDS ORDERED: ICU - MAGNESIUM OXIDE 400 MG TAB PO PRN (08:15)
[2018-02-07] MEDS ORDERED: ICU - MAGNESIUM SULFATE 4 GM/NS 100 ML IV PRN ×2 (08:15)
[2018-02-07] MEDS ORDERED: ICU - CALL ORDERING PHYSICIAN PRN (08:15)
[2018-02-07] MEDS ORDERED: ICU - SODIUM PHOSPHATE 30 MMOL/NS 250 ML IV PRN ×2 (08:15)
[2018-02-07] MEDS ORDERED: ICU - D/C ICU ELECTROLYTE ORDERS PRN (08:15)
[2018-02-07] MEDS ORDERED: ICU - POTASSIUM PHOSPHATE MONOBASIC 500 MG TAB PO PRN (08:15)
[2018-02-07] MEDS: SODIUM CHLORIDE 0.9% FLUSH 10 ML FLUSH IV FLUSH SCH (09:00)
[2018-02-07] MEDS: STIOLTO PO SCH (09:00)
[2018-02-07] MEDS: FOLIC ACID 1 MG TAB PO SCH (09:18)
[2018-02-07] MEDS: CYCLOBENZAPRINE HCL 10 MG TAB PO SCH ×3 (09:18→17:13)
[2018-02-07] MEDS: ICU - POTASSIUM CHLORIDE/AQUEOUS SOLN 40 MEQ/100 ML IVPB IV PRN (09:18)
[2018-02-07] MEDS: FUROSEMIDE 40 MG/4 ML VIAL IV PUSH SCH ×2 (09:22→17:13)
[2018-02-07] MEDS: CHLORHEXIDINE 0.12% (ORAL KIT) 15 ML CUP MT SCH ×2 (09:22→20:00)
[2018-02-07] MEDS: POTASSIUM CHLORIDE 25 MEQ EFFERVESCENT TAB PO PRN (09:22)
[2018-02-07] MEDS: DOCUSATE SODIUM 100 MG/10 ML UDC PO SCH ×2 (09:23→20:42)
[2018-02-07] MEDS: INSULIN DETEMIR 100 UNITS/ML VIAL SQ SCH ×2 (09:24→20:42)
[2018-02-07] MEDS: ENOXAPARIN SODIUM 40 MG/0.4 ML SYRINGE SQ SCH (09:24)
--- NOTE | 2018-02-07 09:58 | HHI.PR ---
Subjective Subjective Notes Intubated/Sedated ISABELA Farley at bedside--- Plan is to wean sedation and attempt CPAP trials today Objective Vitals/I&O Vital Signs Date Time Temp Pulse Resp B/P (MAP) Pulse Ox O2 Delivery O2 Flow Rate FiO2 02/07/18 08:02 100 40 02/07/18 06:00 88 02/07/18 04:00 98.0 18 148/70 (96) 02/04/18 21:36 Ventilator 02/04/18 07:54 14.00 Labs Laboratory Tests Test 02/06/18 15:50 02/07/18 06:30 02/07/18 06:34 Vancomycin Level Trough 16.4 White Blood Count 9.9 Red Blood Count 2.72 Hemoglobin 7.9 Hematocrit 30.0 Mean Corpuscular Volume 110.4 Mean Corpuscular Hemoglobin 29.2 Mean Corpuscular Hemoglobin Concent 26.4 Red Cell Distribution Width 21.1 Platelet Count 228 Mean Platelet Volume 9.4 Blood Urea Nitrogen 18 Creatinine 0.59 Random Glucose 291 Calcium Level 8.5 Sodium Level 140 Potassium Level 2.0 Chloride Level 104 Carbon Dioxide Level 25.4 Anion Gap 11 Estimat Glomerular Filtration Rate 106 Date/Time Source Procedure Growth Status 02/05/18 22:30 Blood Line Aerobic Blood Culture - Preliminary NO GROWTH IN 1 DAY Resulted 02/05/18 22:30 Blood Line Anaerobic Blood Culture - Preliminary NO GROWTH IN 1 DAY Resulted 02/04/18 17:36 Nasal Aspirate Influenza Types A,B Antigen (RADHA) - Final NEGATIVE FOR FLU A AND B ANTIGEN.... Complete 02/04/18 17:30 Urine Catheterized Urine Legionella Antigen - Final PRESUMPTIVE NEGATIVE FOR LEGIONELLA P... Complete 02/04/18 17:30 Urine Catheterized Urine Streptococcus pneumoniae Antigen (M - Final PRESUMPTIVE NEGATIVE FOR STREPTOCOCCU... Complete Radiology Last 48 hours Impressions Abdomen/Pelvis CT 01/22/18 1800 Signed Impressions: Service Date/Time: Monday, January 22, 2018 19:40 - CONCLUSION: 1. Distal small bowel obstruction with multiple air-fluid levels. The cecum is impacted with stool to a diameter of 9.2 cm and it is unclear if this is related to a distal small bowel obstruction. No free air. There is mild ascites. 2. Subsegmental patchy airspace disease at the lung base is trace right pleural fluid. 3. Small hiatal hernia. Tee Herrera MD Cardiovascular: Regular Lungs: Clear Abdomen: Other (Midline incision with evelio; MF with dark stoma; ileostomy with pink stoma--- small amount of stool in appliance; abdomen soft ) Extremities: Other (see below ) Narrative Exam BUE with several areas of skin tears dressing with transparent dressings; BUE restraints in place A/P Problem List: (1) Surgically created abdominal mucous fistula ICD Codes: Z93.4 - Other artificial openings of gastrointestinal tract status Status: Acute (2) S/P exploratory laparotomy ICD Codes: Z98.890 - Other specified postprocedural states (3) Attention to ileostomy ICD Codes: Z43.2 - Encounter for attention to ileostomy Status: Acute (4) Abdominal pain ICD Codes: R10.9 - Unspecified abdominal pain Status: Acute Assessment and Plan 52 year old female with abdominal pain and distention; fecal impaction -POD6 ex lap; ileostomy; mucous fistula -CCM following; Intubated; possible CPAP trials today -Good urine output overnight -Hmg 7.9 today -TPN -Replace K today -Ofirmev available PRN for fevers -Lovenox daily -Discussed with ISABELA Farley at bedside Problem Qualifiers (1) Abdominal pain: Qualified Codes: R10.84 - Generalized abdominal pain Michela Kramer/Trust Clerk STEAM FRAME OPERATOR Feb 07, 2018 09:58
--- NOTE | 2018-02-07 16:54 | HHI.PR ---
Subjective Remarks ON VENT SUPPORT Objective Vital Signs Date Time Temp Pulse Resp B/P (MAP) Pulse Ox O2 Delivery O2 Flow Rate FiO2 02/07/18 16:17 100 40 02/07/18 16:00 40 02/07/18 16:00 108 02/07/18 14:00 104 02/07/18 12:00 110 02/07/18 12:00 98.4 90 16 160/75 (103) 100 02/07/18 12:00 40 02/07/18 11:12 100 40 02/07/18 10:00 92 02/07/18 08:02 100 40 02/07/18 08:02 40 02/07/18 08:00 40 02/07/18 08:00 93 02/07/18 08:00 98.4 93 18 176/80 (112) 100 02/07/18 06:00 88 02/07/18 04:21 100 40 02/07/18 04:00 40 02/07/18 04:00 82 02/07/18 04:00 98.0 82 18 148/70 (96) 100 02/07/18 02:00 76 02/07/18 00:42 100 40 02/07/18 00:00 98.2 86 18 132/71 (91) 100 02/07/18 00:00 86 02/07/18 00:00 40 02/06/18 22:00 98 02/06/18 20:05 96 40 02/06/18 20:00 98.4 102 14 115/56 (75) 98 02/06/18 20:00 40 02/06/18 20:00 102 02/06/18 18:00 100 I/O 02/06/18 02/06/18 02/06/18 02/07/18 02/07/18 02/07/18 07:00 15:00 23:00 07:00 15:00 23:00 Intake Total 800 ml 450 ml 2390 ml 450 ml Output Total 1590 ml 3550 ml 2850 ml Balance -790 ml 450 ml -1160 ml -2400 ml IV Total 800 ml 450 ml 2360 ml 450 ml Tube Irrigant 30 ml Output Urine Total 1500 ml 3500 ml 2700 ml Stool Total 20 ml 20 ml 0 ml Gastric Drainage Total 70 ml 30 ml 150 ml Result Diagram: 02/07/18 0630 02/07/18 0634 Objective Remarks GENERAL: SEDATED ON VENT SUPPORT SKIN: Warm and dry. HEAD: Atraumatic. Normocephalic. EYES: Pupils equal and round. No scleral icterus. No injection or drainage. ENT: No nasal bleeding or discharge. Mucous membranes pink and moist. NECK: Trachea midline. No JVD. CARDIOVASCULAR: Regular rate and rhythm. RESPIRATORY: No accessory muscle use. Clear to auscultation. Breath sounds equal bilaterally. GASTROINTESTINAL: Abdomen soft, non-tender, nondistended. Hepatic and splenic margins not palpable. MUSCULOSKELETAL: Extremities without clubbing, cyanosis, or edema. No obvious deformities. NEUROLOGICAL: Awake and alert. No obvious cranial nerve deficits. Motor grossly within normal limits. Five out of 5 muscle strength in the arms and legs. Normal speech. PSYCHIATRIC: Appropriate mood and affect; insight and judgment normal. Assessment and Plan Assessment and Plan ASSESSMENT RESPIRATORY FAILURE COPD CHF AFIB ANEMIA , RELIEVED PACKED RBC PLAN VENT SUPPORT BRONCHODILATOR THERAPY WEAN as tolerated Ed Ward MD Feb 07, 2018 16:54
--- NOTE | 2018-02-07 16:55 | PD.WCN.NOT ---
Wound Consult Description: Consult for OSTOMY MANAGEMENT of abdomen per Dr Florian. Communicated with: RN Patient family at bedside Recommendation: Monitor color/output of right upper abdomen mucus fistula. Monitor output of right lower abdomen ileostomy. Change ostomy pouches as needed. Additional Information: Patient seen on 3 [place] for ostomy/mucus fistula assessment Ostomy Type: Ileostomy (right lower abdomen ileostomy with mucus fistula noted to right upper abdomen) Surgeon: Yvon Florian MD Educated patient on: Patient sedated/intubated Additional information Stoma on right lower abdomen is red, round, moist, moderately protruding, functioning with soft brown/yellow stool noted in pouch. Mucus fistula noted to right upper abdomen is red, moist, and functioning with mucus present. Both ostomy pouches are intact and noted without leaks. Plan to change both ostomy pouching systems tomorrow 02/08/18. Corrie Malone [facility] Feb 07, 2018 16:55
[2018-02-07] MEDS: cloNIDine HCL 0.1 MG TAB PO PRN (18:15)
[2018-02-07] MEDS ORDERED: LABETALOL HCL 100 MG/20 ML VIAL ONE (20:12)
[2018-02-07] MEDS: MULTIVITAMIN INJ 5 ML, FOLIC ACID INJ 0.5 MG in AMINO ACID IN D5W W/ELECTROLYT 1,000 ML IV-CENTRAL SCH ×3 (21:00)
[2018-02-07] MEDS: LABETALOL HCL 100 MG/20 ML VIAL IV PRN ×2 (21:30→23:30)
[2018-02-08] VITALS (16 sets, daily range): BP systolic 160–171; BP diastolic 47–88; PULSE 70–94; RESP 15–23; TEMP 97.8–98.9; O2SAT 95–100
[2018-02-08] MEDS: METOCLOPRAMIDE HCL 10 MG/2 ML VIAL IV SCH ×3 (00:06→17:13)
[2018-02-08] MEDS: VANCOMYCIN 1,000 MG/NS 250 ML IV SCH ×6 (00:07→15:14)
[2018-02-08] MEDS: cloNIDine HCL 0.1 MG TAB PO PRN (00:08)
[2018-02-08] MEDS: LABETALOL HCL 100 MG/20 ML VIAL IV PRN ×3 (02:15→16:22)
[2018-02-08] MEDS: RESP: ALBUTEROL 2.5 MG/IPRATROPIUM 0.5 MG NEB (SCH) NEB ×5 (03:59→21:34)
[2018-02-08] MEDS: INSULIN NovoLIN REGULAR SUPPLEMENTAL SCALE SQ SCH ×6 (04:00→21:09)
[2018-02-08] MEDS: PIPERACIL-TAZO 4.5 GM PREMIX 100 ML IV SCH ×4 (04:27→23:54)
[2018-02-08] MEDS: PANTOPRAZOLE SODIUM 40 MG VIAL IV PUSH SCH ×2 (04:27→17:13)
[2018-02-08 04:58] LABS: HEMATOCRIT 24.2 % (35.0-46.0); HEMOGLOBIN 8.1 GM/DL (11.6-15.3); MEAN CELL VOLUME 88.3 FL (80.0-100.0); MEAN CORPUSCULAR HEMOGLOBIN 29.6 PG (27.0-34.0); MEAN CORPUSCULAR HGB CONC 33.6 % (32.0-36.0); MEAN PLATELET VOLUME 8.8 FL (7.0-11.0); PLATELET COUNT 258 TH/MM3 (150-450); RED BLOOD COUNT 2.74 MIL/MM3 (4.00-5.30); RED CELL DISTRIBUTION WIDTH 18.3 % (11.6-17.2)
[2018-02-08 05:21] LABS: BICARBONATE 29.5 MEQ/L (21.0-32.0); CALCIUM 8.5 MG/DL (8.5-10.1); CREATININE 0.59 MG/DL (0.50-1.00)
[2018-02-08] MEDS: ARTIFICIAL TEARS OPTH SOLN 15 ML BTL EACH EYE SCH ×3 (05:34→20:53)
[2018-02-08] MEDS: ICU - POTASSIUM CHLORIDE/AQUEOUS SOLN 20 MEQ/100 ML IVPB IV PRN ×4 (05:34→12:00)
[2018-02-08] MEDS: HYDROCORTISONE SOD SUCCINATE 100 MG VIAL IV PUSH SCH ×3 (05:34→20:53)
--- NOTE | 2018-02-08 08:24 | HHI.CCPN ---
Subjective Remarks/Hospital Course This is a 52-year-old female. Date of admission 01/23/2018. Date of consultation 02/04/2018. Past medical history includes lung cancer right lung not treated, COPD/chronic respiratory failure on 2 L nasal cannula chronically, hypertension, diabetes, congestive heart failure, atrial fibrillation, coronary artery disease, cirrhosis and seizure disorder with ongoing tobaccoism. Patient had a CAT scan which revealed a likely small distal small bowel obstruction. Cecal impaction with stool. 9.2 cm in size. Small hiatal hernia. 01/23 -colonoscopy by Dr. Poole revealed sigmoid diverticulosis, small internal and external hemorrhage. Large amount of stool. Possible obstructive process On 01/24 patient had a Gastrografin enema. Which did not reveal any signs of obstruction On 01/28 patient repeat colonoscopy which revealed to the ileocecal valve which revealed copious stool/small prep. 01/30 patient had small bowel series which revealed contrast slow transit over 21 hours indicative either ileus versus distal small bowel obstruction On 02/01 patient had expiratory laparotomy with the right hemicolectomy, G-tube placement, end ileostomy and mucous fistula transverse colon by Dr. Florian. Over the weekend, patient was on D5 one half normal saline at 125 cc hours and TPN 83 cc an hour along with other intravenous medications. Patient was a HalicatToday due to increasing oxygen requirements. Possibly volume overload. Patient is hypertensive. 02/05/17: T-max 102.9. Current 100.8. Resting comfortably in bed. Family concern regarding cool extremities. Remains on piperacillin tazobactam and metronidazole. All cultures currently no growth today. 02/06: remains sedated and intubated. failed CPAP yesterday and became tachypneic. appears volume overloaded on physical exam. afebrile. 02/07: good diuresis yesterday with > 3L net negative. still failing CPAP, although appears more comfortable today. still slightly volume overloaded. K 2.0 this AM and aggressively replacing. Subjective 02/08: Afebrile. On PSV trial 24 hours 06/09 with adequate extubation parameters. Will attempt extubation this a.m. Chest x-ray pending. No bowel movement Objective Vital Signs Date Time Temp Pulse Resp B/P (MAP) Pulse Ox O2 Delivery O2 Flow Rate FiO2 02/08/18 07:30 96 40 02/08/18 06:00 82 02/08/18 04:00 98.6 15 169/83 (111) 02/04/18 21:36 Ventilator 02/04/18 07:54 14.00 Intake and Output 02/08/18 02/08/18 02/09/18 08:00 16:00 00:00 Output Total 1825 ml Balance -1825 ml Result Diagram: 02/08/18 0440 02/08/18 0440 Other Results Microbiology Date/Time Source Procedure Growth Status 02/05/18 22:30 Blood Line Aerobic Blood Culture - Preliminary NO GROWTH IN 2 DAYS Resulted 02/05/18 22:30 Blood Line Anaerobic Blood Culture - Preliminary NO GROWTH IN 2 DAYS Resulted 02/04/18 17:36 Nasal Aspirate Influenza Types A,B Antigen (RADHA) - Final NEGATIVE FOR FLU A AND B ANTIGEN.... Complete 02/04/18 17:30 Urine Catheterized Urine Legionella Antigen - Final PRESUMPTIVE NEGATIVE FOR LEGIONELLA P... Complete 02/04/18 17:30 Urine Catheterized Urine Streptococcus pneumoniae Antigen (M - Final PRESUMPTIVE NEGATIVE FOR STREPTOCOCCU... Complete Imaging Last Impressions Chest X-Ray 02/06/18 0600 Signed Impressions: Service Date/Time: Tuesday, February 06, 2018 04:13 - CONCLUSION: No significant interval change Lamont Grossman MD Abdomen X-Ray 02/06/18 0000 Signed Impressions: Service Date/Time: Tuesday, February 06, 2018 11:39 - CONCLUSION: 1. NG tip in stomach with side-port in distal esophagus. Presumed gastrostomy in the left upper quadrant. Tee Herrera MD Small Bowel X-Ray 01/30/18 0000 Signed Impressions: Service Date/Time: Tuesday, January 30, 2018 13:51 - CONCLUSION: There is diffuse distention of the small bowel with slow progression of contrast through the small bowel over 21 hours. This is nonspecific. This could be a diffuse adynamic ileus of the small bowel versus a distal small bowel obstruction. Lucien Willett MD Enema w/Water Soluble 01/24/18 0000 Signed Impressions: Service Date/Time: January 11:06 - CONCLUSION: Gastrografin enema performed for constipation as described above. Jabier Aviles MD Abdomen/Pelvis CT 01/22/18 1800 Signed Impressions: Service Date/Time: Monday, January 22, 2018 19:40 - CONCLUSION: 1. Distal small bowel obstruction with multiple air-fluid levels. The cecum is impacted with stool to a diameter of 9.2 cm and it is unclear if this is related to a distal small bowel obstruction. No free air. There is mild ascites. 2. Subsegmental patchy airspace disease at the lung base is trace right pleural fluid. 3. Small hiatal hernia. Tee Herrera MD Procedures 01/23/18 colonoscopy 01/24/18 Gastrografin enema 02/01/18 Patient with Small bowel obstruction secondary to constipation . Massively dependent right colon, completely full of pasty stool. Status post surgery by Dr. Florian 02/01/18: exploratory lap, extended right hemicolectomy, gastrostomy tube, end ileostomy, mucous fistula transverse colon Objective Remarks GENERAL: This is a 52-year-old female currently orotracheally intubated SKIN: Warm and dry. Well perfused with no rash HEAD: Atraumatic. Normocephalic. EYES: Pupils equal and round around 2 mm bilaterally and reactive. No scleral icterus. No injection or drainage. ENT: No nasal bleeding or discharge. Mucous membranes pink and moist. NECK: Trachea midline. no JVD. CARDIOVASCULAR: normal rate, regular rhythm. sinus by telemetry. RESPIRATORY: PRVC. fio2 40%. peep 5. equal chest rise. GASTROINTESTINAL: Abdomen soft, midline incision evelio are well healing without dehiscence. Ostomy and mucous fistula clean dry and intact. G-tube is clean dry and intact without erythema MUSCULOSKELETAL: Extremities with trace bilateral lower extremity edema. Right upper extremity dual-lumen PICC line. NEUROLOGICAL: RASS -2. withdraws. purposeful. sedated. Urinary Catheter: Yes Assessment to: Continue Bucio insert reason: Prolonged Immobilization Vascular Central Line Catheter: Yes Assessment to: Continue Date of Insertion: Jan 30, 2018 Line: PICC Side: Right Location: Antecubital A/P Assessment and Plan Neuro/Psych: Chronic narcotic use Chronic benzodiazepine use Seizure disorder NOS History of TIA Currently off all sedation Goal of RASS -0 Daily sedation vacation Patient is on alprazolam 0.25 mg twice daily at home. This currently on hold Patient is on hydrocodone/acetaminophen 7.5/300 1 tablet 3 times daily at home. This is on hold Patient is on cyclobenzaprine 10 mg 3 times daily at home muscle relaxant. This is on hold Ofirmev 1 g IV every 8 hours as needed fever Switch to morphine sulfate 2-4 mg of acute respiratory pain CV: Coronary artery disease Congestive heart failure likely chronic diastolic Paroxysmal atrial fib relation currently normal sinus rhythm Hypertension Dyslipidemia Acute intravascular volume overload Decrease furosemide to 40 mg IV daily. Status post acetazolamide and furosemide for diuresis Holding nifedipine extended release 90 mg daily while intubated. Resume when clinically indicated Holding aspirin 325 mg p.o. daily status post surgical procedure 2D echocardiogram revealed left ventricular systolic function is grossly normal on limited imaging. Mild concentric left ventricular hypertrophy. Trace mitral valve regurgitation. There is trace tricuspid valve regurgitation. Trivial pulmonary valve regurgitation. Doppler parameters are consistent with impaired left ventricular relaxtion (grade 1 diastolic dysfunction). Resp: Acute hypoxic respiratory failure Chronic respiratory failure secondary to COPD/2 L oxygen dependent PRVC 18/550/1/5/40 Currently on CPAP 8/5 and 40% Ventilator bundle Patient is currently on albuterol/ipratropium aerosols every 6 hours with albuterol aerosols every 2 hours as needed for dyspnea Follow-up on x-ray today Patient is previously on tiotropium/olodaterol 2.5/2.5 mg 2 puffs daily and budesonide/formoterol 160/4.5 2 puffs twice daily at home Adequate wean the pressors. Will attempt expiration today. Chest x-ray currently pending GI: Postop day #7 exploratory laparotomy with right hemicolectomy, G-tube placement with end ileostomy, mucous fistula transverse colon secondary to stool impaction small bowel by Dr. Florian Gastroesophageal reflux disease History of liver cirrhosis? Hypoalbuminemia Currently TPN with Clinimix E 4.25/25 at 75 cc an hour. No lipids while on propofol Postoperative cares per Dr. Florian Continue pantoprazole 40 mg IV twice daily Docusate sodium 100 mg twice daily Metoclopramide 10 mg IV every 8 hours per surgery Ostomy cares Pathology reveals acute colitis with ulceration, serositis : Bucio catheter has been placed for accurate I's and O's in a critically ill patient: keep today while actively diuresing. Endo: TSH elevated 3.9. Low T3. Normal T4. Chronic prednisone use 5 mg twice daily increase SSI to high scale q4h. with 75 units sliding scale past 24 hours Recheck TSH in 4-6 weeks increase insulin detemir 40 units twice daily. hydrocortisone sodium succinate 50 mg IV 3 times daily. Noted prednisone has been given very intermittently throughout the hospitalization patient is currently hypotensive Renal: Creatinine currently within normal limits Monitor urine output Accurate I's and O's Heme: Normocytic anemia Monitor CBC daily. Follow trend Transfused 2 units PRBCs 02/04. no indication for transfusion today. ID: On ciprofloxacin 400 mg IV twice daily/metronidazole 500 mg IV every 6 hours since 01/23-02/04. Initiate piperacillin/tazobactam 4.5 g IV every 6 hours day #5 vancomycin day #4 Blood cultures 02/03 no growth to date blood cultures 2, sputum urine and urine Legionella pneumococcal antigen 02/04: NGTD. Influenza negative MSK: Chronic methotrexate use PT evaluate and treat Holding methotrexate 2.5 mg p.o. daily Check ABIs bilateral lower extremities with dusky toes. Taken off SCDs. Observe. FEN: Hypopotassemia 680 mg KCl IV 1 now. Recheck in a.m. Access -Right upper extremity dual-lumen PICC Prophylax -GI -pantoprazole 40 mg IV twice daily -DVT prophylaxis -SCDs/enoxaparin 40 mg subcu daily Critical Care: The total critical care time was 35 minutes. Time to perform other separately billable procedures was not included in the critical care time. Esteban Baca MD Feb 08, 2018 08:24
[2018-02-08] MEDS: RESP: BUDESONIDE 0.5 MG/2 ML NEB NEB SCH ×2 (08:32→21:34)
[2018-02-08] MEDS ORDERED: MORPHINE SULFATE 2 MG/ML SYRINGE IV PUSH PRN (08:45)
--- NOTE | 2018-02-08 08:50 | HHI.PR ---
Subjective Remarks ALERT , COMBATIVE ON VENT SUPPORT Objective Vital Signs Date Time Temp Pulse Resp B/P (MAP) Pulse Ox O2 Delivery O2 Flow Rate FiO2 02/08/18 07:30 96 40 02/08/18 06:00 82 02/08/18 04:00 70 02/08/18 04:00 98.6 70 15 169/83 (111) 100 02/08/18 03:59 100 40 02/08/18 02:00 92 02/08/18 01:14 100 40 02/08/18 00:00 98.9 94 23 165/88 (113) 100 02/08/18 00:00 94 02/07/18 22:00 88 02/07/18 21:33 100 40 02/07/18 20:00 102 02/07/18 20:00 98.8 102 27 183/88 (119) 100 02/07/18 18:00 121 02/07/18 16:17 100 40 02/07/18 16:00 40 02/07/18 16:00 108 02/07/18 16:00 98.9 99 18 174/82 (112) 100 02/07/18 14:00 104 02/07/18 12:00 110 02/07/18 12:00 98.4 90 16 160/75 (103) 100 02/07/18 12:00 40 02/07/18 11:12 100 40 02/07/18 10:00 92 I/O 02/07/18 02/07/18 02/07/18 02/08/18 02/08/18 02/08/18 07:00 15:00 23:00 07:00 15:00 23:00 Intake Total 450 ml Output Total 2850 ml 2965 ml 1825 ml Balance -2400 ml -2965 ml -1825 ml IV Total 450 ml Output Urine Total 2700 ml 2950 ml 1775 ml Stool Total 0 ml 5 ml 50 ml Gastric Drainage Total 150 ml 10 ml 0 ml Result Diagram: 02/08/1843902/08/18439 Objective Remarks GENERAL: SEDATED ON VENT SUPPORT SKIN: Warm and dry. HEAD: Atraumatic. Normocephalic. EYES: Pupils equal and round. No scleral icterus. No injection or drainage. ENT: No nasal bleeding or discharge. Mucous membranes pink and moist. NECK: Trachea midline. No JVD. CARDIOVASCULAR: Regular rate and rhythm. RESPIRATORY: No accessory muscle use. Clear to auscultation. Breath sounds equal bilaterally. GASTROINTESTINAL: Abdomen soft, non-tender, nondistended. Hepatic and splenic margins not palpable. MUSCULOSKELETAL: Extremities without clubbing, cyanosis, or edema. No obvious deformities. NEUROLOGICAL: Awake and alert. No obvious cranial nerve deficits. Motor grossly within normal limits. Five out of 5 muscle strength in the arms and legs. Normal speech. PSYCHIATRIC: Appropriate mood and affect; insight and judgment normal. Assessment and Plan Assessment and Plan ASSESSMENT RESPIRATORY FAILURE COPD CHF AFIB ANEMIA , RELIEVED PACKED RBC PLAN EXTUBATE WHEN POSSIBLE VENT SUPPORT BRONCHODILATOR THERAPY Ed Ward MD Feb 08, 2018 08:50
[2018-02-08] MEDS: CHLORHEXIDINE 0.12% (ORAL KIT) 15 ML CUP MT SCH ×2 (08:59→20:41)
[2018-02-08] MEDS: STIOLTO PO SCH (09:00)
[2018-02-08] MEDS ORDERED: FUROSEMIDE 40 MG/4 ML VIAL IV PUSH SCH (09:00)
[2018-02-08] MEDS: SODIUM CHLORIDE 0.9% FLUSH 10 ML FLUSH IV FLUSH SCH (09:00)
[2018-02-08] MEDS ORDERED: RESP: RACEPINEPHRINE 2.25% 0.5 ML NEB ONE (09:06)
[2018-02-08] MEDS: ENOXAPARIN SODIUM 40 MG/0.4 ML SYRINGE SQ SCH (09:11)
[2018-02-08] MEDS: CYCLOBENZAPRINE HCL 10 MG TAB PO SCH ×3 (09:12→17:13)
[2018-02-08] MEDS: FOLIC ACID 1 MG TAB PO SCH (09:12)
[2018-02-08] MEDS: DOCUSATE SODIUM 100 MG/10 ML UDC PO SCH ×2 (09:12→20:53)
[2018-02-08] MEDS: INSULIN DETEMIR 100 UNITS/ML VIAL SQ SCH ×2 (09:12→21:10)
[2018-02-08] MEDS ORDERED: DEXAMETHASONE SOD PHOS 4 MG/ML VIAL IV PUSH ONE (09:15)
[2018-02-08] MEDS ORDERED: RESP: RACEPINEPHRINE 2.25% 0.5 ML NEB NEB ONE (09:15)
--- NOTE | 2018-02-08 09:22 | RADRPT ---
EXAM DATE/TIME: 02/08/2018 08:32 [facility] COMPARISON: CHEST SINGLE AP, February 06, 2018, 4:13. INDICATIONS : Respiratory. MEDICAL HISTORY : Cardiovascular disease. Chronic obstructive pulmonary disease. Renal disease. Lung cancer SURGICAL HISTORY : Hysterectomy. section ENCOUNTER: Subsequent ACUITY: 3 weeks PAIN SCORE: Non-responsive. LOCATION: Bilateral chest FINDINGS: ET and central line unchanged. There is persistent bilateral interstitial infiltrates in the right u pper, right lower, and throughout the left lung, similar distribution, but slightly improved. Both h emidiaphragms are well delineated. CONCLUSION: Persistent, but improved, bilateral parenchymal infiltrates. Murphy Beverly MD on February 08, 2018 at 9:17 Board Certified Radiologist. This report was verified electronically.
--- NOTE | 2018-02-08 10:18 | HHI.PR ---
Subjective Subjective Notes just got off vent. c/o abd pain, RN medicated with morphine, Objective Vitals/I&O Vital Signs Date Time Temp Pulse Resp B/P (MAP) Pulse Ox O2 Delivery O2 Flow Rate FiO2 02/08/18 07:30 96 40 02/08/18 06:00 82 02/08/18 04:00 98.6 15 169/83 (111) 02/04/18 21:36 Ventilator 02/04/18 07:54 14.00 Labs Laboratory Tests Test 02/07/18 23:15 02/08/18 04:40 Potassium Level 4.7 2.6 White Blood Count 9.0 Red Blood Count 2.74 Hemoglobin 8.1 Hematocrit 24.2 Mean Corpuscular Volume 88.3 Mean Corpuscular Hemoglobin 29.6 Mean Corpuscular Hemoglobin Concent 33.6 Red Cell Distribution Width 18.3 Platelet Count 258 Mean Platelet Volume 8.8 Blood Urea Nitrogen 29 Creatinine 0.59 Random Glucose 237 Calcium Level 8.5 Sodium Level 145 Chloride Level 110 Carbon Dioxide Level 29.5 Anion Gap 6 Estimat Glomerular Filtration Rate 106 Date/Time Source Procedure Growth Status 02/05/18 22:30 Blood Line Aerobic Blood Culture - Preliminary NO GROWTH IN 2 DAYS Resulted 02/05/18 22:30 Blood Line Anaerobic Blood Culture - Preliminary NO GROWTH IN 2 DAYS Resulted 02/04/18 17:36 Nasal Aspirate Influenza Types A,B Antigen (RADHA) - Final NEGATIVE FOR FLU A AND B ANTIGEN.... Complete 02/04/18 17:30 Urine Catheterized Urine Legionella Antigen - Final PRESUMPTIVE NEGATIVE FOR LEGIONELLA P... Complete 02/04/18 17:30 Urine Catheterized Urine Streptococcus pneumoniae Antigen (M - Final PRESUMPTIVE NEGATIVE FOR STREPTOCOCCU... Complete Radiology Last 48 hours Impressions Abdomen/Pelvis CT 01/22/18 1800 Signed Impressions: Service Date/Time: Monday, January 22, 2018 19:40 - CONCLUSION: 1. Distal small bowel obstruction with multiple air-fluid levels. The cecum is impacted with stool to a diameter of 9.2 cm and it is unclear if this is related to a distal small bowel obstruction. No free air. There is mild ascites. 2. Subsegmental patchy airspace disease at the lung base is trace right pleural fluid. 3. Small hiatal hernia. Tee Herrera MD Abdomen: Post-op tenderness Narrative Exam abdomen pretty quiet. mild tenderness Wound Wound : Wound Location: Abdomen Appearance: Clean & Dry Dressing: Dry A/P Problem List: (1) Surgically created abdominal mucous fistula ICD Codes: Z93.4 - Other artificial openings of gastrointestinal tract status Status: Acute (2) S/P exploratory laparotomy ICD Codes: Z98.890 - Other specified postprocedural states (3) Attention to ileostomy ICD Codes: Z43.2 - Encounter for attention to ileostomy Status: Acute (4) Abdominal pain ICD Codes: R10.9 - Unspecified abdominal pain Status: Acute Assessment and Plan 52 year old female POD7 RIGHT hemicolectomy Increase TF to 40cc/hr Wean TPN off tomorrow OOB Aggressive pulmonary toilet DC Lasix per med student Problem Qualifiers (1) Abdominal pain: Qualified Codes: R10.84 - Generalized abdominal pain Yvon Florian MD Feb 08, 2018 10:17
[2018-02-08] MEDS: MULTIVITAMIN INJ 5 ML, FOLIC ACID INJ 0.5 MG in AMINO ACID IN D5W W/ELECTROLYT 1,000 ML IV-CENTRAL SCH ×9 (10:30→23:54)
[2018-02-08] MEDS: POTASSIUM CHLORIDE 25 MEQ EFFERVESCENT TAB PO PRN (12:37)
[2018-02-08 13:08] LABS: MAGNESIUM 2.3 MG/DL (1.5-2.5); PHOSPHORUS 3.4 MG/DL (2.5-4.9)
[2018-02-08] MEDS: MORPHINE SULFATE 4 MG/ML INJ IV PUSH PRN ×3 (13:16→21:20)
--- NOTE | 2018-02-08 16:14 | PD.WCN.NOT ---
Wound Consult Description: Consult for OSTOMY MANAGEMENT of abdomen per Dr Florian. Communicated with: ISABELA Farley Patient mom at bedside Recommendation: Monitor color/output of right upper abdomen mucus fistula. Monitor output of right lower abdomen ileostomy. Change ostomy pouches every 3-5 days and as needed. Additional Information: Patient seen on [facility] for ileostomy appliance change Ostomy Type: Ileostomy (right lower abdomen ileostomy with mucus fistula noted to right upper abdomen) Surgeon: Yvon Florian MD Educated patient on: Quality Control Auditor changing out her ileostomy appliance. Education regarding how often to change the appliance, and events indicating when it should be changed, was given to patient mother at bedside. Color, function of stoma, and sutures that will dissolve eventually was also communicated to patient mother. Additional information Ostomy located on the right lower abdomen is measuring 1 1/4" round, red, moist , moderately protruding, functioning with soft brown/red effluent noted from lumen in center of stoma. ~275ml was emptied from pouch and communicated with ISABELA Farley. Wafer was removed using adhesive remover wipes, peristomal skin was cleansed with water and pat dry. Mucocutaneous junction is noted with circumferential sutures otherwise unremarkable. Cavilon skin prep was used on the peristomal skin and allowed to air dry prior to placing 2 1/4" moldable appliance to intact skin surrounding ileostomy. Pouch was then placed and the bottom of the transparent pouch was closed tightly. Mucus fistula is noted on the right upper abdomen with intact wafer and pouch noted with minimal sanguinous drainage and the pouching system may be changed or completely removed and dressed with a dry cover or gauze and tape. Corrie Malone [facility] Feb 08, 2018 16:14
[2018-02-08] MEDS ORDERED: POTASSIUM CHLORIDE INJ 30 MEQ in SODIUM CHLORIDE 0.9% INJ 100 ML IV-CENTRAL ONE (18:00)
[2018-02-08] MEDS: ONDANSETRON HCL 4 MG/2 ML VIAL IV PUSH PRN (21:20)
[2018-02-09] VITALS (14 sets, daily range): BP systolic 160–181; BP diastolic 72–84; PULSE 78–88; RESP 14–18; TEMP 97.7–98.3; O2SAT 95–100
[2018-02-09] MEDS: METOCLOPRAMIDE HCL 10 MG/2 ML VIAL IV SCH ×3 (00:09→16:28)
[2018-02-09] MEDS: MORPHINE SULFATE 4 MG/ML INJ IV PUSH PRN ×8 (00:26→22:51)
[2018-02-09] MEDS: VANCOMYCIN 1,000 MG/NS 250 ML IV SCH ×4 (00:27→08:59)
[2018-02-09] MEDS: INSULIN NovoLIN REGULAR SUPPLEMENTAL SCALE SQ SCH ×6 (03:51→20:00)
[2018-02-09] MEDS: RESP: ALBUTEROL 2.5 MG/IPRATROPIUM 0.5 MG NEB (SCH) NEB ×4 (04:00→21:36)
[2018-02-09] MEDS: ARTIFICIAL TEARS OPTH SOLN 15 ML BTL EACH EYE SCH ×3 (04:57→21:16)
[2018-02-09] MEDS: PIPERACIL-TAZO 4.5 GM PREMIX 100 ML IV SCH ×4 (04:57→21:15)
[2018-02-09] MEDS: PANTOPRAZOLE SODIUM 40 MG VIAL IV PUSH SCH ×2 (04:57→16:29)
[2018-02-09 05:30] LABS: HEMATOCRIT 26.7 % (35.0-46.0); HEMOGLOBIN 9.1 GM/DL (11.6-15.3); MEAN CELL VOLUME 87.9 FL (80.0-100.0); MEAN CORPUSCULAR HGB CONC 34.1 % (32.0-36.0); MEAN PLATELET VOLUME 8.7 FL (7.0-11.0); PLATELET COUNT 288 TH/MM3 (150-450); RED BLOOD COUNT 3.03 MIL/MM3 (4.00-5.30); RED CELL DISTRIBUTION WIDTH 18.4 % (11.6-17.2); WHITE BLOOD COUNT 9.4 TH/MM3 (4.0-11.0)
[2018-02-09 05:53] LABS: ALBUMIN 1.6 GM/DL (3.4-5.0); BICARBONATE 31.7 MEQ/L (21.0-32.0); CALCIUM 8.5 MG/DL (8.5-10.1); CREATININE 0.58 MG/DL (0.50-1.00); DIRECT BILIRUBIN ADULT 0.1 MG/DL (0.0-0.2)
[2018-02-09 05:56] LABS: INDIRECT BILIRUBIN 0.2 MG/DL (0.0-0.8); TOTAL BILIRUBIN ADULT 0.3 MG/DL (0.2-1.0); TOTAL PROTEIN 5.9 GM/DL (6.4-8.2)
[2018-02-09] MEDS: HYDROCORTISONE SOD SUCCINATE 100 MG VIAL IV PUSH SCH ×3 (06:00→21:15)
[2018-02-09] MEDS: CHLORHEXIDINE 0.12% (ORAL KIT) 15 ML CUP MT SCH ×2 (07:18→20:00)
[2018-02-09] MEDS ORDERED: PHARMACY ORDERED LAB ONE (07:45)
[2018-02-09] MEDS: DOCUSATE SODIUM 100 MG/10 ML UDC PO SCH ×2 (08:07→21:15)
[2018-02-09] MEDS: SODIUM CHLORIDE 0.9% FLUSH 10 ML FLUSH IV FLUSH SCH (08:08)
[2018-02-09] MEDS: STIOLTO PO SCH (08:08)
[2018-02-09] MEDS: RESP: BUDESONIDE 0.5 MG/2 ML NEB NEB SCH ×2 (08:35→21:36)
[2018-02-09] MEDS: INSULIN DETEMIR 100 UNITS/ML VIAL SQ SCH ×2 (08:59→21:00)
[2018-02-09] MEDS: FOLIC ACID 1 MG TAB PO SCH (08:59)
[2018-02-09] MEDS: CYCLOBENZAPRINE HCL 10 MG TAB PO SCH ×3 (08:59→18:00)
[2018-02-09] MEDS: ICU - POTASSIUM CHLORIDE/AQUEOUS SOLN 40 MEQ/100 ML IVPB IV PRN (09:00)
[2018-02-09] MEDS: ONDANSETRON HCL 4 MG/2 ML VIAL IV PUSH PRN ×2 (09:00→16:28)
[2018-02-09] MEDS: ENOXAPARIN SODIUM 40 MG/0.4 ML SYRINGE SQ SCH (09:01)
[2018-02-09] MEDS: MULTIVITAMIN INJ 5 ML, FOLIC ACID INJ 0.5 MG in AMINO ACID IN D5W W/ELECTROLYT 1,000 ML IV-CENTRAL SCH ×3 (13:18)
[2018-02-09] MEDS: LABETALOL HCL 100 MG/20 ML VIAL IV PRN (13:20)
--- NOTE | 2018-02-09 13:47 | HHI.CCPN ---
Subjective Remarks/Hospital Course This is a 52-year-old female. Date of admission 01/23/2018. Date of consultation 02/04/2018. Past medical history includes lung cancer right lung not treated, COPD/chronic respiratory failure on 2 L nasal cannula chronically, hypertension, diabetes, congestive heart failure, atrial fibrillation, coronary artery disease, cirrhosis and seizure disorder with ongoing tobaccoism. Patient had a CAT scan which revealed a likely small distal small bowel obstruction. Cecal impaction with stool. 9.2 cm in size. Small hiatal hernia. 01/23 -colonoscopy by Dr. Poole revealed sigmoid diverticulosis, small internal and external hemorrhage. Large amount of stool. Possible obstructive process On 01/24 patient had a Gastrografin enema. Which did not reveal any signs of obstruction On 01/28 patient repeat colonoscopy which revealed to the ileocecal valve which revealed copious stool/small prep. 01/30 patient had small bowel series which revealed contrast slow transit over 21 hours indicative either ileus versus distal small bowel obstruction On 02/01 patient had expiratory laparotomy with the right hemicolectomy, G-tube placement, end ileostomy and mucous fistula transverse colon by Dr. Florian. Over the weekend, patient was on D5 one half normal saline at 125 cc hours and TPN 83 cc an hour along with other intravenous medications. Patient was a HalicatToday due to increasing oxygen requirements. Possibly volume overload. Patient is hypertensive. 02/05/17: T-max 102.9. Current 100.8. Resting comfortably in bed. Family concern regarding cool extremities. Remains on piperacillin tazobactam and metronidazole. All cultures currently no growth today. 02/06: remains sedated and intubated. failed CPAP yesterday and became tachypneic. appears volume overloaded on physical exam. afebrile. 02/07: good diuresis yesterday with > 3L net negative. still failing CPAP, although appears more comfortable today. still slightly volume overloaded. K 2.0 this AM and aggressively replacing. Subjective 02/08: Afebrile. On PSV trial 24 hours 06/09 with adequate extubation parameters. Will attempt extubation this a.m. Chest x-ray pending. No bowel movement 02/09: Extubated 24 hours ago, breathing comfortably. Increase K level, hopefully improved bowel motility. Objective Vital Signs Date Time Temp Pulse Resp B/P (MAP) Pulse Ox O2 Delivery O2 Flow Rate FiO2 02/09/18 08:36 100 Nasal Cannula 2.00 02/09/18 08:00 84 02/09/18 08:00 98.3 14 181/80 (113) 02/08/18 07:30 40 Intake and Output 02/09/18 02/09/18 02/10/18 08:00 16:00 00:00 Intake Total 323 ml Output Total 955.0 ml Balance -632.0 ml Result Diagram: 02/09/18 0500 02/09/18 0500 Imaging Last Impressions Chest X-Ray 02/06/18 0600 Signed Impressions: Service Date/Time: Tuesday, February 06, 2018 04:13 - CONCLUSION: No significant interval change Lamont Grossman MD Abdomen X-Ray 02/06/18 0000 Signed Impressions: Service Date/Time: Tuesday, February 06, 2018 11:39 - CONCLUSION: 1. NG tip in stomach with side-port in distal esophagus. Presumed gastrostomy in the left upper quadrant. Tee Herrera MD Small Bowel X-Ray 01/30/18 0000 Signed Impressions: Service Date/Time: Tuesday, January 30, 2018 13:51 - CONCLUSION: There is diffuse distention of the small bowel with slow progression of contrast through the small bowel over 21 hours. This is nonspecific. This could be a diffuse adynamic ileus of the small bowel versus a distal small bowel obstruction. Lucien Willett MD Enema w/Water Soluble 01/24/18 0000 Signed Impressions: Service Date/Time: January 11:06 - CONCLUSION: Gastrografin enema performed for constipation as described above. Jabier Aviles MD Abdomen/Pelvis CT 01/22/18 1800 Signed Impressions: Service Date/Time: Monday, January 22, 2018 19:40 - CONCLUSION: 1. Distal small bowel obstruction with multiple air-fluid levels. The cecum is impacted with stool to a diameter of 9.2 cm and it is unclear if this is related to a distal small bowel obstruction. No free air. There is mild ascites. 2. Subsegmental patchy airspace disease at the lung base is trace right pleural fluid. 3. Small hiatal hernia. Tee Herrera MD Procedures 01/23/18 colonoscopy 01/24/18 Gastrografin enema 02/01/18 Patient with Small bowel obstruction secondary to constipation . Massively dependent right colon, completely full of pasty stool. Status post surgery by Dr. Florian 02/01/18: exploratory lap, extended right hemicolectomy, gastrostomy tube, end ileostomy, mucous fistula transverse colon Objective Remarks GENERAL: This is a 52-year-old female SKIN: Warm and dry. Well perfused with no rash HEAD: Atraumatic. Normocephalic. EYES: Pupils equal and round around 2 mm bilaterally and reactive. No scleral icterus. No injection or drainage. ENT: No nasal bleeding or discharge. Mucous membranes pink and moist. NECK: Trachea midline. Airway widely patent. CARDIOVASCULAR: normal rate, regular rhythm. sinus by telemetry. RESPIRATORY: PRVC. Few rhonchi, good bilateral air movement. GASTROINTESTINAL: Abdomen soft, midline incision evelio are well healing. Ostomy and mucous fistula clean dry and intact. G-tube is clean dry and intact without erythema MUSCULOSKELETAL: Extremities with trace bilateral lower extremity edema. Right upper extremity dual-lumen PICC line. NEUROLOGICAL: RASS 0, follows commands. Date of Insertion: Jan 30, 2018 Line: PICC Side: Right Location: Antecubital A/P Assessment and Plan Neuro/Psych: Chronic narcotic use Chronic benzodiazepine use Seizure disorder NOS History of TIA Currently off all sedation Goal of RASS -0 Daily sedation vacation Patient is on alprazolam 0.25 mg twice daily at home. This currently on hold Patient is on hydrocodone/acetaminophen 7.5/300 1 tablet 3 times daily at home. This is on hold Patient is on cyclobenzaprine 10 mg 3 times daily at home muscle relaxant. This is on hold Ofirmev 1 g IV every 8 hours as needed fever Switch to morphine sulfate 2-4 mg of acute respiratory pain CV: Coronary artery disease Congestive heart failure likely chronic diastolic Paroxysmal atrial fib relation currently normal sinus rhythm Hypertension Dyslipidemia Acute intravascular volume overload Decrease furosemide to 40 mg IV daily. Status post acetazolamide and furosemide for diuresis Holding nifedipine extended release 90 mg daily while intubated. Resume when clinically indicated Holding aspirin 325 mg p.o. daily status post surgical procedure 2D echocardiogram revealed left ventricular systolic function is grossly normal on limited imaging. Mild concentric left ventricular hypertrophy. Trace mitral valve regurgitation. There is trace tricuspid valve regurgitation. Trivial pulmonary valve regurgitation. Doppler parameters are consistent with impaired left ventricular relaxtion (grade 1 diastolic dysfunction). Resp: Acute hypoxic respiratory failure Chronic respiratory failure secondary to COPD/2 L oxygen dependent PRVC 18/550/11/09/40 Currently on CPAP 8/5 and 40% Ventilator bundle Patient is currently on albuterol/ipratropium aerosols every 6 hours with albuterol aerosols every 2 hours as needed for dyspnea Follow-up on x-ray today Patient is previously on tiotropium/olodaterol 2.5/2.5 mg 2 puffs daily and budesonide/formoterol 160/4.5 2 puffs twice daily at home Adequate wean the pressors. GI: Postop day #8 exploratory laparotomy with right hemicolectomy, G-tube placement with end ileostomy, mucous fistula transverse colon secondary to stool impaction small bowel by Dr. Florian Gastroesophageal reflux disease History of liver cirrhosis? Hypoalbuminemia Currently TPN with Clinimix E 4.25/25 at 75 cc an hour. No lipids while on propofol Postoperative cares per Dr. Florian Continue pantoprazole 40 mg IV twice daily Docusate sodium 100 mg twice daily Metoclopramide 10 mg IV every 8 hours per surgery Ostomy cares Pathology reveals acute colitis with ulceration, serositis : Bucio catheter has been placed for accurate I's and O's in a critically ill patient: keep today while actively diuresing. Endo: TSH elevated 3.9. Low T3. Normal T4. Chronic prednisone use 5 mg twice daily increase SSI to high scale q4h. with 75 units sliding scale past 24 hours Recheck TSH in 4-6 weeks increase insulin detemir 40 units twice daily. hydrocortisone sodium succinate 50 mg IV 3 times daily. Renal: Creatinine currently within normal limits Monitor urine output Accurate I's and O's Heme: Normocytic anemia Monitor CBC daily. Follow trend Transfused 2 units PRBCs 02/04. no indication for transfusion today. ID: On ciprofloxacin 400 mg IV twice daily/metronidazole 500 mg IV every 6 hours since 01/23-02/04. Initiate piperacillin/tazobactam 4.5 g IV every 6 hours day #5 vancomycin day #4 Blood cultures 02/03 no growth to date blood cultures 2, sputum urine and urine Legionella pneumococcal antigen 02/04: NGTD. Influenza negative MSK: Chronic methotrexate use PT evaluate and treat Holding methotrexate 2.5 mg p.o. daily Check ABIs bilateral lower extremities with dusky toes. Taken off SCDs. Observe. FEN: Hypopotassemia 680 mg KCl IV 1 now. Recheck in a.m. Access -Right upper extremity dual-lumen PICC Prophylax -GI -pantoprazole 40 mg IV twice daily -DVT prophylaxis -SCDs/enoxaparin 40 mg subcu daily Overall impression: Improving respiratory function. Replete electrolytes, encourage bowel activity. Jose De Jesus Burton MD Feb 09, 2018 13:47
--- NOTE | 2018-02-09 16:10 | HHI.PR ---
cc: Ralph Adair MD Subjective Subjective Notes DAILY PROGRESS NOTE FOR SURGICAL ATTENDING, DR. RALPH ADAIR Family bedside She's happy she is extubated Tolerating tube feeds As ileostomy output Objective Vitals/I&O Vital Signs Date Time Temp Pulse Resp B/P (MAP) Pulse Ox O2 Delivery O2 Flow Rate FiO2 02/09/18 14:00 78 02/09/18 12:00 98.3 16 169/79 (109) 97 02/09/18 08:36 Nasal Cannula 2.00 02/08/18 07:30 40 Labs Laboratory Tests Test 02/08/18 16:39 02/09/18 05:00 02/09/18 08:00 Potassium Level 3.0 3.0 White Blood Count 9.4 Red Blood Count 3.03 Hemoglobin 9.1 Hematocrit 26.7 Mean Corpuscular Volume 87.9 Mean Corpuscular Hemoglobin 30.0 Mean Corpuscular Hemoglobin Concent 34.1 Red Cell Distribution Width 18.4 Platelet Count 288 Mean Platelet Volume 8.7 Blood Urea Nitrogen 30 Creatinine 0.58 Random Glucose 173 Total Protein 5.9 Albumin 1.6 Calcium Level 8.5 Alkaline Phosphatase 62 Aspartate Amino Transf (AST/SGOT) 22 Alanine Aminotransferase (ALT/SGPT) 26 Total Bilirubin 0.3 Direct Bilirubin 0.1 Sodium Level 146 Chloride Level 110 Carbon Dioxide Level 31.7 Anion Gap 4 Estimat Glomerular Filtration Rate 108 Indirect Bilirubin 0.2 Vancomycin Level Trough 24.5 Date/Time Source Procedure Growth Status 02/05/18 22:30 Blood Line Aerobic Blood Culture - Preliminary NO GROWTH IN 4 DAYS Resulted 02/05/18 22:30 Blood Line Anaerobic Blood Culture - Preliminary NO GROWTH IN 4 DAYS Resulted 02/04/18 17:36 Nasal Aspirate Influenza Types A,B Antigen (RADHA) - Final NEGATIVE FOR FLU A AND B ANTIGEN.... Complete 02/04/18 17:30 Urine Catheterized Urine Legionella Antigen - Final PRESUMPTIVE NEGATIVE FOR LEGIONELLA P... Complete 02/04/18 17:30 Urine Catheterized Urine Streptococcus pneumoniae Antigen (M - Final PRESUMPTIVE NEGATIVE FOR STREPTOCOCCU... Complete Radiology Last 48 hours Impressions Abdomen/Pelvis CT 01/22/18 1800 Signed Impressions: Service Date/Time: Monday, January 22, 2018 19:40 - CONCLUSION: 1. Distal small bowel obstruction with multiple air-fluid levels. The cecum is impacted with stool to a diameter of 9.2 cm and it is unclear if this is related to a distal small bowel obstruction. No free air. There is mild ascites. 2. Subsegmental patchy airspace disease at the lung base is trace right pleural fluid. 3. Small hiatal hernia. Ralph Herrera MD Cardiovascular: Regular Abdomen: Post-op tenderness Extremities: Perfused Narrative Exam Good urine output G-tube with tube feeds going A/P Problem List: (1) Surgically created abdominal mucous fistula ICD Codes: Z93.4 - Other artificial openings of gastrointestinal tract status Status: Acute (2) S/P exploratory laparotomy ICD Codes: Z98.890 - Other specified postprocedural states (3) Attention to ileostomy ICD Codes: Z43.2 - Encounter for attention to ileostomy Status: Acute (4) Abdominal pain ICD Codes: R10.9 - Unspecified abdominal pain Status: Acute Assessment and Plan 52-year-old female who had a extended right colon resection for dysfunctional colon Feels better Tolerating tube feeds Weaning off TPN Extubated yesterday OOB Aggressive pulmonary toilet Attending Statement NOTE FOR SURGICAL ATTENDING, DR. RALPH ADAIR I attest that I had a [id number] encounter with the patient on the same day, and personally performed and documented my assessment and findings in the medical record. The following services were provided during this hospital visit: Chart data review, vital sign assessments/reviewing monitor data Review of consultations notes if present. Medication orders/review and/or management Ordering and/or reviewing lab tests Ordering and/or interpreting/reviewing x-rays and/or diagnostic studies Care of the patient and discussion of the patient with the care team Documentation time To help prompt me to consider important information that might be impacting today's encounter and assessment, information from prior notes written by myself or my colleagues may have been "brought forward/copy and pasted" into today's note. Problem Qualifiers (1) Abdominal pain: Qualified Codes: R10.84 - Generalized abdominal pain Ralph Adair MD Feb 09, 2018 16:10
[2018-02-09] MEDS: cloNIDine HCL 0.1 MG TAB PO PRN ×2 (16:29→21:15)
[2018-02-10] VITALS (10 sets, daily range): BP systolic 148–182; BP diastolic 70–85; PULSE 74–90; RESP 13–18; TEMP 97.1–98.8; O2SAT 91–99
[2018-02-10] MEDS: METOCLOPRAMIDE HCL 10 MG/2 ML VIAL IV SCH ×3 (00:05→17:28)
[2018-02-10] MEDS: MULTIVITAMIN INJ 5 ML, FOLIC ACID INJ 0.5 MG in AMINO ACID IN D5W W/ELECTROLYT 1,000 ML IV-CENTRAL SCH ×6 (01:09→08:35)
[2018-02-10] MEDS: MORPHINE SULFATE 4 MG/ML INJ IV PUSH PRN ×5 (01:48→20:06)
[2018-02-10] MEDS: RESP: ALBUTEROL 2.5 MG/IPRATROPIUM 0.5 MG NEB (SCH) NEB ×2 (03:03→10:00)
[2018-02-10] MEDS: INSULIN NovoLIN REGULAR SUPPLEMENTAL SCALE SQ SCH ×5 (04:00→16:00)
[2018-02-10] MEDS: PIPERACIL-TAZO 4.5 GM PREMIX 100 ML IV SCH ×3 (04:38→17:29)
[2018-02-10] MEDS: cloNIDine HCL 0.1 MG TAB PO PRN (04:38)
[2018-02-10 04:44] LABS: HEMATOCRIT 26.7 % (35.0-46.0); HEMOGLOBIN 8.7 GM/DL (11.6-15.3); MEAN CELL VOLUME 88.6 FL (80.0-100.0); MEAN CORPUSCULAR HEMOGLOBIN 28.7 PG (27.0-34.0); MEAN CORPUSCULAR HGB CONC 32.4 % (32.0-36.0); MEAN PLATELET VOLUME 8.8 FL (7.0-11.0); PLATELET COUNT 315 TH/MM3 (150-450); RED BLOOD COUNT 3.01 MIL/MM3 (4.00-5.30); RED CELL DISTRIBUTION WIDTH 18.2 % (11.6-17.2); WHITE BLOOD COUNT 10.8 TH/MM3 (4.0-11.0)
[2018-02-10 05:04] LABS: BICARBONATE 32.7 MEQ/L (21.0-32.0); CALCIUM 8.4 MG/DL (8.5-10.1); CREATININE 0.52 MG/DL (0.50-1.00); MAGNESIUM 2.4 MG/DL (1.5-2.5)
[2018-02-10 05:06] LABS: RANDOM VANCOMYCIN 9.8 COMMENT
[2018-02-10] MEDS: PANTOPRAZOLE SODIUM 40 MG VIAL IV PUSH SCH ×2 (05:56→17:28)
[2018-02-10] MEDS: HYDROCORTISONE SOD SUCCINATE 100 MG VIAL IV PUSH SCH ×2 (05:56→20:04)
[2018-02-10] MEDS: ARTIFICIAL TEARS OPTH SOLN 15 ML BTL EACH EYE SCH ×3 (05:57→20:10)
[2018-02-10] MEDS: DOCUSATE SODIUM 100 MG/10 ML UDC PO SCH ×2 (07:55→20:07)
[2018-02-10] MEDS: CHLORHEXIDINE 0.12% (ORAL KIT) 15 ML CUP MT SCH ×2 (07:56→20:00)
[2018-02-10] MEDS: ONDANSETRON HCL 4 MG/2 ML VIAL IV PUSH PRN (07:56)
[2018-02-10] MEDS: LABETALOL HCL 100 MG/20 ML VIAL IV PRN (07:57)
[2018-02-10] MEDS: SODIUM CHLORIDE 0.9% FLUSH 10 ML FLUSH IV FLUSH SCH (07:57)
[2018-02-10] MEDS: FOLIC ACID 1 MG TAB PO SCH (07:57)
[2018-02-10] MEDS: CYCLOBENZAPRINE HCL 10 MG TAB PO SCH ×3 (07:57→17:28)
[2018-02-10] MEDS: RESP: BUDESONIDE 0.5 MG/2 ML NEB NEB SCH ×2 (08:00→20:00)
[2018-02-10] MEDS: DEXTROSE 50% IN WATER 50 ML VIAL(D50) IV PUSH PRN ×2 (08:31→18:04)
[2018-02-10] MEDS: INSULIN DETEMIR 100 UNITS/ML VIAL SQ SCH (09:00)
--- NOTE | 2018-02-10 09:08 | HHI.CCPN ---
Subjective Remarks/Hospital Course This is a 52-year-old female. Date of admission 01/23/2018. Date of consultation 02/04/2018. Past medical history includes lung cancer right lung not treated, COPD/chronic respiratory failure on 2 L nasal cannula chronically, hypertension, diabetes, congestive heart failure, atrial fibrillation, coronary artery disease, cirrhosis and seizure disorder with ongoing tobaccoism. Patient had a CAT scan which revealed a likely small distal small bowel obstruction. Cecal impaction with stool. 9.2 cm in size. Small hiatal hernia. 01/23 -colonoscopy by Dr. Poole revealed sigmoid diverticulosis, small internal and external hemorrhage. Large amount of stool. Possible obstructive process On 01/24 patient had a Gastrografin enema. Which did not reveal any signs of obstruction On 01/28 patient repeat colonoscopy which revealed to the ileocecal valve which revealed copious stool/small prep. 01/30 patient had small bowel series which revealed contrast slow transit over 21 hours indicative either ileus versus distal small bowel obstruction On 02/01 patient had expiratory laparotomy with the right hemicolectomy, G-tube placement, end ileostomy and mucous fistula transverse colon by Dr. Florian. Over the weekend, patient was on D5 one half normal saline at 125 cc hours and TPN 83 cc an hour along with other intravenous medications. Patient was a HalicatToday due to increasing oxygen requirements. Possibly volume overload. Patient is hypertensive. 02/05/17: T-max 102.9. Current 100.8. Resting comfortably in bed. Family concern regarding cool extremities. Remains on piperacillin tazobactam and metronidazole. All cultures currently no growth today. 02/06: remains sedated and intubated. failed CPAP yesterday and became tachypneic. appears volume overloaded on physical exam. afebrile. 02/07: good diuresis yesterday with > 3L net negative. still failing CPAP, although appears more comfortable today. still slightly volume overloaded. K 2.0 this AM and aggressively replacing. Subjective 02/08: Afebrile. On PSV trial 24 hours 06/09 with adequate extubation parameters. Will attempt extubation this a.m. Chest x-ray pending. No bowel movement 02/09: Extubated 24 hours ago, breathing comfortably. Increase K level, hopefully improved bowel motility. 04/08: Intestinal output improved. No distention. Comfortable. Stomas pink, well perfused. Objective Vital Signs Date Time Temp Pulse Resp B/P (MAP) Pulse Ox O2 Delivery O2 Flow Rate FiO2 02/10/18 06:00 82 02/10/18 04:00 98.1 14 167/83 (111) 99 02/09/18 21:39 Nasal Cannula 2.00 02/08/18 07:30 40 Intake and Output 02/10/18 02/10/18 02/11/18 08:00 16:00 00:00 Intake Total 763 ml Output Total 900 ml Balance -137 ml Result Diagram: 02/10/18 0420 02/10/18 0420 Imaging Last Impressions Chest X-Ray 02/06/18 0600 Signed Impressions: Service Date/Time: Tuesday, February 06, 2018 04:13 - CONCLUSION: No significant interval change Lamont Grossman MD Abdomen X-Ray 02/06/18 0000 Signed Impressions: Service Date/Time: Tuesday, February 06, 2018 11:39 - CONCLUSION: 1. NG tip in stomach with side-port in distal esophagus. Presumed gastrostomy in the left upper quadrant. Tee Herrera MD Small Bowel X-Ray 01/30/18 0000 Signed Impressions: Service Date/Time: Tuesday, January 30, 2018 13:51 - CONCLUSION: There is diffuse distention of the small bowel with slow progression of contrast through the small bowel over 21 hours. This is nonspecific. This could be a diffuse adynamic ileus of the small bowel versus a distal small bowel obstruction. Lucien Willett MD Enema w/Water Soluble 01/24/18 0000 Signed Impressions: Service Date/Time: January 11:06 - CONCLUSION: Gastrografin enema performed for constipation as described above. Jabier Aviles MD Abdomen/Pelvis CT 01/22/18 1800 Signed Impressions: Service Date/Time: Monday, January 22, 2018 19:40 - CONCLUSION: 1. Distal small bowel obstruction with multiple air-fluid levels. The cecum is impacted with stool to a diameter of 9.2 cm and it is unclear if this is related to a distal small bowel obstruction. No free air. There is mild ascites. 2. Subsegmental patchy airspace disease at the lung base is trace right pleural fluid. 3. Small hiatal hernia. Tee Hererra MD Procedures 01/23/18 colonoscopy 01/24/18 Gastrografin enema 02/01/18 Patient with Small bowel obstruction secondary to constipation . Massively dependent right colon, completely full of pasty stool. Status post surgery by Dr. Florian 02/01/18: exploratory lap, extended right hemicolectomy, gastrostomy tube, end ileostomy, mucous fistula transverse colon Objective Remarks GENERAL: This is a 52-year-old female SKIN: Warm and dry. Well perfused with no rash HEAD: Atraumatic. Normocephalic. EYES: Pupils equal and round around 2 mm bilaterally and reactive. No scleral icterus. No injection or drainage. ENT: No nasal bleeding or discharge. Mucous membranes pink and moist. NECK: Trachea midline. Airway widely patent. CARDIOVASCULAR: normal rate, regular rhythm. sinus by telemetry. RESPIRATORY: PRVC. Few rhonchi, good bilateral air movement. Comfortable. GASTROINTESTINAL: Abdomen soft, midline incision evelio are well healing. Ostomy and mucous fistula clean dry and intact. G-tube is clean dry and intact without erythema MUSCULOSKELETAL: Extremities with trace bilateral lower extremity edema. Right upper extremity dual-lumen PICC line. NEUROLOGICAL: RASS 0, follows commands. Conversant, O X 3, cooperative. Date of Insertion: Jan 30, 2018 Line: PICC Side: Right Location: Antecubital A/P Assessment and Plan Neuro/Psych: Chronic narcotic use Chronic benzodiazepine use Seizure disorder NOS History of TIA Currently off all sedation Goal of RASS -0 Daily sedation vacation Patient is on alprazolam 0.25 mg twice daily at home. This currently on hold Patient is on hydrocodone/acetaminophen 7.5/300 1 tablet 3 times daily at home. This is on hold Patient is on cyclobenzaprine 10 mg 3 times daily at home muscle relaxant. This is on hold Ofirmev 1 g IV every 8 hours as needed fever CV: Coronary artery disease Congestive heart failure likely chronic diastolic Paroxysmal atrial fib relation currently normal sinus rhythm Hypertension Dyslipidemia Acute intravascular volume overload Decrease furosemide to 40 mg IV daily. Status post acetazolamide and furosemide for diuresis Holding nifedipine extended release 90 mg daily while intubated. Resume when clinically indicated Holding aspirin 325 mg p.o. daily status post surgical procedure 2D echocardiogram revealed left ventricular systolic function is grossly normal on limited imaging. Mild concentric left ventricular hypertrophy. Trace mitral valve regurgitation. There is trace tricuspid valve regurgitation. Trivial pulmonary valve regurgitation. Doppler parameters are consistent with impaired left ventricular relaxtion (grade 1 diastolic dysfunction). Resp: Acute hypoxic respiratory failure Chronic respiratory failure secondary to COPD/2 L oxygen dependent [facility]/550/11/09/39 -> extubated. Patient is currently on albuterol/ipratropium aerosols every 6 hours with albuterol aerosols every 2 hours as needed for dyspnea Follow-up on x-ray today Patient is previously on tiotropium/olodaterol 2.5/2.5 mg 2 puffs daily and budesonide/formoterol 160/4.5 2 puffs twice daily at home GI: Postop day #9 exploratory laparotomy with right hemicolectomy, G-tube placement with end ileostomy, mucous fistula transverse colon secondary to stool impaction small bowel by Dr. Florian Gastroesophageal reflux disease History of liver cirrhosis? Hypoalbuminemia Currently TPN with Clinimix E 4.25/25 at 75 cc an hour. No lipids while on propofol Postoperative cares per Dr. Florian Continue pantoprazole 40 mg IV twice daily Docusate sodium 100 mg twice daily Metoclopramide 10 mg IV every 8 hours per surgery Ostomy cares Pathology reveals acute colitis with ulceration, serositis Wean TPN as enteral feeds increase : Bucio catheter has been placed for accurate I's and O's in a critically ill patient: keep today while actively diuresing. Endo: TSH elevated 3.9. Low T3. Normal T4. Chronic prednisone use 5 mg twice daily increase SSI to high scale q4h. with 75 units sliding scale past 24 hours Recheck TSH in 4-6 weeks increase insulin detemir 40 units twice daily. taper hydrocortisone sodium succinate 50 mg IV 3 times daily. Renal: Creatinine currently within normal limits Monitor urine output Accurate I's and O's Heme: Normocytic anemia Monitor CBC daily. Follow trend Transfused 2 units PRBCs 02/04. no indication for transfusion today. ID: On ciprofloxacin 400 mg IV twice daily/metronidazole 500 mg IV every 6 hours since 01/23-02/04. Initiate piperacillin/tazobactam 4.5 g IV every 6 hours day #5 vancomycin day #4 Blood cultures 02/03 no growth to date blood cultures 2, sputum urine and urine Legionella pneumococcal antigen /: NGTD. Influenza negative MSK: Chronic methotrexate use PT evaluate and treat Holding methotrexate 2.5 mg p.o. daily Check ABIs bilateral lower extremities with dusky toes. Taken off SCDs. Observe. FEN: Hypopotassemia 680 mg KCl IV 1 now. Recheck in a.m. Access -Right upper extremity dual-lumen PICC Prophylax -GI -pantoprazole 40 mg IV twice daily -DVT prophylaxis -SCDs/enoxaparin 40 mg subcu daily Overall impression: Improving respiratory function. Replete electrolytes, encourage bowel activity. Taper off steroids and transfer today. Jose De Jesus Burton MD Feb 10, 2018 09:08
[2018-02-10] MEDS: STIOLTO PO SCH (09:33)
[2018-02-10] MEDS: ENOXAPARIN SODIUM 40 MG/0.4 ML SYRINGE SQ SCH (09:38)
[2018-02-10] MEDS ORDERED: MULTIVITAMIN INJ 10 ML, FOLIC ACID INJ 1 MG in AMINO ACID IN D5W W/ELECTROLYT 1,000 ML IV-CENTRAL SCH ×6 (10:00→20:00)
--- NOTE | 2018-02-10 10:49 | HHI.PR ---
Subjective Subjective Notes no acute issues, wants to eat, c/o incisional pain Objective Vitals/I&O Vital Signs Date Time Temp Pulse Resp B/P (MAP) Pulse Ox O2 Delivery O2 Flow Rate FiO2 02/10/18 10:21 20 02/10/18 06:00 82 02/10/18 04:00 98.1 167/83 (111) 99 02/09/18 21:39 Nasal Cannula 2.00 02/08/18 07:30 40 Labs Laboratory Tests Test 02/10/18 00:05 02/10/18 04:20 Potassium Level 4.2 3.9 White Blood Count 10.8 Red Blood Count 3.01 Hemoglobin 8.7 Hematocrit 26.7 Mean Corpuscular Volume 88.6 Mean Corpuscular Hemoglobin 28.7 Mean Corpuscular Hemoglobin Concent 32.4 Red Cell Distribution Width 18.2 Platelet Count 315 Mean Platelet Volume 8.8 Blood Urea Nitrogen 35 Creatinine 0.52 Random Glucose 83 Calcium Level 8.4 Magnesium Level 2.4 Sodium Level 149 Chloride Level 112 Carbon Dioxide Level 32.7 Anion Gap 4 Estimat Glomerular Filtration Rate 123 Random Vancomycin Level 9.8 Date/Time Source Procedure Growth Status 02/05/18 22:30 Blood Line Aerobic Blood Culture - Preliminary NO GROWTH IN 4 DAYS Resulted 02/05/18 22:30 Blood Line Anaerobic Blood Culture - Preliminary NO GROWTH IN 4 DAYS Resulted 02/04/18 17:36 Nasal Aspirate Influenza Types A,B Antigen (RADHA) - Final NEGATIVE FOR FLU A AND B ANTIGEN.... Complete 02/04/18 17:30 Urine Catheterized Urine Legionella Antigen - Final PRESUMPTIVE NEGATIVE FOR LEGIONELLA P... Complete 02/04/18 17:30 Urine Catheterized Urine Streptococcus pneumoniae Antigen (M - Final PRESUMPTIVE NEGATIVE FOR STREPTOCOCCU... Complete Radiology Last 48 hours Impressions Abdomen/Pelvis CT 01/22/18 1800 Signed Impressions: Service Date/Time: Monday, January 22, 2018 19:40 - CONCLUSION: 1. Distal small bowel obstruction with multiple air-fluid levels. The cecum is impacted with stool to a diameter of 9.2 cm and it is unclear if this is related to a distal small bowel obstruction. No free air. There is mild ascites. 2. Subsegmental patchy airspace disease at the lung base is trace right pleural fluid. 3. Small hiatal hernia. Tee Herrera MD Abdomen: Other (incisonal tenderness ostomy with stool, pink viable) A/P Problem List: (1) Surgically created abdominal mucous fistula ICD Codes: Z93.4 - Other artificial openings of gastrointestinal tract status Status: Acute (2) S/P exploratory laparotomy ICD Codes: Z98.890 - Other specified postprocedural states (3) Attention to ileostomy ICD Codes: Z43.2 - Encounter for attention to ileostomy Status: Acute (4) Abdominal pain ICD Codes: R10.9 - Unspecified abdominal pain Status: Acute Assessment and Plan 52-year-old female who had a extended right colon resection for dysfunctional colon doing well d/c jean oob consult pt transfer when bed available Tolerating tube feeds Weaning off TPN Aggressive pulmonary toilet Problem Qualifiers (1) Abdominal pain: Qualified Codes: R10.84 - Generalized abdominal pain Jose David Phillips MD Feb 10, 2018 10:49
[2018-02-10] MEDS: VANCOMYCIN 1,000 MG/NS 250 ML IV SCH ×2 (12:17)
--- NOTE | 2018-02-10 18:14 | HHI.PR ---
Addendum to Inpatient Note Additional Information Received patient from [facility] today. RN called regarding low blood glucose. Will d/ c Levemir and regular insulin sliding scale insulin. Patient's sodium is also increasing 146 --> 149 which indicates free water deficit. We will start patient on D5W and continue Aspart sliding scale insulin. Will re-assess need for insulin tomorrow as well as adjust free water flush with tube feed. Patient was also re-started on Tube feed by RN. Discussed with RN. Enmanuel Gomes DO Feb 10, 2018 18:14
[2018-02-10] MEDS ORDERED: DEXTROSE 50% IN WATER 50 ML VIAL(D50) IV PUSH PRN (18:15)
[2018-02-10] MEDS ORDERED: GLUCAGON 1 MG/ML VIAL OTHER PRN (18:15)
[2018-02-10] MEDS: DEXTROSE 5% IN WATE 1000ML INJ 1,000 ML IV SCH (18:37)
[2018-02-10] MEDS: INSULIN ASPART SUPPLEMENTAL SCALE SQ SCH (20:10)
[2018-02-11] VITALS (9 sets, daily range): BP systolic 155–190; BP diastolic 74–91; PULSE 88–92; RESP 17–22; TEMP 97.2–98.6; O2SAT 90–98
[2018-02-11] MEDS: PIPERACIL-TAZO 4.5 GM PREMIX 100 ML IV SCH ×5 (00:32→23:43)
[2018-02-11] MEDS: METOCLOPRAMIDE HCL 10 MG/2 ML VIAL IV SCH (00:33)
[2018-02-11] MEDS: VANCOMYCIN 1,000 MG/NS 250 ML IV SCH ×6 (00:33→23:33)
[2018-02-11] MEDS: cloNIDine HCL 0.1 MG TAB PO PRN ×2 (01:01→20:24)
[2018-02-11] MEDS: PANTOPRAZOLE SODIUM 40 MG VIAL IV PUSH SCH ×2 (04:55→17:51)
[2018-02-11] MEDS: MORPHINE SULFATE 4 MG/ML INJ IV PUSH PRN ×2 (05:06)
[2018-02-11] MEDS: ARTIFICIAL TEARS OPTH SOLN 15 ML BTL EACH EYE SCH ×2 (05:09→20:14)
[2018-02-11] MEDS: RESP: ALBUTEROL 2.5 MG/IPRATROPIUM 0.5 MG NEB (SCH) NEB ×4 (05:14→21:10)
[2018-02-11 06:30] LABS: HEMOGLOBIN 9.2 GM/DL (11.6-15.3); MEAN CELL VOLUME 88.6 FL (80.0-100.0); MEAN CORPUSCULAR HEMOGLOBIN 29.2 PG (27.0-34.0); MEAN CORPUSCULAR HGB CONC 32.9 % (32.0-36.0); MEAN PLATELET VOLUME 8.7 FL (7.0-11.0); PLATELET COUNT 324 TH/MM3 (150-450); RED BLOOD COUNT 3.15 MIL/MM3 (4.00-5.30); RED CELL DISTRIBUTION WIDTH 18.2 % (11.6-17.2); WHITE BLOOD COUNT 9.8 TH/MM3 (4.0-11.0)
[2018-02-11] MEDS: DEXTROSE 5% IN WATE 1000ML INJ 1,000 ML IV SCH (06:49)
[2018-02-11 07:03] LABS: BICARBONATE 30.1 MEQ/L (21.0-32.0); CALCIUM 8.2 MG/DL (8.5-10.1); CREATININE 0.52 MG/DL (0.50-1.00)
[2018-02-11] MEDS: CHLORHEXIDINE 0.12% (ORAL KIT) 15 ML CUP MT SCH ×2 (08:00→20:00)
[2018-02-11] MEDS: INSULIN ASPART SUPPLEMENTAL SCALE SQ SCH ×4 (08:00→20:27)
[2018-02-11] MEDS: FOLIC ACID 1 MG TAB PO SCH (08:49)
[2018-02-11] MEDS: DOCUSATE SODIUM 100 MG/10 ML UDC PO SCH ×2 (08:49→20:15)
[2018-02-11] MEDS: CYCLOBENZAPRINE HCL 10 MG TAB PO SCH ×3 (08:49→17:50)
[2018-02-11] MEDS: HYDROCORTISONE SOD SUCCINATE 100 MG VIAL IV PUSH SCH ×2 (08:49→20:13)
[2018-02-11] MEDS: SODIUM CHLORIDE 0.9% FLUSH 10 ML FLUSH IV FLUSH SCH (08:54)
[2018-02-11] MEDS ORDERED: ACETAMINOPHEN/HYDROcodone 325 MG/5 MG TAB PO PRN (09:00)
[2018-02-11] MEDS: STIOLTO PO SCH (09:00)
[2018-02-11] MEDS ORDERED: MORPHINE SULFATE 2 MG/ML SYRINGE IV PUSH PRN (09:15)
[2018-02-11] MEDS: ONDANSETRON HCL 4 MG/2 ML VIAL IV PUSH PRN ×2 (09:18→18:01)
--- NOTE | 2018-02-11 11:45 | HHI.PR ---
Subjective Subjective Notes Resting in bed Has been OOB several times between yesterday and today Objective Vitals/I&O Vital Signs Date Time Temp Pulse Resp B/P (MAP) Pulse Ox O2 Delivery O2 Flow Rate FiO2 02/11/18 09:51 90 21 02/11/18 08:25 Room Air 02/11/18 08:00 98.2 88 20 162/84 (110) 02/11/18 05:16 2.00 Labs Laboratory Tests Test 02/11/18 06:00 White Blood Count 9.8 Red Blood Count 3.15 Hemoglobin 9.2 Hematocrit 28.0 Mean Corpuscular Volume 88.6 Mean Corpuscular Hemoglobin 29.2 Mean Corpuscular Hemoglobin Concent 32.9 Red Cell Distribution Width 18.2 Platelet Count 324 Mean Platelet Volume 8.7 Blood Urea Nitrogen 26 Creatinine 0.52 Random Glucose 106 Calcium Level 8.2 Sodium Level 144 Potassium Level 3.4 Chloride Level 105 Carbon Dioxide Level 30.1 Anion Gap 9 Estimat Glomerular Filtration Rate 123 Date/Time Source Procedure Growth Status 02/05/18 22:30 Blood Line Aerobic Blood Culture - Final NO GROWTH IN 5 DAYS Complete 02/05/18 22:30 Blood Line Anaerobic Blood Culture - Final NO GROWTH IN 5 DAYS Complete 02/04/18 17:36 Nasal Aspirate Influenza Types A,B Antigen (RADHA) - Final NEGATIVE FOR FLU A AND B ANTIGEN.... Complete 02/04/18 17:30 Urine Catheterized Urine Legionella Antigen - Final PRESUMPTIVE NEGATIVE FOR LEGIONELLA P... Complete 02/04/18 17:30 Urine Catheterized Urine Streptococcus pneumoniae Antigen (M - Final PRESUMPTIVE NEGATIVE FOR STREPTOCOCCU... Complete Radiology Last 48 hours Impressions Abdomen/Pelvis CT 01/22/18 1800 Signed Impressions: Service Date/Time: Monday, January 22, 2018 19:40 - CONCLUSION: 1. Distal small bowel obstruction with multiple air-fluid levels. The cecum is impacted with stool to a diameter of 9.2 cm and it is unclear if this is related to a distal small bowel obstruction. No free air. There is mild ascites. 2. Subsegmental patchy airspace disease at the lung base is trace right pleural fluid. 3. Small hiatal hernia. Tee Herrera MD Cardiovascular: Regular Lungs: Clear Abdomen: Other (midline incision---dressing removed and replaced---evelio; ileostomy with stool--stoma pink; MF with red stoma; mild tenderness to palpation; soft ) Extremities: No edema Narrative Exam Bucio removed A/P Problem List: (1) Surgically created abdominal mucous fistula ICD Codes: Z93.4 - Other artificial openings of gastrointestinal tract status Status: Acute (2) S/P exploratory laparotomy ICD Codes: Z98.890 - Other specified postprocedural states (3) Attention to ileostomy ICD Codes: Z43.2 - Encounter for attention to ileostomy Status: Acute (4) Abdominal pain ICD Codes: R10.9 - Unspecified abdominal pain Status: Acute Assessment and Plan 52 year old female with abdominal pain and distention; fecal impaction -POD10 ex lap; ileostomy; mucous fistula -Stable on NC; wean as tolerated -Bucio removed -Hmg 9.2; stable -TPN off -Advance to full liquid diet; TF at night -Adjusted fluids -Will need to closely watch electrolytes as ileostomy output increases -Continue Lovenox daily -Likely will benefit from placement at rehab for continued physical therapy -Discussed with ISABELA Peña at bedside Problem Qualifiers (1) Abdominal pain: Qualified Codes: R10.84 - Generalized abdominal pain Michela KramerP/[employer] Feb 11, 2018 11:45
[2018-02-11] MEDS: ENOXAPARIN SODIUM 40 MG/0.4 ML SYRINGE SQ SCH (12:23)
[2018-02-11] MEDS: ACETAMINOPHEN/HYDROcodone 325 MG/5 MG TAB PO PRN ×3 (12:24→23:29)
--- NOTE | 2018-02-11 13:40 | HHI.PR ---
Subjective Remarks Follow-up for abdominal pain, small bowel obstruction status post ex lap, ileostomy, gastrostomy tube placement. Patient is currently doing well. No acute concerns. No fever or chills. She is tolerating some liquids well. Objective Vitals Vital Signs Date Time Temp Pulse Resp B/P (MAP) Pulse Ox O2 Delivery O2 Flow Rate FiO2 02/11/18 12:35 95 2.00 02/11/18 12:00 98.0 90 20 155/74 (101) 95 02/11/18 09:51 90 21 02/11/18 08:25 Room Air 02/11/18 08:00 98.2 88 20 162/84 (110) 95 02/11/18 05:16 94 Nasal Cannula 2.00 02/11/18 04:00 97.2 88 18 190/91 (124) 92 02/11/18 00:00 98.5 92 18 177/86 (116) 93 02/10/18 20:00 91 Nasal Cannula 2.00 02/10/18 20:00 97.2 87 18 170/81 (110) 91 02/10/18 16:00 97.1 80 18 182/85 (117) 95 02/10/18 14:00 74 02/10/18 13:52 20 I/O 02/10/18 02/10/18 02/10/18 02/11/18 02/11/18 02/11/18 07:00 15:00 23:00 07:00 15:00 23:00 Intake Total 763 ml 619 ml 247 ml 1714 ml 240 ml Output Total 900 ml 850 ml 200 ml 1400 ml 150 ml Balance -137 ml -231 ml 47 ml 314 ml 90 ml Intake Oral 0 ml 240 ml 240 ml IV Total 100 ml 115 ml 990 ml Tube Feeding 523 ml 589 ml 132 ml 484 ml Other 140 ml 30 ml Output Urine Total 650 ml 450 ml 900 ml Stool Total 250 ml 400 ml 200 ml 500 ml 150 ml Result Diagram: 02/11/18 0600 02/11/18 0600 Imaging Last Impressions Chest X-Ray 02/08/18 0000 Signed Impressions: Service Date/Time: Thursday, February 08, 2018 08:32 - CONCLUSION: Persistent, but improved, bilateral parenchymal infiltrates. Murphy Beverly MD Abdomen X-Ray 02/06/18 0000 Signed Impressions: Service Date/Time: Tuesday, February 06, 2018 11:39 - CONCLUSION: 1. NG tip in stomach with side-port in distal esophagus. Presumed gastrostomy in the left upper quadrant. Tee Herrera MD Small Bowel X-Ray 01/30/18 0000 Signed Impressions: Service Date/Time: Tuesday, January 30, 2018 13:51 - CONCLUSION: There is diffuse distention of the small bowel with slow progression of contrast through the small bowel over 21 hours. This is nonspecific. This could be a diffuse adynamic ileus of the small bowel versus a distal small bowel obstruction. Lucien Willett MD Enema w/Water Soluble 01/24/18 0000 Signed Impressions: Service Date/Time: January 11:06 - CONCLUSION: Gastrografin enema performed for constipation as described above. Jabier Aviles MD Abdomen/Pelvis CT 01/22/18 1800 Signed Impressions: Service Date/Time: Monday, January 22, 2018 19:40 - CONCLUSION: 1. Distal small bowel obstruction with multiple air-fluid levels. The cecum is impacted with stool to a diameter of 9.2 cm and it is unclear if this is related to a distal small bowel obstruction. No free air. There is mild ascites. 2. Subsegmental patchy airspace disease at the lung base is trace right pleural fluid. 3. Small hiatal hernia. Tee Herrera MD Objective Remarks GENERAL: Alert, oriented 3, NAD. SKIN: Warm and dry. HEAD: Normocephalic. EYES: No scleral icterus. No injection or drainage. NECK: Supple, trachea midline. No JVD or lymphadenopathy. CARDIOVASCULAR: Regular rate and rhythm without murmurs, gallops, or rubs. RESPIRATORY: Breath sounds equal bilaterally. No accessory muscle use. GASTROINTESTINAL: Abdomen soft, mildly tender to palpation, nondistended. MUSCULOSKELETAL: No cyanosis, or edema. BACK: Nontender without obvious deformity. No CVA tenderness. Procedures 01/23/18 colonoscopy 01/24/18 Gastrografin enema 02/01/18 Patient with Small bowel obstruction secondary to constipation . Massively dependent right colon, completely full of pasty stool. Status post surgery by Dr. Florian 02/01/18: exploratory lap, extended right hemicolectomy, gastrostomy tube, end ileostomy, mucous fistula transverse colon Date of Insertion: Jan 30, 2018 Line: PICC Side: Right Location: Antecubital A/P Problem List: (1) Abdominal pain ICD Code: R10.9 - Unspecified abdominal pain Status: Acute (2) Small bowel obstruction ICD Code: K56.609 - Unspecified intestinal obstruction, unspecified as to partial versus complete obstruction Status: Acute (3) Fecal impaction ICD Code: K56.41 - Fecal impaction Status: Acute (4) Hypertension ICD Code: I10 - Essential (primary) hypertension (5) Diabetes ICD Code: E11.9 - Type 2 diabetes mellitus without complications Assessment and Plan Ms. Cuevas is a 52-year-old female with a history of lung cancer, COPD, hypertension, diabetes mellitus, atrial fibrillation, liver cirrhosis who presented to the emergency department on 01/23/2018 due to abdominal pain. CT scan showed small bowel obstruction with fecal impaction. Patient had expiratory laparotomy with the right hemicolectomy, G-tube placement, end ileostomy and mucous fistula transverse colon by Dr. Florian. Patient was treated in the ICU from 02/04 - 02/10/2018. Neuro/Psych: Chronic narcotic use Chronic benzodiazepine use Seizure disorder NOS History of TIA Patient is on hydrocodone/acetaminophen 5/300 1 tablet 3 times daily at home. Patient is on cyclobenzaprine 10 mg 3 times daily at home muscle relaxant. Ofirmev 1 g IV every 8 hours as needed fever CV: Coronary artery disease Congestive heart failure likely chronic diastolic Paroxysmal atrial fib relation currently normal sinus rhythm Hypertension Dyslipidemia Start Nifedipine 30mg Qday. 2D echocardiogram revealed left ventricular systolic function is grossly normal on limited imaging. Mild concentric left ventricular hypertrophy. Trace mitral valve regurgitation. There is trace tricuspid valve regurgitation. Trivial pulmonary valve regurgitation. Doppler parameters are consistent with impaired left ventricular relaxtion (grade 1 diastolic dysfunction). Resp: Acute hypoxic respiratory failure Chronic respiratory failure secondary to COPD/2 L oxygen dependent [facility] 18/550/11/09/39 -> extubated. Patient is currently on albuterol/ipratropium aerosols every 6 hours with albuterol aerosols every 2 hours as needed for dyspnea Patient is previously on tiotropium/olodaterol 2.5/2.5 mg 2 puffs daily and budesonide/formoterol 160/4.5 2 puffs twice daily at home GI: s/p exploratory laparotomy with right hemicolectomy, G-tube placement with end ileostomy, mucous fistula transverse colon secondary to stool impaction small bowel by Dr. Florian Gastroesophageal reflux disease History of liver cirrhosis? Hypoalbuminemia Continue pantoprazole 40 mg IV twice daily Docusate sodium 100 mg twice daily Metoclopramide 10 mg IV every 8 hours per surgery Ostomy cares Pathology reveals acute colitis with ulceration, serositis Continue Tube feed. Endo: TSH elevated 3.9. Low T3. Normal T4. Chronic prednisone use 5 mg twice daily Hypernatremia Continue Low sliding scale insulin Patient received D5W for hypernatremia. Sodium improved from 149 --> 144. Renal: Creatinine currently within normal limits Monitor urine output Accurate I's and O's Heme: Normocytic anemia Hgb stable at 9.2. Transfused 2 units PRBCs /. ID: Continue Zosyn 4.5 g Q6hrs. Blood cultures 02/03 no growth to date blood cultures 2, sputum urine and urine Legionella pneumococcal antigen 02/04: NGTD. Influenza negative MSK: Chronic methotrexate use PT evaluate and treat Holding methotrexate 2.5 mg p.o. daily FEN: Prophylax -GI -pantoprazole 40 mg IV twice daily -DVT prophylaxis -SCDs/enoxaparin 40 mg subcu daily Problem Qualifiers (1) Abdominal pain: Qualified Codes: R10.84 - Generalized abdominal pain Enmanuel Gomes DO Feb 11, 2018 1:40 pm
--- NOTE | 2018-02-11 16:38 | HHI.PR ---
Subjective Remarks ALERT , ON VENT SUPPORT Objective Vital Signs Date Time Temp Pulse Resp B/P (MAP) Pulse Ox O2 Delivery O2 Flow Rate FiO2 02/11/18 12:35 95 2.00 02/11/18 12:00 98.0 90 20 155/74 (101) 95 02/11/18 09:51 90 21 02/11/18 08:25 Room Air 02/11/18 08:00 98.2 88 20 162/84 (110) 95 02/11/18 05:16 94 Nasal Cannula 2.00 02/11/18 04:00 97.2 88 18 190/91 (124) 92 02/11/18 00:00 98.5 92 18 177/86 (116) 93 02/10/18 20:00 91 Nasal Cannula 2.00 02/10/18 20:00 97.2 87 18 170/81 (110) 91 I/O 02/10/18 02/10/18 02/10/18 02/11/18 02/11/18 02/11/18 07:00 15:00 23:00 07:00 15:00 23:00 Intake Total 763 ml 619 ml 247 ml 1714 ml 240 ml Output Total 900 ml 850 ml 200 ml 1400 ml 150 ml Balance -137 ml -231 ml 47 ml 314 ml 90 ml Intake Oral 0 ml 240 ml 240 ml IV Total 100 ml 115 ml 990 ml Tube Feeding 523 ml 589 ml 132 ml 484 ml Other 140 ml 30 ml Output Urine Total 650 ml 450 ml 900 ml Stool Total 250 ml 400 ml 200 ml 500 ml 150 ml Result Diagram: 02/11/18 0602/11/18 0600 Objective Remarks GENERAL: SEDATED ON VENT SUPPORT SKIN: Warm and dry. HEAD: Atraumatic. Normocephalic. EYES: Pupils equal and round. No scleral icterus. No injection or drainage. ENT: No nasal bleeding or discharge. Mucous membranes pink and moist. NECK: Trachea midline. No JVD. CARDIOVASCULAR: Regular rate and rhythm. RESPIRATORY: No accessory muscle use. Clear to auscultation. Breath sounds equal bilaterally. GASTROINTESTINAL: Abdomen soft, non-tender, nondistended. Hepatic and splenic margins not palpable. MUSCULOSKELETAL: Extremities without clubbing, cyanosis, or edema. No obvious deformities. NEUROLOGICAL: Awake and alert. No obvious cranial nerve deficits. Motor grossly within normal limits. Five out of 5 muscle strength in the arms and legs. Normal speech. PSYCHIATRIC: Appropriate mood and affect; insight and judgment normal. Assessment and Plan Assessment and Plan ASSESSMENT RESPIRATORY FAILURE COPD CHF AFIB ANEMIA , RELIEVED PACKED RBC PLAN o2 via nasal canula Bronchodilator therapy increase activity Ed Ward MD Feb 11, 2018 16:37
--- NOTE | 2018-02-11 18:00 | PD.WCN.NOT ---
Wound Consult Description: Consult for OSTOMY MANAGEMENT of abdomen per Dr Florian. Communicated with: Patient Mariana RN Recommendation: Empty pouch when 1/3-1/2 full Monitor color/output of right upper abdomen mucus fistula. Monitor output of right lower abdomen ileostomy. Change ostomy pouches every 3-5 days and as needed. Additional Information: Patient seen on [address] [place] [address] for ostomy assessment and teaching. Ostomy Type: Ileostomy (right lower abdomen ileostomy with mucus fistula noted to right upper abdomen) Surgeon: Yvon Florian MD Date of Surgery: Feb 01, 2018 Complete: Education materials (Booklet given to patient. Box of essentials left in patient room.) Educated patient on: Color and function of ileostomy. When to empty pouch. When to change pouching system. When to seek medical attention. Additional information Patient was laying in bed c/o pain 10/10 when assessing patient ileostomy on right lower abdomen. Mariana RN was coming into patient room with medications and remained at bedside during teaching and assessment of stoma. There is ~1/3 of liquid yellow/brown effluent noted in pouch. Wafer and pouch were noted to be closed and without leaks. Stoma is pink, round, moderately protruding, mildly edematous, moist, functioning with lumen noted @12 o'clock. [facility] Feb 11, 2018 18:00
[2018-02-11] MEDS: RESP: BUDESONIDE 0.5 MG/2 ML NEB NEB SCH (20:00)
[2018-02-11] MEDS ORDERED: PHARMACY ORDERED LAB ONE (23:45)
[2018-02-12] VITALS (8 sets, daily range): BP systolic 129–176; BP diastolic 73–85; PULSE 80–94; RESP 17–20; TEMP 97.4–98.3; O2SAT 92–96
[2018-02-12] MEDS: DEXTROSE 5% IN WATE 1000ML INJ 1,000 ML IV SCH ×2 (00:21→06:15)
[2018-02-12] MEDS: RESP: ALBUTEROL 2.5 MG/IPRATROPIUM 0.5 MG NEB (SCH) NEB ×4 (04:14→21:01)
[2018-02-12] MEDS: PIPERACIL-TAZO 4.5 GM PREMIX 100 ML IV SCH (05:00)
[2018-02-12] MEDS: ARTIFICIAL TEARS OPTH SOLN 15 ML BTL EACH EYE SCH ×3 (06:00→21:44)
[2018-02-12] MEDS: ACETAMINOPHEN/HYDROcodone 325 MG/5 MG TAB PO PRN ×4 (06:08→18:43)
[2018-02-12] MEDS: PANTOPRAZOLE SODIUM 40 MG VIAL IV PUSH SCH ×2 (06:10→18:42)
[2018-02-12 06:39] LABS: HEMATOCRIT 30.2 % (35.0-46.0); HEMOGLOBIN 9.8 GM/DL (11.6-15.3); MEAN CELL VOLUME 88.4 FL (80.0-100.0); MEAN CORPUSCULAR HEMOGLOBIN 28.7 PG (27.0-34.0); MEAN CORPUSCULAR HGB CONC 32.5 % (32.0-36.0); MEAN PLATELET VOLUME 8.6 FL (7.0-11.0); PLATELET COUNT 339 TH/MM3 (150-450); RED BLOOD COUNT 3.41 MIL/MM3 (4.00-5.30); RED CELL DISTRIBUTION WIDTH 18.4 % (11.6-17.2); WHITE BLOOD COUNT 7.2 TH/MM3 (4.0-11.0)
[2018-02-12 07:08] LABS: BICARBONATE 30.3 MEQ/L (21.0-32.0); CREATININE 0.64 MG/DL (0.50-1.00)
[2018-02-12] MEDS: INSULIN ASPART SUPPLEMENTAL SCALE SQ SCH ×4 (07:52→21:00)
[2018-02-12] MEDS: CHLORHEXIDINE 0.12% (ORAL KIT) 15 ML CUP MT SCH ×2 (08:00→20:00)
[2018-02-12] MEDS: RESP: BUDESONIDE 0.5 MG/2 ML NEB NEB SCH ×2 (08:00→21:01)
[2018-02-12] MEDS ORDERED: ACETAMINOPHEN 500 MG CPLT PO PRN (08:45)
--- NOTE | 2018-02-12 08:57 | HHI.PR ---
Subjective Subjective Notes c/o abdominal pain but in no distress at all, pleasant, moves around bed, wants to go home. got nauseated with mashed potatoes last night, no emesis. breathing well Objective Vitals/I&O Vital Signs Date Time Temp Pulse Resp B/P (MAP) Pulse Ox O2 Delivery O2 Flow Rate FiO2 02/12/18 08:33 94 Nasal Cannula 2.00 02/12/18 04:14 21 02/12/18 00:00 97.4 94 20 139/73 (95) Labs Laboratory Tests Test 02/11/18 23:55 02/12/18 06:05 Vancomycin Level Trough 16.2 White Blood Count 7.2 Red Blood Count 3.41 Hemoglobin 9.8 Hematocrit 30.2 Mean Corpuscular Volume 88.4 Mean Corpuscular Hemoglobin 28.7 Mean Corpuscular Hemoglobin Concent 32.5 Red Cell Distribution Width 18.4 Platelet Count 339 Mean Platelet Volume 8.6 Blood Urea Nitrogen 16 Creatinine 0.64 Random Glucose 130 Calcium Level 8.0 Sodium Level 139 Potassium Level 2.9 Chloride Level 102 Carbon Dioxide Level 30.3 Anion Gap 7 Estimat Glomerular Filtration Rate 97 Date/Time Source Procedure Growth Status 02/05/18 22:30 Blood Line Aerobic Blood Culture - Final NO GROWTH IN 5 DAYS Complete 02/05/18 22:30 Blood Line Anaerobic Blood Culture - Final NO GROWTH IN 5 DAYS Complete 02/04/18 17:36 Nasal Aspirate Influenza Types A,B Antigen (RADHA) - Final NEGATIVE FOR FLU A AND B ANTIGEN.... Complete 02/04/18 17:30 Urine Catheterized Urine Legionella Antigen - Final PRESUMPTIVE NEGATIVE FOR LEGIONELLA P... Complete 02/04/18 17:30 Urine Catheterized Urine Streptococcus pneumoniae Antigen (M - Final PRESUMPTIVE NEGATIVE FOR STREPTOCOCCU... Complete Radiology Last 48 hours Impressions Abdomen/Pelvis CT 01/22/18 1800 Signed Impressions: Service Date/Time: Monday, January 22, 2018 19:40 - CONCLUSION: 1. Distal small bowel obstruction with multiple air-fluid levels. The cecum is impacted with stool to a diameter of 9.2 cm and it is unclear if this is related to a distal small bowel obstruction. No free air. There is mild ascites. 2. Subsegmental patchy airspace disease at the lung base is trace right pleural fluid. 3. Small hiatal hernia. Tee Herrera MD Cardiovascular: Regular Lungs: Clear Abdomen: Non-distended, Post-op tenderness, BS normal Narrative Exam abdomen nontender on exam, ostomies are viable and working. A/P Problem List: (1) Surgically created abdominal mucous fistula ICD Codes: Z93.4 - Other artificial openings of gastrointestinal tract status Status: Acute (2) S/P exploratory laparotomy ICD Codes: Z98.890 - Other specified postprocedural states (3) Attention to ileostomy ICD Codes: Z43.2 - Encounter for attention to ileostomy Status: Acute (4) Abdominal pain ICD Codes: R10.9 - Unspecified abdominal pain Status: Acute Assessment and Plan 52 year old female POD11 RIGHT hemicolectomy doing well advance diet replace K DC ABX DC planning - social work to assist Will irrigate colostomy tomorrow to get old stool and contrast out of remaining colon. Problem Qualifiers (1) Abdominal pain: Qualified Codes: R10.84 - Generalized abdominal pain Yvon Florian MD Feb 12, 2018 08:56
[2018-02-12] MEDS: STIOLTO PO SCH (09:00)
[2018-02-12] MEDS: CYCLOBENZAPRINE HCL 10 MG TAB PO SCH ×3 (09:43→18:43)
[2018-02-12] MEDS: FOLIC ACID 1 MG TAB PO SCH (09:43)
[2018-02-12] MEDS: POTASSIUM CHLORIDE 20 MEQ CONTROLLED RELEASE TAB PO SCH ×2 (09:43→21:42)
[2018-02-12] MEDS: NIFEdipine 30 MG SUSTAINED RELEASE TAB PO SCH (09:43)
[2018-02-12] MEDS: DOCUSATE SODIUM 100 MG/10 ML UDC PO SCH ×2 (09:43→21:42)
[2018-02-12] MEDS: ENOXAPARIN SODIUM 40 MG/0.4 ML SYRINGE SQ SCH (09:44)
[2018-02-12] MEDS: SODIUM CHLORIDE 0.9% FLUSH 10 ML FLUSH IV FLUSH SCH (09:44)
[2018-02-12] MEDS: HYDROCORTISONE SOD SUCCINATE 100 MG VIAL IV PUSH SCH ×2 (09:44→21:42)
[2018-02-12] MEDS: POTASSIUM CHLOR 20 MEQ PREMIX 100 ML IV SCH ×2 (09:45→11:15)
[2018-02-12] MEDS: ONDANSETRON HCL 4 MG/2 ML VIAL IV PUSH PRN ×3 (10:00→21:42)
--- NOTE | 2018-02-12 11:12 | HHI.PR ---
Subjective Remarks Follow-up for abdominal pain, small bowel obstruction status post ex lap, ileostomy, gastrostomy tube placement. Patient is doing well. No acute concerns. Tolerating some oral food/drink. Objective Vitals Vital Signs Date Time Temp Pulse Resp B/P (MAP) Pulse Ox O2 Delivery O2 Flow Rate FiO2 02/12/18 08:33 94 Nasal Cannula 2.00 02/12/18 08:00 97.7 86 17 154/78 (103) 92 02/12/18 04:14 93 21 02/12/18 00:00 97.4 94 20 139/73 (95) 95 02/11/18 21:13 98 Nasal Cannula 2.00 02/11/18 20:00 97.8 88 22 182/85 (117) 96 02/11/18 16:00 98.6 88 17 162/82 (108) 95 02/11/18 12:35 95 2.00 02/11/18 12:00 98.0 90 20 155/74 (101) 95 I/O 02/11/18 02/11/18 02/11/18 02/12/18 02/12/18 02/12/18 07:00 15:00 23:00 07:00 15:00 23:00 Intake Total 1714 ml 340 ml 1100 ml 2276 ml Output Total 1400 ml 150 ml 700 ml 1000 ml Balance 314 ml 190 ml 400 ml 1276 ml Intake Oral 240 ml 240 ml 750 ml 120 ml IV Total 990 ml 100 ml 350 ml 1450 ml Tube Feeding 484 ml 706 ml Output Urine Total 900 ml 700 ml 1000 ml Stool Total 500 ml 150 ml # Voids 2 # Bowel Movements 1 0 Result Diagram: 02/12/1860402/12/18604 Objective Remarks GENERAL: Alert, oriented 3, NAD. SKIN: Warm and dry. HEAD: Normocephalic. EYES: No scleral icterus. No injection or drainage. NECK: Supple, trachea midline. No JVD or lymphadenopathy. CARDIOVASCULAR: Regular rate and rhythm without murmurs, gallops, or rubs. RESPIRATORY: Breath sounds equal bilaterally. No accessory muscle use. GASTROINTESTINAL: Abdomen soft, mildly tender to palpation, nondistended. MUSCULOSKELETAL: No cyanosis, or edema. BACK: Nontender without obvious deformity. No CVA tenderness. Procedures 01/23/18 colonoscopy 01/24/18 Gastrografin enema 02/01/18 Patient with Small bowel obstruction secondary to constipation . Massively dependent right colon, completely full of pasty stool. Status post surgery by Dr. Florian 02/01/18: exploratory lap, extended right hemicolectomy, gastrostomy tube, end ileostomy, mucous fistula transverse colon Date of Insertion: Jan 30, 2018 Line: PICC Side: Right Location: Antecubital A/P Problem List: (1) Abdominal pain ICD Code: R10.9 - Unspecified abdominal pain Status: Acute (2) Small bowel obstruction ICD Code: K56.609 - Unspecified intestinal obstruction, unspecified as to partial versus complete obstruction Status: Acute (3) Fecal impaction ICD Code: K56.41 - Fecal impaction Status: Acute (4) Hypertension ICD Code: I10 - Essential (primary) hypertension (5) Diabetes ICD Code: E11.9 - Type 2 diabetes mellitus without complications Assessment and Plan Ms. Cuevas is a 52-year-old female with a history of lung cancer, COPD, hypertension, diabetes mellitus, atrial fibrillation, liver cirrhosis who presented to the emergency department on 01/23/2018 due to abdominal pain. CT scan showed small bowel obstruction with fecal impaction. Patient had expiratory laparotomy with the right hemicolectomy, G-tube placement, end ileostomy and mucous fistula transverse colon by Dr. Folrian. Patient was treated in the ICU from 02/04 - 02/10/2018. Neuro/Psych: Chronic narcotic use Chronic benzodiazepine use Seizure disorder NOS History of TIA Patient is on hydrocodone/acetaminophen 5/300 1 tablet 3 times daily at home. Patient is on cyclobenzaprine 10 mg 3 times daily at home muscle relaxant. Ofirmev 1 g IV every 8 hours as needed fever CV: Coronary artery disease Congestive heart failure likely chronic diastolic Paroxysmal atrial fib relation currently normal sinus rhythm Hypertension Dyslipidemia Nifedipine 30mg Qday. 2D echocardiogram revealed left ventricular systolic function is grossly normal on limited imaging. Mild concentric left ventricular hypertrophy. Trace mitral valve regurgitation. There is trace tricuspid valve regurgitation. Trivial pulmonary valve regurgitation. Doppler parameters are consistent with impaired left ventricular relaxtion (grade 1 diastolic dysfunction). Resp: Acute hypoxic respiratory failure Chronic respiratory failure secondary to COPD/2 L oxygen dependent PRVC 18/550/11/09/39 -> extubated. Patient is currently on albuterol/ipratropium aerosols every 6 hours with albuterol aerosols every 2 hours as needed for dyspnea Patient is previously on tiotropium/olodaterol 2.5/2.5 mg 2 puffs daily and budesonide/formoterol 160/4.5 2 puffs twice daily at home GI: s/p exploratory laparotomy with right hemicolectomy, G-tube placement with end ileostomy, mucous fistula transverse colon secondary to stool impaction small bowel by Dr. Florian Gastroesophageal reflux disease History of liver cirrhosis? Hypoalbuminemia Continue pantoprazole 40 mg IV twice daily Docusate sodium 100 mg twice daily Metoclopramide 10 mg IV every 8 hours per surgery Ostomy cares Pathology reveals acute colitis with ulceration, serositis Continue Tube feed. Endo: TSH elevated 3.9. Low T3. Normal T4. Chronic prednisone use 5 mg twice daily Hypernatremia Continue Low sliding scale insulin Patient received D5W for hypernatremia. Sodium improved from 149 --> 144. Renal: Hypokalemia Creatinine currently within normal limits Replace potassium with PO and IV. Monitor urine output Accurate I's and O's Heme: Normocytic anemia Hgb stable at 9.2. Transfused 2 units PRBCs 02/04. ID: Continue Zosyn 4.5 g Q6hrs. Blood cultures 02/03 no growth to date blood cultures 2, sputum urine and urine Legionella pneumococcal antigen 02/04: NGTD. Influenza negative MSK: Chronic methotrexate use PT evaluate and treat Holding methotrexate 2.5 mg p.o. daily FEN: Prophylax -GI -pantoprazole 40 mg IV twice daily -DVT prophylaxis -SCDs/enoxaparin 40 mg subcu daily Problem Qualifiers (1) Abdominal pain: Qualified Codes: R10.84 - Generalized abdominal pain Enmanuel Gomes DO Feb 12, 2018 11:12 am
--- NOTE | 2018-02-12 11:45 | PD.WCN.NOT ---
Wound Consult Description: Consult for OSTOMY MANAGEMENT of abdomen per Dr Florian. Communicated with: Patient Recommendation: Empty pouch when 1/3-1/2 full Monitor color/output of right upper abdomen mucus fistula. Monitor output of right lower abdomen ileostomy. Change ostomy pouches every 3-5 days and as needed. Additional Information: Patient seen on for ostomy assessment and teaching with demonstration and repeat demonstration from patient on opening pouch, emptying pouch, and closing pouch. Ostomy Type: Ileostomy (right lower abdomen ileostomy with mucus fistula noted to right upper abdomen) Surgeon: Yvon Florian MD Date of Surgery: Feb 01, 2018 Complete: Starter kit (sent out today via 2 day mail from [facility]), Education materials (Booklet given to patient. Box of essentials left in patient room.), Rx (Left on chart), Other (Supplies ordered for patient to go home with at discharge.) Educated patient on: Reasons to seek medical attention. Stoma color and appearance Stoma output Stoma size Wafer size How and when to empty pouch When and how to remove pouching system Cleansing of peristomal skin Measuring stoma Applying a new pouching system Peristomal skin breakdown Pouching options Additional information Patient seen earlier this am for ostomy assessment and teaching with reinforcement. Stoma visualized on right lower abdomen is noted with an intact wafer and pouch that is half full. It was explained that patient should be emptying the pouch herself and typewriters functional tester would assist her in doing this now. Patient was given gloves, a paper towel, and the graduate was obtained from the restroom. Patient was assisted in applying gloves on at her request. Patient was shown how to open the end of the pouch up to avoid spontaneous pouring out of effluent. Graduate was placed underneath the pouch and the pouch was lowered so that the effluent was allowed to freely pour out of the pouch and into the graduate. The end of the pouch was wiped off with the paper towel. Patient was assisted in closing the bottom of the pouch. All questions were answered at this time. Stoma is red, moist, round, moderately protruding, mildly edematous, functioning with yellow liquid effluent from lumen noted @ [address] Florian notes, patient will have irrigation tomorrow, therefore the wafer will be changed after this has occurred, using a 2 1/4" moldable wafer and transparent open ended pouch obtained from [facility]. Mucus fistula in upper right quadrant is moist, viable, with sanguinous post op drainage and no output noted. Corrie Malone [facility] Feb 12, 2018 11:45
--- NOTE | 2018-02-12 14:51 | HHI.FF ---
Face to Face Verification Diagnosis: (1) S/P exploratory laparotomy (2) Surgically created abdominal mucous fistula (3) Attention to ileostomy Physical Therapy Order: Evaluate and Treat, Improve ambulation, Strength and gait training Instructions: No restrictions Home Health Nursing Order: Wound care and dressing changes Nursing assessment with vital signs Instructions: Continues colostomy and mucous fistula care and teaching Midline incision with dry Primapore dressing daily I have seen patient Uma Cuevas on 02/12/18. My clinical findings support the need for the requested home health care services because: Limited ability to care for self High risk of falls I certify that my clinical findings support that this patient is homebound because: Post-op weakness Michela Kramer [employer] IC[employer] Feb 12, 2018 14:51
--- NOTE | 2018-02-12 18:23 | HHI.PR ---
Subjective Remarks ALERT , NO SOB Objective Vital Signs Date Time Temp Pulse Resp B/P (MAP) Pulse Ox O2 Delivery O2 Flow Rate FiO2 02/12/18 16:00 97.5 80 18 165/85 (111) 94 02/12/18 12:00 98.3 92 17 129/74 (92) 93 02/12/18 08:33 94 Nasal Cannula 2.00 02/12/18 08:00 97.7 86 17 154/78 (103) 92 02/12/18 04:14 93 21 02/12/18 00:00 97.4 94 20 139/73 (95) 95 02/11/18 21:13 98 Nasal Cannula 2.00 02/11/18 20:00 97.8 88 22 182/85 (117) 96 I/O 02/11/18 02/11/18 02/11/18 02/12/18 02/12/18 02/12/18 07:00 15:00 23:00 07:00 15:00 23:00 Intake Total 1714 ml 340 ml 1100 ml 2276 ml Output Total 1400 ml 150 ml 700 ml 1000 ml Balance 314 ml 190 ml 400 ml 1276 ml Intake Oral 240 ml 240 ml 750 ml 120 ml IV Total 990 ml 100 ml 350 ml 1450 ml Tube Feeding 484 ml 706 ml Output Urine Total 900 ml 700 ml 1000 ml Stool Total 500 ml 150 ml # Voids 2 # Bowel Movements 1 0 Result Diagram: 02/12/1860402/12/18604 Objective Remarks GENERAL: SEDATED ON VENT SUPPORT SKIN: Warm and dry. HEAD: Atraumatic. Normocephalic. EYES: Pupils equal and round. No scleral icterus. No injection or drainage. ENT: No nasal bleeding or discharge. Mucous membranes pink and moist. NECK: Trachea midline. No JVD. CARDIOVASCULAR: Regular rate and rhythm. RESPIRATORY: No accessory muscle use. Clear to auscultation. Breath sounds equal bilaterally. GASTROINTESTINAL: Abdomen soft, non-tender, nondistended. Hepatic and splenic margins not palpable. MUSCULOSKELETAL: Extremities without clubbing, cyanosis, or edema. No obvious deformities. NEUROLOGICAL: Awake and alert. No obvious cranial nerve deficits. Motor grossly within normal limits. Five out of 5 muscle strength in the arms and legs. Normal speech. PSYCHIATRIC: Appropriate mood and affect; insight and judgment normal. Assessment and Plan Assessment and Plan ASSESSMENT RESPIRATORY FAILURE COPD CHF AFIB ANEMIA , RELIEVED PACKED RBC PLAN o2 via nasal canula Bronchodilator therapy increase activity Ed Ward MD Feb 12, 2018 18:23
[2018-02-13] VITALS (9 sets, daily range): BP systolic 130–172; BP diastolic 74–82; PULSE 84–97; RESP 17–20; TEMP 97.1–98.1; O2SAT 93–99
[2018-02-13] MEDS: cloNIDine HCL 0.1 MG TAB PO PRN (02:45)
[2018-02-13] MEDS: ACETAMINOPHEN/HYDROcodone 325 MG/5 MG TAB PO PRN ×5 (02:45→22:40)
[2018-02-13] MEDS: RESP: ALBUTEROL 2.5 MG/IPRATROPIUM 0.5 MG NEB (SCH) NEB ×4 (03:11→19:56)
[2018-02-13] MEDS: ARTIFICIAL TEARS OPTH SOLN 15 ML BTL EACH EYE SCH ×3 (06:00→20:30)
[2018-02-13] MEDS: PANTOPRAZOLE SODIUM 40 MG VIAL IV PUSH SCH ×2 (06:20→18:12)
[2018-02-13 06:57] LABS: HEMATOCRIT 28.7 % (35.0-46.0); HEMOGLOBIN 9.3 GM/DL (11.6-15.3); MEAN CELL VOLUME 89.2 FL (80.0-100.0); MEAN CORPUSCULAR HEMOGLOBIN 28.8 PG (27.0-34.0); MEAN CORPUSCULAR HGB CONC 32.3 % (32.0-36.0); MEAN PLATELET VOLUME 8.4 FL (7.0-11.0); PLATELET COUNT 318 TH/MM3 (150-450); RED BLOOD COUNT 3.22 MIL/MM3 (4.00-5.30); RED CELL DISTRIBUTION WIDTH 18.2 % (11.6-17.2); WHITE BLOOD COUNT 6.9 TH/MM3 (4.0-11.0)
[2018-02-13 07:15] LABS: BICARBONATE 29.8 MEQ/L (21.0-32.0); CALCIUM 8.2 MG/DL (8.5-10.1); CREATININE 0.6 MG/DL (0.50-1.00)
[2018-02-13] MEDS: INSULIN ASPART SUPPLEMENTAL SCALE SQ SCH ×4 (07:55→20:18)
[2018-02-13] MEDS: RESP: BUDESONIDE 0.5 MG/2 ML NEB NEB SCH ×2 (08:00→20:00)
[2018-02-13] MEDS: CHLORHEXIDINE 0.12% (ORAL KIT) 15 ML CUP MT SCH ×2 (08:00→20:00)
[2018-02-13] MEDS: STIOLTO PO SCH (09:00)
[2018-02-13] MEDS: POTASSIUM CHLORIDE 20 MEQ CONTROLLED RELEASE TAB PO SCH ×2 (09:00→20:23)
[2018-02-13] MEDS: CYCLOBENZAPRINE HCL 10 MG TAB PO SCH ×3 (09:08→18:11)
[2018-02-13] MEDS: NIFEdipine 30 MG SUSTAINED RELEASE TAB PO SCH (09:08)
[2018-02-13] MEDS: DOCUSATE SODIUM 100 MG/10 ML UDC PO SCH ×2 (09:09→20:19)
[2018-02-13] MEDS: ENOXAPARIN SODIUM 40 MG/0.4 ML SYRINGE SQ SCH (09:09)
[2018-02-13] MEDS: FOLIC ACID 1 MG TAB PO SCH (09:09)
[2018-02-13] MEDS: SODIUM CHLORIDE 0.9% FLUSH 10 ML FLUSH IV FLUSH SCH (09:10)
--- NOTE | 2018-02-13 09:22 | HHI.PR ---
Subjective Subjective Notes Resting in bed XOCHITL Damian at bedside getting vital signs Patient reports she got up several times yesterday Objective Vitals/I&O Vital Signs Date Time Temp Pulse Resp B/P (MAP) Pulse Ox O2 Delivery O2 Flow Rate FiO2 02/13/18 08:26 93 21 02/13/18 08:00 98.1 86 18 158/81 (106) 02/12/18 08:33 Nasal Cannula 2.00 Labs Laboratory Tests Test 02/13/18 06:45 White Blood Count 6.9 Red Blood Count 3.22 Hemoglobin 9.3 Hematocrit 28.7 Mean Corpuscular Volume 89.2 Mean Corpuscular Hemoglobin 28.8 Mean Corpuscular Hemoglobin Concent 32.3 Red Cell Distribution Width 18.2 Platelet Count 318 Mean Platelet Volume 8.4 Blood Urea Nitrogen 15 Creatinine 0.60 Random Glucose 99 Calcium Level 8.2 Sodium Level 141 Potassium Level 3.4 Chloride Level 104 Carbon Dioxide Level 29.8 Anion Gap 7 Estimat Glomerular Filtration Rate 104 Date/Time Source Procedure Growth Status 02/05/18 22:30 Blood Line Aerobic Blood Culture - Final NO GROWTH IN 5 DAYS Complete 02/05/18 22:30 Blood Line Anaerobic Blood Culture - Final NO GROWTH IN 5 DAYS Complete 02/04/18 17:36 Nasal Aspirate Influenza Types A,B Antigen (RADHA) - Final NEGATIVE FOR FLU A AND B ANTIGEN.... Complete 02/04/18 17:30 Urine Catheterized Urine Legionella Antigen - Final PRESUMPTIVE NEGATIVE FOR LEGIONELLA P... Complete 02/04/18 17:30 Urine Catheterized Urine Streptococcus pneumoniae Antigen (M - Final PRESUMPTIVE NEGATIVE FOR STREPTOCOCCU... Complete Radiology Last 48 hours Impressions Abdomen/Pelvis CT 01/22/18 1800 Signed Impressions: Service Date/Time: Monday, January 22, 2018 19:40 - CONCLUSION: 1. Distal small bowel obstruction with multiple air-fluid levels. The cecum is impacted with stool to a diameter of 9.2 cm and it is unclear if this is related to a distal small bowel obstruction. No free air. There is mild ascites. 2. Subsegmental patchy airspace disease at the lung base is trace right pleural fluid. 3. Small hiatal hernia. Tee Herrera MD Cardiovascular: Regular Lungs: Clear Abdomen: Other (midline incision with evelio; MF with minimal SS drainage; ileostomy with pink stoma---liquid brown stool; abdomen soft; minimally tender to palpation ) Extremities: No edema Narrative Exam Bucio removed A/P Problem List: (1) Surgically created abdominal mucous fistula ICD Codes: Z93.4 - Other artificial openings of gastrointestinal tract status Status: Acute (2) S/P exploratory laparotomy ICD Codes: Z98.890 - Other specified postprocedural states (3) Attention to ileostomy ICD Codes: Z43.2 - Encounter for attention to ileostomy Status: Acute (4) Abdominal pain ICD Codes: R10.9 - Unspecified abdominal pain Status: Acute Assessment and Plan 52 year old female with abdominal pain and distention; fecal impaction -POD12 ex lap; ileostomy; mucous fistula -Stable on RA now -Hmg 9.3; stable -Advance to regular diet and nocturnal TF -Will need to closely watch electrolytes as ileostomy output increases -Continue Lovenox daily -Patient would like to go home; Face to face complete for HHC; will need to do outpatient PT due to insurance Problem Qualifiers (1) Abdominal pain: Qualified Codes: R10.84 - Generalized abdominal pain Michela Kramer/[employer] [facility] Feb 13, 2018 09:21
[2018-02-13] MEDS: ONDANSETRON HCL 4 MG/2 ML VIAL IV PUSH PRN ×2 (09:25→22:40)
[2018-02-13] MEDS ORDERED: WALKER WHEELS/F1 MIS (10:34)
[2018-02-13] MEDS ORDERED: COMMODE 3-IN-11 MIS (10:34)
--- NOTE | 2018-02-13 12:19 | PD.WCN.NOT ---
Wound Consult Description: Consult for OSTOMY MANAGEMENT of abdomen per Dr Florian. Communicated with: Patient Family at bedside CHAD Guillaume Recommendation: Empty pouch when 1/3-1/2 full Monitor color/output of right upper abdomen mucus fistula. Monitor output of right lower abdomen ileostomy. Change ostomy pouches every 3-5 days and as needed. Additional Information: Patient seen on [address] [place] [address] for ostomy and mucus fistula assessment with teaching and pouching system change. Ostomy Type: Ileostomy (right lower abdomen ileostomy with mucus fistula noted to right upper abdomen) Surgeon: Yvon Florian MD Date of Surgery: Feb 01, 2018 Complete: Starter kit (sent 02/12/18 via 2 day mail from [facility]), Education materials (Booklet given to patient. Box of essentials left in patient room.), Rx (Left on chart), Other (Supplies ordered for patient to go home with at discharge.) Educated patient on: ileostomy care: Emptying pouch when 1/3-1/2 full Changing pouching system every 3-5 days and PRN for leaks, burning, or itching Stoma appearance being red or pink and moist Stoma functioning with effluent from ileostomy with lumen noted in center of stoma Removing wafer (barrier) with adhesive remover wipes Cleansing around skin with water and soft cloths If stoma bleeds (thin mucosal layer) it should stop within minutes When to seek medical attention (lack of output in 24 hours, color change, bleeding does not stop) Measuring stoma for correct size wafer Spraying peristomal skin with skin protectant barrier film Applying moldable wafer Closing pouch at bottom Applying pouch to flange on wafer Staying hydrated Mucus Fistula: Cleanse around stoma daily and cover with a dry cover. Sutures will dissolve Additional information Patient seen on [address] [place] [address] for ostomy and mucus fistula assessment with teaching and pouching system change. Pouching system removed from mucus fistula on right upper abdomen using adhesive remover wipes. Peristomal skin was cleansed with water and soft cloth. Stoma is red and moist with mucus present and has a darkened area noted from 9-12 o'clock that should slough off. Mucocutaneous junction is noted with circumferential sutures other kong unremarkable. Peristomal skin is unremarkable. Mucus fistula was covered with a bordered gauze after skin prepping peristomal skin with Cavilon spray. Ileostomy located on the lower right side abdomen is measuring 1 1/4" round, red, moist, moderately protruding, functioning with yellow liquid soft effluent that had just been emptied from pouch by [employer]. Pouching system removed with adhesive remover wipes. Mucocutaneous junction is noted with circumferential sutures otherwise unremarkable. Peristomal skin was cleansed with water and soft cloths and noted to be unremarkable. Stoma was measured prior to placing the 2 1/4" moldable wafer and pouching system. All questions were answered at this time. Supplies were obtained from [facility] for appliance change today and 5 extra ones to go home with. Kit sent to home via 2 day air mail to arrive 02/14/18 with 3 more appliances making 8 total for patient to have after discharge today. Corrie Malone [facility] Feb 13, 2018 12:19
[2018-02-13] MEDS ORDERED: NIFE30TA61 PO (12:23)
[2018-02-13] MEDS ORDERED: HYDR-2376 PO (12:23)
[2018-02-13] MEDS: SODIUM CHLORIDE 0.9% FLUSH 10 ML FLUSH IV FLUSH PRN (18:12)
--- NOTE | 2018-02-13 18:16 | HHI.PR ---
Subjective Remarks ALERT , NO SOB ambulating Objective Vital Signs Date Time Temp Pulse Resp B/P (MAP) Pulse Ox O2 Delivery O2 Flow Rate FiO2 02/13/18 16:00 97.5 84 17 155/82 (106) 94 02/13/18 12:00 97.9 85 18 144/80 (101) 96 02/13/18 08:26 93 21 02/13/18 08:00 98.1 86 18 158/81 (106) 94 02/13/18 04:00 97.1 91 20 154/74 (100) 97 02/13/18 03:13 95 02/13/18 00:00 97.7 97 20 172/78 (109) 95 02/12/18 21:04 95 21 02/12/18 20:00 97.5 88 20 176/81 (112) 96 I/O 02/12/18 02/12/18 02/12/18 02/13/18 02/13/18 02/13/18 07:00 15:00 23:00 07:00 15:00 23:00 Intake Total 2276 ml 700 ml 1080 ml 360 ml 635 ml Output Total 1000 ml 2320 ml 850 ml 300 ml Balance 1276 ml 700 ml -1240 ml -490 ml 335 ml Intake Oral 120 ml 1080 ml 360 ml IV Total 1450 ml 700 ml Tube Feeding 706 ml 635 ml Output Urine Total 1000 ml 1550 ml 850 ml Stool Total 750 ml 300 ml Gastric Drainage Total 20 ml # Voids 2 2 # Bowel Movements 0 Result Diagram: 02/13/18 0645 02/13/1845 Objective Remarks GENERAL: SEDATED ON VENT SUPPORT SKIN: Warm and dry. HEAD: Atraumatic. Normocephalic. EYES: Pupils equal and round. No scleral icterus. No injection or drainage. ENT: No nasal bleeding or discharge. Mucous membranes pink and moist. NECK: Trachea midline. No JVD. CARDIOVASCULAR: Regular rate and rhythm. RESPIRATORY: No accessory muscle use. Clear to auscultation. Breath sounds equal bilaterally. GASTROINTESTINAL: Abdomen soft, non-tender, nondistended. Hepatic and splenic margins not palpable. MUSCULOSKELETAL: Extremities without clubbing, cyanosis, or edema. No obvious deformities. NEUROLOGICAL: Awake and alert. No obvious cranial nerve deficits. Motor grossly within normal limits. Five out of 5 muscle strength in the arms and legs. Normal speech. PSYCHIATRIC: Appropriate mood and affect; insight and judgment normal. Assessment and Plan Assessment and Plan ASSESSMENT RESPIRATORY FAILURE COPD CHF AFIB PLAN o2 via nasal canula Bronchodilator therapy increase activity home soon Ed Ward MD Feb 13, 2018 18:16
--- NOTE | 2018-02-13 22:18 | HHI.PR ---
Subjective Remarks NOT SEEN Objective Vitals Vital Signs Date Time Temp Pulse Resp B/P (MAP) Pulse Ox O2 Delivery O2 Flow Rate FiO2 02/13/18 20:00 98.0 92 18 130/76 (94) 99 02/13/18 19:57 93 02/13/18 16:00 97.5 84 17 155/82 (106) 94 02/13/18 12:00 97.9 85 18 144/80 (101) 96 02/13/18 08:26 93 21 02/13/18 08:00 98.1 86 18 158/81 (106) 94 02/13/18 04:00 97.1 91 20 154/74 (100) 97 02/13/18 03:13 95 02/13/18 00:00 97.7 97 20 172/78 (109) 95 I/O 02/12/18 02/12/18 02/12/18 02/13/18 02/13/18 02/13/18 07:00 15:00 23:00 07:00 15:00 23:00 Intake Total 2276 ml 700 ml 1080 ml 360 ml 635 ml 1320 ml Output Total 1000 ml 2320 ml 850 ml 300 ml 2425 ml Balance 1276 ml 700 ml -1240 ml -490 ml 335 ml -1105 ml Intake Oral 120 ml 1080 ml 360 ml 1320 ml IV Total 1450 ml 700 ml Tube Feeding 706 ml 635 ml Output Urine Total 1000 ml 1550 ml 850 ml 1900 ml Stool Total 750 ml 300 ml 525 ml Gastric Drainage Total 20 ml # Voids 2 2 # Bowel Movements 0 Result Diagram: 02/13/18 0645 02/13/18 0645 Imaging Last Impressions Chest X-Ray 02/08/18 0000 Signed Impressions: Service Date/Time: Thursday, February 08, 2018 08:32 - CONCLUSION: Persistent, but improved, bilateral parenchymal infiltrates. Murphy Beverly MD Abdomen X-Ray 02/06/18 0000 Signed Impressions: Service Date/Time: Tuesday, February 06, 2018 11:39 - CONCLUSION: 1. NG tip in stomach with side-port in distal esophagus. Presumed gastrostomy in the left upper quadrant. Tee Herrera MD Small Bowel X-Ray 01/30/18 0000 Signed Impressions: Service Date/Time: Tuesday, January 30, 2018 13:51 - CONCLUSION: There is diffuse distention of the small bowel with slow progression of contrast through the small bowel over 21 hours. This is nonspecific. This could be a diffuse adynamic ileus of the small bowel versus a distal small bowel obstruction. Lucien Willett MD Enema w/Water Soluble 01/24/18 0000 Signed Impressions: Service Date/Time: January 11:06 - CONCLUSION: Gastrografin enema performed for constipation as described above. Jabier Aviles MD Abdomen/Pelvis CT 01/22/18 1800 Signed Impressions: Service Date/Time: Monday, January 22, 2018 19:40 - CONCLUSION: 1. Distal small bowel obstruction with multiple air-fluid levels. The cecum is impacted with stool to a diameter of 9.2 cm and it is unclear if this is related to a distal small bowel obstruction. No free air. There is mild ascites. 2. Subsegmental patchy airspace disease at the lung base is trace right pleural fluid. 3. Small hiatal hernia. Tee Herrera MD Objective Remarks GENERAL: Alert, oriented 3, NAD. SKIN: Warm and dry. HEAD: Normocephalic. EYES: No scleral icterus. No injection or drainage. NECK: Supple, trachea midline. No JVD or lymphadenopathy. CARDIOVASCULAR: Regular rate and rhythm without murmurs, gallops, or rubs. RESPIRATORY: Breath sounds equal bilaterally. No accessory muscle use. GASTROINTESTINAL: Abdomen soft, mildly tender to palpation, nondistended. Ileostomy in place MUSCULOSKELETAL: No cyanosis, or edema. BACK: Nontender without obvious deformity. No CVA tenderness. Procedures 01/23/18 colonoscopy 01/24/18 Gastrografin enema 02/01/18 Patient with Small bowel obstruction secondary to constipation . Massively dependent right colon, completely full of pasty stool. Status post surgery by Dr. Florian 02/01/18: exploratory lap, extended right hemicolectomy, gastrostomy tube, end ileostomy, mucous fistula transverse colon Date of Insertion: Jan 30, 2018 Line: PICC Side: Right Location: Antecubital A/P Problem List: (1) Abdominal pain ICD Code: R10.9 - Unspecified abdominal pain Status: Acute (2) Small bowel obstruction ICD Code: K56.609 - Unspecified intestinal obstruction, unspecified as to partial versus complete obstruction Status: Acute (3) Fecal impaction ICD Code: K56.41 - Fecal impaction Status: Acute (4) Hypertension ICD Code: I10 - Essential (primary) hypertension (5) Diabetes ICD Code: E11.9 - Type 2 diabetes mellitus without complications Assessment and Plan Ms. Cuevas is a 52-year-old female with a history of lung cancer, COPD, hypertension, diabetes mellitus, atrial fibrillation, liver cirrhosis who presented to the emergency department on 01/23/2018 due to abdominal pain. CT scan showed small bowel obstruction with fecal impaction. Patient had expiratory laparotomy with the right hemicolectomy, G-tube placement, end ileostomy and mucous fistula transverse colon by Dr. Florian. Patient was treated in the ICU from 02/04 - 02/10/2018. Neuro/Psych: Chronic narcotic use Chronic benzodiazepine use Seizure disorder NOS History of TIA Patient is on hydrocodone/acetaminophen 5/300 1 tablet 3 times daily at home. Patient is on cyclobenzaprine 10 mg 3 times daily at home muscle relaxant. CV: Coronary artery disease Congestive heart failure likely chronic diastolic Paroxysmal atrial fib relation currently normal sinus rhythm Hypertension Dyslipidemia Nifedipine 30mg Qday. 2D echocardiogram revealed left ventricular systolic function is grossly normal on limited imaging. Mild concentric left ventricular hypertrophy. Trace mitral valve regurgitation. There is trace tricuspid valve regurgitation. Trivial pulmonary valve regurgitation. Doppler parameters are consistent with impaired left ventricular relaxtion (grade 1 diastolic dysfunction). Resp: Acute hypoxic respiratory failure Chronic respiratory failure secondary to COPD/2 L oxygen dependent PRVC 18/550/11/09/39 -> extubated. Patient is currently on albuterol/ipratropium aerosols every 6 hours with albuterol aerosols every 2 hours as needed for dyspnea Patient is previously on tiotropium/olodaterol 2.5/2.5 mg 2 puffs daily and budesonide/formoterol 160/4.5 2 puffs twice daily at home GI: s/p exploratory laparotomy with right hemicolectomy, G-tube placement with end ileostomy, mucous fistula transverse colon secondary to stool impaction small bowel by Dr. Florian Gastroesophageal reflux disease History of liver cirrhosis? Hypoalbuminemia Continue pantoprazole 40 mg twice daily Docusate sodium 100 mg twice daily Metoclopramide 10 mg IV every 8 hours per surgery Ostomy cares Pathology reveals acute colitis with ulceration, serositis Continue Tube feed. Endo: TSH elevated 3.9. Low T3. Normal T4. Chronic prednisone use 5 mg twice daily Hypernatremia Continue Low sliding scale insulin Patient received D5W for hypernatremia. Sodium improved from 149 --> 144. Renal: Hypokalemia Creatinine currently within normal limits Replace potassium with PO and IV. Monitor urine output Accurate I's and O's Heme: Normocytic anemia Hgb stable at 9.2. Transfused 2 units PRBCs 02/04. ID: S/p Zosyn 4.5 g Q6hrs. Blood cultures 02/03 no growth to date blood cultures 2, sputum urine and urine Legionella pneumococcal antigen 02/04: NGTD. Influenza negative MSK: Chronic methotrexate use PT evaluate and treat Holding methotrexate 2.5 mg p.o. daily FEN: Prophylax -GI -pantoprazole 40 mg twice daily -DVT prophylaxis -SCDs/enoxaparin 40 mg subcu daily Problem Qualifiers (1) Abdominal pain: Qualified Codes: R10.84 - Generalized abdominal pain Umair Thomas MD Feb 13, 2018 22:18
--- NOTE | 2018-02-13 23:17 | HHI.PR ---
Subjective Remarks Follow-up for abdominal pain, small bowel obstruction status post ex lap, ileostomy, gastrostomy tube placement. Patient is doing well. Our plan was to discharge patient today after irrigation by Dr. Yvon Florian. However, plan for irrigation was switched to 02/14/2018. Objective Vitals Vital Signs Date Time Temp Pulse Resp B/P (MAP) Pulse Ox O2 Delivery O2 Flow Rate FiO2 02/13/18 20:00 98.0 92 18 130/76 (94) 99 02/13/18 19:57 93 02/13/18 16:00 97.5 84 17 155/82 (106) 94 02/13/18 12:00 97.9 85 18 144/80 (101) 96 02/13/18 08:26 93 21 02/13/18 08:00 98.1 86 18 158/81 (106) 94 02/13/18 04:00 97.1 91 20 154/74 (100) 97 02/13/18 03:13 95 02/13/18 00:00 97.7 97 20 172/78 (109) 95 I/O 02/13/18 02/13/18 02/13/18 02/14/18 02/14/18 02/14/18 07:00 15:00 23:00 07:00 15:00 23:00 Intake Total 360 ml 635 ml 1320 ml Output Total 850 ml 300 ml 2425 ml Balance -490 ml 335 ml -1105 ml Intake Oral 360 ml 1320 ml Tube Feeding 635 ml Output Urine Total 850 ml 1900 ml Stool Total 300 ml 525 ml # Voids 2 Result Diagram: 02/13/18 0645 02/13/18 0645 Objective Remarks GENERAL: Alert, oriented 3, NAD. SKIN: Warm and dry. HEAD: Normocephalic. EYES: No scleral icterus. No injection or drainage. NECK: Supple, trachea midline. No JVD or lymphadenopathy. CARDIOVASCULAR: Regular rate and rhythm without murmurs, gallops, or rubs. RESPIRATORY: Breath sounds equal bilaterally. No accessory muscle use. GASTROINTESTINAL: Abdomen soft, mildly tender to palpation, nondistended. MUSCULOSKELETAL: No cyanosis, or edema. BACK: Nontender without obvious deformity. No CVA tenderness. Procedures 01/23/18 colonoscopy 01/24/18 Gastrografin enema 3/30/18 Patient with Small bowel obstruction secondary to constipation . Massively dependent right colon, completely full of pasty stool. Status post surgery by Dr. Florian 02/01/18: exploratory lap, extended right hemicolectomy, gastrostomy tube, end ileostomy, mucous fistula transverse colon Date of Insertion: Jan 30, 2018 Line: PICC Side: Right Location: Antecubital A/P Problem List: (1) Abdominal pain ICD Code: R10.9 - Unspecified abdominal pain Status: Acute (2) Small bowel obstruction ICD Code: K56.609 - Unspecified intestinal obstruction, unspecified as to partial versus complete obstruction Status: Acute (3) Fecal impaction ICD Code: K56.41 - Fecal impaction Status: Acute (4) Hypertension ICD Code: I10 - Essential (primary) hypertension (5) Diabetes ICD Code: E11.9 - Type 2 diabetes mellitus without complications Assessment and Plan Ms. Cuevas is a 52-year-old female with a history of lung cancer, COPD, hypertension, diabetes mellitus, atrial fibrillation, liver cirrhosis who presented to the emergency department on 01/23/2018 due to abdominal pain. CT scan showed small bowel obstruction with fecal impaction. Patient had expiratory laparotomy with the right hemicolectomy, G-tube placement, end ileostomy and mucous fistula transverse colon by Dr. Florian. Patient was treated in the ICU from 02/04 - 02/10/2018. Neuro/Psych: Chronic narcotic use Chronic benzodiazepine use Seizure disorder NOS History of TIA Patient is on hydrocodone/acetaminophen 5/300 1 tablet 3 times daily at home. Patient is on cyclobenzaprine 10 mg 3 times daily at home muscle relaxant. Ofirmev 1 g IV every 8 hours as needed fever CV: Coronary artery disease Congestive heart failure likely chronic diastolic Paroxysmal atrial fib relation currently normal sinus rhythm Hypertension Dyslipidemia Nifedipine 30mg Qday. 2D echocardiogram revealed left ventricular systolic function is grossly normal on limited imaging. Mild concentric left ventricular hypertrophy. Trace mitral valve regurgitation. There is trace tricuspid valve regurgitation. Trivial pulmonary valve regurgitation. Doppler parameters are consistent with impaired left ventricular relaxtion (grade 1 diastolic dysfunction). Resp: Acute hypoxic respiratory failure Chronic respiratory failure secondary to COPD/2 L oxygen dependent PRVC 18/550///40 -> extubated. Patient is currently on albuterol/ipratropium aerosols every 6 hours with albuterol aerosols every 2 hours as needed for dyspnea Patient is previously on tiotropium/olodaterol 2.5/2.5 mg 2 puffs daily and budesonide/formoterol 160/4.5 2 puffs twice daily at home GI: s/p exploratory laparotomy with right hemicolectomy, G-tube placement with end ileostomy, mucous fistula transverse colon secondary to stool impaction small bowel by Dr. Florian Gastroesophageal reflux disease History of liver cirrhosis? Hypoalbuminemia Continue pantoprazole 40 mg IV twice daily Docusate sodium 100 mg twice daily Metoclopramide 10 mg IV every 8 hours per surgery Ostomy cares Pathology reveals acute colitis with ulceration, serositis Continue Tube feed. Irrigation tomorrow 02/14/[address] Yvon Florian. Endo: TSH elevated 3.9. Low T3. Normal T4. Chronic prednisone use 5 mg twice daily Hypernatremia Continue Low sliding scale insulin Patient received D5W for hypernatremia. Sodium improved from 149 --> 144. Renal: Hypokalemia Creatinine currently within normal limits Replace potassium with PO and IV. Monitor urine output Accurate I's and O's Heme: Normocytic anemia Hgb stable at 9.2. Transfused 2 units PRBCs 02/04. ID: Continue Zosyn 4.5 g Q6hrs. Blood cultures 02/03 no growth to date blood cultures 2, sputum urine and urine Legionella pneumococcal antigen 02/04: NGTD. Influenza negative MSK: Chronic methotrexate use PT evaluate and treat Holding methotrexate 2.5 mg p.o. daily FEN: Prophylax -GI -pantoprazole 40 mg IV twice daily -DVT prophylaxis -SCDs/enoxaparin 40 mg subcu daily Probable discharge home with home health on 02/14/2018. Problem Qualifiers (1) Abdominal pain: Qualified Codes: R10.84 - Generalized abdominal pain Enmanuel Gomes DO Feb 13, 2018 23:17
[2018-02-14] VITALS: BP 130/77; PULSE 62; RESP 18; TEMP 98.1; O2SAT 94
[2018-02-14] MEDS: RESP: ALBUTEROL 2.5 MG/IPRATROPIUM 0.5 MG NEB (SCH) NEB ×3 (03:16→16:13)
[2018-02-14] MEDS: ONDANSETRON HCL 4 MG/2 ML VIAL IV PUSH PRN ×2 (05:13→10:32)
[2018-02-14] MEDS: PANTOPRAZOLE SODIUM 40 MG VIAL IV PUSH SCH (05:13)
[2018-02-14] MEDS: ACETAMINOPHEN/HYDROcodone 325 MG/5 MG TAB PO PRN (05:14)
[2018-02-14] MEDS: ARTIFICIAL TEARS OPTH SOLN 15 ML BTL EACH EYE SCH ×2 (05:23→15:01)
[2018-02-14 07:41] VITALS: BP 156/74; PULSE 85; RESP 18; TEMP 98.3; O2SAT 93
[2018-02-14] MEDS: INSULIN ASPART SUPPLEMENTAL SCALE SQ SCH ×2 (08:00→12:00)
[2018-02-14] MEDS: CHLORHEXIDINE 0.12% (ORAL KIT) 15 ML CUP MT SCH (08:00)
[2018-02-14 08:19] VITALS: O2SAT 92
[2018-02-14] MEDS: RESP: BUDESONIDE 0.5 MG/2 ML NEB NEB SCH (08:19)
[2018-02-14] MEDS: NIFEdipine 30 MG SUSTAINED RELEASE TAB PO SCH (09:00)
[2018-02-14] MEDS: DOCUSATE SODIUM 100 MG/10 ML UDC PO SCH (09:00)
[2018-02-14] MEDS: STIOLTO PO SCH (09:00)
[2018-02-14] MEDS: CYCLOBENZAPRINE HCL 10 MG TAB PO SCH ×2 (09:00→15:01)
[2018-02-14] MEDS: FOLIC ACID 1 MG TAB PO SCH (09:00)
[2018-02-14] MEDS: POTASSIUM CHLORIDE 20 MEQ CONTROLLED RELEASE TAB PO SCH (09:00)
--- NOTE | 2018-02-14 09:33 | PD.WCN.NOT ---
Wound Consult Description: Consult for OSTOMY MANAGEMENT of abdomen per Dr Florian. Communicated with: MORA Kramer Dr RN Recommendation: Empty pouch when 1/3-1/2 full Monitor color/output of right upper abdomen mucus fistula. Monitor output of right lower abdomen ileostomy (pill found in 180ml of effluent today). Change ileostomy pouch every 3-5 days and as needed. Additional Information: Patient seen x2 today for ostomy assessment. Pouch was emptied of ~180ml of dark green liquid effluent with a round white pill noted. Attending physician and surgery notified of findings. Ostomy Type: Ileostomy (right lower abdomen ileostomy with mucus fistula noted to right upper abdomen) Surgeon: Yvon Florian MD Date of Surgery: Feb 01, 2018 Complete: Starter kit (sent 02/12/18 via 2 day mail from [facility] Education materials (Booklet given to patient. Box of essentials left in patient room.), Rx (Left on chart), Other (Supplies ordered for patient to go home with at discharge.) Educated patient on: Patient was sleeping through entire assessment with emptying of pouch. Additional information Patient seen on for ostomy assessment with emptying of pouch. Stoma is red, round, moist, functioning with dark green effluent from lumen noted in center of stoma. Pouching system is intact and noted without leaks. Pouch was emptied of ~180ml effluent with a small round white pill noted in pouch. Effluent and medication pill was emptied from pouch into graduate that was left in patient bathroom and communicated with RN. Notified MORA Kramer and Dr Thomas of findings. Patient slept during entire assessment and emptying of pouch with occasional self repositioning. Corrie Malone [facility] Feb 14, 2018 09:33
[2018-02-14] MEDS: SODIUM CHLORIDE 0.9% FLUSH 10 ML FLUSH IV FLUSH SCH (10:35)
[2018-02-14] MEDS: ENOXAPARIN SODIUM 40 MG/0.4 ML SYRINGE SQ SCH (10:38)
[2018-02-14 12:00] VITALS: BP 168/81; PULSE 93; RESP 18; TEMP 98; O2SAT 95
--- NOTE | 2018-02-14 12:27 | HHI.PR ---
Subjective Remarks Follow-up fecal impaction. Is doing better she was nauseous earlier today but no vomiting. Able to tolerate fluids. Patient advised she can be discharged later today if she is tolerating p.o. Discussed with surgery and family. Objective Vitals Vital Signs Date Time Temp Pulse Resp B/P (MAP) Pulse Ox O2 Delivery O2 Flow Rate FiO2 02/14/18 08:19 92 21 02/14/18 07:41 98.3 85 18 156/74 (101) 93 02/14/18 00:00 98.1 62 18 130/77 (94) 94 02/13/18 20:00 98.0 92 18 130/76 (94) 99 02/13/18 19:57 93 02/13/18 16:00 97.5 84 17 155/82 (106) 94 I/O 02/13/18 02/13/18 02/13/18 02/14/18 02/14/18 02/14/18 07:00 15:00 23:00 07:00 15:00 23:00 Intake Total 360 ml 635 ml 1320 ml 240 ml Output Total 850 ml 300 ml 2425 ml Balance -490 ml 335 ml -1105 ml 240 ml Intake Oral 360 ml 1320 ml 240 ml Tube Feeding 635 ml Output Urine Total 850 ml 1900 ml Stool Total 300 ml 525 ml # Voids 2 2 Result Diagram: 02/13/18 0645 02/13/18 0645 Imaging Last Impressions Chest X-Ray 02/08/18 0000 Signed Impressions: Service Date/Time: Thursday, February 08, 2018 08:32 - CONCLUSION: Persistent, but improved, bilateral parenchymal infiltrates. Murphy Beverly MD Abdomen X-Ray 02/06/18 0000 Signed Impressions: Service Date/Time: Tuesday, February 06, 2018 11:39 - CONCLUSION: 1. NG tip in stomach with side-port in distal esophagus. Presumed gastrostomy in the left upper quadrant. Tee Herrera MD Small Bowel X-Ray 01/30/18 0000 Signed Impressions: Service Date/Time: Tuesday, January 30, 2018 13:51 - CONCLUSION: There is diffuse distention of the small bowel with slow progression of contrast through the small bowel over 21 hours. This is nonspecific. This could be a diffuse adynamic ileus of the small bowel versus a distal small bowel obstruction. Lucien Willett MD Enema w/Water Soluble 01/24/18 0000 Signed Impressions: Service Date/Time: January 11:06 - CONCLUSION: Gastrografin enema performed for constipation as described above. Jabier Aviles MD Abdomen/Pelvis CT 01/22/18 1800 Signed Impressions: Service Date/Time: Monday, January 22, 2018 19:40 - CONCLUSION: 1. Distal small bowel obstruction with multiple air-fluid levels. The cecum is impacted with stool to a diameter of 9.2 cm and it is unclear if this is related to a distal small bowel obstruction. No free air. There is mild ascites. 2. Subsegmental patchy airspace disease at the lung base is trace right pleural fluid. 3. Small hiatal hernia. Tee Herrera MD Objective Remarks GENERAL: Alert, oriented 3, NAD. SKIN: Warm and dry. HEAD: Normocephalic. EYES: No scleral icterus. No injection or drainage. NECK: Supple, trachea midline. No JVD or lymphadenopathy. CARDIOVASCULAR: Regular rate and rhythm without murmurs, gallops, or rubs. RESPIRATORY: Breath sounds equal bilaterally. No accessory muscle use. GASTROINTESTINAL: Abdomen soft, mildly tender to palpation, nondistended. Ileostomy in place MUSCULOSKELETAL: No cyanosis, or edema. BACK: Nontender without obvious deformity. No CVA tenderness. Procedures 01/23/18 colonoscopy 01/24/18 Gastrografin enema 02/01/18 Patient with Small bowel obstruction secondary to constipation . Massively dependent right colon, completely full of pasty stool. Status post surgery by Dr. Florian 02/01/18: exploratory lap, extended right hemicolectomy, gastrostomy tube, end ileostomy, mucous fistula transverse colon Date of Insertion: Jan 30, 2018 Line: PICC Side: Right Location: Antecubital A/P Problem List: (1) Abdominal pain ICD Code: R10.9 - Unspecified abdominal pain Status: Acute (2) Small bowel obstruction ICD Code: K56.609 - Unspecified intestinal obstruction, unspecified as to partial versus complete obstruction Status: Acute (3) Fecal impaction ICD Code: K56.41 - Fecal impaction Status: Acute (4) Hypertension ICD Code: I10 - Essential (primary) hypertension (5) Diabetes ICD Code: E11.9 - Type 2 diabetes mellitus without complications Assessment and Plan Ms. Cuevas is a 52-year-old female with a history of lung cancer, COPD, hypertension, diabetes mellitus, atrial fibrillation, liver cirrhosis who presented to the emergency department on 01/23/2018 due to abdominal pain. CT scan showed small bowel obstruction with fecal impaction. Patient had expiratory laparotomy with the right hemicolectomy, G-tube placement, end ileostomy and mucous fistula transverse colon by Dr. Florian. Patient was treated in the ICU from 02/04 - 02/10/2018. Neuro/Psych: Chronic narcotic use Chronic benzodiazepine use Seizure disorder NOS History of TIA Patient is on hydrocodone/acetaminophen 5/300 1 tablet 3 times daily at home. Consult regarding narcotic use Patient is on cyclobenzaprine 10 mg 3 times daily at home muscle relaxant. CV: Coronary artery disease Congestive heart failure likely chronic diastolic Paroxysmal atrial fib relation currently normal sinus rhythm Hypertension Dyslipidemia Nifedipine 30mg Qday. 2D echocardiogram revealed left ventricular systolic function is grossly normal on limited imaging. Mild concentric left ventricular hypertrophy. Trace mitral valve regurgitation. There is trace tricuspid valve regurgitation. Trivial pulmonary valve regurgitation. Doppler parameters are consistent with impaired left ventricular relaxtion (grade 1 diastolic dysfunction). Compensated Resp: Acute hypoxic respiratory failure. Resolved Chronic respiratory failure secondary to COPD/2 L oxygen dependent PRVC 18/550/11/09/39 -> extubated. Patient is currently on albuterol/ipratropium aerosols every 6 hours with albuterol aerosols every 2 hours as needed for dyspnea Patient is previously on tiotropium/olodaterol 2.5/2.5 mg 2 puffs daily and budesonide/formoterol 160/4.5 2 puffs twice daily at home GI: s/p exploratory laparotomy with right hemicolectomy, G-tube placement with end ileostomy, mucous fistula transverse colon secondary to stool impaction small bowel by Dr. Florian. Stable Gastroesophageal reflux disease History of liver cirrhosis? Hypoalbuminemia Continue pantoprazole 40 mg twice daily Docusate sodium 100 mg twice daily Metoclopramide 10 mg IV every 8 hours per surgery Ostomy care Pathology reveals acute colitis with ulceration, serositis Continue to hold tube feeding if tolerating p.o. Endo: TSH elevated 3.9. Low T3. Normal T4. Chronic prednisone use 5 mg twice daily Hypernatremia Continue Low sliding scale insulin Patient received D5W for hypernatremia. Sodium improved from 149 --> 144. Renal: Hypokalemia Creatinine currently within normal limits Replace potassium with PO and IV. Monitor urine output Accurate I's and O's Heme: Normocytic anemia secondary to acute blood loss Hgb stable at 9.2. Transfused 2 units PRBCs 02/04. ID: S/p Zosyn 4.5 g Q6hrs. Blood cultures 02/03 no growth to date blood cultures 2, sputum urine and urine Legionella pneumococcal antigen 02/04: NGTD. Influenza negative MSK: Chronic methotrexate use PT evaluate and treat Holding methotrexate 2.5 mg p.o. daily, restart outpatient FEN: Prophylax -GI -pantoprazole 40 mg twice daily -DVT prophylaxis -SCDs/enoxaparin 40 mg subcu daily Discharge Planning Stable for discharge Problem Qualifiers (1) Abdominal pain: Qualified Codes: R10.84 - Generalized abdominal pain Umair Thomas MD Feb 14, 2018 12:27
--- NOTE | 2018-02-14 12:34 | HHI.DCPOC ---
Discharge Care Plan Diagnosis: (1) Small bowel obstruction Your Health Problems Are: Difficulty with ADL Exercise Tolerance Goals to Promote Your Health * To prevent worsening of your condition and complications * To maintain your health at the optimal level Directions to Meet Your Goals Take your medications as prescribed Follow your dietary instruction Follow activity as directed Keep your appointments as scheduled Take your immunizations and boosters as scheduled If your symptoms worsen call your PCP, if no PCP go to Urgent Care Center or Emergency Room Smoking is Dangerous to Your Health. Avoid second hand smoke Call the 24-hour hour crisis hotline for domestic abuse at Umair Thomas MD Feb 14, 2018 12:34
--- NOTE | 2018-02-14 13:19 | HHI.PR ---
cc: Yvon Florian MD Subjective Subjective Notes "Can I have a cup of ice for my Sprite?" Objective Vitals/I&O Vital Signs Date Time Temp Pulse Resp B/P (MAP) Pulse Ox O2 Delivery O2 Flow Rate FiO2 02/14/18 08:19 92 21 02/14/18 07:41 98.3 85 18 156/74 (101) 02/12/18 08:33 Nasal Cannula 2.00 Labs Date/Time Source Procedure Growth Status 02/05/18 22:30 Blood Line Aerobic Blood Culture - Final NO GROWTH IN 5 DAYS Complete 02/05/18 22:30 Blood Line Anaerobic Blood Culture - Final NO GROWTH IN 5 DAYS Complete 02/04/18 17:36 Nasal Aspirate Influenza Types A,B Antigen (RADHA) - Final NEGATIVE FOR FLU A AND B ANTIGEN.... Complete 02/04/18 17:30 Urine Catheterized Urine Legionella Antigen - Final PRESUMPTIVE NEGATIVE FOR LEGIONELLA P... Complete 02/04/18 17:30 Urine Catheterized Urine Streptococcus pneumoniae Antigen (M - Final PRESUMPTIVE NEGATIVE FOR STREPTOCOCCU... Complete Radiology Last 48 hours Impressions Abdomen/Pelvis CT 01/22/18 1800 Signed Impressions: Service Date/Time: Monday, January 22, 2018 19:40 - CONCLUSION: 1. Distal small bowel obstruction with multiple air-fluid levels. The cecum is impacted with stool to a diameter of 9.2 cm and it is unclear if this is related to a distal small bowel obstruction. No free air. There is mild ascites. 2. Subsegmental patchy airspace disease at the lung base is trace right pleural fluid. 3. Small hiatal hernia. Tee Herrera MD Cardiovascular: Regular Lungs: Clear Abdomen: Other (MF with Dry dressing; ileostomy with pink stoma--- liquid stool in bag; midline incision with evelio; G tube in place) Extremities: No edema A/P Problem List: (1) Surgically created abdominal mucous fistula ICD Codes: Z93.4 - Other artificial openings of gastrointestinal tract status Status: Acute (2) S/P exploratory laparotomy ICD Codes: Z98.890 - Other specified postprocedural states (3) Attention to ileostomy ICD Codes: Z43.2 - Encounter for attention to ileostomy Status: Acute (4) Abdominal pain ICD Codes: R10.9 - Unspecified abdominal pain Status: Acute Assessment and Plan 52 year old female with abdominal pain and distention; fecal impaction -POD13 ex lap; ileostomy; mucous fistula -Stable on RA now -Hmg 9.3; stable -Tolerating regular diet -Irrigated MF at bedside -GS clear for DC -Follow up Sunday in the office Problem Qualifiers (1) Abdominal pain: Qualified Codes: R10.84 - Generalized abdominal pain Michela KramerP/Co[employer] Drawer ATM TECHNICIAN Feb 14, 2018 13:19
[2018-02-14] MEDS ORDERED: HOSP BED1 (13:20)
--- NOTE | 2018-02-14 14:56 | HHI.PR ---
Subjective Remarks ALERT , NO SOB ambulating Objective Vital Signs Date Time Temp Pulse Resp B/P (MAP) Pulse Ox O2 Delivery O2 Flow Rate FiO2 02/14/18 08:19 92 21 02/14/18 07:41 98.3 85 18 156/74 (101) 93 02/14/18 00:00 98.1 62 18 130/77 (94) 94 02/13/18 20:00 98.0 92 18 130/76 (94) 99 02/13/18 19:57 93 02/13/18 16:00 97.5 84 17 155/82 (106) 94 I/O 02/13/18 02/13/18 02/13/18 02/14/18 02/14/18 02/14/18 07:00 15:00 23:00 07:00 15:00 23:00 Intake Total 360 ml 635 ml 1320 ml 240 ml Output Total 850 ml 300 ml 2425 ml Balance -490 ml 335 ml -1105 ml 240 ml Intake Oral 360 ml 1320 ml 240 ml Tube Feeding 635 ml Output Urine Total 850 ml 1900 ml Stool Total 300 ml 525 ml # Voids 2 2 Result Diagram: 02/13/1845 02/13/18 0645 Objective Remarks GENERAL: SEDATED ON VENT SUPPORT SKIN: Warm and dry. HEAD: Atraumatic. Normocephalic. EYES: Pupils equal and round. No scleral icterus. No injection or drainage. ENT: No nasal bleeding or discharge. Mucous membranes pink and moist. NECK: Trachea midline. No JVD. CARDIOVASCULAR: Regular rate and rhythm. RESPIRATORY: No accessory muscle use. Clear to auscultation. Breath sounds equal bilaterally. GASTROINTESTINAL: Abdomen soft, non-tender, nondistended. Hepatic and splenic margins not palpable. MUSCULOSKELETAL: Extremities without clubbing, cyanosis, or edema. No obvious deformities. NEUROLOGICAL: Awake and alert. No obvious cranial nerve deficits. Motor grossly within normal limits. Five out of 5 muscle strength in the arms and legs. Normal speech. PSYCHIATRIC: Appropriate mood and affect; insight and judgment normal. Assessment and Plan Assessment and Plan ASSESSMENT RESPIRATORY FAILURE, RESOLVED COPD CHF AFIB PLAN Bronchodilator therapy increase activity home TODAY, OFFICE 1 WEEK Ed Ward MD Feb 14, 2018 14:56
[2018-02-14 15:59] VITALS: BP 162/78; PULSE 95; RESP 18; TEMP 98.4; O2SAT 94
--- NOTE | 2018-02-14 17:48 | HHI.DS ---
Discharge Summary Admission Date Jan 22, 2018 at 22:37 Discharge Date: Feb 14, 2018 Admitting Diagnosis SBO, Fecal Impaction (1) Abdominal pain ICD Code: R10.9 - Unspecified abdominal pain Diagnosis: Principal Status: Acute (2) Small bowel obstruction ICD Code: K56.609 - Unspecified intestinal obstruction, unspecified as to partial versus complete obstruction Diagnosis: Principal Status: Acute (3) Fecal impaction ICD Code: K56.41 - Fecal impaction Diagnosis: Principal Status: Acute (4) Hypertension ICD Code: I10 - Essential (primary) hypertension Diagnosis: Secondary (5) Diabetes ICD Code: E11.9 - Type 2 diabetes mellitus without complications Diagnosis: Secondary Procedures 01/23/18 colonoscopy 01/24/18 Gastrografin enema 02/01/18 Patient with Small bowel obstruction secondary to constipation . Massively dependent right colon, completely full of pasty stool. Status post surgery by Dr. Florian 02/01/18: exploratory lap, extended right hemicolectomy, gastrostomy tube, end ileostomy, mucous fistula transverse colon Brief History - From Admission History from patient, ER communication, interview of medical records. Patient is in quite a bit of distress at the time of my exam. She is covering her eyes the whole time. She is pleasant though. She reports that she's been very nauseous and felt headaches. She reports she came to the hospital she's been having abdominal pain for the past few days. Reports it is diffuse everywhere. Reports she has been vomiting at least 3 times a day as well. Reports she initially started out with diarrhea episodes and now has been constipated for past few days. Denies fever. Denies any blood in her stool or in her urine. Denies any coffee-ground color vomiting. Patient denies any prior history of similar episodes. According to the nursing staff who spoke to the daughter, patient was at [facility] with similar symptoms. Nothing was done at that time. Patient reports of prior history of intra-abdominal surgeries. The emergency room, patient's further workup revealed small bowel obstruction with fecal impaction. Her case was discussed with general surgeon on-call by ER physician. Patient had NG tube placed in ER. Currently it is draining minimal. CBC/BMP: 02/13/18 0645 02/13/18 0645 Significant Findings Laboratory Tests Test 02/11/18 23:55 02/12/18 06:05 02/13/18 06:45 Vancomycin Level Trough 16.2 MCG/ML (5.0-10.0) Red Blood Count 3.41 MIL/MM3 (4.00-5.30) 3.22 MIL/MM3 (4.00-5.30) Hemoglobin 9.8 GM/DL (11.6-15.3) 9.3 GM/DL (11.6-15.3) Hematocrit 30.2 % (35.0-46.0) 28.7 % (35.0-46.0) Red Cell Distribution Width 18.4 % (11.6-17.2) 18.2 % (11.6-17.2) Random Glucose 130 MG/DL (74-106) Calcium Level 8.0 MG/DL (8.5-10.1) 8.2 MG/DL (8.5-10.1) Potassium Level 2.9 MEQ/L (3.5-5.1) 3.4 MEQ/L (3.5-5.1) Imaging Last Impressions Chest X-Ray 02/08/18 0000 Signed Impressions: Service Date/Time: Thursday, February 08, 2018 08:32 - CONCLUSION: Persistent, but improved, bilateral parenchymal infiltrates. Murphy Beverly MD Abdomen X-Ray 02/06/18 0000 Signed Impressions: Service Date/Time: Tuesday, February 06, 2018 11:39 - CONCLUSION: 1. NG tip in stomach with side-port in distal esophagus. Presumed gastrostomy in the left upper quadrant. Tee Herrera MD Small Bowel X-Ray 01/30/18 0000 Signed Impressions: Service Date/Time: Tuesday, January 30, 2018 13:51 - CONCLUSION: There is diffuse distention of the small bowel with slow progression of contrast through the small bowel over 21 hours. This is nonspecific. This could be a diffuse adynamic ileus of the small bowel versus a distal small bowel obstruction. Lucien Willett MD Enema w/Water Soluble 01/24/18 0000 Signed Impressions: Service Date/Time: January 11:06 - CONCLUSION: Gastrografin enema performed for constipation as described above. Jabier Aviles MD Abdomen/Pelvis CT 01/22/18 1800 Signed Impressions: Service Date/Time: Monday, January 22, 2018 19:40 - CONCLUSION: 1. Distal small bowel obstruction with multiple air-fluid levels. The cecum is impacted with stool to a diameter of 9.2 cm and it is unclear if this is related to a distal small bowel obstruction. No free air. There is mild ascites. 2. Subsegmental patchy airspace disease at the lung base is trace right pleural fluid. 3. Small hiatal hernia. Tee Herrera MD PE at Discharge GENERAL: Alert, oriented 3, NAD. SKIN: Warm and dry. HEAD: Normocephalic. EYES: No scleral icterus. No injection or drainage. NECK: Supple, trachea midline. No JVD or lymphadenopathy. CARDIOVASCULAR: Regular rate and rhythm without murmurs, gallops, or rubs. RESPIRATORY: Breath sounds equal bilaterally. No accessory muscle use. GASTROINTESTINAL: Abdomen soft, mildly tender to palpation, nondistended. Ileostomy in place MUSCULOSKELETAL: No cyanosis, or edema. BACK: Nontender without obvious deformity. No CVA tenderness. Hospital Course Ms. Cuevas is a 52-year-old female with a history of lung cancer, COPD, hypertension, diabetes mellitus, atrial fibrillation, liver cirrhosis who presented to the emergency department on 01/23/2018 due to abdominal pain. CT scan showed small bowel obstruction with fecal impaction. Patient had expiratory laparotomy with the right hemicolectomy, G-tube placement, end ileostomy and mucous fistula transverse colon by Dr. Florian. Patient was treated in the ICU from 02/04 - 02/10/2018. Neuro/Psych: Chronic narcotic use Chronic benzodiazepine use Seizure disorder NOS History of TIA Patient is on hydrocodone/acetaminophen 5/300 1 tablet 3 times daily at home. Consult regarding narcotic use Patient is on cyclobenzaprine 10 mg 3 times daily at home muscle relaxant. CV: Coronary artery disease Congestive heart failure likely chronic diastolic Paroxysmal atrial fib relation currently normal sinus rhythm Hypertension Dyslipidemia Nifedipine 30mg Qday. 2D echocardiogram revealed left ventricular systolic function is grossly normal on limited imaging. Mild concentric left ventricular hypertrophy. Trace mitral valve regurgitation. There is trace tricuspid valve regurgitation. Trivial pulmonary valve regurgitation. Doppler parameters are consistent with impaired left ventricular relaxtion (grade 1 diastolic dysfunction). Compensated Resp: Acute hypoxic respiratory failure. Resolved Chronic respiratory failure secondary to COPD/2 L oxygen dependent PRVC 18/550/11/09/39 -> extubated. Patient is currently on albuterol/ipratropium aerosols every 6 hours with albuterol aerosols every 2 hours as needed for dyspnea Patient is previously on tiotropium/olodaterol 2.5/2.5 mg 2 puffs daily and budesonide/formoterol 160/4.5 2 puffs twice daily at home GI: s/p exploratory laparotomy with right hemicolectomy, G-tube placement with end ileostomy, mucous fistula transverse colon secondary to stool impaction small bowel by Dr. Florian. Stable Gastroesophageal reflux disease History of liver cirrhosis? Hypoalbuminemia Continue pantoprazole 40 mg twice daily Docusate sodium 100 mg twice daily Metoclopramide 10 mg IV every 8 hours per surgery Ostomy care Pathology reveals acute colitis with ulceration, serositis Continue to hold tube feeding if tolerating p.o. Endo: TSH elevated 3.9. Low T3. Normal T4. Chronic prednisone use 5 mg twice daily Hypernatremia Continue Low sliding scale insulin Patient received D5W for hypernatremia. Sodium improved from 149 --> 144. Renal: Hypokalemia Creatinine currently within normal limits Replace potassium with PO and IV. Monitor urine output Accurate I's and O's Heme: Normocytic anemia secondary to acute blood loss Hgb stable at 9.2. Transfused 2 units PRBCs 02/04. ID: S/p Zosyn 4.5 g Q6hrs. Blood cultures 02/03 no growth to date blood cultures 2, sputum urine and urine Legionella pneumococcal antigen 02/04: NGTD. Influenza negative MSK: Chronic methotrexate use PT evaluate and treat Holding methotrexate 2.5 mg p.o. daily, restart outpatient FEN: Prophylax -GI -pantoprazole 40 mg twice daily -DVT prophylaxis -SCDs/enoxaparin 40 mg subcu daily Pt Condition on Discharge: Good Discharge Disposition: Disch w/ Home Health Serv Discharge Time: > 30 minutes Discharge Instructions DIET: Follow Instructions for: Heart Healthy Diet Activities you can perform: Regular-No Restrictions Follow up Referrals: PCP Follow-up - 1 Week Physical Therapy Physical Therapy three times weekly Pulmonology - 1 Week with Ed Ward MD Surgical - 02/19/18 Appt set for February 19 at 9:10AM New Medications: Commode 3-in-1 (Commode 3-in-1) 1 Mis Mis EA .XX DIRECTED, #1 0 Refills Hospital Bed - Electric (Hospital Bed - Electric) 1 Ea Ea EA .XX DIRECTED, #1 Walker with Front Wheels (Walker with Front Wheels) 1 Mis Mis EA .XX DIRECTED, #1 0 Refills Changed Medications: Hydrocodone-Acetaminophen (Hydrocodone-Acetaminophen) 7.5-300 Mg Tab 1 TAB PO Q6HR for Pain Management, #20 TAB 0 Refills (Changed from: TID) Nifedipine ER 24 HR (Nifedipine ER 24 HR) 30 Mg Tab 30 MG PO DAILY for Blood Pressure Management, #30 TAB 0 Refills (Changed from: 90 MG) Continued Medications: Albuterol Sulfate (Proair Hfa) 90 Mcg Hfa.aer.ad 1 PUFF INH Q6HR PRN for WHEEZING Alprazolam (Alprazolam) 0.25 Mg Tab 0.25 MG PO BID for Anxiety, TAB 0 Refills Cyclobenzaprine (Flexeril) 10 Mg Tab 10 MG PO TID for Muscle Spasm, #90 TAB 0 Refills Fluticasone-Salmeterol Inh (Advair Diskus Inh) 500-50 Mcg/Blist Aer 1 PUFF INH BID, #1 INHALER 0 Refills Rinse mouth after use. Folic Acid (Folic Acid) 1 Mg Tablet 1 MG PO DAILY for Nutritional Supplement Methotrexate (Methotrexate) 2.5 Mg Tab 2.5 MG PO DAILY, TAB 0 Refills Omeprazole (Omeprazole) 40 Mg Cap 40 MG PO DAILY, #30 CAP 0 Refills Prednisone (Prednisone) 5 Mg Tab 5 MG PO BID, TAB 0 Refills Tiotropium-Olodaterol Inh (Stiolto Respimat Inh) 2.5-2.5 Mcg/Act Aero 2 PUFF INH DAILY for COPD, #1 INHALER 0 Refills Discontinued Medications: Aspirin (Aspirin) 325 Mg Tab 325 MG PO DAILY, #30 TAB 0 Refills Cefuroxime (Cefuroxime) 500 Mg Tab 500 MG PO BID for Infection, #14 TAB 0 Refills Furosemide (Lasix) 20 Mg Tab 20 MG PO DAILY, #30 TAB 0 Refills Promethazine (Phenergan) 25 Mg Tablet 25 MG PO Q8HR PRN for NAUSEA OR VOMITING, TAB 0 Refills Umair Thomas MD Feb 14, 2018 17:48
[2018-02-15] MEDS ORDERED: PANTOPRAZOLE SOD 20 MG DELAYED RELEASE TAB PO SCH (09:00)
== END 2018-02-14 18:25 | disposition home health service (06) | DRG 329 ==
LOC: NEPC 17:44 → NEDA 22:37 → NEDH 01-23 01:52 → NEPGCP 01-23 14:37 → N06B 01-25 17:06 → N05A 01-28 16:52 → N03A 02-04 09:58 → N07B 02-10 15:09
PROVIDERS: ADMIT Internal Medicine; ATTEND Internal Medicine
PROC: 0DJD8ZZ Inspection of Lower Intestinal Tract, Via Natural or Artificial Opening Endoscopic (ICD-10-PCS; 2018-01-23)
PROC: 0DJD8ZZ Inspection of Lower Intestinal Tract, Via Natural or Artificial Opening Endoscopic (ICD-10-PCS; 2018-01-28)
PROC: 0D1B0Z4 Bypass Ileum to Cutaneous, Open Approach (ICD-10-PCS; 2018-02-01)
PROC: 0DBB0ZZ Excision of Ileum, Open Approach (ICD-10-PCS; 2018-02-01)
PROC: 0D1L0Z4 Bypass Transverse Colon to Cutaneous, Open Approach (ICD-10-PCS; 2018-02-01)
PROC: 0DH63UZ Insertion of Feeding Device into Stomach, Percutaneous Approach (ICD-10-PCS; 2018-02-01)
PROC: 3E0M05Z Introduction of Adhesion Barrier into Peritoneal Cavity, Open Approach (ICD-10-PCS; 2018-02-01)
PROC: 0DTF0ZZ Resection of Right Large Intestine, Open Approach (ICD-10-PCS; principal; 2018-02-01 10:22)
PROC: 5A1955Z Respiratory Ventilation, Greater than 96 Consecutive Hours (ICD-10-PCS; 2018-02-04)
PROC: 30233N1 Transfusion of Nonautologous Red Blood Cells into Peripheral Vein, Percutaneous Approach (ICD-10-PCS; 2018-02-04)
PROC: 0BH17EZ Insertion of Endotracheal Airway into Trachea, Via Natural or Artificial Opening (ICD-10-PCS; 2018-02-04)
DX: K56.41 Fecal impaction (principal); J96.21 Acute and chronic respiratory failure with hypoxia; A41.9 Sepsis, unspecified organism; K65.8 Other peritonitis; I13.0 Hypertensive heart and chronic kidney disease with heart failure and stage 1 through stage 4 chronic kidney disease, or unspecified chronic kidney disease; E87.0 Hyperosmolality and hypernatremia; I50.32 Chronic diastolic (congestive) heart failure; E87.1 Hypo-osmolality and hyponatremia; R18.8 Other ascites; D62 Acute posthemorrhagic anemia; J44.9 Chronic obstructive pulmonary disease, unspecified; E11.22 Type 2 diabetes mellitus with diabetic chronic kidney disease; E11.42 Type 2 diabetes mellitus with diabetic polyneuropathy; Z99.81 Dependence on supplemental oxygen; I95.9 Hypotension, unspecified; I48.0 Paroxysmal atrial fibrillation; E88.09 Other disorders of plasma-protein metabolism, not elsewhere classified; E83.39 Other disorders of phosphorus metabolism; K74.60 Unspecified cirrhosis of liver; K76.0 Fatty (change of) liver, not elsewhere classified; K76.9 Liver disease, unspecified; G40.909 Epilepsy, unspecified, not intractable, without status epilepticus; N18.9 Chronic kidney disease, unspecified; I25.10 Atherosclerotic heart disease of native coronary artery without angina pectoris; M19.90 Unspecified osteoarthritis, unspecified site; F41.9 Anxiety disorder, unspecified; E78.5 Hyperlipidemia, unspecified; F17.210 Nicotine dependence, cigarettes, uncomplicated; M06.9 Rheumatoid arthritis, unspecified; K44.9 Diaphragmatic hernia without obstruction or gangrene; K64.4 Residual hemorrhoidal skin tags; K64.8 Other hemorrhoids; K21.9 Gastro-esophageal reflux disease without esophagitis; G89.4 Chronic pain syndrome; K52.9 Noninfective gastroenteritis and colitis, unspecified; E87.6 Hypokalemia; R00.0 Tachycardia, unspecified; Z79.52 Long term (current) use of systemic steroids; Z86.73 Personal history of transient ischemic attack (TIA), and cerebral infarction without residual deficits; I25.2 Old myocardial infarction; Z85.118 Personal history of other malignant neoplasm of bronchus and lung; Z79.82 Long term (current) use of aspirin; Z79.01 Long term (current) use of anticoagulants; Z79.891 Long term (current) use of opiate analgesic; Z85.3 Personal history of malignant neoplasm of breast
CPT/HCPCS: 31500; 36430; 36569; 36600; 71045; 74018; 74019; 74177; 74250; 74270; 76937; 80048; 80053; 80076; 80202; 81001; 82140; 82150; 82533; 82550; 82805; 82948; 83605; 83690; 83735; 84100; 84132; 84155; 84439; 84443; 84481; 84484; 84702; 85007; 85025; 85027; 85384; 85610; 85730; 86850; 86900; 86901; 86920; 87040; 87070; 87205; 87449; 87640; 87641; 87804; 88307; 93005; 93306; 93922; 94002; 94003; 94150; 94640; 94664; 96361; 96365; 96367; 96375; C1765; C9113; J0131; J0330; J0360; J0610; J0744; J0780; J1100; J1120; J1642; J1650; J1720; J1815; J1940; J2060; J2212; J2250; J2270; J2405; J2543; J2550; J2765; J3010; J3370; J3475; J3480; J7030; J7040; J7050; J7070; J7512; J7626; J7644; P9016; P9045; Q9963; Q9967

== ENCOUNTER 2018-06-17 10:53 | Inpatient (IN) ==
[2018-06-17] MEDS ORDERED: Neostigmine Inj 5 MG/5 ML Syringe IV.PUSH ONE (12:00)
[2018-06-17] MEDS ORDERED: Ketorolac Inj 30 MG/ML (IVP) Vial IV.PUSH ONE (12:00)
[2018-06-17] MEDS ORDERED: Glycopyrrolate Inj 1 MG/5 ML Syringe IV.PUSH ONE (12:00)
[2018-06-17] MEDS ORDERED: Metoprolol Tartrate 25 MG Tablet PO SCH (12:15)
[2018-06-17] MEDS ORDERED: Chlorhexidine Gluconate 2% 1 Pack (2 Cloths) TOPICAL SCH (12:15)
[2018-06-17] MEDS ORDERED: ceFAZolin 2 GM Premix Inj 2 GM/100 ML BAG IV.SIG ONE (12:17)
[2018-06-17] MEDS ORDERED: ceFAZolin 2 GM/NS 100 ML IV; Q8H IV.SIG SCH ×2 (13:00)
[2018-06-17] MEDS ORDERED: Sodium Chlor 0.9% Inj 500 ML IV.SIG SCH (13:00)
[2018-06-17] MEDS ORDERED: Famotidine PF Inj 20 MG/2 ML Vial ONE (13:34)
[2018-06-17] MEDS ORDERED: Bupivacaine/Epinephrine Inj 0.25% 50 ML Vial ONE (14:39)
[2018-06-17] MEDS ORDERED: Promethazine 25 MG Supp RECTAL PRN (16:54)
[2018-06-17] MEDS ORDERED: Bisacodyl 10 MG Supp RECTAL PRN ×2 (16:54→16:57)
[2018-06-17] MEDS ORDERED: Post-op Orders (for Pharmacy) OTHER ONE ×2 (16:54→16:57)
[2018-06-17] MEDS ORDERED: Naloxone Inj 0.4 MG/ML Vial IV.PUSH PRN ×3 (16:54→17:39)
[2018-06-17] MEDS ORDERED: Morphine Inj 30 MG/30 ML PCA.VIAL PCA PRN (17:04)
[2018-06-17] MEDS ORDERED: fentaNYL Citrate Inj 100 MCG/2 ML Ampul ONE (17:12)
[2018-06-17] MEDS ORDERED: *morphine SULFATE 4 MG/ML PERIprocedure ONLY ONE ×2 (17:27→18:24)
[2018-06-17] MEDS ORDERED: Morphine Inj 30 MG/30 ML PCA.VIAL PCA ONE (17:28)
[2018-06-17] MEDS: KCL 20 mEq/D5W/NaCl 0.9% Inj 1,000 ML IV.CONT SCH (18:28)
[2018-06-17] MEDS: Morphine Inj 30 MG/30 ML PCA.VIAL PCA PRN (18:29)
--- NOTE | 2018-06-17 20:36 | MP ---
cc: Yvon Florian MD, Joseph D MD DATE OF OPERATION: 06/17/2018 PREOPERATIVE DIAGNOSES: 1. Ileostomy with mucous fistula, status post emergent exploratory laparotomy for a bowel obstruction secondary to fecal impaction of the cecum. 2. Oral steroid dependence. POSTOPERATIVE DIAGNOSES: 1. Ileostomy with mucous fistula, status post emergent exploratory laparotomy for a bowel obstruction secondary to fecal impaction of the cecum. 2. Oral steroid dependence. PROCEDURE PERFORMED: 1. Exploratory laparotomy. 2. Lysis of adhesions, greater than 1 hour. 3. Ileostomy and mucous fistula takedown. 4. Ileocolic anastomosis (transverse colon). SURGEON: Yvon Florian MD TOP LIFTER: Tee Rosales MD SECOND TOP LIFTER: Nicky Gaspar MS-3 ANESTHESIA: General endotracheal. COMPLICATIONS: None. ESTIMATED BLOOD LOSS: About 200 mL. INTRAVENOUS FLUIDS: 3 liters of lactated Ringer's. INDICATIONS FOR PROCEDURE: Ms. Cuevas is a very pleasant 53-year-old female who unfortunately presented with a mechanical bowel obstruction about 6 months ago secondary to fecal impaction of her entire cecum. She had a CT scan demonstrating an enormous amount of stool lodged in the right colon and cecum. She was attempted to be managed nonoperatively with laxatives and a colonoscopy; however, she failed to progress. The patient was taken to the operating room emergently for an emergent right hemicolectomy. Because she was in poor nutritional health and is oral steroid dependent, we elected to do a diverting ileostomy and a mucous fistula. The patient did well despite her extensive medical comorbidities. She was seen back in the office recently and requested that her ileostomy be taken down. It was carefully explained to her and her family that she was a high risk for an ileostomy takedown and bowel anastomosis secondary to her overall medical comorbidities and the fact that she is dependent on oral steroids. She expressed understanding and wished to have her ileostomy taken down. Risks and benefits were reviewed with her in detail including that she was at high risk for multiple complications and she was agreeable to proceed. DESCRIPTION OF PROCEDURE: The patient was identified, brought to the operating room, placed supine on the operating table. After adequate general endotracheal anesthesia was achieved, the abdomen was prepped and draped in standard surgical fashion. Previous upper midline incision was excised using sharp dissection. The subcutaneous fat was dissected with electrocautery Bovie. It should be noted the patient had very poor tissue quality due to her steroid use. We were able to identify the upper midline fascia. This was opened with sharp dissection and the peritoneum was opened without too much difficulty. Next, the adhesions were taken down under the incision carefully and the incision was opened widely. We dissected all the way down to the umbilicus. Once we did this, we were able to enter the abdominal cavity. The patient had multiple omental adhesions and some small bowel and colon adhesions that were all taken down with electrocautery and sharp dissection. Care was taken not to injure the small or large bowel. Once we were able to gain access to the abdominal cavity, we could visualize the ileostomy in the right lower quadrant and the mucous fistula in the right upper quadrant. Attention was directed to the ileostomy first. An elliptical skin incision was made around the ileostomy. Dissection was carried down into subcutaneous tissue, identifying the ileostomy passing through the abdominal wall fascia. The ileostomy was secured in the right lower quadrant with silk sutures and these were taken down with sharp dissection. Once the ileostomy was completely freed up, it was brought into the abdominal cavity. It should be noted that both the ileostomy and the colostomy were sewn closed prior to prepping and draping. Attention was now directed to the mucous fistula in the right upper quadrant. An elliptical skin incision was used to excise the mucous fistula and follow it down into the abdominal cavity. It was freed up from the abdominal wall fascia circumferentially. It was then brought into the abdominal cavity. Next, the transverse colon was mobilized and freed up with care to identify and preserve the middle colic vessels. We then mobilized the terminal ileum out of the pelvis and brought it up to the upper midline. Several interloop adhesions were taken down with sharp dissection. Overall, I would say the small bowel and colon tissue were of average to slightly below average quality. The colon was completely decompressed and small and appeared to have peristaltic activity. Attention was now directed to the formation of the anastomosis. A [id number] staple anastomosis was performed between the terminal ileum and the transverse colon. The staple lines were all oversewn with 3-0 GI silks due to the patient's high risk for anastomotic leak. The rest of the small bowel was carefully visualized and there was no obvious obstruction or adhesions causing obstruction. Next, the abdominal cavity was rinsed out with 1 liter of warm saline solution. The pelvis was checked and there was no bleeding, no evidence of succus entericus. The other quadrants were also inspected and there was no evidence of any bowel injury and no evidence of any bleeding. Attention was now directed toward closure. Closure was accomplished using interrupted [id number] for both the ileostomy and the mucous fistula fascia. The subcutaneous tissue was closed with 3-0 Vicryl. The midline incision was closed with interrupted atlizr-oh-pkwvi #1 PDS using generous bites, again due to the patient's overall tissue quality. The subcutaneous tissue was irrigated out and closed with 3-0 Vicryl. The skin was then closed with skin evelio circumferentially. A LULA vacuum dressing was placed on the midline wound and Tegaderms with pads were placed on the ileostomy and mucous fistula wounds. The patient tolerated the procedure well, was awakened and extubated and brought to recovery in stable condition. Please note that Dr. Tee Rosales was scrubbed and present for the entirety of the procedure. His assistance was critical and medically necessary due to the complexity of this case. The surgical case lasted in excess of [address] Rosales was a de la cruz component in the lysis of adhesions and formation of the bowel anastomosis. As stated, he was present from the skin incision all the way until the last staple was placed into the skin. His presence in the operating room benefited the patient both in surgical safety as well as expediting the surgical procedure and minimizing her anesthetic time. MD SUGEY Carmen/jaqueline , 05:15 PM , 05:29 PM
[2018-06-17] MEDS ORDERED: Senna/Docusate Sodium 8.6/50 MG Tablet PO SCH (21:00)
[2018-06-17] MEDS: Ketorolac Inj 30 MG/ML (IVP) Vial IV.PUSH PRN (21:14)
[2018-06-17] MEDS: Senna/Docusate Sodium 8.6/50 MG Tablet PO SCH (23:19)
[2018-06-18] MEDS: KCL 20 mEq/D5W/NaCl 0.9% Inj 1,000 ML IV.CONT SCH ×3 (01:36→18:07)
[2018-06-18 07:09] LABS: Hematocrit 33.1 % (35.0-46.0); Hemoglobin 10.7 gm/dL (11.6-15.3); Mean Corpuscular HGB Conc 32.2 % (32.0-36.0); Mean Corpuscular Hemoglobin 29.9 pg (27.0-34.0); Mean Corpuscular Volume 92.8 fL (80.0-100.0); Mean Platelet Volume 7.2 fL (7.0-11.0); Platelet Count 370 th/mm3 (150-450); Red Blood Count 3.56 mil/mm3 (4.00-5.30); Red Cell Distribution Width 17.9 % (11.6-17.2); White Blood Count 11.9 th/mm3 (4.0-11.0)
[2018-06-18 07:52] LABS: Calcium 7.4 mg/dL (8.5-10.1); Carbon Dioxide 25.2 meq/L (21.0-32.0); Potassium 4.1 meq/L (3.5-5.1)
[2018-06-18 07:56] LABS: Eosinophils 1 % (0-4); Lymphocytes 5 % (9-44); Monocytes 3 % (0-8)
[2018-06-18 07:57] LABS: Platelet Estimate Normal (Normal); Platelet Morphology Normal (Normal); RBC Morphology Normal (Normal)
[2018-06-18 08:16] LABS: Total Protein 6.2 g/dL (6.4-8.2)
--- NOTE | 2018-06-18 08:17 | P.PNGS ---
Subjective Interval history: Painful; PHARMACOLOGIST helps; wants Bucio and NGT out Physical Exam Vital signs: Vital Signs 06/17/18 12:16 06/17/18 17:02 06/17/18 17:15 Temperature 99.0 F 98 F Pulse Rate 119 H 111 H 103 H Respiratory Rate 16 18 18 Blood Pressure 176/87 H 169/83 H Pulse Oximetry 96 98 06/17/18 17:30 06/17/18 17:45 06/17/18 18:00 Temperature Pulse Rate 106 H 110 H 105 H Respiratory Rate 18 18 18 Blood Pressure 147/70 H Pulse Oximetry 97 97 96 06/17/18 19:00 06/17/18 20:00 06/17/18 20:45 Temperature Pulse Rate 106 H 107 H 108 H Respiratory Rate 18 18 18 Blood Pressure 153/53 H 156/76 H 160/79 H Pulse Oximetry 96 96 96 06/17/18 23:19 06/17/18 23:20 06/17/18 23:30 Temperature 97.8 F Pulse Rate 102 H Respiratory Rate 14 14 14 Blood Pressure 148/72 H Pulse Oximetry 100 06/18/18 00:00 06/18/18 03:04 Temperature 97.6 F Pulse Rate 104 H Respiratory Rate 21 18 Blood Pressure 148/73 H Pulse Oximetry 96 Intake & Output 06/17/18 06/18/18 06/18/18 18:59 06:59 18:59 Intake Total 2800 / 2800 1200 / 1200 Output Total 350 / 350 1450 / 1450 Balance 2450 / 2450 -250 / -250 Weight 69 kg Intake: IV 1200 / 1200 1200 / 1200 D5W/NS + KCL 20 mEq Inj 1,000 1000 / 1000 ML @ 125 mls/hr IV.CONT .Q8H LAMINE Rx#:[id number] Ofirmev Inj 1,000 mg In 100 ml 200 / 200 @ 400 mls/hr IV.SIG Q6H LAMINE Rx# :[id number] LR 1000 mL Inj 1,000 ML @ 30 1000 / 1000 mls/hr IV.SIG .Q24H LAMINE Rx#: [id number] Ancef 2 GM Premix Inj 2 gm In 100 / 100 100 ml @ 0 mls/hr IV.SIG .STK- MED ONE Rx#:[id number] Flagyl 500 MG Inj 100 ML @ 100 100 / 100 mls/hr IV.SIG BRICKMASON [employer]OR LAMINE Rx#: [id number] Anesthesia Amount 1600 / 1600 Output: Urine 900 / 900 Estimated Blood Loss 200 / 200 Urine Amount (Catheter) 150 / 150 550 / 550 Indwelling Urethral Catheter 150 / 150 550 / 550 Gastric Drainage 0 / 0 Left Nare Nasogastric Tube 0 / 0 Other: Weight On Admission 69 kg Narrative: Alert and awake Cardio: RRR Resp: CTAB Abd: soft; tender throughout to palpation; midline LULA in place with good seal ; two dressings in place with minimal drainage No edema - Urinary Catheter Management Indwelling Urethral Catheter Cath placed during this visit: yes Reason for continuing: Other continuation reason Insertion date: 06/17/18 Insertion time: 14:15 Assessment and Plan - Assessment (1) Status post reversal of ileostomy Code(s): Z98.890 - Other specified postprocedural states Status: Acute Plan: 53 year old female POD1 ex lap; LULU greater than 1 hour; ileostomy and mucous fistula takedown; ileocolic anastomosis -DC Bucio -Clamp NGT -Check residuals every 4 hours; if less than 250 cc continue to clamp; if greater than 250 cc connect to LIWS -Restart home meds -Continue IVF -Continue PHARMACOLOGIST and Ofirmev for pain control -OOB as tolerated -Continue abdominal binder and routine LULA dressing care
[2018-06-18] MEDS: Tiotropium Bromide 18 MCG/ACT Inhaler INH SCH (09:00)
[2018-06-18] MEDS: Folic Acid 1 MG Tablet PO SCH (09:00)
[2018-06-18] MEDS: ALPRAZolam 0.25 MG Tablet PO SCH ×2 (09:00→20:42)
[2018-06-18] MEDS: Senna/Docusate Sodium 8.6/50 MG Tablet PO SCH ×2 (09:55→20:44)
[2018-06-18] MEDS: Ketorolac Inj 30 MG/ML (IVP) Vial IV.PUSH PRN ×2 (09:58→21:06)
[2018-06-18] MEDS: Morphine Inj 30 MG/30 ML PCA.VIAL PCA PRN (12:12)
[2018-06-18] MEDS ORDERED: Dextrose 50% in Water 50 ML Vial IV.PUSH PRN (16:32)
--- NOTE | 2018-06-18 16:57 | P.CONIM ---
History of Present Illness Consult date: 06/18/18 Reason for Consult: Medical management Primary Care Provider: No Primary Care Physician Family Provider: No Primary Care Physician Chief Complaint: Elective procedure History of Present Illness: The patient is a 53 year old female who is presenting to the hospital for elective ileostomy and mucous fistula takedown and ileocolic anastomosis. She tolerated the procedure well. She currently has an NG tube in place and would like it removed soon so she can start eating. The patient says that in January she had an obstruction which required ileostomy placement. Since then she has been doing well. She has been following with Dr. Florian as an outpatient. She initially worked with physical therapy but she chose not to continue. She has been ambulating with a walker and a wheelchair. She has chronic back pain for which she takes narcotics as needed. She says recently she has been eating and drinking well. She denies any dysuria. She says she has lung cancer for which she is on pills for and is currently on home oxygen. She says she is supposed to be on home oxygen all of the time but she does not use it very often. She does continue to smoke cigarettes. She does endorse lower extremity edema. The patient is currently on a APRON OPERATOR and she says it is not working well. Family at the bedside. Review of Systems All other systems reviewed negative except as stated in HPI PMFSH - History History Provided By: Patient - Medical History Medical History: Medical History (Last Updated 06/18/18 @ 16:34 by Christian Reddy DO) CAD (coronary artery disease) CKD (chronic kidney disease) Carotid disease, bilateral Diabetes Lung cancer COPD (chronic obstructive pulmonary disease) Cirrhosis GERD (gastroesophageal reflux disease) H/O: hysterectomy History of left heart catheterization History of stroke Hx of ovarian cancer Ileostomy present Rheumatoid arthritis - Surgical History Surgical History: Surgical History (Last Updated 06/13/18 @ 15:21 by Gabrielle Ortiz RN) Hx of appendectomy Hx of cholecystectomy - Tobacco History Second Hand Smoke Exposure: Yes Tobacco Use In Past 30 Days: Yes (Smokes half a pack daily) Smoking Status: Current every day smoker Tobacco Type: Cigarettes - Alcohol History How Often Do You Have a Drink Containing Alcohol: Never - Substance Use History Substance History: No History of Abuse - Travel History Recent Travel in the [place] Within the Last 8 Weeks: No Recent Travel Out of the Country Within the Last 8 Weeks: No Medications and Allergies Active Medications: Active Medications Al Hydroxide/Mg Hydroxide (Milk Of Masood Liq) 30 ml PO Q12H PRN PRN Reason: Mild Constipation Albuterol (Ventolin Hfa Inh) 2 puff INH Q4H PRN PRN Reason: Shortness Of Breath Or Wheezin Alprazolam (Xanax) 0.5 mg PO BID [facility] Alvimopan (Entereg) 12 mg PO BID [facility] Stop: 06/24/18 21:01 Last Admin: 06/18/18 09:55 Dose: 12 mg Alvimopan (Entereg) 12 mg PO CORRAL BOSS [facility] Last Admin: 06/17/18 12:39 Dose: 12 mg Bisacodyl (Dulcolax Supp) 10 mg RECTAL DAILY PRN PRN Reason: SEVERE CONSITIPATION Chlorhexidine Gluconate (Chlorhexidine 2% Cloth) 3 pack TOPICAL CORRAL BOSS [facility] Stop: 06/20/18 12:09 Last Admin: 06/17/18 12:00 Dose: 3 pack Cyclobenzaprine HCl (Flexeril) 10 mg PO TID [facility] Last Admin: 06/18/18 12:11 Dose: 10 mg Enalaprilat (Vasotec Inj) 1.25 mg IV.PUSH Q6H PRN PRN Reason: SBP> OR = 180, DBP> OR = 100 Folic Acid (Folic Acid) 1 mg PO DAILY [facility] Cefazolin Sodium 2,000 mg/ (Sodium Chloride) 100 mls @ 200 mls/hr IV.SIG ONCE [facility] Stop: 06/20/18 12:59 Metronidazole/Sodium Chloride (Flagyl 500 Mg Inj) 100 mls @ 100 mls/hr IV.SIG CORRAL BOSS [facility] Stop: 06/20/18 12:14 Last Infusion: 06/17/18 14:59 Dose: Infused Lactated Ringer's (Lr 1000 Ml Inj) 1,000 mls @ 30 mls/hr IV.SIG .Q24H [facility] Stop: 06/20/18 12:09 Last Admin: 06/18/18 01:34 Dose: Not Given Sodium Chloride (Ns Inj) 500 mls @ 30 mls/hr IV.SIG .Q10H [facility] Stop: 06/20/18 12:09 Potassium Chloride/Dextrose/Sod Cl (D5w/Ns + Kcl 20 Meq Inj) 1,000 mls @ 125 mls/hr IV.CONT .Q8H [facility] Last Admin: 06/18/18 09:43 Dose: 125 mls/hr Morphine Sulfate (Morphine Inj) 30 mg in 30 mls @ 0 mls/hr APRON OPERATOR UNSCH PRN PRN Reason: per APRON OPERATOR parameters Last Admin: 06/18/18 12:12 Dose: 0 mls/hr Ketorolac Tromethamine (Toradol Inj) 15 mg IV.PUSH Q6H PRN PRN Reason: PAIN 3-5; IF UABLE TO TAKE PO Stop: 06/22/18 16:56 Last Admin: 06/18/18 09:58 Dose: 15 mg Lactulose (Lactulose Liq) 30 ml PO DAILY PRN PRN Reason: SEVERE CONSITIPATION Metoprolol Tartrate (Lopressor) 25 mg PO CORRAL BOSS [facility] Stop: 06/20/18 12:09 Last Admin: 06/17/18 14:14 Dose: Not Given Miscellaneous Information ([facility] Information) 1 each OTHER UNSCH PRN PRN Reason: SEE LABEL COMMENTS Stop: 06/18/18 17:06 Naloxone HCl (Narcan Inj) 0.4 mg IV.PUSH UNSCH PRN PRN Reason: SEE LABEL COMMENTS Naloxone HCl (Narcan Inj) 0.4 mg IV.PUSH PRN PRN PRN Reason: Resp rate < 10 Nifedipine (Procardia Xl) 30 mg PO DAILY [facility] Non-Formulary Medication (Omeprazole [Omeprazole]) 40 mg PO DAILY [facility] Ondansetron HCl (Zofran Odt) 4 mg PO Q6H PRN PRN Reason: NAUSEA OR VOMITING Ondansetron HCl (Zofran Inj) 4 mg IV.PUSH Q6H PRN PRN Reason: NAUSEA OR VOMITING Povidone Iodine (Betadine 5% Antisepsis Kit) 1 applicatio EACH NARE CORRAL BOSS [facility] Stop: 06/20/18 12:09 Last Admin: 06/17/18 12:45 Dose: 1 applicatio Promethazine HCl (Phenergan) 25 mg PO Q6H PRN PRN Reason: NAUSEA OR VOMITING Promethazine HCl (Phenergan Supp) 25 mg RECTAL Q6H PRN PRN Reason: NAUSEA OR VOMITING Senna/Docusate Sodium (Moriah-Colace) 1 tab PO BID [facility] Last Admin: 06/18/18 09:55 Dose: Not Given Sennosides (Senokot) 17.2 mg PO Q12H PRN PRN Reason: Moderate Constipation Tiotropium Edgar (Spiriva 18 Mcg Inh) 18 mcg INH DAILY [facility] Allergies Allergy/AdvReac Type Severity Reaction Status Date / Time No Known Allergies Allergy Unverified 06/17/18 11:42 Home Medications Medication Instructions Recorded Confirmed Type albuterol sulfate 2 puff INHALATION Q4-6H PRN 06/13/18 06/17/18 History alprazolam 0.5 mg PO BID 06/13/18 06/17/18 History aspirin 325 mg PO DAILY 06/13/18 06/17/18 History cyclobenzaprine 10 mg PO TID 06/13/18 06/17/18 History folic acid 1 mg PO DAILY 06/13/18 06/17/18 History metformin 500 mg PO BID 06/13/18 06/17/18 History methotrexate sodium 2.5 mg PO DAILY 06/13/18 06/17/18 History nifedipine 30 mg PO DAILY 06/13/18 06/17/18 History omeprazole 40 mg PO DAILY 06/13/18 06/17/18 History prednisone 5 mg PO BID 06/13/18 06/17/18 History tiotropium-olodaterol 2 puff INHALATION DAILY 06/13/18 06/17/18 History Exam Vital signs: Vital Signs 06/17/18 17:02 06/17/18 17:15 06/17/18 17:30 Temperature 98 F Pulse Rate 111 H 103 H 106 H Respiratory Rate 18 18 18 Blood Pressure 176/87 H 169/83 H 147/70 H Pulse Oximetry 98 97 06/17/18 17:45 06/17/18 18:00 06/17/18 19:00 Temperature Pulse Rate 110 H 105 H 106 H Respiratory Rate 18 18 18 Blood Pressure 153/53 H Pulse Oximetry 97 96 96 06/17/18 20:00 06/17/18 20:45 06/17/18 23:19 Temperature Pulse Rate 107 H 108 H Respiratory Rate 18 18 14 Blood Pressure 156/76 H 160/79 H Pulse Oximetry 96 96 06/17/18 23:20 06/17/18 23:30 06/18/18 00:00 Temperature 97.8 F 97.6 F Pulse Rate 102 H 104 H Respiratory Rate 14 14 21 Blood Pressure 148/72 H 148/73 H Pulse Oximetry 100 96 06/18/18 03:04 06/18/18 08:00 06/18/18 08:22 Temperature 97.7 F Pulse Rate 113 H Respiratory Rate 18 17 Blood Pressure 157/77 H Pulse Oximetry 92 L 93 L 06/18/18 12:00 06/18/18 16:00 06/18/18 16:11 Temperature 98.0 F 97.8 F Pulse Rate 90 119 H Respiratory Rate 17 17 Blood Pressure 141/72 H 166/79 H Pulse Oximetry 93 L 95 93 L Intake & Output 06/17/18 06/18/18 06/18/18 18:59 06:59 18:59 Intake Total 2800 / 2800 1200 / 1200 1000 / 1000 Output Total 350 / 350 1450 / 1450 180 / 180 Balance 2450 / 2450 -250 / -250 820 / 820 Weight 69 kg Intake: IV 1200 / 1200 1200 / 1200 1000 / 1000 D5W/NS + KCL 20 mEq Inj 1,000 1000 / 1000 1000 / 1000 ML @ 125 mls/hr IV.CONT .Q8H [facility] Rx#:[id number] Ofirmev Inj 1,000 mg In 100 ml 200 / 200 @ 400 mls/hr IV.SIG Q6H [facility] Rx# :[id number] LR 1000 mL Inj 1,000 ML @ 30 1000 / 1000 mls/hr IV.SIG .Q24H [facility] Rx#: [id number] Ancef 2 GM Premix Inj 2 gm In 100 / 100 100 ml @ 0 mls/hr IV.SIG .STK[facility] Rx#:[id number] Flagyl 500 MG Inj 100 ML @ 100 100 / 100 mls/hr IV.SIG CORRAL BOSS [facility] Rx#: [id number] Anesthesia Amount 1600 / 1600 Output: Urine 900 / 900 Estimated Blood Loss 200 / 200 Urine Amount (Catheter) 150 / 150 550 / 550 180 / 180 Indwelling Urethral Catheter 150 / 150 550 / 550 180 / 180 Gastric Drainage 0 / 0 Left Nare Nasogastric Tube 0 / 0 Other: Weight On Admission 69 kg Narrative: general: resting comfortably HEENT: NGT in place heart: RRR lungs: CTAB GI: abdominal binder in place extremities: No edema neuro: no gross deficits Results - Labs CBC & Chem 7: 06/18/18 06:46 06/18/18 06:46 Labs: Laboratory Results - last 24 hr 06/18/18 06/18/18 06:46 06:46 WBC 11.9 H RBC 3.56 L Hgb 10.7 L Hct 33.1 L MCV 92.8 MCH 29.9 MCHC 32.2 RDW 17.9 H Plt Count 370 MPV 7.2 Prelim Diff (Auto) Manual diff required WBC Differential Manual diff final Seg Neuts % (Manual) 85 H Band Neuts % (Manual) 6 Lymphocytes % (Manual) 5 L Monocytes % (Manual) 3 Eosinophils % (Manual) 1 Abs Neuts (Manual) 10.8 H Differential Comment . Platelet Estimate Normal Platelet Morphology Normal RBC Morphology Normal Sodium 140 Potassium 4.1 Chloride 108 H Carbon Dioxide 25.2 Anion Gap 7 BUN 12 Creatinine 0.74 Estimated GFR 81 L Random Glucose 128 H Calcium 7.4 L* Prot Corrected Calcium 7.9 L Total Protein 6.2 L Assessment and Plan - Plan Ileostomy S/p ex lap, LULU, ileostomy and mucous fistula takedown, ileocolic anastomosis. -management per surgery. -pain control. -incentive spirometry -PT. Lung cancer/ COPD Respiratory status stable at this time. -oxygen and nebs as needed. -smoking cessation instruction. -continue home regimen. DM On metformin as an outpt. -hold metformin. -insulin sliding scale. HTN Exacerbated by pain. -resume home regimen. -Vasotec as needed. Hypocalcemia Calcium level 7.9. -replete with calcium chloride and monitor. PPx: Per surgery
[2018-06-18] MEDS ORDERED: Calcium Chloride Inj 1 GM in Dextrose 5% in Water Inj 100 ML IV.SIG ONE ×2 (17:30)
[2018-06-18] MEDS: Insulin NovoLOG Aspart Correctional Sugar Inj SQ SCH ×2 (19:59→21:02)
[2018-06-19] MEDS: KCL 20 mEq/D5W/NaCl 0.9% Inj 1,000 ML IV.CONT SCH ×5 (01:54→20:26)
[2018-06-19 06:15] LABS: Hematocrit 31.1 % (35.0-46.0); Hemoglobin 9.8 gm/dL (11.6-15.3); Mean Corpuscular HGB Conc 31.5 % (32.0-36.0); Mean Corpuscular Hemoglobin 30.1 pg (27.0-34.0); Mean Corpuscular Volume 95.6 fL (80.0-100.0); Mean Platelet Volume 7.2 fL (7.0-11.0); Platelet Count 335 th/mm3 (150-450); Red Blood Count 3.26 mil/mm3 (4.00-5.30); Red Cell Distribution Width 17.5 % (11.6-17.2); White Blood Count 13.6 th/mm3 (4.0-11.0)
[2018-06-19] MEDS: Ketorolac Inj 30 MG/ML (IVP) Vial IV.PUSH PRN ×2 (06:19→20:14)
[2018-06-19 06:32] LABS: Alanine Aminotransferase 27 U/L (10-53); Albumin 2.2 g/dL (3.4-5.0); Anion Gap 6 meq/L (5-15); Aspartate Aminotransferase 16 U/L (15-37); Blood Urea Nitrogen 7 mg/dL (7-18); Carbon Dioxide 24.3 meq/L (21.0-32.0); Chloride 111 meq/L (98-107); Glomerular Filtration Rate 83 mL/min (>89); Glucose,Random 119 mg/dL (74-106); Magnesium 2.1 mg/dL (1.5-2.5); Potassium 4.6 meq/L (3.5-5.1); Sodium 141 meq/L (136-145)
[2018-06-19 06:35] LABS: Alkaline Phosphatase 71 U/L (45-117); Total Protein 5.7 g/dL (6.4-8.2)
[2018-06-19] MEDS: Insulin NovoLOG Aspart Correctional Sugar Inj SQ SCH ×4 (08:56→20:28)
[2018-06-19] MEDS: Folic Acid 1 MG Tablet PO SCH (08:57)
[2018-06-19] MEDS: ALPRAZolam 0.25 MG Tablet PO SCH ×2 (08:58→20:28)
[2018-06-19] MEDS: Senna/Docusate Sodium 8.6/50 MG Tablet PO SCH ×2 (08:58→20:28)
[2018-06-19] MEDS: Tiotropium Bromide 18 MCG/ACT Inhaler INH SCH ×2 (09:02→09:03)
[2018-06-19] MEDS ORDERED: NIFEdipine 10 MG Capsule PO ONE (09:17)
[2018-06-19] MEDS ORDERED: Naloxone Inj 0.4 MG/ML Vial IV.PUSH PRN (09:36)
--- NOTE | 2018-06-19 09:42 | P.PNGS ---
Subjective Interval history: Resting in bed; c/o abdominal pain; got OOB to chair yesterday Physical Exam Vital signs: Vital Signs 06/18/18 12:00 06/18/18 16:00 06/18/18 16:11 Temperature 98.0 F 97.8 F Pulse Rate 90 119 H Respiratory Rate 17 17 Blood Pressure 141/72 H 166/79 H Pulse Oximetry 93 L 95 93 L 06/18/18 20:00 06/18/18 23:21 06/19/18 00:00 Temperature 97.9 F 98.2 F Pulse Rate 118 H 93 H Respiratory Rate 16 18 17 Blood Pressure 200/93 H 114/63 Pulse Oximetry 94 L 94 L 06/19/18 04:00 06/19/18 08:00 Temperature 97.9 F 99.0 F Pulse Rate 128 H 125 H Respiratory Rate 21 18 Blood Pressure 176/93 H 139/67 Pulse Oximetry 95 94 L Intake & Output 06/18/18 06/19/18 06/19/18 18:59 06:59 18:59 Intake Total 2099 / 2099 1910 / 1910 1000 / 1000 Output Total 180 / 180 600 / 600 Balance 1920 / 1920 1310 / 1310 1000 / 1000 Weight 69.9 kg Intake: IV 2099 / 2099 1210 / 1210 1000 / 1000 D5W/NS + KCL 20 mEq Inj 1,000 2000 / 2000 1000 / 1000 1000 / 1000 ML @ 125 mls/hr IV.CONT .Q8H [facility] Rx#:[id number] Ofirmev Inj 1,000 mg In 100 ml 100 / 100 100 / 100 @ 400 mls/hr IV.SIG Q6H [facility] Rx# :[id number] Calcium Chloride Inj 1 GM In 110 / 110 D5W Inj 100 ML @ 110 mls/hr IV. SIG ONCE [facility] Rx#:[id number] Oral 0 / 0 700 / 700 Output: Urine 600 / 600 Urine Amount (Catheter) 180 / 180 Indwelling Urethral Catheter 180 / 180 Other: # Voids 3 # Bowel Movements 0 Narrative: Alert and awake CardiO: RRR Resp: CTAB Abd: LULA in place; soft No edema - Urinary Catheter Management Indwelling Urethral Catheter Cath placed during this visit: yes Reason for continuing: Other continuation reason Insertion date: 06/17/18 Insertion time: 14:15 Assessment and Plan - Assessment (1) Status post reversal of ileostomy Code(s): Z98.890 - Other specified postprocedural states Status: Acute Plan: 53 year old female POD2 ex lap; LULU greater than 1 hour; ileostomy and mucous fistula takedown; ileocolic anastomosis -Continue to clamp NGT for today -Check residuals every 4 hours; if less than 250 cc continue to clamp; if greater than 250 cc connect to LIWS -Continue IVF -Continue SEED MILL SUPERINTENDENT and Ofirmev for pain control---changed to Dilaudid SEED MILL SUPERINTENDENT -OOB as tolerated -Continue abdominal binder and routine LULA dressing care
[2018-06-19] MEDS: HYDROmorphone PCA Inj 6 MG/30 ML PCA.VIAL PCA PRN (10:14)
--- NOTE | 2018-06-19 11:54 | P.PNIM ---
Subjective Interval history: The patient was resting in bed. She was told about her pain was not well controlled. She says she has been having a hard time swallowing her pills because she feels the medications get stuck in her throat. She endorses dry heaving at times. Discussed with surgery who stated that her blood pressure has been elevated. Physical Exam Vital signs: Vital Signs 06/18/18 12:00 06/18/18 16:00 06/18/18 16:11 Temperature 98.0 F 97.8 F Pulse Rate 90 119 H Respiratory Rate 17 17 Blood Pressure 141/72 H 166/79 H Pulse Oximetry 93 L 95 93 L 06/18/18 20:00 06/18/18 23:21 06/19/18 00:00 Temperature 97.9 F 98.2 F Pulse Rate 118 H 93 H Respiratory Rate 16 18 17 Blood Pressure 200/93 H 114/63 Pulse Oximetry 94 L 94 L 06/19/18 04:00 06/19/18 08:00 Temperature 97.9 F 99.0 F Pulse Rate 128 H 125 H Respiratory Rate 21 18 Blood Pressure 176/93 H 139/67 Pulse Oximetry 95 94 L Intake & Output 06/18/18 06/19/18 06/19/18 18:59 06:59 18:59 Intake Total 2100 / 2100 1910 / 1910 1000 / 1000 Output Total 180 / 180 600 / 600 Balance 1920 / 1920 1310 / 1310 1000 / 1000 Weight 69.9 kg Intake: IV 2099 / 2099 1210 / 1210 1000 / 1000 D5W/NS + KCL 20 mEq Inj 1,000 2000 / 2000 1000 / 1000 1000 / 1000 ML @ 125 mls/hr IV.CONT .Q8H [facility] Rx#:[id number] Ofirmev Inj 1,000 mg In 100 ml 100 / 100 100 / 100 @ 400 mls/hr IV.SIG Q6H [facility] Rx# :[id number] Calcium Chloride Inj 1 GM In 110 / 110 D5W Inj 100 ML @ 110 mls/hr IV. SIG ONCE [facility] Rx#:[id number] Oral 0 / 0 700 / 700 Output: Urine 600 / 600 Urine Amount (Catheter) 180 / 180 Indwelling Urethral Catheter 180 / 180 Other: # Voids 3 # Bowel Movements 0 Narrative: general: resting comfortably HEENT: NGT in place heart: RRR lungs: CTAB GI: abdominal binder in place extremities: No edema neuro: no gross deficits - Urinary Catheter Management Indwelling Urethral Catheter Cath placed during this visit: yes Reason for continuing: Other continuation reason Insertion date: 06/17/18 Insertion time: 14:15 Results - Labs CBC & Chem 7: 06/19/18 05:55 06/19/18 05:55 Laboratory Results - last 24 hr 06/18/18 06/18/18 06/19/18 18:58 20:51 05:55 WBC 13.6 H RBC 3.26 L Hgb 9.8 L Hct 31.1 L MCV 95.6 MCH 30.1 MCHC 31.5 L RDW 17.5 H Plt Count 335 MPV 7.2 Sodium Potassium Chloride Carbon Dioxide Anion Gap BUN Creatinine Estimated GFR POC Glucose 126 H 139 H Random Glucose Calcium Magnesium Total Bilirubin Direct Bilirubin Indirect Bilirubin AST ALT Alkaline Phosphatase Total Protein Albumin 06/19/18 06/19/18 06/19/18 05:55 08:54 11:11 WBC RBC Hgb Hct MCV MCH MCHC RDW Plt Count MPV Sodium 141 Potassium 4.6 Chloride 111 H Carbon Dioxide 24.3 Anion Gap 6 BUN 7 Creatinine 0.73 Estimated GFR 83 L POC Glucose 107 87 Random Glucose 119 H Calcium 8.0 L Magnesium 2.1 Total Bilirubin 0.3 Direct Bilirubin Less than 0.1 Indirect Bilirubin 0.2 AST 16 ALT 27 Alkaline Phosphatase 71 Total Protein 5.7 L Albumin 2.2 L Assessment and Plan - Plan Ileostomy S/p ex lap, LULU, ileostomy and mucous fistula takedown, ileocolic anastomosis. -management per surgery. -pain control. Switched to Dilaudid KETTLE COORDINATOR. -incentive spirometry -PT. Swallowing difficulties The pt has been having a hard time swallowing pills. -ST eval. Lung cancer/ COPD Respiratory status stable at this time. -oxygen and nebs as needed. -smoking cessation instruction. -continue home regimen. DM On metformin as an outpt. Glucose well controlled at this time. -hold metformin. -insulin sliding scale. HTN Exacerbated by pain. -resume home regimen. Increase nifedipine. Add lisinopril 10 mg daily. -Vasotec as needed. -pain control. Hypocalcemia Calcium level improving. -replete with calcium chloride and monitor. Leukocytosis Likely reactive. Afebrile. -follow CBC. PPx: Per surgery
[2018-06-19] MEDS: Lisinopril 10 MG Tablet PO SCH (12:32)
[2018-06-19] MEDS ORDERED: Calcium Chloride Inj 1 GM in Sodium Chlor 0.9% Inj 100 ML IV.SIG ONE (14:00)
[2018-06-20] MEDS: KCL 20 mEq/D5W/NaCl 0.9% Inj 1,000 ML IV.CONT SCH ×4 (01:12→21:33)
[2018-06-20 07:13] LABS: Baso # (Auto) 0.1 th/mm3 (0.0-0.2); Baso % (Auto) 0.9 % (0.0-2.0); Eos # (Auto) 0.1 th/mm3 (0.0-0.4); Hematocrit 28.2 % (35.0-46.0); Hemoglobin 9.2 gm/dL (11.6-15.3); Lymph # (Auto) 1.7 th/mm3 (1.0-4.8); Lymph % (Auto) 13.7 % (9.0-44.0); Mean Corpuscular HGB Conc 32.6 % (32.0-36.0); Mean Corpuscular Volume 92.1 fL (80.0-100.0); Mean Platelet Volume 7.2 fL (7.0-11.0); Mono # (Auto) 0.4 th/mm3 (0.0-0.9); Mono % (Auto) 3.4 % (0.0-8.0); Neut # (Auto) 10.1 th/mm3 (1.8-7.7); Platelet Count 315 th/mm3 (150-450); Red Blood Count 3.06 mil/mm3 (4.00-5.30); White Blood Count 12.4 th/mm3 (4.0-11.0)
[2018-06-20 07:54] LABS: Anion Gap 6 meq/L (5-15); Blood Urea Nitrogen 3 mg/dL (7-18); Calcium 8.4 mg/dL (8.5-10.1); Carbon Dioxide 27.9 meq/L (21.0-32.0); Chloride 103 meq/L (98-107); Glomerular Filtration Rate Greater Than 89 mL/min (>89); Glucose,Random 103 mg/dL (74-106); Potassium 3.7 meq/L (3.5-5.1); Sodium 137 meq/L (136-145)
[2018-06-20] MEDS: Insulin NovoLOG Aspart Correctional Sugar Inj SQ SCH ×4 (08:48→21:38)
[2018-06-20] MEDS: ALPRAZolam 0.25 MG Tablet PO SCH ×2 (08:52→21:31)
[2018-06-20] MEDS: Lisinopril 10 MG Tablet PO SCH (08:53)
[2018-06-20] MEDS: Folic Acid 1 MG Tablet PO SCH (08:53)
[2018-06-20] MEDS: Senna/Docusate Sodium 8.6/50 MG Tablet PO SCH ×2 (08:53→21:31)
[2018-06-20] MEDS: Tiotropium Bromide 18 MCG/ACT Inhaler INH SCH (09:00)
--- NOTE | 2018-06-20 10:25 | P.PNGS ---
Subjective Interval history: Resting in bed; remains painful Physical Exam Vital signs: Vital Signs 06/19/18 12:00 06/19/18 16:00 06/19/18 18:16 Temperature 98.7 F 98.1 F Pulse Rate 125 H 130 H Respiratory Rate 17 17 Blood Pressure 166/83 H 183/84 H Pulse Oximetry 94 L 92 L 94 L 06/19/18 20:00 06/20/18 00:00 06/20/18 04:00 Temperature 99.9 F H 97.5 F L 97.8 F Pulse Rate 105 H 116 H 127 H Respiratory Rate 18 19 17 Blood Pressure 136/79 120/65 179/82 H Pulse Oximetry 92 L 93 L 94 L 06/20/18 08:00 Temperature 98.1 F Pulse Rate 121 H Respiratory Rate 17 Blood Pressure 169/79 H Pulse Oximetry 94 L Intake & Output 06/19/18 06/20/18 06/20/18 18:59 06:59 18:59 Intake Total 2335 / 2335 2099 125 / 125 Balance 2335 / 2335 2099 125 / 125 Weight 69 kg Intake: IV 2109 / 2109 D5W/NS + KCL 20 mEq Inj 1,000 1999 / 1999 ML @ 125 mls/hr IV.CONT .Q8H [facility] Rx#:[id number] Calcium Chloride Inj 1 GM In NS 110 / 110 Inj 100 ML @ 110 mls/hr IV.SIG ONCE ONE Rx#:[id number] Oral 100 / 100 100 / 100 Other 125 / 125 125 / 125 Other: # Voids 3 3 # Bowel Movements 0 Narrative: Alert and awake Cardio: RRR Resp: CTAB Abd: LULA removed and replaced--midline incision c/d/i; prior MF and ileostomy sites c/d/i with evelio - Urinary Catheter Management Indwelling Urethral Catheter Cath placed during this visit: yes Reason for continuing: Other continuation reason Insertion date: 06/17/18 Insertion time: 14:15 Assessment and Plan - Assessment (1) Status post reversal of ileostomy Code(s): Z98.890 - Other specified postprocedural states Status: Acute Plan: 53 year old female POD3 ex lap; LULU greater than 1 hour; ileostomy and mucous fistula takedown; ileocolic anastomosis -DC NGT -Continue popsicles and ice chips for now -Continue IVF -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 BEEHIVE KILN SUPERVISOR; 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 -OOB as tolerated -Continue abdominal binder and routine LULA dressing care
[2018-06-20] MEDS ORDERED: Lisinopril 10 MG Tablet PO ONE (11:57)
--- NOTE | 2018-06-20 12:02 | P.PNIM ---
Subjective Interval history: The patient said that her pain was still not controlled. She does feel much better without the NG tube in place. She still was having some irritation with swallowing. Discussed with surgery. Physical Exam Vital signs: Vital Signs 06/19/18 12:00 06/19/18 16:00 06/19/18 18:16 Temperature 98.7 F 98.1 F Pulse Rate 125 H 130 H Respiratory Rate 17 17 Blood Pressure 166/83 H 183/84 H Pulse Oximetry 94 L 92 L 94 L 06/19/18 20:00 06/20/18 00:00 06/20/18 04:00 Temperature 99.9 F H 97.5 F L 97.8 F Pulse Rate 105 H 116 H 127 H Respiratory Rate 18 19 17 Blood Pressure 136/79 120/65 179/82 H Pulse Oximetry 92 L 93 L 94 L 06/20/18 08:00 Temperature 98.1 F Pulse Rate 121 H Respiratory Rate 17 Blood Pressure 169/79 H Pulse Oximetry 94 L Intake & Output 06/19/18 06/20/18 06/20/18 18:59 06:59 18:59 Intake Total 2335 / 2335 2099 125 / 125 Balance 2335 / 2335 2099 125 / 125 Weight 69 kg Intake: IV 2110 / 2110 1999 / 1999 D5W/NS + KCL 20 mEq Inj 1,000 1999 ML @ 125 mls/hr IV.CONT .Q8H [facility] Rx#:[id number] Calcium Chloride Inj 1 GM In NS 110 / 110 Inj 100 ML @ 110 mls/hr IV.SIG ONCE ONE Rx#:[id number] Oral 100 / 100 100 / 100 Other 125 / 125 125 / 125 Other: # Voids 3 3 # Bowel Movements 0 Narrative: general: resting comfortably HEENT: NC, AT heart: RRR lungs: CTAB GI: abdominal binder in place extremities: No edema neuro: no gross deficits - Urinary Catheter Management Indwelling Urethral Catheter Cath placed during this visit: yes Reason for continuing: Other continuation reason Insertion date: 06/17/18 Insertion time: 14:15 Results - Labs CBC & Chem 7: 06/20/18 06:45 06/20/18 06:45 Laboratory Results - last 24 hr 06/19/18 06/19/18 06/20/18 17:58 20:14 06:45 WBC 12.4 H RBC 3.06 L Hgb 9.2 L Hct 28.2 L MCV 92.1 D MCH 30.0 MCHC 32.6 RDW 17.0 Plt Count 315 MPV 7.2 Neut % (Auto) 81.0 H Lymph % (Auto) 13.7 Dodge % (Auto) 3.4 Eos % (Auto) 1.0 Baso % (Auto) 0.9 Neut # (Auto) 10.1 H Lymph # (Auto) 1.7 Dodge # (Auto) 0.4 Eos # (Auto) 0.1 Baso # (Auto) 0.1 WBC Differential . Differential Comment Auto diff final Sodium Potassium Chloride Carbon Dioxide Anion Gap BUN Creatinine Estimated GFR POC Glucose 122 H 126 H Random Glucose Calcium 06/20/18 06/20/18 06:45 08:48 WBC RBC Hgb Hct MCV MCH MCHC RDW Plt Count MPV Neut % (Auto) Lymph % (Auto) Dodge % (Auto) Eos % (Auto) Baso % (Auto) Neut # (Auto) Lymph # (Auto) Dodge # (Auto) Eos # (Auto) Baso # (Auto) WBC Differential Differential Comment Sodium 137 Potassium 3.7 D Chloride 103 D Carbon Dioxide 27.9 Anion Gap 6 BUN 3 L Creatinine 0.54 Estimated GFR Greater than 89 POC Glucose 117 H Random Glucose 103 Calcium 8.4 L Assessment and Plan - Plan Ileostomy S/p ex lap, LULU, ileostomy and mucous fistula takedown, ileocolic anastomosis. -management per surgery. -pain control. -incentive spirometry. -PT. Swallowing difficulties The pt has been having a hard time swallowing pills. NGT removed. -ST following. Lung cancer/ COPD Respiratory status stable at this time. -oxygen and nebs as needed. -smoking cessation instruction. -continue home regimen. DM On metformin as an outpt. Glucose well controlled at this time. -hold metformin. -insulin sliding scale. HTN/ Tachycardia Exacerbated by pain. EKG with sinus tachycardia. -resume home regimen. Increase nifedipine. Increase lisinopril to 20 mg daily. -Vasotec as needed. -pain control. Consider d/c PULVERIZING AND SIFTING OPERATOR and start PO Elmore along with Dilaudid or morphine for breakthrough. Hypocalcemia Calcium level improving. -repleted with calcium chloride. Monitor. Leukocytosis Likely reactive. Afebrile. -follow CBC. Improving. PPx: Per surgery
[2018-06-20] MEDS ORDERED: Calcium Chloride Inj 1 GM in Dextrose 5% in Water Inj 100 ML IV.SIG ONE ×2 (14:00)
--- NOTE | 2018-06-20 14:44 | P.DIET ---
Nutritional Evaluation Type of nutrition evaluation: initial Screening comments: NPO Screen Objective - Diagnosis Ileostomy Takedown - Objective Dietitian Reviewed in Medical Record: Current diet Diet Order: NPO Objective Comments: 06/17 Exp Lap, LULU, ileostomy takedown Assessment Assessment: NPO Screen. NPO x 3-Days. Recommendations: 1. NPO x 3-Days 2. Please Consult RD if Needed
[2018-06-21] MEDS: KCL 20 mEq/D5W/NaCl 0.9% Inj 1,000 ML IV.CONT SCH ×4 (01:57→17:02)
[2018-06-21] MEDS: Insulin NovoLOG Aspart Correctional Sugar Inj SQ SCH ×4 (07:26→21:08)
[2018-06-21] MEDS: Folic Acid 1 MG Tablet PO SCH (09:39)
[2018-06-21] MEDS: Senna/Docusate Sodium 8.6/50 MG Tablet PO SCH ×2 (09:39→21:05)
[2018-06-21] MEDS: ALPRAZolam 0.25 MG Tablet PO SCH ×2 (09:40→21:05)
[2018-06-21] MEDS: Lisinopril 20 MG Tablet PO SCH (09:40)
[2018-06-21] MEDS: Tiotropium Bromide 18 MCG/ACT Inhaler INH SCH (09:40)
--- NOTE | 2018-06-21 11:06 | ECG ---
Date Performed: 06/20/2018 Time Performed: 11:35:14 PTAGE: 53 years EKG: SINUS TACHYCARDIA ABNORMAL RHYTHM ECG PREVIOUS TRACING : 01/27/2018 18.46 Since the previous tracing, no significant change noted DOCTOR: Linden Ramos Interpretating Date/Time 06/21/2018 11:05:22
--- NOTE | 2018-06-21 12:01 | P.DIET ---
Nutritional Evaluation Type of nutrition evaluation: follow-up Screening comments: NPO Screen Objective - Diagnosis Ileostomy Takedown - Objective Dietitian Reviewed in Medical Record: Current diet Diet Order: NPO Objective Comments: 06/17 Exp Lap, LULU, ileostomy takedown Assessment Assessment: NPO Screen. NPO x 4-Days. Recommendations: 1. NPO x 4-Days 2. Please Consult RD if Needed
[2018-06-21] MEDS: Enoxaparin Inj 40 MG/0.4 ML Syringe SQ SCH (12:19)
--- NOTE | 2018-06-21 14:09 | P.PNGS ---
<Michela Kramer - Last Filed: 06/21/18 14:07> Subjective Interval history: Resting in bed; still no flatus Physical Exam Vital signs: Vital Signs 06/20/18 16:00 06/20/18 20:00 06/21/18 00:00 Temperature 98.2 F 98.2 F 98.1 F Pulse Rate 121 H 109 H 104 H Respiratory Rate 17 17 20 Blood Pressure 167/80 H 156/77 H 143/66 H Pulse Oximetry 93 L 94 L 92 L 06/21/18 04:00 06/21/18 08:00 06/21/18 12:00 Temperature 98.8 F 97.9 F 98.6 F Pulse Rate 99 H 96 H 98 H Respiratory Rate 18 17 16 Blood Pressure 136/71 131/68 122/64 Pulse Oximetry 93 L 93 L 93 L Intake & Output 06/20/18 06/21/18 06/21/18 18:59 06:59 18:59 Intake Total 1235 / 1235 1999 1000 / 1000 Balance 1235 / 1235 1999 1000 / 1000 Weight 77.1 kg Intake: IV 1110 / 1110 1999 1000 / 1000 D5W/NS + KCL 20 mEq Inj 1,000 1000 / 1000 1999 / 1999 1000 / 1000 ML @ 125 mls/hr IV.CONT .Q8H [facility] Rx#:[id number] Calcium Chloride Inj 1 GM In 110 / 110 D5W Inj 100 ML @ 110 mls/hr IV. SIG ONCE ONE Rx#:[id number] Other 125 / 125 Other: # Voids 3 3 # Bowel Movements 0 Narrative: Alert and awake Cardio: RRR Resp: CTAB Abd: Abd binder in place; LULA in place with good seal; mildly distended No edema - Urinary Catheter Management Indwelling Urethral Catheter Cath placed during this visit: yes Reason for continuing: Other continuation reason Insertion date: 06/17/18 Insertion time: 14:15 Assessment and Plan - Assessment (1) Status post reversal of ileostomy Code(s): Z98.890 - Other specified postprocedural states Status: Acute Plan: 53 year old female POD4 ex lap; LULU greater than 1 hour; ileostomy and mucous fistula takedown; ileocolic anastomosis -Continue popsicles and ice chips for now; await bowel function -Continue IVF -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; 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 -OOB as tolerated -Lovenox -Continue abdominal binder and routine LULA dressing care <Tee Adair - Last Filed: 06/21/18 15:13> Physical Exam Vital signs: Vital Signs 06/20/18 16:00 06/20/18 20:00 06/21/18 00:00 Temperature 98.2 F 98.2 F 98.1 F Pulse Rate 121 H 109 H 104 H Respiratory Rate 17 17 20 Blood Pressure 167/80 H 156/77 H 143/66 H Pulse Oximetry 93 L 94 L 92 L 06/21/18 04:00 06/21/18 08:00 06/21/18 12:00 Temperature 98.8 F 97.9 F 98.6 F Pulse Rate 99 H 96 H 98 H Respiratory Rate 18 17 16 Blood Pressure 136/71 131/68 122/64 Pulse Oximetry 93 L 93 L 93 L Intake & Output 06/20/18 06/21/18 06/21/18 18:59 06:59 18:59 Intake Total 1235 / 1235 1999 1000 / 1000 Balance 1235 / 1235 1999 1000 / 1000 Weight 77.1 kg Intake: IV 1110 / 1110 1999 1000 / 1000 D5W/NS + KCL 20 mEq Inj 1,000 1000 / 1000 1999 1000 / 1000 ML @ 125 mls/hr IV.CONT .Q8H [facility] Rx#:[id number] Calcium Chloride Inj 1 GM In 110 / 110 D5W Inj 100 ML @ 110 mls/hr IV. SIG ONCE ONE Rx#:[id number] Other 125 / 125 Other: # Voids 3 3 # Bowel Movements 0 - Urinary Catheter Management Indwelling Urethral Catheter Cath placed during this visit: no Assessment and Plan - Assessment (1) Status post reversal of ileostomy Code(s): Z98.890 - Other specified postprocedural states Status: Acute Plan: Patient says she is doing little better - Attending Attestation NOTE FOR SURGICAL ATTENDING, DR. TEE ADAIR I agree with above assessment and plan. The exam, history, and the medical decision-making described in the above note were completed with the assistance of the mid-level provider. I reviewed and agree with the findings presented. I attest that I had a [id number] encounter with the patient on the same day, and personally performed and documented my assessment and findings in the medical record. The following services were provided during this hospital visit: Chart data review, vital sign assessments/reviewing monitor data Review of consultations notes if present. Medication orders/review and/or management Ordering and/or reviewing lab tests Ordering and/or interpreting/reviewing x-rays and/or diagnostic studies Care of the patient and discussion of the patient with the care team Documentation time To help prompt me to consider important information that might be impacting today's encounter and assessment, Information from prior notes written by myself or my colleagues may have been "brought forward/copy and pasted" into today's note.
--- NOTE | 2018-06-21 15:25 | P.PNIM ---
Subjective Interval history: The patient was still complaining of pain. She said that she was not passing any gas. She wanted to know one her bowel function would return. Discussed with nursing. Physical Exam Vital signs: Vital Signs 06/20/18 16:00 06/20/18 20:00 06/21/18 00:00 Temperature 98.2 F 98.2 F 98.1 F Pulse Rate 121 H 109 H 104 H Respiratory Rate 17 17 20 Blood Pressure 167/80 H 156/77 H 143/66 H Pulse Oximetry 93 L 94 L 92 L 06/21/18 04:00 06/21/18 08:00 06/21/18 12:00 Temperature 98.8 F 97.9 F 98.6 F Pulse Rate 99 H 96 H 98 H Respiratory Rate 18 17 16 Blood Pressure 136/71 131/68 122/64 Pulse Oximetry 93 L 93 L 93 L Intake & Output 06/20/18 06/21/18 06/21/18 18:59 06:59 18:59 Intake Total 1235 / 1235 1999 / 1999 1000 / 1000 Balance 1235 / 1235 1999 / 1999 1000 / 1000 Weight 77.1 kg Intake: IV 1110 / 1110 1999 / 1999 1000 / 1000 D5W/NS + KCL 20 mEq Inj 1,000 1000 / 1000 1999 / 1999 1000 / 1000 ML @ 125 mls/hr IV.CONT .Q8H [facility] Rx#:[id number] Calcium Chloride Inj 1 GM In 110 / 110 D5W Inj 100 ML @ 110 mls/hr IV. SIG ONCE ONE Rx#:[id number] Other 125 / 125 Other: # Voids 3 3 # Bowel Movements 0 Narrative: general: resting comfortably HEENT: NC, AT heart: RRR lungs: CTAB GI: abdominal binder in place. +BS extremities: No edema neuro: no gross deficits - Urinary Catheter Management Indwelling Urethral Catheter Cath placed during this visit: yes Reason for continuing: Other continuation reason Insertion date: 06/17/18 Insertion time: 14:15 Results - Labs CBC & Chem 7: 06/20/18 06:45 06/20/18 06:45 Laboratory Results - last 24 hr 06/20/18 06/20/18 06/21/18 16:11 21:36 07:20 POC Glucose 109 111 H 116 H 06/21/18 11:27 POC Glucose 108 Assessment and Plan - Plan Ileostomy S/p ex lap, LULU, ileostomy and mucous fistula takedown, ileocolic anastomosis. -management per surgery. -pain control. -incentive spirometry. -PT. Swallowing difficulties The pt has been having a hard time swallowing pills. NGT removed. -ST following. Lung cancer/ COPD Respiratory status stable at this time. -oxygen and nebs as needed. -smoking cessation instruction. -continue home regimen. DM On metformin as an outpt. Glucose well controlled at this time. -hold metformin. -insulin sliding scale. HTN/ Tachycardia Exacerbated by pain. EKG with sinus tachycardia. -resume home regimen. Increase nifedipine. Increase lisinopril to 20 mg daily. -Vasotec as needed. -pain control. 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 Hypocalcemia Calcium level improving. -repleted with calcium chloride. Monitor. Leukocytosis Likely reactive. Afebrile. -follow CBC. Improving. PPx: Per surgery
[2018-06-21] MEDS: HYDROmorphone PCA Inj 6 MG/30 ML PCA.VIAL PCA PRN (19:43)
[2018-06-22] MEDS: KCL 20 mEq/D5W/NaCl 0.9% Inj 1,000 ML IV.CONT SCH ×3 (05:35→16:16)
[2018-06-22] MEDS: Insulin NovoLOG Aspart Correctional Sugar Inj SQ SCH ×4 (07:23→20:18)
[2018-06-22] MEDS: Senna/Docusate Sodium 8.6/50 MG Tablet PO SCH ×2 (09:03→20:18)
[2018-06-22] MEDS: ALPRAZolam 0.25 MG Tablet PO SCH ×2 (09:04→20:18)
[2018-06-22] MEDS: Lisinopril 20 MG Tablet PO SCH (09:04)
[2018-06-22] MEDS: Folic Acid 1 MG Tablet PO SCH (09:04)
[2018-06-22] MEDS: Tiotropium Bromide 18 MCG/ACT Inhaler INH SCH (09:05)
[2018-06-22] MEDS: Enoxaparin Inj 40 MG/0.4 ML Syringe SQ SCH (09:05)
--- NOTE | 2018-06-22 10:37 | P.PNGS ---
Subjective Patient reports: no new complaints, still having pain (Constant "pulling and cramping" abdominal pain has not improved. 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 ), voiding w/o difficulty, no flatus, no bowel movement, afebrile Physical Exam Vital signs: Vital Signs 06/21/18 12:00 06/21/18 16:00 06/21/18 20:00 Temperature 98.6 F 98.3 F 99.2 F Pulse Rate 98 H 102 H 104 H Respiratory Rate 16 16 18 Blood Pressure 122/64 139/66 128/62 Pulse Oximetry 93 L 94 L 93 L 06/22/18 00:00 06/22/18 04:00 06/22/18 08:00 Temperature 99.2 F 99.1 F 97.6 F Pulse Rate 125 H 124 H 61 Respiratory Rate 18 17 Blood Pressure 132/64 134/68 116/69 Pulse Oximetry 92 L 94 L 96 Intake & Output 06/21/18 06/22/18 06/22/18 18:59 06:59 18:59 Intake Total 1999 1000 / 1000 1000 / 1000 Balance 1999 1000 / 1000 1000 / 1000 Weight 76 kg Intake: IV 1999 1000 / 1000 1000 / 1000 D5W/NS + KCL 20 mEq Inj 1,000 1999 1000 / 1000 1000 / 1000 ML @ 125 mls/hr IV.CONT .Q8H [facility] Rx#:[id number] Other: # Voids 2 - Constitutional no acute distress - Routine HEENT Exam Head: Present: normocephalic, atraumatic, cushingoid faces - Routine Abdominal Exam Present: tenderness, wound (LULA dressing intact) - Routine Neurological Exam Present: alert, oriented X3, normal speech - Detailed Neurological Exam: Coma Scale Eye Opening: Spontaneous Verbal Response: Oriented Motor Response: Obey commands [place] Coma Scale Total: 15 - Routine Psychiatric Exam Present: normal affect - Urinary Catheter Management Indwelling Urethral Catheter Cath placed during this visit: yes Insertion date: 06/17/18 Insertion time: 14:15 Assessment and Plan - Assessment (1) Status post reversal of ileostomy Code(s): Z98.890 - Other specified postprocedural states Status: Acute - Plan Start liquid diet today at lunch. Start PO pain meds. Decrease IV fluids. Await bowel function.
--- NOTE | 2018-06-22 12:00 | P.PNIM ---
Subjective Interval history: The patient was still in pain. She said the pain pump was not helping that much. She has not been passing gas. She says her mood has been depressed. She did speak with surgery earlier. Physical Exam Vital signs: Vital Signs 06/21/18 12:00 06/21/18 16:00 06/21/18 20:00 Temperature 98.6 F 98.3 F 99.2 F Pulse Rate 98 H 102 H 104 H Respiratory Rate 18 Blood Pressure 122/64 139/66 128/62 Pulse Oximetry 93 L 94 L 93 L 06/22/18 00:00 06/22/18 04:00 06/22/18 08:00 Temperature 99.2 F 99.1 F 97.6 F Pulse Rate 125 H 124 H 61 Respiratory Rate 18 17 Blood Pressure 132/64 134/68 116/69 Pulse Oximetry 92 L 94 L 96 Intake & Output 06/21/18 06/22/18 06/22/18 18:59 06:59 18:59 Intake Total 1999 1000 / 1000 1000 / 1000 Balance 1999 1000 / 1000 1000 / 1000 Weight 76 kg Intake: IV 1999 1000 / 1000 1000 / 1000 D5W/NS + KCL 20 mEq Inj 1,000 1999 1000 / 1000 1000 / 1000 ML @ 125 mls/hr IV.CONT .Q8H [facility] Rx#:[id number] Other: # Voids 2 Narrative: general: resting comfortably HEENT: NC, AT heart: RRR lungs: CTAB GI: abdominal binder in place. +BS extremities: No edema neuro: no gross deficits - Urinary Catheter Management Indwelling Urethral Catheter Cath placed during this visit: yes Reason for continuing: Other continuation reason Insertion date: 06/17/18 Insertion time: 14:15 Results - Labs CBC & Chem 7: 06/20/18 06:45 06/20/18 06:45 Laboratory Results - last 24 hr 06/21/18 06/21/18 06/22/18 16:10 21:07 07:22 POC Glucose 99 104 118 H 06/22/18 11:08 POC Glucose 106 Assessment and Plan - Plan Ileostomy S/p ex lap, LULU, ileostomy and mucous fistula takedown, ileocolic anastomosis. -management per surgery. -pain control. -incentive spirometry. -PT. Swallowing difficulties The pt has been having a hard time swallowing pills. NGT removed. -ST following. Lung cancer/ COPD Respiratory status stable at this time. -oxygen and nebs as needed. -smoking cessation instruction. -continue home regimen. DM On metformin as an outpt. Glucose well controlled at this time. -hold metformin. -insulin sliding scale. Well controlled. HTN/ Tachycardia Exacerbated by pain. EKG with sinus tachycardia. Blood pressure now normal. -Increased nifedipine. Decrease lisinopril to 10 mg daily. -Vasotec as needed. -pain control. 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 Hypocalcemia Calcium level improving. -repleted with calcium chloride. Monitor. Leukocytosis Likely reactive. Afebrile. -follow CBC. Improving. PPx: Per surgery
[2018-06-22] MEDS: Aspirin 325 MG Tablet PO SCH (13:11)
[2018-06-23 08:08] LABS: Anion Gap 9 meq/L (5-15); Blood Urea Nitrogen 6 mg/dL (7-18); Carbon Dioxide 24.5 meq/L (21.0-32.0); Chloride 106 meq/L (98-107); Glomerular Filtration Rate Greater Than 89 mL/min (>89); Glucose,Random 84 mg/dL (74-106); Magnesium 2.1 mg/dL (1.5-2.5); Potassium 3.7 meq/L (3.5-5.1)
[2018-06-23 08:09] LABS: Sodium 139 meq/L (136-145)
[2018-06-23 08:15] LABS: Baso # (Auto) 0.1 th/mm3 (0.0-0.2); Baso % (Auto) 1.2 % (0.0-2.0); Eos # (Auto) 0.1 th/mm3 (0.0-0.4); Eos % (Auto) 1.4 % (0.0-4.0); Hematocrit 28.5 % (35.0-46.0); Hemoglobin 8.9 gm/dL (11.6-15.3); Lymph # (Auto) 1.6 th/mm3 (1.0-4.8); Lymph % (Auto) 22.6 % (9.0-44.0); Mean Corpuscular HGB Conc 31.4 % (32.0-36.0); Mean Corpuscular Hemoglobin 29.9 pg (27.0-34.0); Mean Corpuscular Volume 95.1 fL (80.0-100.0); Mean Platelet Volume 7.3 fL (7.0-11.0); Mono # (Auto) 0.4 th/mm3 (0.0-0.9); Mono % (Auto) 4.9 % (0.0-8.0); Neut # (Auto) 5.1 th/mm3 (1.8-7.7); Neut % (Auto) 69.9 % (16.0-70.0); Platelet Count 353 th/mm3 (150-450); Red Cell Distribution Width 17.3 % (11.6-17.2); White Blood Count 7.3 th/mm3 (4.0-11.0)
[2018-06-23] MEDS: Insulin NovoLOG Aspart Correctional Sugar Inj SQ SCH ×4 (09:40→20:23)
[2018-06-23] MEDS: Aspirin 325 MG Tablet PO SCH (09:41)
[2018-06-23] MEDS: Senna/Docusate Sodium 8.6/50 MG Tablet PO SCH ×2 (09:41→20:27)
[2018-06-23] MEDS: Folic Acid 1 MG Tablet PO SCH (09:41)
[2018-06-23] MEDS: Enoxaparin Inj 40 MG/0.4 ML Syringe SQ SCH (09:42)
[2018-06-23] MEDS: ALPRAZolam 0.25 MG Tablet PO SCH ×2 (09:42→20:27)
[2018-06-23] MEDS: Lisinopril 10 MG Tablet PO SCH (09:42)
[2018-06-23] MEDS: Tiotropium Bromide 18 MCG/ACT Inhaler INH SCH (09:43)
[2018-06-23] MEDS: KCL 20 mEq/D5W/NaCl 0.9% Inj 1,000 ML IV.CONT SCH (12:15)
--- NOTE | 2018-06-23 13:16 | P.PNIM ---
Subjective Interval history: Follow-up for hypertension No overnight events, no fever or chills. Blood pressure is stable, heart rate in the 90s and low 100s. Denies any palpitations or chest pain. Pain is more controlled today. Physical Exam Vital signs: Vital Signs 06/22/18 16:00 06/22/18 20:00 06/23/18 00:00 Temperature 99.0 F 98.2 F 98.8 F Pulse Rate 104 H 80 86 Respiratory Rate 17 18 18 Blood Pressure 126/73 126/72 138/72 Pulse Oximetry 90 L 98 99 06/23/18 04:00 06/23/18 08:00 06/23/18 12:00 Temperature 97.7 F 98.4 F 98.1 F Pulse Rate 94 H 113 H 99 H Respiratory Rate 18 17 17 Blood Pressure 126/72 131/75 114/68 Pulse Oximetry 96 98 97 Intake & Output 06/22/18 06/23/18 06/23/18 18:59 06:59 18:59 Intake Total 2860 / 2860 1000 / 1000 Balance 2860 / 2860 1000 / 1000 Weight 76.6 kg Intake: IV 1999 / 1999 1000 / 1000 D5W/NS + KCL 20 mEq Inj 1,000 2000 / 2000 1000 / 1000 ML @ 50 mls/hr IV.CONT .Q20H [facility] Rx#:[id number] Oral 860 / 860 Other: # Voids 4 2 # Bowel Movements 2 Narrative: general: resting comfortably, not in distress HEENT: NC, AT heart: Borderline tachycardic, regular rhythm, no murmurs. lungs: Breath sounds. GI: abdominal binder in place. +BS extremities: No edema neuro: Alert awake and oriented, no gross deficits - Urinary Catheter Management Indwelling Urethral Catheter Cath placed during this visit: yes Reason for continuing: Other continuation reason Insertion date: 06/17/18 Insertion time: 14:15 Results - Labs CBC & Chem 7: 06/23/18 07:14 06/23/18 06:51 Laboratory Results - last 24 hr 06/22/18 06/22/18 06/23/18 16:16 20:17 06:51 WBC RBC Hgb Hct MCV MCH MCHC RDW Plt Count MPV Neut % (Auto) Lymph % (Auto) Petroleum % (Auto) Eos % (Auto) Baso % (Auto) Neut # (Auto) Lymph # (Auto) Petroleum # (Auto) Eos # (Auto) Baso # (Auto) WBC Differential Differential Comment Sodium 139 Potassium 3.7 Chloride 106 Carbon Dioxide 24.5 Anion Gap 9 BUN 6 L Creatinine 0.57 Estimated GFR Greater than 89 POC Glucose 105 92 Random Glucose 84 Calcium 8.0 L Magnesium 2.1 06/23/18 06/23/18 06/23/18 07:14 08:10 12:17 WBC 7.3 RBC 3.00 L Hgb 8.9 L Hct 28.5 L MCV 95.1 MCH 29.9 MCHC 31.4 L RDW 17.3 H Plt Count 353 MPV 7.3 Neut % (Auto) 69.9 Lymph % (Auto) 22.6 Petroleum % (Auto) 4.9 Eos % (Auto) 1.4 Baso % (Auto) 1.2 Neut # (Auto) 5.1 Lymph # (Auto) 1.6 Petroleum # (Auto) 0.4 Eos # (Auto) 0.1 Baso # (Auto) 0.1 WBC Differential . Differential Comment Auto diff final Sodium Potassium Chloride Carbon Dioxide Anion Gap BUN Creatinine Estimated GFR POC Glucose 101 104 Random Glucose Calcium Magnesium Assessment and Plan - Plan S/p ex lap, LULU, ileostomy and mucous fistula takedown, ileocolic anastomosis. -management per surgery. -pain control. -incentive spirometry. -PT. Swallowing difficulties The pt has been having a hard time swallowing pills. NGT removed. -ST following. Lung cancer/ COPD Respiratory status stable at this time. -oxygen and nebs as needed. -smoking cessation instruction. -continue home regimen. DM On metformin as an outpt. Glucose well controlled at this time. -hold metformin, insulin sliding scale. Well controlled. HTN/ Tachycardia Exacerbated by pain. EKG with sinus tachycardia. Blood pressure now normal. -Continue nifedipine and lisinopril at current dose -Vasotec as needed. -pain control. Consider d/c THREADER and start PO [place] along with Dilaudid or morphine for breakthrough. Hypocalcemia Calcium level improving. We will give another dose of calcium gluconate. Leukocytosis Likely reactive. Afebrile. Resolved, CBC stable. PPx: Per surgery
[2018-06-23] MEDS ORDERED: Calcium Gluconate Inj 1 GM in Dextrose 5% in Water Inj 100 ML IV.SIG ONE ×2 (13:40)
--- NOTE | 2018-06-23 14:01 | P.PNGS ---
Subjective Patient reports: feels better, still having pain, flatus (No nausea or vomitingTolerating prescribed diet) Physical Exam Vital signs: Vital Signs 06/22/18 16:00 06/22/18 20:00 06/23/18 00:00 Temperature 99.0 F 98.2 F 98.8 F Pulse Rate 104 H 80 86 Respiratory Rate 17 18 18 Blood Pressure 126/73 126/72 138/72 Pulse Oximetry 90 L 98 99 06/23/18 04:00 06/23/18 08:00 06/23/18 12:00 Temperature 97.7 F 98.4 F 98.1 F Pulse Rate 94 H 113 H 99 H Respiratory Rate 18 17 17 Blood Pressure 126/72 131/75 114/68 Pulse Oximetry 96 98 97 Intake & Output 06/22/18 06/23/18 06/23/18 18:59 06:59 18:59 Intake Total 2860 / 2860 1000 / 1000 Balance 2860 / 2860 1000 / 1000 Weight 76.6 kg Intake: IV 1999 / 1999 1000 / 1000 D5W/NS + KCL 20 mEq Inj 1,000 1999 1000 / 1000 ML @ 50 mls/hr IV.CONT .Q20H [facility] Rx#:[id number] Oral 860 / 860 Other: # Voids 4 2 # Bowel Movements 2 Narrative: Patient resting comfortably No distress Abdomen soft daysi dressing intact Extremities well - Constitutional no acute distress - Routine HEENT Exam Head: Present: normocephalic - Routine Abdominal Exam Present: wound - Routine Neurological Exam Present: alert, oriented X3 - Detailed Neurological Exam: Coma Scale Eye Opening: Spontaneous Verbal Response: Oriented Motor Response: Obey commands [place] Coma Scale Total: 15 - Routine Psychiatric Exam Present: normal affect - Additional findings Additional findings: Laboratory Last Values WBC 7.3 th/mm3 (4.0-11.0) 06/23/18 07:14 RBC 3.00 mil/mm3 (4.00-5.30) L 06/23/18 07:14 Hgb 8.9 gm/dL (11.6-15.3) L 06/23/18 07:14 Hct 28.5 % (35.0-46.0) L 06/23/18 07:14 MCV 95.1 fL (80.0-100.0) 06/23/18 07:14 MCH 29.9 pg (27.0-34.0) 06/23/18 07:14 MCHC 31.4 % (32.0-36.0) L 06/23/18 07:14 RDW 17.3 % (11.6-17.2) H 06/23/18 07:14 Plt Count 353 th/mm3 (150-450) 06/23/18 07:14 MPV 7.3 fL (7.0-11.0) 06/23/18 07:14 Prelim Diff (Auto) Manual diff required 06/18/18 06:46 Neut % (Auto) 69.9 % (16.0-70.0) 06/23/18 07:14 Lymph % (Auto) 22.6 % (9.0-44.0) 06/23/18 07:14 [place]cd[place] % (Auto) 4.9 % (0.0-8.0) 06/23/18 07:14 Eos % (Auto) 1.4 % (0.0-4.0) 06/23/18 07:14 Baso % (Auto) 1.2 % (0.0-2.0) 06/23/18 07:14 Neut # (Auto) 5.1 th/mm3 (1.8-7.7) 06/23/18 07:14 Lymph # (Auto) 1.6 th/mm3 (1.0-4.8) 06/23/18 07:14 [place]cd[place]ough # (Auto) 0.4 th/mm3 (0.0-0.9) 06/23/18 07:14 Eos # (Auto) 0.1 th/mm3 (0.0-0.4) 06/23/18 07:14 Baso # (Auto) 0.1 th/mm3 (0.0-0.2) 06/23/18 07:14 WBC Differential . 06/23/18 07:14 Seg Neuts % (Manual) 85 % (16-70) H 06/18/18 06:46 Band Neuts % (Manual) 6 % (0-6) 06/18/18 06:46 Lymphocytes % (Manual) 5 % (9-44) L 06/18/18 06:46 Monocytes % (Manual) 3 % (0-8) 06/18/18 06:46 Eosinophils % (Manual) 1 % (0-4) 06/18/18 06:46 Abs Neuts (Manual) 10.8 th/mm3 (1.8-7.7) H 06/18/18 06:46 Differential Comment Auto diff final 06/23/18 07:14 Platelet Estimate Normal (Normal) 06/18/18 06:46 Platelet Morphology Normal (Normal) 06/18/18 06:46 RBC Morphology Normal (Normal) 06/18/18 06:46 Sodium 139 meq/L (136-145) 06/23/18 06:51 Potassium 3.7 meq/L (3.5-5.1) 06/23/18 06:51 Chloride 106 meq/L (98-107) 06/23/18 06:51 Carbon Dioxide 24.5 meq/L (21.0-32.0) 06/23/18 06:51 Anion Gap 9 meq/L (5-15) 06/23/18 06:51 BUN 6 mg/dL (7-18) L 06/23/18 06:51 Creatinine 0.57 mg/dL (0.50-1.00) 06/23/18 06:51 Estimated GFR Greater than 89 mL/min (>89) 06/23/18 06:51 POC Glucose 104 mg/dl (68-110) 06/23/18 12:17 Random Glucose 84 mg/dL (74-106) 06/23/18 06:51 Calcium 8.0 mg/dL (8.5-10.1) L 06/23/18 06:51 Prot Corrected Calcium 7.9 mg/dL (8.5-10.1) L 06/18/18 06:46 Magnesium 2.1 mg/dL (1.5-2.5) 06/23/18 06:51 Total Bilirubin 0.3 mg/dL (0.2-1.0) 06/19/18 05:55 Direct Bilirubin Less than 0.1 mg/dL (0.0-0.2) 06/19/18 05:55 Indirect Bilirubin 0.2 mg/dL (0.0-0.8) 06/19/18 05:55 AST 16 U/L (15-37) 06/19/18 05:55 ALT 27 U/L (10-53) 06/19/18 05:55 Alkaline Phosphatase 71 U/L (45-117) 06/19/18 05:55 Total Protein 5.7 g/dL (6.4-8.2) L 06/19/18 05:55 Albumin 2.2 g/dL (3.4-5.0) L 06/19/18 05:55 - Urinary Catheter Management Indwelling Urethral Catheter Cath placed during this visit: yes Reason for continuing: Other continuation reason Insertion date: 06/17/18 Insertion time: 14:15 Assessment and Plan - Assessment (1) Status post reversal of ileostomy Code(s): Z98.890 - Other specified postprocedural states Status: Acute Plan: Patient says she is doing little better - Attending Attestation NOTE FOR SURGICAL ATTENDING, DR. RALPH ADAIR I attest that I had a [id number] encounter with the patient on the same day, and personally performed and documented my assessment and findings in the medical record. The following services were provided during this hospital visit: Chart data review, vital sign assessments/reviewing monitor data Review of consultations notes if present. Medication orders/review and/or management Ordering and/or reviewing lab tests Ordering and/or interpreting/reviewing x-rays and/or diagnostic studies Care of the patient and discussion of the patient with the care team Documentation time To help prompt me to consider important information that might be impacting today's encounter and assessment, Information from prior notes written by myself or my colleagues may have been "brought forward/copy and pasted" into today's note.
[2018-06-23] MEDS ORDERED: SODIUM CHLOR 0.9% IV.SIG ONE (15:00)
[2018-06-23] MEDS ORDERED: CALCIUM CHLORIDE IV.SIG ONE (15:00)
[2018-06-24] MEDS: KCL 20 mEq/D5W/NaCl 0.9% Inj 1,000 ML IV.CONT SCH (09:10)
[2018-06-24] MEDS: Lisinopril 10 MG Tablet PO SCH (09:11)
[2018-06-24] MEDS: ALPRAZolam 0.25 MG Tablet PO SCH ×2 (09:11→20:30)
[2018-06-24] MEDS: Folic Acid 1 MG Tablet PO SCH (09:12)
[2018-06-24] MEDS: Aspirin 325 MG Tablet PO SCH (09:12)
[2018-06-24] MEDS: Tiotropium Bromide 18 MCG/ACT Inhaler INH SCH (09:12)
[2018-06-24] MEDS: Enoxaparin Inj 40 MG/0.4 ML Syringe SQ SCH (09:12)
[2018-06-24] MEDS: Insulin NovoLOG Aspart Correctional Sugar Inj SQ SCH ×4 (09:14→20:20)
[2018-06-24] MEDS: Senna/Docusate Sodium 8.6/50 MG Tablet PO SCH ×2 (09:14→20:30)
--- NOTE | 2018-06-24 09:37 | P.PNGS ---
Subjective Patient reports: still having pain (Experiencing cramping pain that radiates across her lower abdomen. Also having headaches and back pain.), flatus, bowel movement (multiple ), diarrhea, afebrile Physical Exam Vital signs: Vital Signs 06/23/18 12:00 06/23/18 16:00 06/23/18 20:00 Temperature 98.1 F 97.0 F L 98.6 F Pulse Rate 99 H 93 H 98 H Respiratory Rate 17 17 20 Blood Pressure 114/68 127/65 133/75 Pulse Oximetry 97 93 L 94 L 06/24/18 00:00 06/24/18 04:00 Temperature 98.5 F 99 F Pulse Rate 98 H 104 H Respiratory Rate 20 18 Blood Pressure 126/62 125/70 Pulse Oximetry 94 L 93 L Intake & Output 06/23/18 06/24/18 06/24/18 18:59 06:59 18:59 Intake Total 600 / 600 1573.41 / 1573.41 Balance 600 / 600 1573.41 / 1573.41 Weight 76.5 kg Intake: IV 1213.41 / 1213.41 D5W/NS + KCL 20 mEq Inj 1,000 1000 / 1000 ML @ 50 mls/hr IV.CONT .Q20H [facility] Rx#:[id number] Calcium Chloride Inj 0.341 GM 103.41 / 103.41 In NS Inj 100 ML @ 103.41 mls/ hr IV.SIG ONCE ONE Rx#:[id number] Oral 600 / 600 360 / 360 Other: # Voids 1 1 Date of Last Bowel Movement 06/23/18 # Bowel Movements 1 - Constitutional no acute distress - Routine HEENT Exam Head: Present: normocephalic, atraumatic, cushingoid faces - Routine Cardiovascular Exam Present: RRR - Routine Abdominal Exam Present: soft, wound (LULA intact, no erythema or warmth) - Routine Neurological Exam Present: alert, oriented X3 - Detailed Neurological Exam: Coma Scale Verbal Response: Oriented Motor Response: Obey commands - Routine Psychiatric Exam Present: normal affect - Urinary Catheter Management Indwelling Urethral Catheter Cath placed during this visit: yes Reason for continuing: Other continuation reason Insertion date: 06/17/18 Insertion time: 14:15 Assessment and Plan - Assessment (1) Status post reversal of ileostomy Code(s): Z98.890 - Other specified postprocedural states Status: Acute Plan: Patient says she is doing little better - Plan Advance diet. Begin all PO meds, including methotrexate. Increase ambulation. Begin incentive spirometer.
[2018-06-24] MEDS ORDERED: HYDROmorphone PF Inj 0.5 MG/0.5 ML Syringe IV.PUSH PRN (09:48)
[2018-06-24] MEDS: predniSONE 5 MG Tablet PO SCH ×2 (12:54→20:30)
--- NOTE | 2018-06-24 13:15 | P.PNIM ---
Subjective Interval history: Patient says she is feeling weak today. Denies any chest pain shortness of breath. Denies nausea vomiting. Says she had a bowel movement. Physical Exam Vital signs: Vital Signs 06/23/18 16:00 06/23/18 20:00 06/24/18 00:00 Temperature 97.0 F L 98.6 F 98.5 F Pulse Rate 93 H 98 H 98 H Respiratory Rate 17 20 20 Blood Pressure 127/65 133/75 126/62 Pulse Oximetry 93 L 94 L 94 L 06/24/18 04:00 06/24/18 08:00 06/24/18 12:00 Temperature 99 F 97.7 F 97.9 F Pulse Rate 104 H 98 H 88 Respiratory Rate 18 18 18 Blood Pressure 125/70 111/71 125/70 Pulse Oximetry 93 L 94 L 94 L Intake & Output 06/23/18 06/24/18 06/24/18 18:59 06:59 18:59 Intake Total 600 / 600 1573.41 / 1573.41 130 / 130 Balance 600 / 600 1573.41 / 1573.41 130 / 130 Weight 76.5 kg Intake: IV 1213.41 / 1213.41 130 / 130 D5W/NS + KCL 20 mEq Inj 1,000 1000 / 1000 130 / 130 ML @ 50 mls/hr IV.CONT .Q20H [facility] Rx#:[id number] Calcium Chloride Inj 0.341 GM 103.41 / 103.41 In NS Inj 100 ML @ 103.41 mls/ hr IV.SIG ONCE ONE Rx#:[id number] Oral 600 / 600 360 / 360 Other: # Voids 1 1 Date of Last Bowel Movement 06/23/18 # Bowel Movements 1 Narrative: GENERAL: Patient lying in bed. Awake, alert. SKIN: Warm and dry. HEAD: Normocephalic. EYES: No scleral icterus. No injection or drainage. NECK: Supple, trachea midline. No JVD. CARDIOVASCULAR: Regular rate and rhythm without murmurs, gallops, or rubs. RESPIRATORY: Breath sounds equal bilaterally. No accessory muscle use. GASTROINTESTINAL: Abdomen soft, non-tender, nondistended. MUSCULOSKELETAL: No cyanosis, or edema. BACK: Nontender without obvious deformity. No CVA tenderness. - Urinary Catheter Management Indwelling Urethral Catheter Cath placed during this visit: yes Reason for continuing: Other continuation reason Insertion date: 06/17/18 Insertion time: 14:15 Results - Labs CBC & Chem 7: 06/23/18 07:14 06/23/18 06:51 Laboratory Results - last 24 hr 06/23/18 06/23/18 06/24/18 19:01 20:18 08:32 POC Glucose 116 H 107 131 H 06/24/18 12:26 POC Glucose 111 H Assessment and Plan - Plan //S/p ex lap, LULU, ileostomy and mucous fistula takedown, ileocolic anastomosis. -management per surgery. -pain control. -incentive spirometry. -PT. //Generalized fatigue. Multifactorial. Will check B12 and TSH. //Swallowing difficulties The pt has been having a hard time swallowing pills. NGT removed. -Resolved. //Lung cancer/ COPD Respiratory status stable at this time. -oxygen and nebs as needed. -smoking cessation instruction. -continue home regimen. //DM On metformin as an outpt. Glucose well controlled at this time. -Metformin restarted by surgery., insulin sliding scale. Well controlled. //HTN/ Tachycardia Exacerbated by pain. EKG with sinus tachycardia. Blood pressure now normal. -Continue nifedipine and lisinopril at current dose -Vasotec as needed. -pain control. Consider d/c TONE CABINET ASSEMBLER and start PO [place] along with Dilaudid or morphine for breakthrough. //Hypocalcemia Calcium level improving. We will give another dose of calcium gluconate. //Leukocytosis Likely reactive. Afebrile. Resolved, CBC stable. //PPx: Per surgery Discharge Planning: As per surgical service.
--- NOTE | 2018-06-24 18:42 | CT ---
EXAM DATE: 06/24/2018 6:38 PM EDT AGE/SEX: 53 years / Female INDICATIONS: Altered mental status. CLINICAL DATA: This is the patient's initial encounter. Patient reports that signs and symptoms have been present for 1 day and indicates a pain score of 0/10. MEDICAL/SURGICAL HISTORY: Diabetes mellitus type II. Carcinoma, ovarian. Carcinoma, lung. Cirrho sis GERD Appendectomy. Cholecystectomy. Hysterectomy. RADIATION DOSE: 49.57 CTDI (mGy) COMPARISON: No prior exams available for comparison. TECHNIQUE: CT of the head without contrast. Using automated exposure control and adjustment of the mA and/or kV according to patient size, radiation dose was kept as low as reasonably achievable to ob tain optimal diagnostic quality images. DICOM format image data is available electronically for revi ew and comparison. FINDINGS: Cerebrum: The ventricles are normal for age. No evidence of midline shift, mass lesion, hemorrhage or acute infarction. No extraaxial fluid collections are seen. Posterior Fossa: The cerebellum and brainstem are intact. The 4th ventricle is midline. The cerebe llopontine angle is unremarkable. Extracranial: The visualized portion of the orbits is intact. Skull: The calvaria is intact. No evidence of skull fracture. CONCLUSION: 1. Negative noncontrast CT brain. . Electronically signed by: Murphy Beverly MD 06/24/2018 6:41 PM EDT
[2018-06-24 19:03] LABS: Thyroid Stimulating Hormone 4.27 uIU/mL (0.358-3.740)
[2018-06-24 19:30] LABS: Alanine Aminotransferase 31 U/L (10-53); Albumin 2.3 g/dL (3.4-5.0); Anion Gap 14 meq/L (5-15); Aspartate Aminotransferase 33 U/L (15-37); Blood Urea Nitrogen 7 mg/dL (7-18); Calcium 8.9 mg/dL (8.5-10.1); Carbon Dioxide 23.9 meq/L (21.0-32.0); Chloride 100 meq/L (98-107); Glomerular Filtration Rate Greater Than 89 mL/min (>89); Glucose,Random 90 mg/dL (74-106); Potassium 3.3 meq/L (3.5-5.1); Sodium 138 meq/L (136-145)
[2018-06-24 19:36] LABS: Alkaline Phosphatase 86 U/L (45-117); Total Protein 7.6 g/dL (6.4-8.2)
[2018-06-24 19:39] LABS: Baso # (Auto) 0.1 th/mm3 (0.0-0.2); Baso % (Auto) 0.9 % (0.0-2.0); Eos % (Auto) 0.2 % (0.0-4.0); Hematocrit 28.1 % (35.0-46.0); Hemoglobin 9.1 gm/dL (11.6-15.3); Lymph # (Auto) 1.2 th/mm3 (1.0-4.8); Lymph % (Auto) 12.3 % (9.0-44.0); Mean Corpuscular HGB Conc 32.2 % (32.0-36.0); Mean Corpuscular Volume 93.2 fL (80.0-100.0); Mean Platelet Volume 7.2 fL (7.0-11.0); Mono # (Auto) 0.3 th/mm3 (0.0-0.9); Mono % (Auto) 3.3 % (0.0-8.0); Neut # (Auto) 8.1 th/mm3 (1.8-7.7); Neut % (Auto) 83.3 % (16.0-70.0); Platelet Count 449 th/mm3 (150-450); Red Blood Count 3.01 mil/mm3 (4.00-5.30); White Blood Count 9.7 th/mm3 (4.0-11.0)
[2018-06-24 20:47] LABS: Platelet Morphology Normal (Normal)
[2018-06-25 06:13] LABS: Baso # (Auto) 0.1 th/mm3 (0.0-0.2); Baso % (Auto) 1.4 % (0.0-2.0); Eos % (Auto) 0.7 % (0.0-4.0); Hematocrit 28.7 % (35.0-46.0); Hemoglobin 9.4 gm/dL (11.6-15.3); Lymph # (Auto) 1.3 th/mm3 (1.0-4.8); Lymph % (Auto) 19.5 % (9.0-44.0); Mean Corpuscular HGB Conc 32.7 % (32.0-36.0); Mean Corpuscular Volume 91.8 fL (80.0-100.0); Mean Platelet Volume 7.5 fL (7.0-11.0); Mono # (Auto) 0.3 th/mm3 (0.0-0.9); Mono % (Auto) 5.1 % (0.0-8.0); Neut # (Auto) 4.7 th/mm3 (1.8-7.7); Neut % (Auto) 73.3 % (16.0-70.0); Platelet Count 499 th/mm3 (150-450); Red Blood Count 3.12 mil/mm3 (4.00-5.30); Red Cell Distribution Width 16.9 % (11.6-17.2); White Blood Count 6.5 th/mm3 (4.0-11.0)
[2018-06-25 06:39] LABS: Albumin 2.2 g/dL (3.4-5.0); Anion Gap 13 meq/L (5-15); Blood Urea Nitrogen 9 mg/dL (7-18); Calcium 8.5 mg/dL (8.5-10.1); Carbon Dioxide 24.8 meq/L (21.0-32.0); Chloride 100 meq/L (98-107); Glomerular Filtration Rate Greater Than 89 mL/min (>89); Glucose,Random 94 mg/dL (74-106); Magnesium 2.2 mg/dL (1.5-2.5); Phosphorus 4.4 mg/dL (2.5-4.9); Potassium 3.5 meq/L (3.5-5.1); Sodium 138 meq/L (136-145)
[2018-06-25] MEDS: Folic Acid 1 MG Tablet PO SCH (09:11)
[2018-06-25] MEDS: predniSONE 5 MG Tablet PO SCH ×2 (09:11→20:23)
[2018-06-25] MEDS: Enoxaparin Inj 40 MG/0.4 ML Syringe SQ SCH (09:11)
[2018-06-25 09:12] LABS: Platelet Morphology Normal (Normal)
[2018-06-25] MEDS: Senna/Docusate Sodium 8.6/50 MG Tablet PO SCH ×2 (09:12→20:23)
[2018-06-25] MEDS: ALPRAZolam 0.25 MG Tablet PO SCH ×2 (09:12→20:23)
[2018-06-25] MEDS: Tiotropium Bromide 18 MCG/ACT Inhaler INH SCH (09:13)
[2018-06-25] MEDS: Insulin NovoLOG Aspart Correctional Sugar Inj SQ SCH ×4 (09:13→20:25)
[2018-06-25] MEDS: Lisinopril 10 MG Tablet PO SCH ×2 (09:14→20:23)
--- NOTE | 2018-06-25 15:03 | XR ---
EXAM DATE: 06/25/2018 2:51 PM EDT AGE/SEX: 53 years / Female INDICATIONS: Abdominal pain and distention. CLINICAL DATA: This is the patient's initial encounter. Patient reports that signs and symptoms have been present for 4 - 6 days and indicates a pain score of 10/10. MEDICAL/SURGICAL HISTORY: None. . Ileostomy. [place] [facility] [place]. . FINDINGS: There are distended loops of small bowel maximum diameter of 5.4 cm not present on the prior study f rom 02/06/2018. There is gas in the colon and findings may represent an ileus. CONCLUSION: Distended loops of bowel possible ileus, however clinical evaluation and follow-up is recommended. Electronically signed by: Griselda Low MD 06/25/2018 3:01 PM EDT
--- NOTE | 2018-06-25 16:09 | P.PNGS ---
Subjective Interval history: Resting in bed; no issues overnight Physical Exam Vital signs: Vital Signs 06/24/18 17:10 06/24/18 17:46 06/24/18 19:13 Temperature 98.1 F 98.0 F 97.9 F Pulse Rate 109 H 120 H 120 H Respiratory Rate 18 18 18 Blood Pressure 134/64 135/74 135/71 Pulse Oximetry 93 L 06/24/18 20:00 06/25/18 00:00 06/25/18 08:00 Temperature 98.5 F 97.1 F L 97.5 F L Pulse Rate 119 H 104 H 110 H Respiratory Rate 18 Blood Pressure 125/69 119/66 Pulse Oximetry 94 L 95 94 L 06/25/18 12:00 Temperature 98.1 F Pulse Rate 113 H Respiratory Rate 18 Blood Pressure 134/69 Pulse Oximetry 95 Intake & Output 06/24/18 06/25/18 06/25/18 18:59 06:59 18:59 Intake Total 890 / 890 0 / 0 Balance 890 / 890 0 / 0 Weight 72 kg Intake: IV 130 / 130 0 / 0 D5W/NS + KCL 20 mEq Inj 1,000 130 / 130 0 / 0 ML @ 50 mls/hr IV.CONT .Q20H [facility] Rx#:[id number] Oral 760 / 760 Other: # Voids 4 1 Date of Last Bowel Movement 06/24/18 06/24/18 # Bowel Movements 1 Narrative: Alert and awake Abd: midline incision c/d/i with evelio in place; prior ileostomy and MF incisions with evelio; abdominal binder in place - Urinary Catheter Management Indwelling Urethral Catheter Cath placed during this visit: yes Reason for continuing: Other continuation reason Insertion date: 06/17/18 Insertion time: 14:15 Assessment and Plan - Assessment (1) Status post reversal of ileostomy Code(s): Z98.890 - Other specified postprocedural states Status: Acute Plan: 53 year old female s/p ileostomy takedown -Regular diet -Pain control with Calvin -KUB ---no acute findings -Likely home tomorrow
--- NOTE | 2018-06-25 16:55 | P.PNIM ---
Subjective Interval history: Patient reports abdominal discomfort today. Denies chest pain or shortness of breath. Physical Exam Vital signs: Vital Signs 06/24/18 17:10 06/24/18 17:46 06/24/18 19:13 Temperature 98.1 F 98.0 F 97.9 F Pulse Rate 109 H 120 H 120 H Respiratory Rate 18 18 18 Blood Pressure 134/64 135/74 135/71 Pulse Oximetry 93 L 06/24/18 20:00 06/25/18 00:00 06/25/18 08:00 Temperature 98.5 F 97.1 F L 97.5 F L Pulse Rate 119 H 104 H 110 H Respiratory Rate Blood Pressure 125/69 119/66 Pulse Oximetry 94 L 95 94 L 06/25/18 12:00 06/25/18 16:00 Temperature 98.1 F 97.9 F Pulse Rate 113 H 114 H Respiratory Rate 18 Blood Pressure 134/69 153/81 H Pulse Oximetry 95 94 L Intake & Output 06/24/18 06/25/18 06/25/18 18:59 06:59 18:59 Intake Total 890 / 890 0 / 0 300 / 300 Balance 890 / 890 0 / 0 300 / 300 Weight 72 kg Intake: IV 130 / 130 0 / 0 D5W/NS + KCL 20 mEq Inj 1,000 130 / 130 0 / 0 ML @ 50 mls/hr IV.CONT .Q20H [facility] Rx#:[id number] Oral 760 / 760 300 / 300 Other: # Voids 4 1 Date of Last Bowel Movement 06/24/18 06/24/18 # Bowel Movements 1 Narrative: GENERAL: Patient lying in bed. Appears comfortable. SKIN: Warm and dry. HEAD: Normocephalic. EYES: No scleral icterus. No injection or drainage. NECK: Supple, trachea midline. No JVD. CARDIOVASCULAR: Regular rate and rhythm without murmurs, gallops, or rubs. RESPIRATORY: Breath sounds equal bilaterally. No accessory muscle use. GASTROINTESTINAL: Abdomen soft, non-tender, nondistended. Abdominal incision clean dry intact. MUSCULOSKELETAL: No cyanosis, or edema. BACK: Nontender without obvious deformity. No CVA tenderness. - Urinary Catheter Management Indwelling Urethral Catheter Cath placed during this visit: yes Reason for continuing: Other continuation reason Insertion date: 06/17/18 Insertion time: 14:15 Results - Labs CBC & Chem 7: 06/25/18 05:51 06/25/18 05:51 Laboratory Results - last 24 hr 06/24/18 06/24/18 06/24/18 16:37 16:37 17:51 WBC RBC Hgb Hct MCV MCH MCHC RDW Plt Count MPV Prelim Diff (Auto) Neut % (Auto) Lymph % (Auto) [place] % (Auto) Eos % (Auto) Baso % (Auto) Neut # (Auto) Lymph # (Auto) [place] # (Auto) Eos # (Auto) Baso # (Auto) WBC Differential Diff Scan Differential Comment Platelet Estimate Platelet Morphology Sodium 138 Potassium 3.3 L Chloride 100 Carbon Dioxide 23.9 Anion Gap 14 BUN 7 Creatinine 0.60 Estimated GFR Greater than 89 POC Glucose 120 H Random Glucose 90 Calcium 8.9 D Phosphorus Magnesium Total Bilirubin 0.5 AST 33 ALT 31 Alkaline Phosphatase 86 Ammonia Total Protein 7.6 D Albumin 2.3 L Vitamin B12 1368 H TSH 4.270 H 06/24/18 06/24/18 06/24/18 19:20 19:29 19:48 WBC 9.7 RBC 3.01 L Hgb 9.1 L Hct 28.1 L MCV 93.2 MCH 30.0 MCHC 32.2 RDW 17.0 Plt Count 449 MPV 7.2 Prelim Diff (Auto) Slide review pending Neut % (Auto) 83.3 H Lymph % (Auto) 12.3 [place] % (Auto) 3.3 Eos % (Auto) 0.2 Baso % (Auto) 0.9 Neut # (Auto) 8.1 H Lymph # (Auto) 1.2 [place] # (Auto) 0.3 Eos # (Auto) 0.0 Baso # (Auto) 0.1 WBC Differential . Diff Scan Auto diff confirmed Differential Comment . Platelet Estimate High H Platelet Morphology Normal Sodium Potassium Chloride Carbon Dioxide Anion Gap BUN Creatinine Estimated GFR POC Glucose 114 H Random Glucose Calcium Phosphorus Magnesium Total Bilirubin AST ALT Alkaline Phosphatase Ammonia 23 Total Protein Albumin Vitamin B12 TSH 06/25/18 06/25/18 06/25/18 05:51 05:51 08:03 WBC 6.5 RBC 3.12 L Hgb 9.4 L Hct 28.7 L MCV 91.8 MCH 30.0 MCHC 32.7 RDW 16.9 Plt Count 499 H MPV 7.5 Prelim Diff (Auto) Slide review pending Neut % (Auto) 73.3 H Lymph % (Auto) 19.5 [place] % (Auto) 5.1 Eos % (Auto) 0.7 Baso % (Auto) 1.4 Neut # (Auto) 4.7 Lymph # (Auto) 1.3 [place] # (Auto) 0.3 Eos # (Auto) 0.0 Baso # (Auto) 0.1 WBC Differential . Diff Scan Auto diff confirmed Differential Comment . Platelet Estimate High H Platelet Morphology Normal Sodium 138 Potassium 3.5 Chloride 100 Carbon Dioxide 24.8 Anion Gap 13 BUN 9 Creatinine 0.47 L Estimated GFR Greater than 89 POC Glucose 114 H Random Glucose 94 Calcium 8.5 Phosphorus 4.4 Magnesium 2.2 Total Bilirubin AST ALT Alkaline Phosphatase Ammonia Total Protein Albumin 2.2 L Vitamin B12 TSH 06/25/18 06/25/18 11:51 16:12 WBC RBC Hgb Hct MCV MCH MCHC RDW Plt Count MPV Prelim Diff (Auto) Neut % (Auto) Lymph % (Auto) [place] % (Auto) Eos % (Auto) Baso % (Auto) Neut # (Auto) Lymph # (Auto) [place] # (Auto) Eos # (Auto) Baso # (Auto) WBC Differential Diff Scan Differential Comment Platelet Estimate Platelet Morphology Sodium Potassium Chloride Carbon Dioxide Anion Gap BUN Creatinine Estimated GFR POC Glucose 98 96 Random Glucose Calcium Phosphorus Magnesium Total Bilirubin AST ALT Alkaline Phosphatase Ammonia Total Protein Albumin Vitamin B12 TSH - Imaging Impressions Head CT 06/24/18 00:00 CONCLUSION: 1. Negative noncontrast CT brain. . Abdomen X-Ray 06/25/18 00:00 CONCLUSION: Distended loops of bowel possible ileus, however clinical evaluation and follow- up is recommended. Assessment and Plan - Plan //S/p ex lap, LULU, ileostomy and mucous fistula takedown, ileocolic anastomosis. -management per surgery. -pain control. -incentive spirometry. -PT. = Postoperative management as per surgical service. //possible Ileus. Will discontinue metformin. Will discontinue nifedipine. Start gentle IV fluids. management otherwise as per surgical service. //Generalized fatigue. Multifactorial. B12 elevated. =TSH 4.3 unremarkable. Can follow-up with primary care for this. //Swallowing difficulties The pt has been having a hard time swallowing pills. NGT removed. -Resolved. //Lung cancer/ COPD Respiratory status stable at this time. -oxygen and nebs as needed. -smoking cessation instruction. -continue home regimen. //DM On metformin as an outpt. Glucose well controlled at this time. -Metformin restarted by surgery., insulin sliding scale. Well controlled. //HTN/ Tachycardia Exacerbated by pain. EKG with sinus tachycardia. Blood pressure now normal. -Continue nifedipine and lisinopril at current dose -Vasotec as needed. -pain control. Consider d/c CAR RECORD CLERK and start PO [place] along with Dilaudid or morphine for breakthrough. = 06/25. Will discontinue nifedipine. Increase lisinopril to twice daily. //Hypocalcemia Corrected calcium is high. //Leukocytosis Likely reactive. Afebrile. Resolved, CBC stable. //PPx: Per surgery Discharge Planning: As per surgical service.
[2018-06-26 09:04] LABS: Baso # (Auto) 0.1 th/mm3 (0.0-0.2); Baso % (Auto) 0.9 % (0.0-2.0); Eos % (Auto) 0.6 % (0.0-4.0); Lymph # (Auto) 1.3 th/mm3 (1.0-4.8); Lymph % (Auto) 17.6 % (9.0-44.0); Mean Corpuscular HGB Conc 32.1 % (32.0-36.0); Mean Corpuscular Hemoglobin 29.6 pg (27.0-34.0); Mean Corpuscular Volume 92.2 fL (80.0-100.0); Mean Platelet Volume 7.7 fL (7.0-11.0); Mono # (Auto) 0.3 th/mm3 (0.0-0.9); Mono % (Auto) 4.1 % (0.0-8.0); Neut # (Auto) 5.5 th/mm3 (1.8-7.7); Neut % (Auto) 76.8 % (16.0-70.0); Platelet Count 578 th/mm3 (150-450); Red Blood Count 3.04 mil/mm3 (4.00-5.30); White Blood Count 7.2 th/mm3 (4.0-11.0)
[2018-06-26] MEDS: Folic Acid 1 MG Tablet PO SCH (09:05)
[2018-06-26] MEDS: Enoxaparin Inj 40 MG/0.4 ML Syringe SQ SCH (09:05)
[2018-06-26] MEDS: Lisinopril 10 MG Tablet PO SCH (09:05)
[2018-06-26] MEDS: predniSONE 5 MG Tablet PO SCH (09:05)
[2018-06-26] MEDS: ALPRAZolam 0.25 MG Tablet PO SCH (09:05)
[2018-06-26] MEDS: Senna/Docusate Sodium 8.6/50 MG Tablet PO SCH (09:06)
[2018-06-26] MEDS: Insulin NovoLOG Aspart Correctional Sugar Inj SQ SCH (09:06)
[2018-06-26] MEDS: Tiotropium Bromide 18 MCG/ACT Inhaler INH SCH (09:08)
--- NOTE | 2018-06-26 09:39 | P.DS ---
Date of admission: 06/17/18 17:07 Primary care physician: No Primary Care Physician Attending physician on discharge: Yvon Florian Anticipated date of discharge: 06/26/18 Brief History from admission: 53 year old female s/p ileostomy takedown. DS: Diagnosis - Discharge Diagnosis (1) Status post reversal of ileostomy Status: Acute DS: Medications - Discharge Medications Prescriptions: hydrocodone-acetaminophen 1 tab PO Q6H PRN #18 tab PRN Reason: acute post op pain lisinopril 10 mg PO BID 30 Days #60 tab DS: Summary Hospital Course: This is a 53 year old female s/p ileostomy takedown. The patient's diet was advanced as her bowel function returned. Her pain was controlled with a MEDICAL TECHNOLOGIST CLINICAL pump and subsequently oral pain pills. She was able to ambulate. She will follow up in the office as indicated on the DC summary. - Time Spent with Patient Total time spent providing and/or coordinating discharge services: Less than 30 minutes - Quality: VTE Deep Vein Thrombosis/Pulmonary Embolism Present on Admission: No Exam Vital signs: Vital Signs 06/25/18 12:00 06/25/18 16:00 06/25/18 20:00 Temperature 98.1 F 97.9 F 98.0 F Pulse Rate 113 H 114 H 109 H Respiratory Rate 18 18 18 Blood Pressure 134/69 153/81 H 134/70 Pulse Oximetry 95 94 L 93 L 06/25/18 23:32 06/26/18 00:00 06/26/18 08:00 Temperature 98.0 F 97.8 F 97.9 F Pulse Rate 90 107 H 89 Respiratory Rate 18 20 17 Blood Pressure 138/75 119/78 143/76 H Pulse Oximetry 93 L 93 L 96 Intake & Output 06/25/18 06/26/18 06/26/18 18:59 06:59 18:59 Intake Total 300 / 300 Balance 300 / 300 Weight 71.7 kg Intake: Oral 300 / 300 Other: # Voids 2 Date of Last Bowel Movement 06/24/18 Narrative: Alert and awake Abd: LULA removed; abdomen soft; minimally tender Results Procedures completed during hospitalization: Ileostomy takedown Completed studies during hospitalization: Pending at discharge 06/17/18 08:45 Surgical [PTH] Routine Labs on day of discharge: Labs from last 24 hours 06/26/18 06/26/18 06/26/18 08:35 08:25 08:25 WBC 7.2 RBC 3.04 L Hgb 9.0 L Hct 28.0 L MCV 92.2 MCH 29.6 MCHC 32.1 RDW 17.0 Plt Count 578 H MPV 7.7 Neut % (Auto) 76.8 H Lymph % (Auto) 17.6 [place] % (Auto) 4.1 Eos % (Auto) 0.6 Baso % (Auto) 0.9 Neut # (Auto) 5.5 Lymph # (Auto) 1.3 [place] # (Auto) 0.3 Eos # (Auto) 0.0 Baso # (Auto) 0.1 WBC Differential . Differential Comment Auto diff final Sodium Pending Potassium Pending Chloride Pending Carbon Dioxide Pending Anion Gap Pending BUN Pending Creatinine Pending POC Glucose 89 Random Glucose Pending Hemoglobin A1c Calcium Pending Phosphorus Pending Magnesium Pending Albumin Pending 06/25/18 06/25/18 06/25/18 20:11 16:12 11:51 WBC RBC Hgb Hct MCV MCH MCHC RDW Plt Count MPV Neut % (Auto) Lymph % (Auto) [place] % (Auto) Eos % (Auto) Baso % (Auto) Neut # (Auto) Lymph # (Auto) [place] # (Auto) Eos # (Auto) Baso # (Auto) WBC Differential Differential Comment Sodium Potassium Chloride Carbon Dioxide Anion Gap BUN Creatinine POC Glucose 109 96 98 Random Glucose Hemoglobin A1c Calcium Phosphorus Magnesium Albumin 06/25/18 05:51 WBC RBC Hgb Hct MCV MCH MCHC RDW Plt Count MPV Neut % (Auto) Lymph % (Auto) [place] % (Auto) Eos % (Auto) Baso % (Auto) Neut # (Auto) Lymph # (Auto) [place] # (Auto) Eos # (Auto) Baso # (Auto) WBC Differential Differential Comment Sodium Potassium Chloride Carbon Dioxide Anion Gap BUN Creatinine POC Glucose Random Glucose Hemoglobin A1c Pending Calcium Phosphorus Magnesium Albumin - Impressions ITS Impressions Head CT 06/24/18 00:00 CONCLUSION: 1. Negative noncontrast CT brain. . Abdomen X-Ray 06/25/18 00:00 CONCLUSION: Distended loops of bowel possible ileus, however clinical evaluation and follow- up is recommended. Discharge Plan - Discharge Disposition Patient Disposition: 01 Discharge Home - Discharge Condition Condition: Good - Discharge Order Discharge Orders: Discharge Order (Routine); Ordered 06/26/18 Ordered By: Michela Kramer Hospitalist Mikayla for Discharge (Routine); Ordered 06/26/18 Ordered By: Leoncio Campos - Discharge Details Anticipated Discharge Date: 06/26/18 Discharge Comment: rx on chart - Physicians Team Primary Care Provider: Primary Care Ana Maria Steele Attending Provider: Yvon Florian Other Providers: Surgeons,[facility] ; Leoncio Campos MD - Rxs /Orders / Referrals /Forms Prescriptions: New hydrocodone-acetaminophen 7.5-325 mg Tablet 1 tab PO Q6H PRN (Reason: acute post op pain ) Qty: 18 RF: 0 lisinopril 10 mg Tablet 10 mg PO BID 30 Days Qty: 60 RF: 0 Continue albuterol sulfate 90 mcg/actuation Hfa Aerosol Inhaler 2 puff INHALATION Q4-6H PRN (Reason: Shortness Of Breath Or Wheezing) alprazolam 0.25 mg Tablet 0.5 mg PO BID aspirin 325 mg Tablet,Delayed Release (Dr/Ec) 325 mg PO DAILY cyclobenzaprine 10 mg Tablet 10 mg PO TID folic acid 1 mg Tablet 1 mg PO DAILY metformin 500 mg Tablet 500 mg PO BID methotrexate sodium 2.5 mg Tablet 2.5 mg PO DAILY omeprazole 40 mg Capsule,Delayed Release(Dr/Ec) 40 mg PO DAILY prednisone 5 mg Tablet 5 mg PO BID tiotropium-olodaterol 2.5-2.5 mcg/actuation Mist 2 puff INHALATION DAILY Discontinued nifedipine 30 mg Tablet Extended Release 24hr 30 mg PO DAILY Referrals: Yvon Florian MD [Physician] - See Instructions (Appt set for SundayJuly 02 at 9:10AM) Primary Care Ana Maria Steele [Primary Care Provider] - See Instructions ([address] [phone] -[facility] offers same day appointments, just call the morning of to schedule an appointment. Office opens at 8:00am. ) - Discharge Instructions Patient Printed Instructions: Hydrocodone/Acetaminophen (By mouth), Exploratory Laparotomy (DC), Lysis of Abdominal Adhesions (DC), Ileostomy Closure (DC)
[2018-06-26 09:50] LABS: Albumin 2.3 g/dL (3.4-5.0); Anion Gap 13 meq/L (5-15); Blood Urea Nitrogen 19 mg/dL (7-18); Calcium 8.5 mg/dL (8.5-10.1); Carbon Dioxide 25.2 meq/L (21.0-32.0); Chloride 100 meq/L (98-107); Glomerular Filtration Rate Greater Than 89 mL/min (>89); Glucose,Random 75 mg/dL (74-106); Magnesium 2.2 mg/dL (1.5-2.5); Phosphorus 3.6 mg/dL (2.5-4.9); Potassium 3.5 meq/L (3.5-5.1); Sodium 138 meq/L (136-145)
--- NOTE | 2018-06-26 11:32 | P.PNIM ---
Subjective Interval history: Says she is feeling well and would like to go home. Denies any chest pain, shortness breath, lightheadedness, dizziness. She says that blood pressures at home are typically in the 180s systolic. Physical Exam Vital signs: Vital Signs 06/25/18 12:00 06/25/18 16:00 06/25/18 20:00 Temperature 98.1 F 97.9 F 98.0 F Pulse Rate 113 H 114 H 109 H Respiratory Rate 18 18 18 Blood Pressure 134/69 153/81 H 134/70 Pulse Oximetry 95 94 L 93 L 06/25/18 23:32 06/26/18 00:00 06/26/18 08:00 Temperature 98.0 F 97.8 F 97.9 F Pulse Rate 90 107 H 89 Respiratory Rate 18 17 Blood Pressure 138/75 119/78 143/76 H Pulse Oximetry 93 L 93 L 96 Intake & Output 06/25/18 06/26/18 06/26/18 18:59 06:59 18:59 Intake Total 300 / 300 Balance 300 / 300 Weight 71.7 kg Intake: Oral 300 / 300 Other: # Voids 2 Date of Last Bowel Movement 06/24/18 06/24/18 Narrative: GENERAL: Patient lying in bed. Appears comfortable. Exam unchanged from yesterday. SKIN: Warm and dry. HEAD: Normocephalic. EYES: No scleral icterus. No injection or drainage. NECK: Supple, trachea midline. No JVD. CARDIOVASCULAR: Regular rate and rhythm without murmurs, gallops, or rubs. RESPIRATORY: Breath sounds equal bilaterally. No accessory muscle use. GASTROINTESTINAL: Abdomen soft, non-tender, nondistended. Abdominal incision clean dry intact. MUSCULOSKELETAL: No cyanosis, or edema. BACK: Nontender without obvious deformity. No CVA tenderness. - Urinary Catheter Management Indwelling Urethral Catheter Cath placed during this visit: yes Reason for continuing: Other continuation reason Insertion date: 06/17/18 Insertion time: 14:15 Results - Labs CBC & Chem 7: 06/26/18 08:25 06/26/18 08:25 Laboratory Results - last 24 hr 06/25/18 06/25/18 06/25/18 11:51 16:12 20:11 WBC RBC Hgb Hct MCV MCH MCHC RDW Plt Count MPV Neut % (Auto) Lymph % (Auto) [place] % (Auto) Eos % (Auto) Baso % (Auto) Neut # (Auto) Lymph # (Auto) [place] # (Auto) Eos # (Auto) Baso # (Auto) WBC Differential Differential Comment Sodium Potassium Chloride Carbon Dioxide Anion Gap BUN Creatinine Estimated GFR POC Glucose 98 96 109 Random Glucose Calcium Phosphorus Magnesium Albumin 06/26/18 06/26/18 06/26/18 08:25 08:25 08:35 WBC 7.2 RBC 3.04 L Hgb 9.0 L Hct 28.0 L MCV 92.2 MCH 29.6 MCHC 32.1 RDW 17.0 Plt Count 578 H MPV 7.7 Neut % (Auto) 76.8 H Lymph % (Auto) 17.6 [place] % (Auto) 4.1 Eos % (Auto) 0.6 Baso % (Auto) 0.9 Neut # (Auto) 5.5 Lymph # (Auto) 1.3 [place] # (Auto) 0.3 Eos # (Auto) 0.0 Baso # (Auto) 0.1 WBC Differential . Differential Comment Auto diff final Sodium 138 Potassium 3.5 Chloride 100 Carbon Dioxide 25.2 Anion Gap 13 BUN 19 H Creatinine 0.49 L Estimated GFR Greater than 89 POC Glucose 89 Random Glucose 75 Calcium 8.5 Phosphorus 3.6 Magnesium 2.2 Albumin 2.3 L - Imaging Impressions Abdomen X-Ray 06/25/18 00:00 CONCLUSION: Distended loops of bowel possible ileus, however clinical evaluation and follow- up is recommended. Assessment and Plan - Plan //S/p ex lap, LULU, ileostomy and mucous fistula takedown, ileocolic anastomosis. -management per surgery. -pain control. -incentive spirometry. -PT. = Postoperative management as per surgical service. //possible Ileus. Will discontinue metformin. Will discontinue nifedipine. Start gentle IV fluids. management otherwise as per surgical service. = Appears resolved. //Generalized fatigue. Multifactorial. B12 elevated. =TSH 4.3 unremarkable. Can follow-up with primary care for this. //Swallowing difficulties The pt has been having a hard time swallowing pills. NGT removed. -Resolved. //Lung cancer/ COPD Respiratory status stable at this time. -oxygen and nebs as needed. -smoking cessation instruction. -continue home regimen. //DM On metformin as an outpt. Glucose well controlled at this time. -Metformin restarted by surgery., insulin sliding scale. Well controlled. //HTN/ Tachycardia Exacerbated by pain. EKG with sinus tachycardia. Blood pressure now normal. -Continue nifedipine and lisinopril at current dose -Vasotec as needed. -pain control. Consider d/c ORACLE SOA DEVELOPER and start PO [place] along with Dilaudid or morphine for breakthrough. = 06/25. Will discontinue nifedipine. Increase lisinopril to twice daily. = 06/26. Discontinue nifedipine secondary to decreased bowel motility. Discharged on lisinopril 10 mg twice daily. I discussed with patient that she will check her blood pressure at home twice daily. If systolic blood pressure over 180, she will call her primary care doctor. //Hypocalcemia Corrected calcium is high. //Leukocytosis Likely reactive. Afebrile. Resolved, CBC stable. //PPx: Per surgery Discharge Planning: As per surgical service.
[2018-06-26 15:30] LABS: Hemoglobin A1c 6.1 % (4.3-6.0)
== END 2018-06-26 11:34 | disposition home or self-care (01) ==
LOC: HSDC 10:53 → EDSTATUS 13:00 → HSDI 17:07 → N07 06-18 00:01
PROVIDERS: ADMIT Surgery Trauma Surgery; ATTEND Surgery Trauma Surgery